=== PATIENT | female | born 1975 | race Two or more races ===

== ENCOUNTER → 2022-03-14 14:09 | Outpatient (BNVA) | payer OTHER, SELFPAY | PROVIDERS: PCP Internal Medicine; Visit Provider Nurse Practitioner Family | DX: Z51.81 Encounter for therapeutic drug level monitoring (principal); G43.109 Migraine with aura, not intractable, without status migrainosus; H54.62 Unqualified visual loss, left eye, normal vision right eye; Z79.899 Other long term (current) drug therapy | CPT/HCPCS: 99212 ==

== ENCOUNTER → 2022-03-23 11:11 | Outpatient (BNVA) | payer OTHER, SELFPAY | PROVIDERS: PCP Internal Medicine; Visit Provider Psychiatry & Neurology Neurology | DX: R51.9 Headache, unspecified (principal); R20.2 Paresthesia of skin ==

== ENCOUNTER → 2022-03-27 11:18 | Outpatient (BNVA) | payer OTHER, SELFPAY | PROVIDERS: PCP Internal Medicine; Visit Provider Nurse Practitioner Family | DX: H54.62 Unqualified visual loss, left eye, normal vision right eye (principal) | CPT/HCPCS: 99211 ==

== ENCOUNTER → 2022-03-29 14:32 | Outpatient (BNVA) | payer OTHER, SELFPAY | PROVIDERS: PCP Internal Medicine; Visit Provider Nurse Practitioner Family | DX: R51.9 Headache, unspecified (principal); R20.2 Paresthesia of skin ==

== ENCOUNTER 2022-03-30 09:06 | Day surgery (SDC) | payer OTHER, SELFPAY ==
--- NOTE | ~2022-03-30 | FL_ITS ---
EXAMINATION: XR LUMBAR PUNCTURE CLINICAL INFORMATION: Vision loss, left eye with normal vision. COMPARISON: None TECHNIQUE: Following explaining fluoroscopy-guided lumbar puncture procedure, benefits and risk, a written consent was obtained. Patient was placed prone on fluoroscopy table and low back area was cleaned and draped in usual sterile manner. 1% lidocaine was inserted at puncture site. A 22-gauge spinal needle was then advanced from the skin intrathecally at the L4-L5 disc level. After observing CSF return following removal of the stylet, patient was quickly placed in left lateral decubitus view and opening CSF pressure was obtained. CSF was then collected in 4 test tubes. Postprocedure, stylet was reintroduced and needle withdrawn. Complete hemostasis was achieved at puncture site. Sterile Band-Aid applied postprocedure. FINDINGS: Fluoroscopy-guided L4-L5 lumbar puncture performed without immediate complications. Opening CSF pressure measured 21 cm of water. Approximately 10.7 mL of clear CSF fluid was obtained in 4 test tubes. Initially there was a hemorrhagic fluid in one of the test tubes with the tube appearing pink-colored. FLUOROSCOPY TIME: 1.9 minutes. DOSE AREA PRODUCT: 18.885 uGy-m2 (microgray-meter squared) FL/FL guided lumbar puncture LP IMPRESSION: Successful fluoroscopy-guided lumbar puncture performed at the L4-L5 disc level.
[2022-03-30 09:24] VITALS: BMI 37.5
[2022-03-30 09:40] LABS: MANUAL DIFF FLAG NO
[2022-03-30 09:51] LABS: UPreg QC Valid YES; Urine Pregnancy NEGATIVE (NEGATIVE)
[2022-03-30 09:53] LABS: Basophils Percent Auto 0.5 % (0-2); Eosinophils Absolute Auto 0.1 X10*3/uL (0.0-0.4); Eosinophils Percent Auto 1.4 % (0-4); Hematocrit 37.4 % (37.0-47.0); Hemoglobin 11.9 g/dl (12.0-16.0); Imm Gran Abs Auto 0.06 X10*3/uL (0.00-0.03); Imm Gran Pct Auto 0.8 % (0.0-0.4); Lymphocytes Percent Auto 26.8 % (20-40); Mean Corpuscular HGB Conc 31.8 g/dl (31.0-35.0); Mean Corpuscular Hemoglobin 28.6 pg (27.0-33.0); Mean Corpuscular Volume 89.9 fL (80.0-98.0); Mean Platelet Volume 10.1 fL (9.4-12.3); Monocytes Absolute Auto 0.5 X10*3/uL (0.1-1.2); Monocytes Percent Auto 7.2 % (2-11); Neutrophils Absolute Auto 4.7 x10*3/uL (2.0-8.3); Neutrophils Percent Auto 63.3 % (45-73); Platelet Count 339 X10*3/uL (160-400); Red Blood Count 4.16 X10*6/uL (4.20-5.50); Red Cell Distribution Width 12.5 % (11.0-16.0); White Blood Count 7.4 X10*3/uL (4.8-10.8)
[2022-03-30 10:01] LABS: Prothrombin Time 11.9 SEC (9.9-13.0)
[2022-03-30 10:04] LABS: Partial Thromboplastin Time 31.7 SEC (24.1-38.0)
[2022-03-30 12:38] VITALS: BP 122/79; PULSE 76; RESP 16; TEMP 36.2; O2SAT 100
[2022-03-30 13:05] VITALS: BP 122/77; PULSE 75; RESP 16; O2SAT 100
[2022-03-30 13:35] VITALS: BP 112/82; PULSE 78; RESP 16; O2SAT 100
[2022-03-30 13:37] LABS: Glucose CSF 57 mg/dL; Total Protein CSF 69.9 mg/dL (15-45)
[2022-03-30 13:41] LABS: CSF Appearance Bloody; CSF Tube # 2
[2022-03-30 14:05] VITALS: BP 126/69; PULSE 75; RESP 16; O2SAT 100
[2022-03-30 14:08] LABS: Appearance CSF HAZY; CSF Monos 4 %; CSF Tube # 4; Color CSF COLORLESS; Lymphocytes CSF 72 %; Neutrophils CSF 24 %; Red Blood Cell CSF 202 MM*3; White Blood Cell CSF 6 MM*3
[2022-03-30 14:15] LABS: Appearance CSF HAZY; CSF Monos 4 %; CSF Tube # 1; Color CSF COLORLESS; Lymphocytes CSF 84 %; Neutrophils CSF 12 %; Red Blood Cell CSF 555 MM*3; White Blood Cell CSF 8 MM*3
[2022-03-30 15:00] VITALS: BP 109/67; PULSE 83; RESP 16; TEMP 36.2; O2SAT 100
[2022-04-07 01:02] LABS: Albumin 4.1 g/dL (3.5-5.2); Albumin, CSF 32.9 mg/dL (8.0-42.0); IgG 1210 mg/dL (600-1640); IgG, CSF 4.8 mg/dL (0.8-7.7)
== END 2022-03-30 15:06 | disposition home or self-care (01) ==
PROVIDERS: Nurse Practitioner Family; Radiology Diagnostic Radiology; PCP Internal Medicine; Visit Provider Radiology Diagnostic Radiology
PROC: 009U3ZZ Drainage of Spinal Canal, Percutaneous Approach (ICD-10-PCS; CPT 62270; principal; 2022-03-30 11:00)
DX: H54.62 Unqualified visual loss, left eye, normal vision right eye (principal); J32.3 Chronic sphenoidal sinusitis; G43.109 Migraine with aura, not intractable, without status migrainosus; F41.8 Other specified anxiety disorders; M54.2 Cervicalgia; R56.9 Unspecified convulsions; Z79.899 Other long term (current) drug therapy; Z88.0 Allergy status to penicillin
CPT/HCPCS: 36415; 62328; 81025; 82042; 82945; 84157; 85025; 85610; 85730; 87015; 87070; 87205; 89051

== ENCOUNTER 2022-04-16 13:16 | Outpatient (REF) | payer OTHER, SELFPAY | END 2022-04-16 13:17 | disposition home or self-care (01) | LOC: HO.MDS 13:16 | PROVIDERS: Visit Provider Nurse Practitioner Family | DX: G43.109 Migraine with aura, not intractable, without status migrainosus (principal); H54.62 Unqualified visual loss, left eye, normal vision right eye | CPT/HCPCS: 96365; J2930 ==

== ENCOUNTER 2022-04-17 13:19 | Outpatient (REF) | payer OTHER, SELFPAY | END 2022-04-17 13:20 | disposition home or self-care (01) | LOC: HO.MDS 13:19 | PROVIDERS: Visit Provider Nurse Practitioner Family | DX: M54.2 Cervicalgia (principal) | CPT/HCPCS: 96365; J2930 ==

== ENCOUNTER 2022-04-18 12:46 | Outpatient (REF) | payer OTHER, SELFPAY | END 2022-04-18 12:47 | disposition home or self-care (01) | LOC: HO.MDS 12:46 | PROVIDERS: Visit Provider Nurse Practitioner Family | DX: M54.2 Cervicalgia (principal) | CPT/HCPCS: 96365; J2930 ==

== ENCOUNTER 2022-04-19 12:42 | Outpatient (REF) | payer OTHER, SELFPAY | END 2022-04-19 12:43 | disposition home or self-care (01) | LOC: HO.MDS 12:42 | PROVIDERS: Visit Provider Nurse Practitioner Family | DX: M54.2 Cervicalgia (principal) | CPT/HCPCS: 96365; J2930 ==

== ENCOUNTER 2022-04-20 12:25 | Outpatient (REF) | payer OTHER, SELFPAY | END 2022-04-20 12:26 | disposition home or self-care (01) | LOC: HO.MDS 12:25 | PROVIDERS: Visit Provider Nurse Practitioner Family | DX: M54.2 Cervicalgia (principal) | CPT/HCPCS: 96365; J2930 ==

== ENCOUNTER → 2022-05-11 09:52 | Outpatient (BNVA) | payer OTHER, SELFPAY | PROVIDERS: PCP Internal Medicine; Visit Provider Nurse Practitioner Family | DX: G43.109 Migraine with aura, not intractable, without status migrainosus (principal); H54.62 Unqualified visual loss, left eye, normal vision right eye; J32.3 Chronic sphenoidal sinusitis; Z79.899 Other long term (current) drug therapy | CPT/HCPCS: 99212 ==

== ENCOUNTER 2022-05-23 12:48 | Outpatient (REF) | payer OTHER, SELFPAY ==
--- NOTE | ~2022-05-23 | MR_ITS ---
MRI ORBIT WITHOUT AND WITH CONTRAST CLINICAL INFORMATION: Left eye blurry vision. COMPARISON: None available. TECHNIQUE: MRI of the orbits was obtained using routine sequences without and with contrast. Intravenous contrast: Magnevist 10 mL. FINDINGS: The intraorbital soft tissues including the globes, extraocular muscles, lacrimal glands, and optic nerves are normal. Preserved fat within the orbital fissures and pterygopalatine fossa bilaterally. Bone marrow signal is homogenous and normal. No pathologic signal nor enhancement within the optic nerves. Pituitary gland is homogenous and unremarkable. Cavernous sinuses are symmetric and normal. There is moderate mucosal thickening within the right maxillary sinus and mild mucosal thickening within the left maxillary sinus. Mastoid air cells are clear. Rightward deviation of the nasal septum. No parenchymal signal abnormality. No pathologic enhancement intracranially. No acute infarcts. MR/MR orbits face neck wo/w con IMPRESSION: - Unremarkable MRI of the orbits. - There is moderate mucosal thickening within the right maxillary sinus and mild mucosal thickening within the left maxillary sinus.
== END 2022-05-23 12:49 | disposition home or self-care (01) ==
LOC: HO.MRI 12:48
PROVIDERS: Visit Provider Nurse Practitioner Family
DX: G43.109 Migraine with aura, not intractable, without status migrainosus (principal); H54.62 Unqualified visual loss, left eye, normal vision right eye
CPT/HCPCS: 70543; A9585

== ENCOUNTER → 2022-07-12 09:16 | Outpatient (BNVA) | payer OTHER, SELFPAY | PROVIDERS: PCP Internal Medicine; Visit Provider Nurse Practitioner Family | DX: G93.2 Benign intracranial hypertension (principal); J32.3 Chronic sphenoidal sinusitis; H54.62 Unqualified visual loss, left eye, normal vision right eye; G43.109 Migraine with aura, not intractable, without status migrainosus | CPT/HCPCS: 99212 ==

== ENCOUNTER → 2022-08-06 15:40 | Outpatient (BNVA) | payer OTHER, SELFPAY | PROVIDERS: PCP Internal Medicine; Visit Provider Nurse Practitioner Family | DX: G93.2 Benign intracranial hypertension (principal); J32.3 Chronic sphenoidal sinusitis; H54.62 Unqualified visual loss, left eye, normal vision right eye; G43.109 Migraine with aura, not intractable, without status migrainosus | CPT/HCPCS: 99212 ==

== ENCOUNTER → 2022-10-05 10:35 | Outpatient (BNVA) | payer OTHER, SELFPAY | PROVIDERS: PCP Internal Medicine; Visit Provider Nurse Practitioner Family | DX: G93.2 Benign intracranial hypertension (principal); H54.62 Unqualified visual loss, left eye, normal vision right eye; J32.3 Chronic sphenoidal sinusitis; G43.109 Migraine with aura, not intractable, without status migrainosus | CPT/HCPCS: 99212 ==

== ENCOUNTER → 2023-01-10 07:40 | Outpatient (BNVA) | payer OTHER, SELFPAY | PROVIDERS: PCP Internal Medicine; Visit Provider Nurse Practitioner Family | DX: G43.109 Migraine with aura, not intractable, without status migrainosus (principal); H54.62 Unqualified visual loss, left eye, normal vision right eye; G93.2 Benign intracranial hypertension; R55 Syncope and collapse | CPT/HCPCS: 99212 ==

== ENCOUNTER 2023-01-18 07:46 | Outpatient (REF) | payer OTHER, SELFPAY ==
--- NOTE | 2023-01-18 07:49 | EEG_ITS ---
This is a 16 channel EEG with an EKG lead. The patient is reported awake during the tracing. Background EEG rhythm is low amplitude fast with no obvious asymmetry or paroxysmal tendency. Photic stimulation does not produce any significant abnormality. Hyperventilation is not performed. Cardiac lead does not reveal any significant abnormality. No sharp wave spikes or paroxysmal tendency noted. IMPRESSION: Unremarkable EEG. MD CHRIS Millard/VADIM / [id number]
== END 2023-01-18 07:47 | disposition home or self-care (01) ==
LOC: HO.NEURO 07:46
PROVIDERS: Visit Provider Nurse Practitioner Family
DX: R55 Syncope and collapse (principal)
CPT/HCPCS: 95816

== ENCOUNTER → 2023-02-20 09:07 | Outpatient (BNVA) | payer OTHER, SELFPAY | PROVIDERS: PCP Internal Medicine; Visit Provider Psychiatry & Neurology Neurology | DX: G43.109 Migraine with aura, not intractable, without status migrainosus (principal); H54.62 Unqualified visual loss, left eye, normal vision right eye; G93.2 Benign intracranial hypertension; R55 Syncope and collapse; G47.9 Sleep disorder, unspecified | CPT/HCPCS: 99212 ==

== ENCOUNTER 2023-03-26 09:36 | Outpatient (REF) | payer OTHER, SELFPAY ==
--- NOTE | ~2023-03-26 | MR_ITS ---
EXAMINATION: MR BRAIN WITH AND WITHOUT CONTRAST CLINICAL INFORMATION: Left eye vision loss COMPARISON: MRI orbits 05/23/2022 TECHNIQUE: MRI of the brain was obtained using routine sequences before and following administration of intravenous contrast. A total of 10 mL of Gadavist was administered intravenously. FINDINGS: No acute infarct. The GRE sequence is without susceptibility artifact to suggest acute or chronic blood products. No extra-axial fluid collection. The ventricles and sulci are normal in size and configuration without significant volume loss or hydrocephalus. No abnormal intraparenchymal or leptomeningeal enhancement. No significant mass effect or herniation pattern. The intracranial dural venous sinus and arterial flow voids are preserved. Normal appearance of the midline structures. The orbits are grossly unremarkable. Worsening pansinonasal mucosal disease with increased moderate left greater than right sphenoid sinus mucosal disease and moderate right greater than left maxillary sinus mucosal disease with new air-fluid levels in the maxillary sinuses, subtotal opacification with air-fluid level in the right frontal sinus, and patchy opacification of the right ethmoid air cells, which can be correlated clinically for signs of superimposed acute sinusitis. Normal marrow signal. Multilevel prominent symmetric upper cervical chain lymph nodes, presumably reactive. MR/MR head/brain wo/w con IMPRESSION: 1. No acute intracranial abnormality. No abnormal intracranial enhancement. 2. Worsening pansinonasal mucosal disease as described above with new air-fluid levels in the right frontal and bilateral maxillary sinuses and partially opacified anterior right ethmoid air cells, which can be correlated clinically for superimposed acute sinusitis.
== END 2023-03-26 09:37 | disposition home or self-care (01) ==
LOC: HO.MRI 09:36
PROVIDERS: PCP Internal Medicine; Visit Provider Nurse Practitioner Family
DX: H54.62 Unqualified visual loss, left eye, normal vision right eye (principal); J32.3 Chronic sphenoidal sinusitis; G93.2 Benign intracranial hypertension
CPT/HCPCS: 70553; A9585

== ENCOUNTER → 2023-05-06 09:38 | Outpatient (BNVA) | payer OTHER, SELFPAY | PROVIDERS: PCP Internal Medicine; Visit Provider Psychiatry & Neurology Neurology | DX: G43.109 Migraine with aura, not intractable, without status migrainosus (principal); H54.62 Unqualified visual loss, left eye, normal vision right eye; G93.2 Benign intracranial hypertension; R55 Syncope and collapse; G47.9 Sleep disorder, unspecified | CPT/HCPCS: 99212 ==

== ENCOUNTER → 2023-05-09 10:43 | Outpatient (REF) | payer OTHER, SELFPAY | LOC: HO.SL 10:43 | PROVIDERS: Visit Provider Psychiatry & Neurology Neurology | DX: G47.9 Sleep disorder, unspecified (principal); R06.83 Snoring | CPT/HCPCS: 95806 ==

== ENCOUNTER 2023-06-03 08:37 | Day surgery (SDC) | payer OTHER, SELFPAY ==
[2023-06-03] VITALS (7 sets, daily range): BP systolic 109–123; BP diastolic 50–73; PULSE 58–83; RESP 17–18; TEMP 36.5–37.6; O2SAT 99–100; BMI 32.1
--- NOTE | ~2023-06-03 | FL_ITS ---
EXAMINATION: XR LUMBAR PUNCTURE CLINICAL INFORMATION: Benign intracranial hypertension. COMPARISON: None available. TECHNIQUE: Following explaining fluoroscopy-guided lumbar puncture procedure, benefits and risk, a written consent was obtained. Patient was placed prone on fluoroscopy table and low back area was cleaned and draped in usual sterile manner. 1% lidocaine was injected at puncture site. Under fluoroscopy guidance a 22-gauge spinal needle was advanced intrathecally with a left para midline approach at the L4-L5 disc level. After removing stylet and observing fluid return, patient was currently patient left lateral decubitus view and opening CSF pressure was obtained. Clear CSF fluid was then collected in 4 test tubes. Postprocedure stylet was and reinserted into the needle and entire needle was removed. Complete hemostasis achieved at puncture site. Sterile Band-Aid applied postprocedure. Patient tolerated procedure extremely well. FINDINGS: On a single image obtained of the lumbar spine visualized vertebral heights, alignment and disc heights are normal. No visible acute fracture or dislocation seen. The SI joints are symmetrical and normal. No lytic or sclerotic process seen. Opening CSF pressure measures 11 cm/water. Approximately 11 mL of clear CSF fluid was collected in 4 test tubes and sent to lab for further evaluation. FLUOROSCOPY TIME: 0.9 minutes DOSE AREA PRODUCT: 15.443 uGy-m2 (microgray-meter squared) FL/FL guided lumbar puncture LP IMPRESSION: Successful fluoroscopy-guided lumbar puncture performed without immediate complications.
[2023-06-03 12:56] LABS: CSF Appearance Clear, Colorless; CSF Tube # 1
[2023-06-03 13:31] LABS: Glucose CSF 53 mg/dL; Total Protein CSF 80.3 mg/dL (15-45)
== END 2023-06-03 15:11 | disposition home or self-care (01) ==
PROVIDERS: Nurse Practitioner Family; Psychiatry & Neurology Neurology; PCP Internal Medicine; Visit Provider Radiology Diagnostic Radiology
PROC: 009U3ZZ Drainage of Spinal Canal, Percutaneous Approach (ICD-10-PCS; CPT 62270; principal; 2023-06-03 11:00)
DX: G93.2 Benign intracranial hypertension (principal); J32.3 Chronic sphenoidal sinusitis; M50.90 Cervical disc disorder, unspecified, unspecified cervical region; H54.62 Unqualified visual loss, left eye, normal vision right eye; G43.109 Migraine with aura, not intractable, without status migrainosus; R56.9 Unspecified convulsions; R55 Syncope and collapse; F41.8 Other specified anxiety disorders; Z79.82 Long term (current) use of aspirin; Z79.51 Long term (current) use of inhaled steroids; Z79.899 Other long term (current) drug therapy; Z88.0 Allergy status to penicillin
CPT/HCPCS: 36415; 62328; 80051; 80053; 81025; 82945; 84157; 84520; 85025; 85610; 85730; 87015; 87070; 87205; 89051

== ENCOUNTER → 2023-06-03 10:44 | Outpatient (BNV) | payer OTHER, SELFPAY | PROVIDERS: PCP Internal Medicine; Visit Provider Radiology Diagnostic Radiology | DX: G93.2 Benign intracranial hypertension (principal) | CPT/HCPCS: 62328 ==

== ENCOUNTER → 2023-06-28 19:30 | Outpatient (REF) | payer OTHER, SELFPAY | LOC: HO.SL 19:30 | PROVIDERS: PCP Internal Medicine; Visit Provider Nurse Practitioner Family | DX: G47.9 Sleep disorder, unspecified (principal); E66.9 Obesity, unspecified; G43.109 Migraine with aura, not intractable, without status migrainosus | CPT/HCPCS: 95810 ==

== ENCOUNTER → 2023-06-29 05:44 | Outpatient (BNV) | payer OTHER, SELFPAY | PROVIDERS: PCP Internal Medicine; Visit Provider Psychiatry & Neurology Neurology | DX: R06.83 Snoring (principal) | CPT/HCPCS: 95810 ==

== ENCOUNTER 2023-08-07 08:56 | Outpatient (AMB) | payer OTHER, SELFPAY ==
--- NOTE | 2023-08-07 09:09 | A.OFFVIS_ITS ---
Intake Vital Signs 08/07/23 09:23 Height 5 ft 7 in Weight 201 lb 4 oz BMI 31.5 BP 110/76 Blood Pressure Location Rt brachial Position Sitting Pulse 74 Pulse Source Pulse Oximeter Pulse Oximetry (%) 98 Oxygen Delivery Method Room Air Intake Visit Reasons: follow up Intake Note: Patient presents for follow up. patient states I'm just getting a lot of headaches for about a month now. Allergies pineapple Allergy (Intermediate, Verified 08/07/23 09:23) Swelling Penicillins Allergy (Mild, Verified 08/07/23 09:23) Swelling Medication List - Last Reconciled 08/07/23 by Edna Sharp, ZABRINA acetaminophen 500 mg PO PRN acetazolamide 500 mg (2 x 250 mg) PO TID 30 days aspirin tabs PO azelastine intranasal gpgshbdsjl-omnhasxvlsvxw-hakm 50-325-40 mg 2 tabs PO Q4-6H PRN 7 days cetirizine 10 mg PO DAILY diphenhydramine HCl (Benadryl) 25 - 50 mg (1 - 2 x 25 mg) PO Q8H PRN 5 days fluticasone propionate 110 mcg/actuation (Flovent HFA) grams inhalation fremanezumab-vfrm (Ajovy) 675 mg (4.5 mL) subcut [id number] 90 days ondansetron 4 mg PO PRN pantoprazole tabs PO prazosin 2 mg PO BEDTIME sertraline 50 mg PO PRN sumatriptan succinate 1/2-1 tab po at onset of migraine, may repeat in 2 hours, max of 2 tabs per day or 4 tabs per week 2 doses topiramate 100 mg (2 x 50 mg) PO BID 30 days HPI HPI Comments History of Present Illness Details 47-yr-old female presents for f/u visit. Pt denies any significant interval medical changes. Pt reports she saw ENT- but not sure exactly what came of it, she is supposed to do allergy testing in Sep. She does feel that she always struggles w/ allergy symptoms. The left sided headache has been worse in the last month, but even more so in the last 2 days. The headache is pounding pressure a/w photophobia, phonophobia, nausea, sometimes left supraorbital and maxillary tingling (can occur other times as well, even with light mechanical stimuli). The headaches are worse in the morning, and around 5-6pm, as well as when she is more active. She ran out of Acetazolamide about 2 days ago. She is compliant w/ Ajovy and Topiramate. She stopped Amitriptyline and did not notice any difference. Vision is the same. Lp- showed OP 11 cmH2O (note- was performed in prone position). She has [facility] consult scheduled in Aug. MR/MR head/brain wo/w con IMPRESSION: 1. No acute intracranial abnormality. N o abnormal intracranial enhancement. 2. Worsening pansinonasal mucosal disea se as described above with new air-fluid levels in the right frontal and bilateral maxillary sinuses and partially opacified anterior right ethmoid air cells, which can be correlated clinically for superimposed acute sinusitis. 06/03/12, LP CSF tube 4 CSF volume 2.0 CSF appearance clear CSF color colorless CSF WBC 2 CSF RBC 8 CSF leukocytes 100 CSF glucose 53 CSF total protein 80.3 H Gram stain and Culture- negative, no growth. 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 Review of Systems Const All systems reviewed & are unremarkable except as noted in HPI and below Physical Exam Vital Signs: Last Vital Signs Pulse 74 08/07/23 09:23 BP 110/76 08/07/23 09:23 Pulse Ox 98 08/07/23 09:23 Oxygen Delivery Method Room Air 08/07/23 09:23 BMI result Body Mass Index 31.5 Const General: cooperative and no acute distress Orientation/consciousness: patient oriented x3 HEENT Head: Yes normocephalic Resp Effort & Inspection: normal respiratory effort and able to speak in complete sentences Neuro Other: Left medial nasal vision blurriness w/ intact red color perception Left supraorbital and maxillary tenderness to palpation EOM intact w/o discomfort General: patient oriented x3, gait normal and CN's II-XI intact bilaterally Cognition (Neuro): normal cognition Motor exam (neuro): 5/5 motor strength present throughout Pupils: Normal pupillary reactivity/response: bilateral Psych Appearance: grossly normal Mental Status: mental status grossly normal Speech and movement: Normal speech and movement present Affect: normal affect Attitude: cooperative Thought process: Normal thought process present Thought content: Normal thought content present Insight: Good insight present (Psych) Judgement: Good judgement present (Psych) Assessment & Plan Assessment & Plan (1) Migraine with aura: Code(s): G43.109 - Migraine with aura, not intractable, without status migrainosus (2) Sleep disorder: Comment: snoring, gasping, fragmented sleep, excessive daytime tiredness, significant weight gain. h/o REM sleep behaviors. HST (2017)- nocturnal hypoxemia. Code(s): G47.9 - Sleep disorder, unspecified (3) IIH (idiopathic intracranial hypertension): Code(s): G93.2 - Benign intracranial hypertension (4) Vision loss of left eye: Code(s): H54.62 - Unqualified visual loss, left eye, normal vision right eye Plan For left eye visual loss and IIH: Reviewed LP- OP 11- pt was in prone position. CSF- studies, NL, w/ exception of still elevated CSF protein 80.3H. Resume acetazolamide 500mg tid. [facility] consult as scheduled. F/U w/ ENT as scheduled For migraine- Trial cyproheptadine 4 mg qhs- may help allergy s/s and headaches- will need to hold this prior to allergy testing. Continue Ajovy 225mg sc q month. Continue Topiramate 100mg bid. Sumatriptan- take at 1st sign of migraine. Previous tx: Amitriptyline 50mg- no benefit. Medications: New cyproheptadine 4 mg PO BEDTIME 30 days 30 tabs 3RF Refilled acetazolamide 500 mg (2 x 250 mg) PO TID 30 days 180 tabs 3RF G93.2 - Benign intracranial hypertension sumatriptan succinate 1/2-1 tab po at onset of migraine, may repeat in 2 hours, max of 2 tabs per day or 4 tabs per week 12 tabs 6RF migraine headache Coding Level of Care Code Est Pt Level 4 (36752) Diagnoses Migraine with aura G43.109 Sleep disorder G47.9 IIH (idiopathic intracranial hypertension) G93.2 Vision loss of left eye H54.62
[2023-08-07 09:23] VITALS: BP 110/76; PULSE 74; O2SAT 98; BMI 31.5
== END 2023-08-07 10:34 | disposition home or self-care (01) ==
PROVIDERS: PCP Internal Medicine; Visit Provider Nurse Practitioner Family
DX: G43.109 Migraine with aura, not intractable, without status migrainosus (principal); G47.9 Sleep disorder, unspecified; G93.2 Benign intracranial hypertension; H54.62 Unqualified visual loss, left eye, normal vision right eye
CPT/HCPCS: 99214

== ENCOUNTER → 2023-08-07 08:56 | Outpatient (BNVA) | payer OTHER, SELFPAY | PROVIDERS: PCP Internal Medicine; Visit Provider Nurse Practitioner Family | DX: G43.109 Migraine with aura, not intractable, without status migrainosus (principal); G93.2 Benign intracranial hypertension; H54.62 Unqualified visual loss, left eye, normal vision right eye; G47.9 Sleep disorder, unspecified | CPT/HCPCS: 99212 ==

== ENCOUNTER 2023-10-09 15:24 | Outpatient (AMB) | payer OTHER, SELFPAY ==
--- NOTE | 2023-10-09 15:30 | MHC.OFFVIS ---
Intake Vital Signs 10/09/23 15:32 Height 5 ft 7 in Weight 201 lb BMI 31.5 BP 138/92 H Blood Pressure Location Rt brachial Position Sitting Respiration 16 Pulse 76 Pulse Source Pulse Oximeter Pulse Oximetry (%) 97 Oxygen Delivery Method Room Air Intake Visit Reasons: 3m follow-eye problems - Confirmed Intake Note: Pt presents to the office for 3 month follow up for eye problems. She reports her symptoms are unchanged since her last visit. Curing Oven Attendant Required: No Allergies pineapple Allergy (Intermediate, Verified 10/09/23 15:31) Swelling Penicillins Allergy (Mild, Verified 10/09/23 15:31) Swelling Medication List - Last Reconciled 10/09/23 by Angelia Lawler MD acetaminophen 500 mg PO PRN acetazolamide 500 mg (2 x 250 mg) PO TID 30 days aspirin tabs PO azelastine intranasal gaiiovywdr-dxtymkkmbhlaf-bvjq 50-325-40 mg 2 tabs PO Q4-6H PRN 7 days cetirizine 10 mg PO DAILY cyproheptadine 4 mg PO BEDTIME 30 days diphenhydramine HCl (Benadryl) 25 - 50 mg (1 - 2 x 25 mg) PO Q8H PRN 5 days fluticasone propionate 110 mcg/actuation (Flovent HFA) grams inhalation fremanezumab-vfrm (Ajovy) 675 mg (4.5 mL) subcut [id number] 90 days ondansetron 4 mg PO PRN pantoprazole tabs PO prazosin 2 mg PO BEDTIME sertraline 50 mg PO PRN sumatriptan succinate 1/2-1 tab po at onset of migraine, may repeat in 2 hours, max of 2 tabs per day or 4 tabs per week 2 doses topiramate 100 mg (2 x 50 mg) PO DAILY 30 days HPI HPI Comments History of Present Illness Details 47-yr-old female presents for f/u visit. 2 weeks ago she started with allergies and developed sinus infection and has headaches everyday. Her PCP suggested OCT meds and has follow up tomorrow for possible starting antibiotics. Prior to this she was having 2-3 headaches a week she is on diamox 500mg bid cyproheptadine 4 mg qhs- Ajovy 225mg sc q month. Topiramate 100mg qam Sumatriptan- take at 1st sign of migraine. Previous tx: Amitriptyline 50mg- no benefit. Her MRI brain was reviewed again and shows increase in sinus disease. No episodes of passing out Her vision is stable, however she continues to have left medial nasal vision blurriness. Pt states this can fluctuate from blurriness, like is it today, to loss of vision She takes fioricet 1-2 tabs a month Tylenol 1-2 a month Sumatriptan-12 tabs a month PFSH Medical History Sinusitis Anxiety and depression Seizure Cervicalgia Surgical History History of toe surgery History of surgery on wrist Family History Mother Heart disease HTN (hypertension) Father HTN (hypertension) Heart disease Diabetes Social History Household Members: Spouse and Children Alcohol intake: current Alcohol intake frequency: does not drink Patient Tobacco Use Status: Never used Tobacco Current occupational status: employed 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 Physical Exam Vital Signs: Last Vital Signs Pulse 76 10/09/23 15:32 Resp 16 10/09/23 15:32 BP 138/92 H 10/09/23 15:32 Pulse Ox 97 10/09/23 15:32 Oxygen Delivery Method Room Air 10/09/23 15:32 BMI result Body Mass Index 31.5 Const General: cooperative and no acute distress Orientation/consciousness: patient oriented x3 HEENT Head: Yes normocephalic Resp Effort & Inspection: normal respiratory effort and able to speak in complete sentences Neuro Other: Left medial nasal vision blurriness w/ intact red color perception Left supraorbital and maxillary tenderness to palpation EOM intact w/o discomfort General: patient oriented x3, gait normal and CN's II-XI intact bilaterally Cognition (Neuro): normal cognition Motor exam (neuro): 5/5 motor strength present throughout Pupils: Normal pupillary reactivity/response: bilateral Psych Appearance: grossly normal Mental Status: mental status grossly normal Speech and movement: Normal speech and movement present Affect: normal affect Attitude: cooperative Thought process: Normal thought process present Thought content: Normal thought content present Insight: Good insight present (Psych) Judgement: Good judgement present (Psych) Assessment & Plan Assessment & Plan (1) Migraine with aura: Code(s): G43.109 - Migraine with aura, not intractable, without status migrainosus (2) Sleep disorder: Comment: snoring, gasping, fragmented sleep, excessive daytime tiredness, significant weight gain. h/o REM sleep behaviors. HST (2017)- nocturnal hypoxemia. Code(s): G47.9 - Sleep disorder, unspecified (3) IIH (idiopathic intracranial hypertension): Code(s): G93.2 - Benign intracranial hypertension (4) Vision loss of left eye: Code(s): H54.62 - Unqualified visual loss, left eye, normal vision right eye Plan Reviewed LP- OP 11- pt was in prone position. CSF- studies, NL, w/ exception of still elevated CSF protein 80.3H acetazolamide 500mg tid. For migraine- continue cyproheptadine 4 mg qhs- may help allergy s/s and headaches- will need to hold this prior to allergy testing. Continue Ajovy 225mg sc q month. Continue Topiramate 100mg qhs. Sumatriptan- take at 1st sign of migraine. Previous tx: Amitriptyline 50mg- no benefit. Medications: Changed From topiramate 100 mg (2 x 50 mg) PO BID 120 tabs 6RF 30 days To topiramate 100 mg (2 x 50 mg) PO DAILY 60 tabs 6RF 30 days Coding Level of Care Code Est Pt Level 4 (46936) Diagnoses Migraine with aura G43.109 Sleep disorder G47.9 IIH (idiopathic intracranial hypertension) G93.2 Vision loss of left eye H54.62
[2023-10-09 15:32] VITALS: BP 138/92; PULSE 76; RESP 16; O2SAT 97; BMI 31.5
== END 2023-10-09 16:00 | disposition home or self-care (01) ==
PROVIDERS: PCP Internal Medicine; Visit Provider Psychiatry & Neurology Neurology
DX: G43.109 Migraine with aura, not intractable, without status migrainosus (principal); G47.9 Sleep disorder, unspecified; G93.2 Benign intracranial hypertension; H54.62 Unqualified visual loss, left eye, normal vision right eye
CPT/HCPCS: 99214

== ENCOUNTER → 2023-10-09 15:24 | Outpatient (BNVA) | payer OTHER, SELFPAY | PROVIDERS: PCP Internal Medicine; Visit Provider Psychiatry & Neurology Neurology | DX: H54.62 Unqualified visual loss, left eye, normal vision right eye (principal); G43.109 Migraine with aura, not intractable, without status migrainosus; G93.2 Benign intracranial hypertension; G47.9 Sleep disorder, unspecified | CPT/HCPCS: 99212 ==

== ENCOUNTER 2023-11-20 08:46 | Outpatient (AMB) | payer OTHER, SELFPAY ==
[2023-11-20 08:58] VITALS: BP 128/80; PULSE 64; O2SAT 100; BMI 31.2
--- NOTE | 2023-11-20 08:58 | A.OFFVIS_ITS ---
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 Accompanied by: Self / Same As Patient Allergies pineapple Allergy (Intermediate, Verified 11/20/23 09:01) Swelling Penicillins Allergy (Mild, Verified 11/20/23 09:01) Swelling Medication List - Last Reconciled 11/20/23 by ZABRINA Dowd acetaminophen 500 mg PO PRN acetazolamide 500 mg (2 x 250 mg) PO TID 30 days aspirin tabs PO azelastine intranasal cjcdxgxlsq-jijtpqzkopiml-thtd 50-325-40 mg 2 tabs PO Q4-6H PRN 7 days cetirizine 10 mg PO DAILY cyproheptadine 4 mg PO BEDTIME 30 days diphenhydramine HCl (Benadryl) 25 - 50 mg (1 - 2 x 25 mg) PO Q8H PRN 5 days fluticasone propionate 110 mcg/actuation (Flovent HFA) grams inhalation fremanezumab-vfrm (Ajovy) 675 mg (4.5 mL) subcut Q3CMGJEQ 90 days ondansetron 4 mg PO PRN pantoprazole tabs PO prazosin 2 mg PO BEDTIME sertraline 50 mg PO PRN sumatriptan succinate 1/2-1 tab po at onset of migraine, may repeat in 2 hours, max of 2 tabs per day or 4 tabs per week 2 doses topiramate 100 mg (2 x 50 mg) PO DAILY 30 days HPI HPI Comments History of Present Illness Details 48-yr-old female presents for f/u visit. Pt denies any significant interval medical changes. Pt had allergy testing through [facility] appt next month to review results. Left medial vision loss- stable. This is worse when she has a cold or sinus s/s. She is having 3 migraine days per week- starts in the occipital region. Some days she can wake up with a headache- sometimes this headache is worse and less responsive to her Fioricet. She may hold taking Sumatriptan until after she sees effect from Fioricet- as the Sumatriptan can cause GI upset. She is complant w/ the cyproheptadine, ajovy, topiramate, acetazolamide. She has noted some increased lower neck tightness. Denies shooting pain, UE weakness. Has been trying to do stretches. Plans to try a new pillow. 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 Negative spurling. Left medial vision blurry. Red color perception intact. General: patient oriented x3 and gait normal Cognition (Neuro): normal cognition Motor exam (neuro): 5/5 motor strength present throughout Deep tendon reflexes (DTR's): Right triceps reflex intensity grade: 2+, Left triceps reflex intensity grade: 2+, Rt Biceps (C5, C6): 2+, Left biceps reflex intensity grade: 2+, Right brachioradialis reflex intensity grade: 2+, Left brachioradialis reflex intensity grade: 2+, Right patellar reflex intensity grade: 1+ and Left patellar reflex intensity grade: 1+ Psych Appearance: grossly normal Mental Status: mental status grossly normal Speech and movement: Normal speech and movement present Affect: normal affect Attitude: cooperative Thought process: Normal thought process present Thought content: Normal thought content present Insight: Good insight present (Psych) Judgement: Good judgement present (Psych) Assessment & Plan Assessment & Plan (1) Worsening headaches: Code(s): R51.9 - Headache, unspecified (2) IIH (idiopathic intracranial hypertension): Code(s): G93.2 - Benign intracranial hypertension (3) Migraine with aura: Code(s): G43.109 - Migraine with aura, not intractable, without status migrainosus (4) Vision loss of left eye: Code(s): H54.62 - Unqualified visual loss, left eye, normal vision right eye (5) Elevated CSF protein: Code(s): R83.8 - Other abnormal findings in cerebrospinal fluid (6) Cervicalgia: Code(s): M54.2 - Cervicalgia Plan For left eye visual loss, IIH, hx spenoid sinusitis: Pt advised to undergo f/u brain mri w/wo to assess status of intracranial sinus disease as pt is having increased headaches. Pt advised to undergo c-spine mri w/wo to assess for demyelinating lesions, signs of NMO/MS in setting of hx of vision loss, left vision color desatyration, neck pain, and elevated CSF protein levels. Continue acetazolamide 500mg tid. Check labs- CBC, CMP, AQP4 AB [facility] consult as scheduled. F/U w/ ENT as scheduled ? For migraine- Continue cyproheptadine 4 mg qhs- may help allergy s/s and headaches. Continue Ajovy 225mg sc q month. Continue Topiramate 100mg bid. Hold Sumatriptan- causes nausea. Try Rizatriptan 10mg prn- take at 1st sign of migraine. May use Fioricet prn sparungly. Previous tx: Amitriptyline 50mg- no benefit. Future considerations- gepant- would need to hold fioricet. For neck pain- Try cyclobenzaprine 5-10mg qhs prn. f/u in 3 months or sooner prn Orders: Orders MR head/brain wo/w con Today G93.2 - Benign intracranial hypertension, H54.62 - Unqualified visual loss, left eye, normal vision right eye, J32.3 - Chronic sphenoidal sinusitis, R51.9 - Headache, unspecified Other Ref Test - Misc Today H54.62 - Unqualified visual loss, left eye, normal vision right eye, R51.9 - Headache, unspecified Complete Blood Count Auto Diff Today G93.2 - Benign intracranial hypertension, R51.9 - Headache, unspecified Comprehensive Met. Panel Today G93.2 - Benign intracranial hypertension, R51.9 - Headache, unspecified MR cervical spine wo/w con Today H54.62 - Unqualified visual loss, left eye, normal vision right eye, M54.2 - Cervicalgia, R83.8 - Other abnormal findings in cerebrospinal fluid Medications: New rizatriptan max 2 tabs per day or 4 tabs per week 5 - 10 mg (0.5 - 1 x 10 mg) PO Q2H 21 days PRN 12 tabs 3RF migraine headache cyclobenzaprine 5 - 10 mg (1 - 2 x 5 mg) PO BEDTIME 30 days PRN 60 tabs 1RF muscle spasm Coding Level of Care Code Est Pt Level 4 (10425) Diagnoses Worsening headaches R51.9 IIH (idiopathic intracranial hypertension) G93.2 Migraine with aura G43.109 Vision loss of left eye H54.62 Elevated CSF protein R83.8 Cervicalgia M54.2
== END 2023-11-20 09:59 | disposition home or self-care (01) ==
PROVIDERS: PCP Internal Medicine; Visit Provider Nurse Practitioner Family
DX: R51.9 Headache, unspecified (principal); G93.2 Benign intracranial hypertension; G43.109 Migraine with aura, not intractable, without status migrainosus; H54.62 Unqualified visual loss, left eye, normal vision right eye; R83.8 Other abnormal findings in cerebrospinal fluid; M54.2 Cervicalgia
CPT/HCPCS: 99214

== ENCOUNTER → 2023-11-20 08:46 | Outpatient (BNVA) | payer OTHER, SELFPAY | PROVIDERS: PCP Internal Medicine; Visit Provider Nurse Practitioner Family | DX: G93.2 Benign intracranial hypertension (principal); R51.9 Headache, unspecified; G43.109 Migraine with aura, not intractable, without status migrainosus; H54.62 Unqualified visual loss, left eye, normal vision right eye; M54.2 Cervicalgia; R83.8 Other abnormal findings in cerebrospinal fluid | CPT/HCPCS: 99212 ==

== ENCOUNTER 2024-01-15 10:20 | Outpatient (REF) | payer OTHER, SELFPAY ==
--- NOTE | ~2024-01-15 | MR_ITS ---
EXAMINATION: MR CERVICAL SPINE WITH AND WITHOUT CONTRAST CLINICAL INFORMATION: Visual loss, left eye, normal vision in the right. COMPARISON: None available. TECHNIQUE: Multiplanar, multisequence MRI of the cervical spine was obtained before and after the intravenous administration of 9 mL Gadavist. FINDINGS: Motion artifact is present. Mild retrolisthesis at C4-C5. No abnormal bone marrow signal. The vertebral body heights are preserved. Multilevel disc desiccation without significant disc height loss. The spinal cord is normal in caliber. No abnormal cord signal or enhancement. C2-C3: No significant spinal canal or neural foraminal narrowing. C3-C4: No significant spinal canal or neural foraminal narrowing. C4-C5: Tiny disc-osteophyte complex. No significant spinal canal or neural foraminal narrowing. C5-C6: Tiny disc-osteophyte complex. No significant spinal canal or neural foraminal narrowing. C6-C7: Disc-osteophyte complex. No significant spinal canal or neural foraminal narrowing. C7-T1: Disc-osteophyte complex. No significant spinal canal or neural foraminal narrowing. There paravertebral soft tissues are unremarkable. The visualized lung apices are clear. MR/MR cervical spine wo/w con IMPRESSION: Within the limitations of this study, -Minimal multilevel degenerative changes through the cervical spine without significant spinal canal or neural foraminal narrowing. No abnormal cord signal.
--- NOTE | ~2024-01-15 | MR_ITS ---
EXAMINATION: MR BRAIN WITHOUT AND WITH CONTRAST CLINICAL INFORMATION: Headache COMPARISON: MRI brain on 03/26/2023 TECHNIQUE: Multiplanar, multisequence MRI of the brain was obtained before and after the intravenous administration of 9 mL Gadavist. FINDINGS: No abnormal intraparenchymal enhancement. No acute intracranial hemorrhage or infarct. Few scattered periventricular and deep white matter T2/FLAIR hyperintensities, nonspecific. No midline shift or hydrocephalus. No acute extra-axial fluid collections. The osseous structures are unremarkable. The pituitary gland, pineal gland and remaining midline structures are unremarkable. No orbital pathology. Improved pansinus disease with new level in the left maxillary sinus. The mastoid air cells are clear. MR/MR head/brain wo/w con IMPRESSION: -No acute intracranial abnormalities. -Few nonspecific periventricular and deep white matter T2/FLAIR hyperintensities. -Improved pansinus disease with new fluid level in the left maxillary sinus, which can be seen in the setting of acute sinusitis.
[2024-01-15] MEDS: gadobutroL 10 ML VIAL IVPUSH (11:56)
== END 2024-01-15 10:21 | disposition home or self-care (01) ==
LOC: HO.MRI 10:20
PROVIDERS: Visit Provider Nurse Practitioner Family
DX: H54.62 Unqualified visual loss, left eye, normal vision right eye (principal); R83.8 Other abnormal findings in cerebrospinal fluid; M54.2 Cervicalgia; R51.9 Headache, unspecified; G93.2 Benign intracranial hypertension; J32.3 Chronic sphenoidal sinusitis
CPT/HCPCS: 70553; 72156; A9585

== ENCOUNTER 2024-01-30 09:45 | Outpatient (AMB) | payer OTHER, SELFPAY ==
--- NOTE | 2024-01-30 09:51 | MHC.OFFVIS ---
Intake Vital Signs 01/30/24 09:52 Height 5 ft 7 in Weight 197 lb 8 oz BMI 30.9 BP 126/84 Blood Pressure Location Rt brachial Position Sitting Respiration 17 Pulse 67 Pulse Source Pulse Oximeter Pulse Oximetry (%) 96 Oxygen Delivery Method Room Air Intake Visit Reasons: 3 mo f/u - eye problems-CONF Intake Note: Pt presents for a 3 month follow up for cervicalgia. 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 Pt denies any significant interval medical changes. Pt had allergy testing through [facility]- recommended some medications but did not start yet Left medial vision loss- stable. This is worse when she has a cold or sinus s/s. She is having 3 migraine days per week- starts in the occipital region. Some days she can wake up with a headache- sometimes this headache is worse and less responsive to her Fioricet. She may hold taking Sumatriptan until after she sees effect from Fioricet- as the Sumatriptan can cause GI upset. She is compliant w/ the cyproheptadine, ajovy, topiramate, acetazolamide. 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 Tenderness in left levator splenius semispinalis with restricted range of motion Left medial vision blurry. Red color perception intact. General: patient oriented x3 and gait normal Cognition (Neuro): normal cognition Motor exam (neuro): 5/5 motor strength present throughout Deep tendon reflexes (DTR's): Right triceps reflex intensity grade: 2+, Left triceps reflex intensity grade: 2+, Rt Biceps (C5, C6): 2+, Left biceps reflex intensity grade: 2+, Right brachioradialis reflex intensity grade: 2+, Left brachioradialis reflex intensity grade: 2+, Right patellar reflex intensity grade: 1+ and Left patellar reflex intensity grade: 1+ Psych Appearance: grossly normal Mental Status: mental status grossly normal Speech and movement: Normal speech and movement present Affect: normal affect Attitude: cooperative Thought process: Normal thought process present Thought content: Normal thought content present Insight: Good insight present (Psych) Judgement: Good judgement present (Psych) Assessment & Plan Assessment & Plan (1) IIH (idiopathic intracranial hypertension): Code(s): G93.2 - Benign intracranial hypertension (2) Migraine with aura: Code(s): G43.109 - Migraine with aura, not intractable, without status migrainosus (3) Vision loss of left eye: Code(s): H54.62 - Unqualified visual loss, left eye, normal vision right eye (4) Elevated CSF protein: Code(s): R83.8 - Other abnormal findings in cerebrospinal fluid (5) Cervical dystonia: Code(s): G24.3 - Spasmodic torticollis Plan For left eye visual loss, IIH, hx spenoid sinusitis:F/u ophthalmology Continue acetazolamide 500mg tid. labs- CBC, CMP, AQP4 AB- normal MRI c spin e- mild deg changes normal spinal cord [facility] is scheduled for next month F/U w/ ENT as scheduled ? For migraine- Continue cyproheptadine 4 mg qhs- may help allergy s/s and headaches. Continue Ajovy 225mg sc q month. Continue Topiramate 100mg bid. Hold Sumatriptan- causes nausea. Try Rizatriptan 10mg prn- take at 1st sign of migraine. May use Fioricet prn sparungly. Previous tx: Amitriptyline 50mg- no benefit. Future considerations- gepant- would need to hold fioricet. For neck pain- Try cyclobenzaprine 5-10mg qhs prn. Will trial botox for cervical dystonia Coding Level of Care Code Est Pt Level 5 (87773) Diagnoses IIH (idiopathic intracranial hypertension) G93.2 Migraine with aura G43.109 Vision loss of left eye H54.62 Elevated CSF protein R83.8 Cervical dystonia G24.3
[2024-01-30 09:52] VITALS: BP 126/84; PULSE 67; RESP 17; O2SAT 96; BMI 30.9
== END 2024-01-30 10:36 | disposition home or self-care (01) ==
LOC: HO.HSMS 09:45
PROVIDERS: Visit Provider Psychiatry & Neurology Neurology
DX: G93.2 Benign intracranial hypertension (principal); G43.109 Migraine with aura, not intractable, without status migrainosus; H54.62 Unqualified visual loss, left eye, normal vision right eye; R83.8 Other abnormal findings in cerebrospinal fluid; G24.3 Spasmodic torticollis
CPT/HCPCS: 99214

== ENCOUNTER → 2024-01-30 09:45 | Outpatient (BNVA) | payer OTHER, SELFPAY | PROVIDERS: Visit Provider Psychiatry & Neurology Neurology | DX: G93.2 Benign intracranial hypertension (principal) | CPT/HCPCS: 99212 ==

== ENCOUNTER 2024-02-18 07:39 | Outpatient (AMB) | payer OTHER, SELFPAY ==
--- NOTE | 2024-02-18 07:41 | MHC.OFFVIS ---
Intake Vital Signs 02/18/24 07:43 Height 5 ft 7 in Weight 197 lb BMI 30.9 BP 122/84 Blood Pressure Location Rt brachial Position Sitting Respiration 16 Pulse 78 Pulse Source Pulse Oximeter Pulse Oximetry (%) 97 Oxygen Delivery Method Room Air Intake Visit Reasons: Botox appt-LVM Intake Note: Pt presents for Botox injections. 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 48y/o female comes for treatment of migraines with botox. ??? Most frequent reported adverse reactions following injection of botox for chronic migraine include neck pain (9%), headache(5%), eyelid ptosis(4%), migraine(4%), muscular weakness(4%), musculuskeletal stiffness(4%), bronchitis(3%), injection site pain (3%), musculoskeletal pain(3%), myalgia(3%), facial paresis(2%), HTN(2%) and muscle spasms(2%) were discussed in detail. ??? Botulinum toxin typeA 200units Lot no [id number] expiration April 2026 was diluted with 4 cc of normal saline . ??? Muscles injected- ??? Frontalis 4 sites ??? Procerus 1 site ??? Cutter Machine- 2 sites ??? Temporalis- 8 sites ??? Occipitalis- 6 sites ??? Cervical paraspinals- 4 sites ??? Trapezius- 6 sites- 10 units each ??? 5 units each in 31 site ??? Total use- 185units ??? Discarded-15units [facility] Medical History (Updated 02/18/24 @ 08:11 by Angelia Lawler MD) Chronic migraine without aura Cervical dystonia Sinusitis Anxiety and depression Seizure Cervicalgia Surgical History History of toe surgery History of surgery on wrist Family History Mother Heart disease HTN (hypertension) Father HTN (hypertension) Heart disease Diabetes Social History Household Members: Spouse and Children Alcohol intake: current Alcohol intake frequency: does not drink Patient Tobacco Use Status: Never used Tobacco Current occupational status: employed 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 Tenderness in left levator splenius semispinalis with restricted range of motion Left medial vision blurry. Red color perception intact. General: patient oriented x3 and gait normal Cognition (Neuro): normal cognition Motor exam (neuro): 5/5 motor strength present throughout Office Procedures Botulinum toxin Injection 77766 - Migraine Procedure code (CPT) selection complete Office Meds onabotulinumtoxinA 200 unit solution for injection Performing Provider: Angelia Lawler MD Performing Location: [facility] [place] [facility] Administered by: Angelia Lawler MD on 02/18/24 08:28 Dose Route Admin Location Dispensed Lot Number Expiration Date [facility] Electric Mule Operator 185 unit subcut 200 units [id number] 04/25/26 8851-2154-51 [employer] Comments: see HPI Assessment & Plan Assessment & Plan (1) Chronic migraine without aura: Code(s): G43.709 - Chronic migraine without aura, not intractable, without status migrainosus (2) Cervical dystonia: Code(s): G24.3 - Spasmodic torticollis Plan Patient tolerated the procedure well she will call with any side effects Orders: Orders AMB Botulinum toxin Injection Today G43.709 - Chronic migraine without aura, not intractable, without status migrainosus Coding Level of Care Code Est Pt Level 1 (12053) Diagnoses Chronic migraine without aura G43.709 Cervical dystonia G24.3 CPT Codes Botox Injection - Botox 3: 71203 - Migraine ([id number])
[2024-02-18 07:43] VITALS: BP 122/84; PULSE 78; RESP 16; O2SAT 97; BMI 30.9
== END 2024-02-18 08:12 | disposition home or self-care (01) ==
PROVIDERS: Visit Provider Psychiatry & Neurology Neurology
DX: G43.709 Chronic migraine without aura, not intractable, without status migrainosus (principal)
CPT/HCPCS: 64615

== ENCOUNTER → 2024-02-18 07:39 | Outpatient (BNVA) | payer OTHER, SELFPAY | PROVIDERS: Visit Provider Psychiatry & Neurology Neurology | DX: G43.709 Chronic migraine without aura, not intractable, without status migrainosus (principal); G24.3 Spasmodic torticollis | CPT/HCPCS: 64615; 99211; J0585 ==

== ENCOUNTER 2024-02-21 10:53 | Outpatient (AMB) | payer OTHER, SELFPAY ==
--- NOTE | 2024-02-21 11:06 | MHC.OFFVIS ---
Intake Intake Visit Reasons: 3 mo f/u - Eye Problem-LVM Intake Note: Patient presents for 3 month follow up. no issues or concerns today Allergies pineapple Allergy (Intermediate, Verified 02/21/24 11:08) Swelling Penicillins Allergy (Mild, Verified 02/21/24 11:08) Swelling Medication List - Last Reconciled 02/21/24 by Edna Sharp, ZABRINA acetaminophen 500 mg PO PRN acetazolamide 500 mg (2 x 250 mg) PO TID 30 days aspirin tabs PO azelastine intranasal idfuzvufxs-nadpqkgtpcezq-igby 50-325-40 mg 2 tabs PO Q4-6H PRN 7 days cetirizine 10 mg PO DAILY cyclobenzaprine 5 - 10 mg (1 - 2 x 5 mg) PO BEDTIME PRN 30 days cyproheptadine 4 mg PO BEDTIME 30 days diphenhydramine HCl (Benadryl) 25 - 50 mg (1 - 2 x 25 mg) PO Q8H PRN 5 days enoxaparin 90 mg subcut Q12H fluticasone propionate 110 mcg/actuation (Flovent HFA) grams inhalation fremanezumab-vfrm (Ajovy) 675 mg (4.5 mL) subcut [id number] 90 days ondansetron 4 mg PO PRN pantoprazole tabs PO prazosin 2 mg PO BEDTIME rizatriptan 5 - 10 mg (0.5 - 1 x 10 mg) PO Q2H PRN 21 days sertraline 50 mg PO PRN sumatriptan succinate 1/2-1 tab po at onset of migraine, may repeat in 2 hours, max of 2 tabs per day or 4 tabs per week 2 doses topiramate 100 mg (2 x 50 mg) PO DAILY 30 days HPI HPI Comments History of Present Illness Details 48-yr-old female presents for f/u visit. Pt denies any significant interval medical changes. She continues to have bouts of increased sinus s/s a/w blurry vision and left medial maxillary pain. Cyproheptadine and prn Benadryl helps with this. She feels this is different than her migraine. She did not tolerate Azelastine- caused nasal dryness and bleeding. F/u brain MRI showed possible new maxillary sinusitis- we sent report to ENT. Patient states they are holding treatment until they can determine exactly what antibiotic she has previously taken. Pt is scheduled to have: ENT f/u next month. [facility] in March. Her migraine attacks and neck tightness are better since she has started Botox inj tx. She is still taking Ajovy inj every month. Topiramate 50mg 2 tabs bid Acetazolamide 500mg tid. Using Rizatriptan and Cyclobenzaprine as needed. Baseline headache characteristics: pounding pressure a/w photophobia, phonophobia, nausea, sometimes left supraorbital and maxillary tingling (can occur other times as well, even with light mechanical stimuli). 01/15/24, MR/MR head/brain wo/w con IMPRESSION: -No acute intracranial abnormalities. -Few nonspecific periventricular and deep white matter T2/FLAIR hyperintensities. -Improved pansinus disease with new fluid level in the left maxillary sinus, which can be seen in the setting of acute sinusitis. 01/20/24, MR/MR cervical spine wo/w con IMPRESSION: Within the limitations of this study, -Minimal multilevel degenerative changes through the cervical spine without significant spin PFSH Medical History (Updated 02/18/24 @ 08:11 by Angelia Lawler MD) Chronic migraine without aura Cervical dystonia Sinusitis Anxiety and depression Seizure Cervicalgia Surgical History History of toe surgery History of surgery on wrist Family History Mother Heart disease HTN (hypertension) Father HTN (hypertension) Heart disease Diabetes Social History Household Members: Spouse and Children Alcohol intake: current Alcohol intake frequency: does not drink Patient Tobacco Use Status: Never used Tobacco Current occupational status: employed 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 Physical Exam Const General: cooperative and no acute distress Orientation/consciousness: patient oriented x3 Resp Effort & Inspection: normal respiratory effort and able to speak in complete sentences Neuro Other: Left medial visual deficit Bilateral color perception intact General: patient oriented x3 Cognition (Neuro): normal cognition Psych Appearance: grossly normal Mental Status: mental status grossly normal Speech and movement: Normal speech and movement present Affect: normal affect Attitude: cooperative Assessment & Plan Assessment & Plan (1) Chronic migraine without aura: Code(s): G43.709 - Chronic migraine without aura, not intractable, without status migrainosus (2) IIH (idiopathic intracranial hypertension): Code(s): G93.2 - Benign intracranial hypertension (3) Vision loss of left eye: Code(s): H54.62 - Unqualified visual loss, left eye, normal vision right eye Plan For left eye visual loss, IIH, hx spenoid sinusitis: Reviewed f/u brain mri w/wo- Few nonspecific periventricular and deep white matter T2/FLAIR hyperintensities. Improved pansinus disease with new fluid level in the left maxillary sinus. Pt advised to undergo c-spine mri- Minimal multilevel degenerative changes through the cervical spine without significant spinal canal or neural foraminal narrowing. No abnormal cord signal. Continue acetazolamide 500mg tid. Reviewed AQP4 AB- normal [facility] consult as scheduled. F/U w/ ENT as scheduled ? For migraine- Continue cyproheptadine 4 mg qhs- may help allergy s/s and headaches. Continue Ajovy 225mg sc q month. Continue Topiramate 100mg bid. Continue Rizatriptan 10mg prn- take at 1st sign of migraine. May use Benadryl for rescue. May use Fioricet prn sparingly. Previous tx: Amitriptyline 50mg- no benefit. Previous acute treatment: Sumatriptan- causes nausea. Future considerations- gepant- would need to hold fioricet. For neck pain- Continue cyclobenzaprine 5-10mg qhs prn. f/u in 3 months or sooner prn Medications: Changed From topiramate 100 mg (2 x 50 mg) PO DAILY 30 days 60 tabs 6RF To topiramate 100 mg (2 x 50 mg) PO BID 120 tabs 6RF 30 days From diphenhydramine HCl 25 - 50 mg (1 - 2 x 25 mg) PO Q8H 5 days PRN 30 caps 0RF allergic reaction To diphenhydramine HCl (Benadryl) 25 - 50 mg (1 - 2 x 25 mg) PO Q8H PRN 30 caps 3RF allergic reaction 30 days Refilled cyclobenzaprine 5 - 10 mg (1 - 2 x 5 mg) PO BEDTIME PRN 60 tabs 3RF muscle spasm 30 days cyproheptadine 4 mg PO BEDTIME 30 tabs 6RF 30 days rizatriptan max 2 tabs per day or 4 tabs per week 5 - 10 mg (0.5 - 1 x 10 mg) PO Q2H PRN 12 tabs 6RF migraine headache 21 days Discontinued sumatriptan succinate Discontinued Reason: Doctor's Order 1/2-1 tab po at onset of migraine, may repeat in 2 hours, max of 2 tabs per day or 4 tabs per week 12 tabs 6RF migraine headache Coding Level of Care Code Est Pt Level 4 (45154) Diagnoses Chronic migraine without aura G43.709 IIH (idiopathic intracranial hypertension) G93.2 Vision loss of left eye H54.62
== END 2024-02-21 12:00 | disposition home or self-care (01) ==
PROVIDERS: PCP Internal Medicine; Visit Provider Nurse Practitioner Family
DX: G43.709 Chronic migraine without aura, not intractable, without status migrainosus (principal); G93.2 Benign intracranial hypertension; H54.62 Unqualified visual loss, left eye, normal vision right eye
CPT/HCPCS: 99214

== ENCOUNTER → 2024-02-21 10:53 | Outpatient (BNVA) | payer OTHER, SELFPAY | PROVIDERS: PCP Internal Medicine; Visit Provider Nurse Practitioner Family | DX: G43.709 Chronic migraine without aura, not intractable, without status migrainosus (principal); G93.2 Benign intracranial hypertension; H54.62 Unqualified visual loss, left eye, normal vision right eye; R68.84 Jaw pain | CPT/HCPCS: 99212 ==

== ENCOUNTER 2024-02-25 09:55 | Outpatient (REF) | payer OTHER, SELFPAY ==
[2024-02-25 16:01] LABS: MANUAL DIFF FLAG NO
[2024-02-25 16:18] LABS: Basophils Percent Auto 0.7 % (0-2); Eosinophils Percent Auto 0.9 % (0-4); Hematocrit 38.4 % (37.0-47.0); Hemoglobin 12.4 g/dl (12.0-16.0); Imm Gran Abs Auto 0.02 X10*3/uL (0.00-0.03); Imm Gran Pct Auto 0.4 % (0.0-0.4); Lymphocytes Percent Auto 42.7 % (20-40); Mean Corpuscular HGB Conc 32.3 g/dl (31.0-35.0); Mean Corpuscular Hemoglobin 30.5 pg (27.0-33.0); Mean Corpuscular Volume 94.3 fL (80.0-98.0); Mean Platelet Volume 11.4 fL (9.4-12.3); Monocytes Absolute Auto 0.3 X10*3/uL (0.1-1.2); Monocytes Percent Auto 6.3 % (2-11); Neutrophils Absolute Auto 2.2 x10*3/uL (2.0-8.3); Platelet Count 245 X10*3/uL (160-400); Red Blood Count 4.07 X10*6/uL (4.20-5.50); Red Cell Distribution Width 12.3 % (11.0-16.0); White Blood Count 4.6 X10*3/uL (4.8-10.8)
[2024-02-25 16:20] LABS: Alanine Aminotransferase 29 U/L (0-31); Albumin Level 4.1 g/dL (3.5-5.0); Alkaline Phosphatase 44 U/L (39-117); Anion Gap 8 (12-20); Aspartate Amino Transferase 15 U/L (5-31); Bilirubin Total 0.2 mg/dL (0.0-1.0); Blood Urea Nitrogen 12 mg/dL (9-16); Calcium 9.3 mg/dL (8.4-10.2); Carbon Dioxide 22 mmol/L (22-29); Chloride 115 mmol/L (96-108); Estimated Glomerular Filt Rate > 60; Glucose Random 90 mg/dL (60-115); Potassium 4.4 mmol/L (3.3-5.1); Sodium 141 mmol/L (135-145)
== END 2024-02-25 09:56 | disposition home or self-care (01) ==
LOC: HO.HKASLDS 09:55
PROVIDERS: Visit Provider Nurse Practitioner Family
DX: G43.109 Migraine with aura, not intractable, without status migrainosus (principal); G93.2 Benign intracranial hypertension; H54.62 Unqualified visual loss, left eye, normal vision right eye
CPT/HCPCS: 80053; 85025; 86052

== ENCOUNTER 2024-04-23 13:28 | Outpatient (AMB) | payer OTHER, SELFPAY ==
--- NOTE | 2024-04-23 13:35 | A.OFFVIS_ITS ---
Vital Signs 04/23/24 13:36 Height 5 ft 7 in Weight 197 lb BMI 30.9 BP 112/70 Blood Pressure Location Rt brachial Position Sitting Respiration 17 Pulse 68 Pulse Source Pulse Oximeter Pulse Oximetry (%) 96 Oxygen Delivery Method Room Air Intake Visit Reasons: 2 Month F/U - Confirmed Intake Note: Pt presents for 2 month follow up for cervical dystonia. [employer] Required: No Allergies pineapple Allergy (Intermediate, Verified 04/23/24 13:35) Swelling Penicillins Allergy (Mild, Verified 04/23/24 13:35) Swelling HPI Comments Details: 48-yr-old female presents for f/u visit. Pt denies any significant interval medical changes. She continues to have bouts of increased sinus s/s a/w blurry vision and left medial maxillary pain. Cyproheptadine and prn Benadryl helps with this. She feels this is different than her migraine. She did not tolerate Azelastine- caused nasal dryness and bleeding. F/u brain MRI showed possible new maxillary sinusitis- we sent report to ENT. Patient states they are holding treatment until they can determine exactly what antibiotic she has previously taken. Patient was seen at [facility]- ENT f/u next month. [facility] - Her migraine attacks and neck tightness are better since she has started Botox inj tx. She is still taking Ajovy inj every month. Topiramate 50mg 2 tabs bid Acetazolamide 500mg tid. Using Rizatriptan and Cyclobenzaprine as needed. Baseline headache characteristics: pounding pressure a/w photophobia, phonophobia, nausea, sometimes left supraorbital and maxillary tingling (can occur other times as well, even with light mechanical stimuli). 01/15/24, MR/MR head/brain wo/w con IMPRESSION: -No acute intracranial abnormalities. -Few nonspecific periventricular and deep white matter T2/FLAIR hyperintensities. -Improved pansinus disease with new fluid level in the left maxillary sinus, which can be seen in the setting of acute sinusitis. 01/20/24, MR/MR cervical spine wo/w con IMPRESSION: Within the limitations of this study, -Minimal multilevel degenerative changes through the cervical spine without significant spin PFSH Medical History (Updated 02/18/24 @ 08:11 by Angelia Lawler MD) Chronic migraine without aura Cervical dystonia Sinusitis Anxiety and depression Seizure Cervicalgia Surgical History History of toe surgery History of surgery on wrist Family History Mother Heart disease HTN (hypertension) Father HTN (hypertension) Heart disease Diabetes Social History Household Members: Spouse and Children Alcohol intake: current Alcohol intake frequency: does not drink Patient Tobacco Use Status: Never used Tobacco Current occupational status: employed 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
[2024-04-23 13:36] VITALS: BP 112/70; PULSE 68; RESP 17; O2SAT 96; BMI 30.9
--- NOTE | 2024-04-23 16:55 | MHC.OFFVIS ---
Vital Signs 04/23/24 13:36 04/23/24 17:05 Height 5 ft 7 in Weight 197 lb BMI 30.9 30.9 BP 112/70 Blood Pressure Location Rt brachial Position Sitting Respiration 17 Pulse 68 Pulse Source Pulse Oximeter Pulse Oximetry (%) 96 Oxygen Delivery Method Room Air Intake Visit Reasons: 2 Month F/U - Confirmed Allergies pineapple Allergy (Intermediate, Verified 04/23/24 13:35) Swelling Penicillins Allergy (Mild, Verified 04/23/24 13:35) Swelling Medication List - Last Reconciled 04/23/24 by ZABRINA Dowd acetaminophen 500 mg PO PRN acetazolamide 500 mg (2 x 250 mg) PO TID 30 days aspirin tabs PO azelastine intranasal lvhczpifeq-nlugpqcnrqhto-fzga 50-325-40 mg 2 tabs PO Q4-6H PRN 7 days cetirizine 10 mg PO DAILY cyclobenzaprine 5 - 10 mg (1 - 2 x 5 mg) PO BEDTIME PRN 30 days cyproheptadine 4 mg PO BEDTIME 30 days diphenhydramine HCl (Benadryl) 25 - 50 mg (1 - 2 x 25 mg) PO Q8H PRN 30 days enoxaparin 90 mg subcut Q12H fluticasone propionate 110 mcg/actuation (Flovent HFA) grams inhalation fremanezumab-vfrm (Ajovy) 675 mg (4.5 mL) subcut [id number] 90 days ondansetron 4 mg PO PRN pantoprazole tabs PO prazosin 2 mg PO BEDTIME rizatriptan 5 - 10 mg (0.5 - 1 x 10 mg) PO Q2H PRN 21 days sertraline 50 mg PO PRN topiramate 100 mg (2 x 50 mg) PO BID 30 days HPI Comments Details: 48-yr-old female presents for f/u visit. Pt saw a furniture cleaner at [facility], Dr Regan Forbes. Per pt, they suggested she may have had a left retro-orbital stroke which may have caused the left inferior and supranasal vision loss. She has been referred to Dr Cory Ordonez, neuro-ophthamologist at [facility]- 09/28/24. She was also advised to try another type of glasses Pt reports she had a [facility] eval last week, for new onset LLE swelling/pain. Pt reports, work-up revealed a new LLE DVT. Was advised to f/u with her director of marketing [employer]. Pt reports in the ;ast week, she has been having episodes of left-sided facial numbness a/w worsening left medial vision blurriness and headache in the? left temporal and occipital region, which comes on for 30 minutes and then goes away. No facial weakness.? She has been compliant w/ her Eliquis.? 04/16/24 IMPRESSION:? 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 No evidence of new or worsening DVT. 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 Bilateral eye- red color perception intact. Bilateral facial sensation intact.- pt states not currently having left facial numbness episode. General: patient oriented x3 Cranial nerves: Yes Facial sensation intact/muscles of mastication intact, Yes Bilaterally intact EOM present, Yes Nystagmus not present, Yes Normal facial strength present, Yes Midline tongue present, Yes Normal gag reflex present, Yes Symmetric palate elevation present, Yes Ability to bilaterally rotate head present and Yes Ability to bilaterally elevate shoulders present Cognition (Neuro): normal cognition Deep tendon reflexes (DTR's): Right triceps reflex intensity grade: 2+, Left triceps reflex intensity grade: 2+, Rt Biceps (C5, C6): 2+, Left biceps reflex intensity grade: 2+, Right brachioradialis reflex intensity grade: 2+, Left brachioradialis reflex intensity grade: 2+, Right patellar reflex intensity grade: 1+ and Left patellar reflex intensity grade: 1+ Psych Appearance: grossly normal Mental Status: mental status grossly normal Speech and movement: Normal speech and movement present Affect: normal affect Attitude: cooperative Quality Reporting (2019) Adult ([facility] ) Body Mass Index: 30.9 Assessment & Plan Assessment & Plan (1) Left facial numbness: Code(s): R20.0 - Anesthesia of skin Category: Medical (2) Left-sided headache: Code(s): R51.9 - Headache, unspecified Category: Medical (3) Vision loss of left eye: Code(s): H54.62 - Unqualified visual loss, left eye, normal vision right eye Category: Medical (4) IIH (idiopathic intracranial hypertension): Code(s): G93.2 - Benign intracranial hypertension Category: Medical (5) Chronic migraine without aura: Code(s): G43.709 - Chronic migraine without aura, not intractable, without status migrainosus Category: Medical Plan As pt is having new episodes of left facial numbness, worsening blurry vision, and headache in setting of h/o unprovoked DVT and PE and Eliquis use, and h/o left sphenoid inflammation, IIH, which started 1 week ago, pt is advised to undergo: Labs Head CT and Head/neck CTA Brain MRI w/wo Will request recent [facility] notes. f/u upon review of above. Orders: Orders MR head/brain wo/w con Today G43.709 - Chronic migraine without aura, not intractable, without status migrainosus, G93.2 - Benign intracranial hypertension, H54.62 - Unqualified visual loss, left eye, normal vision right eye, R20.0 - Anesthesia of skin, R51.9 - Headache, unspecified CT angio head neck stroke Today G43.709 - Chronic migraine without aura, not intractable, without status migrainosus, G93.2 - Benign intracranial hypertension, H54.62 - Unqualified visual loss, left eye, normal vision right eye, R20.0 - Anesthesia of skin, R51.9 - Headache, unspecified CT head for stroke Today G43.709 - Chronic migraine without aura, not intractable, without status migrainosus, G93.2 - Benign intracranial hypertension, H54.62 - Unqualified visual loss, left eye, normal vision right eye, R20.0 - Anesthesia of skin, R51.9 - Headache, unspecified Coding Level of Care Code Est Pt Level 4 (49585) Diagnoses Left facial numbness R20.0 Left-sided headache R51.9 Vision loss of left eye H54.62 IIH (idiopathic intracranial hypertension) G93.2 Chronic migraine without aura G43.709
[2024-04-23 17:05] VITALS: BMI 30.9
== END 2024-04-23 14:47 | disposition home or self-care (01) ==
PROVIDERS: Visit Provider Nurse Practitioner Family
DX: R20.0 Anesthesia of skin (principal); R51.9 Headache, unspecified; H54.62 Unqualified visual loss, left eye, normal vision right eye; G93.2 Benign intracranial hypertension; G43.709 Chronic migraine without aura, not intractable, without status migrainosus
CPT/HCPCS: 99214

== ENCOUNTER → 2024-04-23 13:28 | Outpatient (BNVA) | payer OTHER, SELFPAY | PROVIDERS: Visit Provider Psychiatry & Neurology Neurology | DX: R51.9 Headache, unspecified (principal); H54.62 Unqualified visual loss, left eye, normal vision right eye; G93.2 Benign intracranial hypertension; G43.709 Chronic migraine without aura, not intractable, without status migrainosus; R20.0 Anesthesia of skin | CPT/HCPCS: 99212 ==

== ENCOUNTER 2024-04-23 14:47 | Outpatient (REF) | payer OTHER, SELFPAY ==
[2024-04-23 17:23] LABS: MANUAL DIFF FLAG NO
[2024-04-23 17:33] LABS: Basophils Absolute Auto 0.1 X10*3/uL (0.0-0.2); Basophils Percent Auto 0.9 % (0-2); Eosinophils Absolute Auto 0.1 X10*3/uL (0.0-0.4); Eosinophils Percent Auto 1.1 % (0-4); Hematocrit 39.2 % (37.0-47.0); Imm Gran Abs Auto 0.02 X10*3/uL (0.00-0.03); Imm Gran Pct Auto 0.4 % (0.0-0.4); Lymphocytes Absolute Auto 2.5 X10*3/uL (1.2-4.9); Lymphocytes Percent Auto 43.8 % (20-40); Mean Corpuscular HGB Conc 33.2 g/dl (31.0-35.0); Mean Corpuscular Hemoglobin 30.5 pg (27.0-33.0); Mean Platelet Volume 10.9 fL (9.4-12.3); Monocytes Absolute Auto 0.4 X10*3/uL (0.1-1.2); Monocytes Percent Auto 6.9 % (2-11); Neutrophils Absolute Auto 2.7 x10*3/uL (2.0-8.3); Neutrophils Percent Auto 46.9 % (45-73); Platelet Count 254 X10*3/uL (160-400); Red Blood Count 4.26 X10*6/uL (4.20-5.50); Red Cell Distribution Width 12.6 % (11.0-16.0); White Blood Count 5.7 X10*3/uL (4.8-10.8)
[2024-04-23 17:54] LABS: Alanine Aminotransferase 14 U/L (0-31); Albumin Level 4.3 g/dL (3.5-5.0); Alkaline Phosphatase 72 U/L (39-117); Anion Gap 14 (12-20); Aspartate Amino Transferase 14 U/L (5-31); Bilirubin Total 0.2 mg/dL (0.0-1.0); Blood Urea Nitrogen 16 mg/dL (9-16); Calcium 9.1 mg/dL (8.4-10.2); Carbon Dioxide 19 mmol/L (22-29); Chloride 111 mmol/L (96-108); Estimated Glomerular Filt Rate > 60; Glucose Random 85 mg/dL (60-115); Sodium 140 mmol/L (135-145); Total Protein 7.2 g/dL (6.5-8.0)
[2024-04-23 18:03] LABS: Rheumatoid Factor < 13.0 IU/mL (<15.0)
[2024-04-23 18:43] LABS: Erythrocyte Sedimentation Rate 7 MM/HR (0-20)
[2024-04-27 10:38] LABS: CRP High Sensitivity <0.2 mg/L
[2024-04-27 14:53] LABS: Anti Nuclear Antibody Screen NEGATIVE (NEGATIVE)
== END 2024-04-23 14:48 | disposition home or self-care (01) ==
LOC: HO.HKASLDS 14:47
PROVIDERS: Visit Provider Nurse Practitioner Family
DX: R51.9 Headache, unspecified (principal); G93.2 Benign intracranial hypertension; R20.0 Anesthesia of skin; H54.62 Unqualified visual loss, left eye, normal vision right eye
CPT/HCPCS: 36415; 80053; 85025; 85652; 86038; 86141; 86431

== ENCOUNTER 2024-06-01 08:42 | Outpatient (AMB) | payer OTHER, SELFPAY ==
--- NOTE | 2024-06-01 08:47 | MHC.OFFVIS ---
Vital Signs 06/01/24 08:57 Height 5 ft 7 in Weight 195 lb BMI 30.5 BP 108/76 Blood Pressure Location Rt brachial Position Sitting Pulse 69 Pulse Source Pulse Oximeter Pulse Oximetry (%) 98 Oxygen Delivery Method Room Air Intake Visit Reasons: Botox-CONF Intake Note: Pt presents to the office for Botox injections. [employer] Required: No Allergies pineapple Allergy (Intermediate, Verified 06/01/24 08:47) Swelling Penicillins Allergy (Mild, Verified 06/01/24 08:47) Swelling Medication List - Last Reconciled 06/01/24 by Angelia Lawler MD acetaminophen 500 mg PO PRN acetazolamide 500 mg (2 x 250 mg) PO TID 30 days aspirin tabs PO azelastine intranasal mbhgfxbixs-hbbylihthjbtg-ehrs 50-325-40 mg 2 tabs PO Q4-6H PRN 7 days cetirizine 10 mg PO DAILY cyclobenzaprine 5 - 10 mg (1 - 2 x 5 mg) PO BEDTIME PRN 30 days cyproheptadine 4 mg PO BEDTIME 30 days diphenhydramine HCl (Benadryl) 25 - 50 mg (1 - 2 x 25 mg) PO Q8H PRN 30 days enoxaparin 90 mg subcut Q12H fluticasone propionate 110 mcg/actuation (Flovent HFA) grams inhalation fremanezumab-vfrm (Ajovy) 675 mg (4.5 mL) subcut [id number] 90 days ondansetron 4 mg PO PRN pantoprazole tabs PO prazosin 2 mg PO BEDTIME rizatriptan 5 - 10 mg (0.5 - 1 x 10 mg) PO Q2H PRN 21 days sertraline 50 mg PO PRN topiramate 100 mg (2 x 50 mg) PO BID 30 days HPI Comments Details: ? 48y/o female comes for treatment of migraines with botox. ??? Most frequent reported adverse reactions following injection of botox for chronic migraine include neck pain (9%), headache(5%), eyelid ptosis(4%), migraine(4%), muscular weakness(4%), musculuskeletal stiffness(4%), bronchitis(3%), injection site pain (3%), musculoskeletal pain(3%), myalgia(3%), facial paresis(2%), HTN(2%) and muscle spasms(2%) were discussed in detail. ??? Botulinum toxin typeA 200units Lot no [id number] expiration Sep 2026 was diluted with 4 cc of normal saline . ??? Muscles injected- ??? Frontalis 4 sites ??? Procerus 1 site ??? Auto Body Straightener- 2 sites ??? Temporalis- 8 sites ??? Occipitalis- 6 sites ??? Cervical paraspinals- 4 sites ??? Trapezius- 6 sites- 10 units each ??? 5 units each in 31 site ??? Total use- 185units ??? Discarded-15units [facility] Medical History (Updated 06/01/24 @ 10:11 by Angelia Lawler MD) Chronic migraine without aura, intractable, without status migrainosus Facial numbness Chronic migraine without aura Cervical dystonia Sinusitis Anxiety and depression Seizure Cervicalgia Surgical History History of toe surgery History of surgery on wrist Family History Mother Heart disease HTN (hypertension) Father HTN (hypertension) Heart disease Diabetes Social History Household Members: Spouse and Children Alcohol intake: current Alcohol intake frequency: does not drink Patient Tobacco Use Status: Never used Tobacco Current occupational status: employed 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 Tenderness in left levator splenius semispinalis with restricted range of motion Left medial vision blurry. Red color perception intact. General: patient oriented x3 and gait normal Cognition (Neuro): normal cognition Motor exam (neuro): 5/5 motor strength present throughout Office Procedures Botulinum toxin Injection 48699 - Migraine Procedure code (CPT) selection complete Office Meds onabotulinumtoxinA 200 unit solution for injection Performing Provider: Angelia Lawler MD Performing Location: [facility] Administered by: Angelia Lawler MD on 06/01/24 10:21 Dose Route Admin Location Dispensed Lot Number Expiration Date [facility] Trial Consultant 185 unit subcut 200 units [id number] 09/25/26 5222-2616-82 [employer]ER[employer]OTOX Comments: see hpi Assessment & Plan Assessment & Plan (1) Chronic migraine without aura, intractable, without status migrainosus: Code(s): G43.719 - Chronic migraine without aura, intractable, without status migrainosus Category: Medical (2) Cervical dystonia: Code(s): G24.3 - Spasmodic torticollis Category: Medical Plan Patient tolerated the procedure well she will call with any side effects Orders: Orders AMB Botulinum toxin Injection Today G43.719 - Chronic migraine without aura, intractable, without status migrainosus Medications: New onabotulinumtoxinA 200 units subcut ONCE 1 ea 0RF migraine G43.719 - Chronic migraine without aura, intractable, without status migrainosus Coding Level of Care Code Est Pt Level 1 (29684) Diagnoses Chronic migraine without aura, intractable, without status migrainosus G43.719 Cervical dystonia G24.3 CPT Codes Botox Injection - Botox 3: 69128 - Migraine ([id number])
[2024-06-01 08:57] VITALS: BP 108/76; PULSE 69; O2SAT 98; BMI 30.5
== END 2024-06-01 09:12 | disposition home or self-care (01) ==
PROVIDERS: Visit Provider Psychiatry & Neurology Neurology
DX: G43.E19 Chronic migraine with aura, intractable, without status migrainosus (principal)
CPT/HCPCS: 64615

== ENCOUNTER → 2024-06-01 08:42 | Outpatient (BNVA) | payer OTHER, SELFPAY | PROVIDERS: Visit Provider Psychiatry & Neurology Neurology | DX: G43.719 Chronic migraine without aura, intractable, without status migrainosus (principal); G24.3 Spasmodic torticollis | CPT/HCPCS: 64615; 99211; J0585 ==

== ENCOUNTER 2024-06-05 08:34 | Outpatient (REF) | payer OTHER, SELFPAY ==
--- NOTE | ~2024-06-05 | MR_ITS ---
EXAMINATION: MR BRAIN WITHOUT AND WITH CONTRAST CLINICAL INFORMATION: Headache. COMPARISON: MRI scan of the brain 12/26/2023. TECHNIQUE: Multiplanar, multisequence MRI of the brain was obtained before and after the intravenous administration of 9 mL Gadavist. FINDINGS: No diffusion abnormalities are identified to suggest an acute or subacute infarct. No mass effect or midline shift is seen. The ventricles and sulci are normal in size. Brain parenchymal signal is unremarkable. No extra-axial fluid collections are seen. The brainstem appears normal. On postcontrast imaging, there is no abnormal parenchymal or leptomeningeal enhancement. No pathologic magnetic susceptibility artifact is identified on the gradient refocused acquisition. The cerebellar tonsils have normal contour and position, and the craniocervical junction appears normal. Marrow signal and midline structures are normal; there is hyperostosis frontalis interna. The major intracranial flow-voids at the level of the [place] are preserved. The dural venous sinus flow-voids are maintained. The mastoid air cells are well-aerated. There has been interval development of mucoperiosteal thickening in the right maxillary sinus, and the changes in the left axillary sinus have resolved. There is mild opacification of the ethmoid sinuses. MR/MR head/brain wo/w con IMPRESSION: 1. There are no acute bleeds or infarcts. There are no masses or areas of abnormal enhancement. Brain parenchymal signal is unremarkable. 2. There has been interval development of mucoperiosteal thickening in the right maxillary sinus, and the changes in the left maxillary sinus have resolved.
[2024-06-05] MEDS: gadobutroL 10 ML VIAL IVPUSH (09:37)
== END 2024-06-05 08:35 | disposition home or self-care (01) ==
LOC: HO.MRI 08:34
PROVIDERS: PCP Internal Medicine; Visit Provider Nurse Practitioner Family
DX: R20.0 Anesthesia of skin (principal); G43.709 Chronic migraine without aura, not intractable, without status migrainosus; H54.62 Unqualified visual loss, left eye, normal vision right eye; G93.2 Benign intracranial hypertension
CPT/HCPCS: 70553; A9585

== ENCOUNTER 2024-07-01 07:48 | Outpatient (REF) | payer OTHER, SELFPAY ==
--- NOTE | ~2024-07-01 | CT_ITS ---
EXAMINATION: CT ANGIOGRAM HEAD CT ANGIOGRAM NECK CLINICAL INFORMATION: R51.9 - Headache, unspecified COMPARISON: MRI of the brain with and without contrast 06/05/2024 TECHNIQUE: Initial noncontrast septic technician imaging of the head and neck was performed. Noncontrast head CT was also performed. Test bolus sequences followed by intravenous administration 70 mL of Omnipaque 350. Helical imaging was performed in the axial plane from the aortic arch to the skull vertex. Delayed postcontrast imaging of the head was also performed. The data was processed at the electroencephalographic technologist workstation for generation of MIP sequences. Angled MIPs and volume rendered reformatted images were also generated at an offline 3D workstation. Stenoses are assessed in accordance with NASCET criteria unless otherwise indicated. DLP: 1971 mGy-cm This CT examination was performed using dose optimization techniques as appropriate, variously including the following: *Automated exposure control. *Adjustment of mA and/or kV according to patient size (this includes techniques or standardized protocols for targeted exams where dose is matched to indication/reason for exam; i.e. extremities or head). *Use of iterative reconstruction technique. FINDINGS: CT Head: There is no evidence of acute intracranial hemorrhage or edematous territorial infarction. There is no abnormal attenuation within the brain parenchyma. Perez-white matter differentiation is preserved. The ventricles are normal in size and configuration. No evidence for obstructive hydrocephalus. No abnormal mass effect or midline shift. No extra-axial fluid collections. No pathologic intra-axial enhancement or regional oligemia. No acute soft tissue or osseous abnormalities. The mastoid air cells and paranasal sinuses are clear. CT Neck: The thyroid gland and remaining cervical soft tissues are within normal limits. No significant abnormality of the cervical spine. CT Upper Chest: The visualized lung apices and upper mediastinum are within normal limits. Neck CTA: Aortic Arch: Normal contour and caliber. Three-vessel branching pattern with common origin of the left and right common carotid arteries, and last branch representing an aberrant right subclavian artery that courses behind the esophagus. Great Vessel Origins: No significant stenosis of the branch origins. Right Common Carotid Artery: No focal stenosis or occlusion. Cervical Right Internal Carotid Artery: Normal opacification without focal stenosis or occlusion. Left Common Carotid Artery: No focal stenosis or occlusion. Cervical Left Internal Carotid Artery: Normal opacification without focal stenosis or occlusion. Cervical Right Vertebral Artery: No focal stenosis or occlusion. Cervical Left Vertebral Artery: No focal stenosis or occlusion. Brain CTA: Intracranial Internal Carotid Arteries: No focal stenosis or occlusion. Right Anterior Cerebral Artery: Normal A1 segment. Normal opacification of the distal ZEYNEP segments. Left Anterior Cerebral Artery: Normal A1 segment. Normal opacification of the distal ZEYNEP segments. Anterior Communicating Artery: Normal. Right Middle Cerebral Artery: Normal M1 segment of the MCA without focal stenosis or occlusion. Normal arborization of the distal segments. Left Middle Cerebral Artery: Normal M1 segment of the MCA without focal stenosis or occlusion. Normal arborization of the distal segments. Right Vertebral Artery: Normal V4 segment. Left Vertebral Artery: Normal V4 segment. Basilar Artery: Normal without focal stenosis or occlusion. Normal appearance of the proximal superior cerebellar arteries. Right Posterior Cerebral Artery: Normal P1 segment. Normal opacification of the distal CODER OPERATOR segments. Left Posterior Cerebral Artery: Normal P1 segment. Normal opacification of the distal CODER OPERATOR segments. Normal opacification of the superior sagittal, straight, transverse, and sigmoid sinuses. CT/CT angio head neck IMPRESSION: 1. No acute intracranial abnormality including hemorrhage, mass effect, hydrocephalus, or acute territorial edematous infarction. 2. No arterial high grade stenosis or large vessel occlusion in the head or neck. No intracranial aneurysm is identified. 3. Incidentally noted aberrant course of the right subclavian artery. Electronically signed by: Jose Frey MD 07/26/2024 11:31 AM EDT
[2024-07-01] MEDS: iohexoL 350 MG/ML 100 ML INFUS..BTL 70 ML IV (09:15)
== END 2024-07-01 07:49 | disposition home or self-care (01) ==
LOC: HO.CT 07:48
PROVIDERS: Visit Provider Nurse Practitioner Family
DX: R51.9 Headache, unspecified (principal); R20.2 Paresthesia of skin
CPT/HCPCS: 70496; 70498; Q9967

== ENCOUNTER 2024-09-16 08:04 | Outpatient (AMB) | payer OTHER, SELFPAY ==
--- NOTE | 2024-09-16 08:28 | A.OFFVIS_ITS ---
Vital Signs 09/16/24 08:31 Height 5 ft 7 in Weight 205 lb BMI 32.1 BP 104/70 Blood Pressure Location Rt brachial Position Sitting Pulse 107 H Pulse Source Pulse Oximeter Pulse Oximetry (%) 97 Oxygen Delivery Method Room Air Intake Visit Reasons: BOTOX Intake Note: Patient presents in office for botox injections. Machine Designer Required: No Accompanied by: Self / Same As Patient Allergies pineapple Allergy (Intermediate, Verified 09/16/24 08:33) Swelling Penicillins Allergy (Mild, Verified 09/16/24 08:33) Swelling Medication List - Last Reconciled 09/16/24 by Angelia Lawler MD acetaminophen 500 mg PO PRN acetazolamide 500 mg (2 x 250 mg) PO TID 30 days azelastine intranasal lsjpwhiulm-uruxcmmvkrppq-puln 50-325-40 mg 2 tabs PO Q4-6H PRN 7 days cetirizine 10 mg PO DAILY cyclobenzaprine 5 - 10 mg (1 - 2 x 5 mg) PO BEDTIME PRN 30 days cyproheptadine 4 mg PO BEDTIME 30 days diphenhydramine HCl (Benadryl) 25 - 50 mg (1 - 2 x 25 mg) PO Q8H PRN 30 days fluticasone propionate 110 mcg/actuation (Flovent HFA) grams inhalation fremanezumab-vfrm (Ajovy) 675 mg (4.5 mL) subcut [id number] 90 days ondansetron 4 mg PO PRN pantoprazole tabs PO prazosin 2 mg PO BEDTIME rizatriptan 5 - 10 mg (0.5 - 1 x 10 mg) PO Q2H PRN 21 days sertraline 50 mg PO PRN topiramate 100 mg (2 x 50 mg) PO BID 30 days HPI Comments Details: ? 48y/o female comes for treatment of migraines with botox. ??? Most frequent reported adverse reactions following injection of botox for chronic migraine include neck pain (9%), headache(5%), eyelid ptosis(4%), migraine(4%), muscular weakness(4%), musculuskeletal stiffness(4%), bronchitis(3%), injection site pain (3%), musculoskeletal pain(3%), myalgia(3%), facial paresis(2%), HTN(2%) and muscle spasms(2%) were discussed in detail. ??? Botulinum toxin typeA 200units Lot no [id number] expiration Dec 2026 was diluted with 4 cc of normal saline . ??? Muscles injected- ??? Frontalis 4 sites ??? Procerus 1 site ??? Hardwood Flooring Specialist- 2 sites ??? Temporalis- 8 sites ??? Occipitalis- 6 sites ??? Cervical paraspinals- 4 sites ??? Trapezius- 6 sites- 10 units each ??? 5 units each in 31 site ??? Total use- 185units ??? Discarded-15units [facility] Medical History Chronic migraine without aura, intractable, without status migrainosus Facial numbness Chronic migraine without aura Cervical dystonia Sinusitis Anxiety and depression Seizure Cervicalgia Surgical History History of toe surgery History of surgery on wrist Family History Mother Heart disease HTN (hypertension) Father HTN (hypertension) Heart disease Diabetes Social History Household Members: Spouse and Children Alcohol intake: current Alcohol intake frequency: does not drink Patient Tobacco Use Status: Never used Tobacco Current occupational status: employed 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 Tenderness in left levator splenius semispinalis with restricted range of motion Left medial vision blurry. Red color perception intact. General: patient oriented x3 and gait normal Cognition (Neuro): normal cognition Motor exam (neuro): 5/5 motor strength present throughout Office Procedures Botulinum toxin Injection 02434 - Migraine Procedure code (CPT) selection complete Office Meds onabotulinumtoxinA 200 unit solution for injection Performing Provider: Angelia Lawler MD Performing Location: [facility] Administered by: Angelia Lawler MD on 09/16/24 10:02 Dose Route Admin Location Dispensed Lot Number Expiration Date [facility] Sustainable Communities Designer 185 unit subcut 200 units [id number] 12/26/26 9970-7094-52 ALLERGAN/BOTOX Comments: see HPI Assessment & Plan Assessment & Plan (1) Chronic migraine without aura, intractable, without status migrainosus: Code(s): G43.719 - Chronic migraine without aura, intractable, without status migrainosus Category: Medical (2) Cervical dystonia: Code(s): G24.3 - Spasmodic torticollis Category: Medical Plan Patient tolerated the procedure well she will call with any side effects Orders: Orders 2 AMB Botulinum toxin Injection Today G43.719 - Chronic migraine without aura, intractable, without status migrainosus Medications: New onabotulinumtoxinA 200 units subcut ONCE 1 ea 0RF migraine headache G43.719 - Chronic migraine without aura, intractable, without status migrainosus Coding Level of Care Code Est Pt Level 1 (27782) Diagnoses Chronic migraine without aura, intractable, without status migrainosus G43.719 Cervical dystonia G24.3 CPT Codes Botox Injection - Botox 3: 49613 - Migraine ([id number])
[2024-09-16 08:31] VITALS: BP 104/70; PULSE 107; O2SAT 97; BMI 32.1
== END 2024-09-16 08:52 | disposition home or self-care (01) ==
PROVIDERS: Visit Provider Psychiatry & Neurology Neurology
DX: G43.719 Chronic migraine without aura, intractable, without status migrainosus (principal)
CPT/HCPCS: 64615

== ENCOUNTER → 2024-09-16 08:04 | Outpatient (BNVA) | payer OTHER, SELFPAY | PROVIDERS: Visit Provider Psychiatry & Neurology Neurology | DX: G43.719 Chronic migraine without aura, intractable, without status migrainosus (principal); G24.3 Spasmodic torticollis | CPT/HCPCS: 64615; 99211; J0585 ==

== ENCOUNTER 2024-10-21 13:10 | Outpatient (AMB) | payer OTHER, SELFPAY ==
--- NOTE | 2024-10-21 13:33 | MHC.OFFVIS ---
Vital Signs 10/21/24 13:46 Height 5 ft 7 in Weight 212 lb BMI 33.2 BP 110/80 Blood Pressure Location Rt brachial Position Sitting Pulse 88 Pulse Source Pulse Oximeter Pulse Oximetry (%) 99 Oxygen Delivery Method Room Air Intake Visit Reasons: Follow up Intake Note: Patient presents for a 6 mo fu for cervical dystonia. Insurance Executive Required: No Accompanied by: Self / Same As Patient Allergies pineapple Allergy (Intermediate, Verified 10/21/24 13:46) Swelling Penicillins Allergy (Mild, Verified 10/21/24 13:46) Swelling Medication List - Last Reconciled 10/25/24 by ZABRINA Dowd acetaminophen 500 mg PO PRN acetazolamide 500 mg (2 x 250 mg) PO TID 30 days azelastine intranasal idldauflrh-vcmzgzitvdtrn-ozmg 50-325-40 mg 2 tabs PO Q4-6H PRN 7 days cetirizine 10 mg PO DAILY cyclobenzaprine 5 - 10 mg (1 - 2 x 5 mg) PO BEDTIME PRN 30 days diphenhydramine HCl (Benadryl) 25 - 50 mg (1 - 2 x 25 mg) PO Q8H PRN 30 days fluticasone propionate 110 mcg/actuation (Flovent HFA) grams inhalation fremanezumab-vfrm (Ajovy) 675 mg (4.5 mL) subcut [id number] 90 days ondansetron 4 mg PO PRN pantoprazole tabs PO prazosin 2 mg PO BEDTIME rizatriptan 5 - 10 mg (0.5 - 1 x 10 mg) PO Q2H PRN 21 days sertraline 50 mg PO PRN topiramate 100 mg (2 x 50 mg) PO BID 30 days ubrogepant (Ubrelvy) 50 - 100 mg (0.5 - 1 x 100 mg) PO ONCE PRN 30 days HPI Comments Details: 48-yr-old female presents for f/u visit of migraine and left eye visual change. 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 She had had initial consult w/ Dr Cory Ordonez, neuro-ophthamologist at [facility]. Pt reports she has had additional eye exama, lab work-up, and just had a f/u brain/eye/neck MRI on 10/17- results still pending. She is using the blue-light filtering glasses. She also had a 06/17 she underwent left common iliac vein stent and angioplasty. for tx of LLE DVT w/PE. Continues on Eliquis. She wonders if Botox can contribute to weight gain. She is unsure if she is still taking her cyproheptadine. Pt reports she has had 1 week of more severe migraine focused in the left eye region. Denies vision changes, sinus congestion/pressure, tinnitus. She tried her Rizatriptan, which helps sometimes, but the headache just comes back. [facility] Medical History (Updated 10/25/24 @ 19:33 by ZABRINA Dowd) Chronic migraine without aura, intractable, without status migrainosus Facial numbness Chronic migraine without aura Cervical dystonia Sinusitis Anxiety and depression Seizure Cervicalgia Surgical History History of toe surgery History of surgery on wrist Family History Mother Heart disease HTN (hypertension) Father HTN (hypertension) Heart disease Diabetes Social History Household Members: Spouse and Children Alcohol intake: current Alcohol intake frequency: does not drink Patient Tobacco Use Status: Never used Tobacco Current occupational status: employed 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 Bilateral eye- red color perception intact. General: patient oriented x3 Cranial nerves: Yes Facial sensation intact/muscles of mastication intact, Yes Bilaterally intact EOM present, Yes Nystagmus not present, Yes Normal facial strength present, Yes Midline tongue present, Yes Normal gag reflex present, Yes Symmetric palate elevation present, Yes Ability to bilaterally rotate head present and Yes Ability to bilaterally elevate shoulders present Cognition (Neuro): normal cognition Deep tendon reflexes (DTR's): Right triceps reflex intensity grade: 2+, Left triceps reflex intensity grade: 2+, Rt Biceps (C5, C6): 2+, Left biceps reflex intensity grade: 2+, Right brachioradialis reflex intensity grade: 2+, Left brachioradialis reflex intensity grade: 2+, Right patellar reflex intensity grade: 1+ and Left patellar reflex intensity grade: 1+ Psych Appearance: grossly normal Mental Status: mental status grossly normal Speech and movement: Normal speech and movement present Affect: normal affect Attitude: cooperative Assessment & Plan Assessment & Plan (1) Chronic migraine without aura, intractable, without status migrainosus: Code(s): G43.719 - Chronic migraine without aura, intractable, without status migrainosus Category: Medical (2) IIH (idiopathic intracranial hypertension): Code(s): G93.2 - Benign intracranial hypertension Category: Medical (3) Vision loss of left eye: Code(s): H54.62 - Unqualified visual loss, left eye, normal vision right eye Category: Medical Plan For left medial vision deficit and h/o IIH: Follow-up with Neuro-Ophthalmology at [facility]. Continue Acetazolamide 500 mg t.i.d. CBC and CMP, 03/2024, overall WNL. Recheck CBC and CMP. For chronic migraine prevention: Hold cyproheptadine 4 mg qhs- may be contributing to weight gain. Continue Ajovy 225mg sc q month. Continue Topiramate 100mg bid. Continue Botox 155 units IM Q 12 weeks For acute migraine treatment: Continue Rizatriptan 10mg prn mild to moderate migraine. As rizatriptan is not always fully effective her more severe migraine, Trial Ubrogepant (Ubrelvy) 100mg tab, 1/2 - 1 tab (50-100mg) at onset of headache, may repeat in 2 hours. Max of 2 tabs (200mg) per 24 hours. May adjunct with OTC Tylenol 650mg q 4 hours, Ibuprofen 600mg q 6 hours, or Naproxen 440mg q 12 hrs prn. Do not take w/ Butalbital (Fioricet or Fiorinal). Potential adverse effects, include but are not limited to fatigue, nausea, dry mouth, constipation. We will also provide the patient a sample of Zavprat 10mg nasal spray. 110 mg nasal spray daily p.r.n.- do not take with Ubrelvy. Staff Llanos directions May use Benadryl for rescue. Discontinue Fioricet- lost efficacy. Previous tx: Amitriptyline 50mg- no benefit. Previous acute treatment: Sumatriptan- causes nausea. Rizatriptan not fully effective for more severe migraine. Follow-up in 1-2 months or sooner as needed Samples Given: Ubrelvy 100mg tab- 1 tab/box: Given 4 boxes (4 tabs) Instructions: Trial Ubrogepant (Ubrelvy) 100mg tab, 1/2 - 1 tab (50-100mg) at onset of headache, may repeat in 2 hours. Max of 2 tabs (200mg) per 24 hours. May adjunct with OTC Tylenol 650mg q 4 hours, Ibuprofen 600mg q 6 hours, or Naproxen 440mg q 12 hrs prn. Do not take w/ Butalbital (Fioricet or Fiorinal). Potential adverse effects, include but are not limited to fatigue, nausea, dry mouth, constipation Lot # [id number] Exp 10/2025 Zavpret 10mg nasal spray per 1 box Given 2 boxes (2 sprays) Instructions: Inhale 1 10 mg nasal spray at onset of migraine, max 1 spray per day. Lot # [id number] Exp 12/2024 Orders: Orders Complete Blood Count Auto Diff Today G43.109 - Migraine with aura, not intractable, without status migrainosus, G93.2 - Benign intracranial hypertension Comprehensive Met. Panel Today G43.109 - Migraine with aura, not intractable, without status migrainosus, G93.2 - Benign intracranial hypertension Medications: New ubrogepant (Ubrelvy) take at onset of migraine, may repeat in 2hrs (may take w/ Tylenol 50 - 100 mg (0.5 - 1 x 100 mg) PO ONCE 30 days PRN 16 tabs 3RF migraine headache Refilled acetazolamide 500 mg (2 x 250 mg) PO TID 30 days 180 tabs 3RF G93.2 - Benign intracranial hypertension rizatriptan max 2 tabs per day or 4 tabs per week 5 - 10 mg (0.5 - 1 x 10 mg) PO Q2H 21 days PRN 12 tabs 6RF migraine headache Discontinued yqotfcwlsu-dknloosmntpjs-bmdf 50-325-40 mg do not exceed 6 tabs per 24 hrs Discontinued Reason: Doctor's Order 2 tabs PO Q4-6H 7 days PRN 24 tabs 0RF pain cyproheptadine Discontinued Reason: Doctor's Order 4 mg PO BEDTIME 30 days 30 tabs 6RF Coding Level of Care Code Est Pt Level 4 (03956) Complex EM visit Add On G2211 Diagnoses Chronic migraine without aura, intractable, without status migrainosus G43.719 IIH (idiopathic intracranial hypertension) G93.2 Vision loss of left eye H54.62
[2024-10-21 13:46] VITALS: BP 110/80; PULSE 88; O2SAT 99; BMI 33.2
== END 2024-10-21 14:24 | disposition home or self-care (01) ==
PROVIDERS: Visit Provider Nurse Practitioner Family
DX: G43.719 Chronic migraine without aura, intractable, without status migrainosus (principal); G93.2 Benign intracranial hypertension; H54.62 Unqualified visual loss, left eye, normal vision right eye
CPT/HCPCS: 99214; G2211

== ENCOUNTER → 2024-10-21 13:10 | Outpatient (BNVA) | payer OTHER, SELFPAY | PROVIDERS: Visit Provider Nurse Practitioner Family | DX: G43.719 Chronic migraine without aura, intractable, without status migrainosus (principal); G93.2 Benign intracranial hypertension; H54.62 Unqualified visual loss, left eye, normal vision right eye | CPT/HCPCS: 99212 ==

== ENCOUNTER 2024-12-17 09:50 | Outpatient (AMB) | payer OTHER, SELFPAY ==
--- NOTE | 2024-12-17 10:02 | MHC.OFFVIS ---
Vital Signs 12/17/24 10:03 Height 5 ft 7 in Weight 212 lb BMI 33.2 Intake Visit Reasons: Botox Intake Note: patient presents for botox Allergies pineapple Allergy (Intermediate, Verified 10/21/24 13:46) Swelling Penicillins Allergy (Mild, Verified 10/21/24 13:46) Swelling Medication List - Last Reconciled 12/17/24 by Angelia Lawler MD acetaminophen 500 mg PO PRN acetazolamide 500 mg (2 x 250 mg) PO TID 30 days azelastine intranasal cetirizine 10 mg PO DAILY cyclobenzaprine 5 - 10 mg (1 - 2 x 5 mg) PO BEDTIME PRN 30 days diphenhydramine HCl (Benadryl) 25 - 50 mg (1 - 2 x 25 mg) PO Q8H PRN 30 days fluticasone propionate 110 mcg/actuation (Flovent HFA) grams inhalation fremanezumab-vfrm (Ajovy) 675 mg (4.5 mL) subcut [id number] 90 days ondansetron 4 mg PO PRN pantoprazole tabs PO prazosin 2 mg PO BEDTIME rizatriptan 5 - 10 mg (0.5 - 1 x 10 mg) PO Q2H PRN 21 days sertraline 50 mg PO PRN topiramate 100 mg (2 x 50 mg) PO BID 30 days ubrogepant (Ubrelvy) 50 - 100 mg (0.5 - 1 x 100 mg) PO ONCE PRN 30 days HPI Comments Details: ? 49y/o female comes for treatment of migraines with botox. ??? Most frequent reported adverse reactions following injection of botox for chronic migraine include neck pain (9%), headache(5%), eyelid ptosis(4%), migraine(4%), muscular weakness(4%), musculuskeletal stiffness(4%), bronchitis(3%), injection site pain (3%), musculoskeletal pain(3%), myalgia(3%), facial paresis(2%), HTN(2%) and muscle spasms(2%) were discussed in detail. ??? Botulinum toxin typeA 200units Lot no [id number] expiration January 2027 was diluted with 4 cc of normal saline . ??? Muscles injected- ??? Frontalis 4 sites ??? Procerus 1 site ??? Shearing Shed Hand- 2 sites ??? Temporalis- 8 sites ??? Occipitalis- 6 sites ??? Cervical paraspinals- 4 sites ??? Trapezius- 6 sites- 10 units each ??? 5 units each in 31 site ??? Total use- 185units ??? Discarded-15units [facility] Medical History Chronic migraine without aura, intractable, without status migrainosus Facial numbness Chronic migraine without aura Cervical dystonia Sinusitis Anxiety and depression Seizure Cervicalgia Surgical History History of toe surgery History of surgery on wrist Family History Mother Heart disease HTN (hypertension) Father HTN (hypertension) Heart disease Diabetes Social History Household Members: Spouse and Children Alcohol intake: current Alcohol intake frequency: does not drink Patient Tobacco Use Status: Never used Tobacco Current occupational status: employed 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 Physical Exam Vital Signs: BMI result Body Mass Index 33.2 Const General: cooperative and no acute distress Orientation/consciousness: patient oriented x3 HEENT Head: Yes normocephalic Resp Effort & Inspection: normal respiratory effort and able to speak in complete sentences Neuro General: patient oriented x3 and gait normal Cognition (Neuro): normal cognition Motor exam (neuro): 5/5 motor strength present throughout Office Procedures Botulinum toxin Injection 82581 - Migraine Procedure code (CPT) selection complete Office Meds onabotulinumtoxinA 200 unit solution for injection Performing Provider: Angelia Lawler MD Performing Location: [facility] Administered by: Angelia Lawler MD on 12/17/24 11:08 Dose Route Admin Location Dispensed Lot Number Expiration Date [facility] Image Assembler 185 unit IM 200 units [id number] 01/23/27 4501-4532-22 ALLERGAN/BOTOX Comments: see HPI Assessment & Plan Assessment & Plan (1) Chronic migraine without aura, intractable, without status migrainosus: Code(s): G43.719 - Chronic migraine without aura, intractable, without status migrainosus Category: Medical (2) Cervical dystonia: Code(s): G24.3 - Spasmodic torticollis Category: Medical Plan Patient tolerated the procedure well she will call with any side effects Orders: Orders AMB Botulinum toxin Injection Today G43.719 - Chronic migraine without aura, intractable, without status migrainosus Medications: New onabotulinumtoxinA 200 units IM ONCE 1 ea 0RF migraine G43.719 - Chronic migraine without aura, intractable, without status migrainosus Coding Level of Care Code Est Pt Level 1 (53195) Diagnoses Chronic migraine without aura, intractable, without status migrainosus G43.719 Cervical dystonia G24.3 CPT Codes Botox Injection - Botox 3: 64088 - Migraine ([id number])
[2024-12-17 10:03] VITALS: BMI 33.2
--- OUTSIDE RECORDS SUMMARY | 2024-12-17 11:18 | XMS_ITS | Continuity of Care Document ---
Author Organization [facility] Address [address] [place] [id number] Care Team Providers Care Social Work Therapist Name Role Phone Gail Carbajal MD Primary Care Physician Encounter [facility] Date(s): 11/16/24 - 12/16/24 [facility] [address] [place] [id number] Attending Physician: Kylah Patel Admitting Physician: Kylah Patel Referring Physician: Kylah Patel Encounter Type: Triage Allergies, Adverse Reactions, Alerts Substance Criticality Severity Reaction Reaction Severity Status doxycycline nausea/vomiting Ac tive penicillin High criticality Severe Anaphylacti c reaction Edema Active Pineapple rash Active Immunizations Given and Recorded Vaccine Date Status Refusal Reason influenza virus vaccine, inactivated 10/02/22 Give n influenza virus vaccine, inactivated 09/07/21 Jin rded influenza virus vaccine, inactivated 07/29/20 Jin rded influenza virus vaccine, inactivated 08/14/18 Jin rded influenza virus vaccine, inactivated 08/21/16 Jin rded SARS-CoV-2 (COVID-19) mRNA-1273 vaccine 05/12/21 R ecorded SARS-CoV-2 (COVID-19) mRNA-1273 vaccine 04/14/21 R ecorded tetanus/diphtheria/pertussis, acel(Tdap) 8/24/16 Recorded Medications acetaminophen 325 mg oral tablet 975 mg, By Mouth, Once, PRN, Refills 0, Maintenance, Pain , Mild, 06/17/24 11:39:00 AM EDT, Partial fill upon patient request if the prescription is for a schedule II opioid drug. Start Date: 06/17/24 Status: Ordered Repeat number: 1 apixaban Starter Pack 5 mg oral tablet 1 tablet = 5 mg, By Mouth, 2 times a day, # 60 tablet, 3 Refills, Maintenance, 03/06/24 2:28:00 PM EDT, [facility]/pharmacy #[id number], Partial fill upon patient request if the prescription is for a schedule II opioid drug., 160, cm, 02/26/24 8:50:00 EDT, Height, 89.2, kg, 02/26/24 8:50:00 EDT, Dry Weight Start Date: 03/06/24 Status: Ordered Quantity: 60.0 Unit: tablet Repeat number: 4 cyclobenzaprine 10 mg oral tablet 10 mg, By Mouth, 3 times a day, PRN, cramping pain, Refills 0, Maintenance, Pain , Severe, 06/17/24 11:39:00 AM EDT, Partial fill upon patient request if the prescription is for a schedule II opioid drug. Start Date: 06/17/24 Status: Ordered Repeat number: 1 Daily Multi oral tablet 1 tablet, By Mouth, Daily, # 30 tablet, 0 Refills, Maintenance, 08/28/16 9:01:33 PM EDT Start Date: 08/28/16 Status: Ordered Quantity: 30.0 Unit: tablet Repeat number: 1 Depo-Provera 0 Refills, Maintenance, 01/07/23 12:28:00 PM EST, Partial fill upon patient request if the prescription is for a schedule II opioid drug. Start Date: 01/07/23 Status: Ordered Repeat number: 1 Eliquis 5 mg oral tablet 1 tablet = 5 mg, By Mouth, 2 times a day, # 60 tablet, 3 Refills, Maintenance, 11/13/24 10:19:00 AMEST, [facility]/pharmacy #[id number], 162.5, cm, 09/22/24 14:27:00 EDT, Height, 86.3, kg, 06/20/24 15:45:00 EDT,Dry Weight Start Date: 11/13/24 Status: Ordered Quantity: 60.0 Unit: tablet Repeat number: 4 lidocaine 5% topical film 1 patch, Topically, Daily, remove patches after 12 hours, # 30 patch, 0 Refills, Acute 03/08/25 1:49:00 PM EDT, 03/08/24 1:49:00 PM EDT, Film, [facility]/pharmacy #[id number], Partial fill upon patient request if the prescription is for a schedule II opioid drug., 1 patch Topically Daily,Instr:remove patches after 12 hours, 160, cm, 03/08/24 12:38:00 EDT, Height, 89, kg, 03/08/24 12:38:00 EDT, Dry Weight Start Date: 03/08/24 Stop Date: 03/08/25 Status: Ordered Quantity: 30.0 Unit: patch Repeat number: 1 ProAir HFA 90 mcg/inh inhalation aerosol with adapter 2, puffs, Inhalation, Every 4 hours, PRN, # 8.5 Gm, Refills 0, Maintenance, 01/15/19 3:17:31 PM EST,Aerosol Start Date: 01/15/19 Status: Ordered Quantity: 8.5 Unit: g Repeat number: 1 rizatriptan 10 mg oral tablet 1 tablet = 10 mg, By Mouth, Once, PRN for migraine headache, # 9 tablet, 0 Refills, Maintenance, 01/24/24 3:43:00 PM EST, Tablet, Partial fill upon patient request if the prescription is for a scheduleII opioid drug. Start Date: 01/24/24 Status: Ordered Quantity: 9.0 Unit: tablet Repeat number: 1 topiramate 50 mg oral tablet 2 tablet = 100 mg, By Mouth, 2 times a day, # 180 tablet, 0 Refills, Maintenance, 01/24/24 3:43:00 PMEST, Tablet, Partial fill upon patient request if the prescription is for a schedule II opioid drug. Start Date: 01/24/24 Status: Ordered Quantity: 180.0 Unit: tablet Repeat number: 1 Wegovy (0.25 mg dose) = 0.25 mg, Subcutaneous Infusion, 0 Refills, Maintenance, 12/04/24 8:59:00 AM EST, Partial fill uponpatient request if the prescription is for a schedule II opioid drug. Start Date: 12/04/24 Status: Ordered Repeat number: 1 Problem List Condition Confirmation Course Effective Dates Status Health Status Informant Bilateral trochanteric bursitis Confirmed 03/06/18 Active Atypical squamous cell of undetermined significance of cervix Confirmed Active Chronic kidney disease stage 3 Confirmed 08/01/21 Active Chronic rhinitis 1 Confirmed 12/11/23 Active Chronic sphenoidal sinusitis 2 Confirmed 07/20/22 Active Constipation Confirmed 09/23/24 Active Gastroesophageal reflux disease Confirmed 09/23/24 Active History of bariatric surgery Confirmed Active Hypercoagulability state Confirmed 02/12/24 Active Insomnia Confirmed 09/09/20 Active Migraine Confirmed 09/02/13 Active Mild intermittent asthma Confirmed 01/24/21 Active Mixed anxiety and depressive disorder Confirmed 07/30/13 Active Obese class II Confirmed Active Osteoarthrosis of the carpometacarpal joint of the thumb Confirmed 09/30/23 Active Osteopenia Confirmed 07/30/13 Active Perennial allergic rhinitis Confirmed 01/24/21 Active Pernicious anemia Confirmed 01/06/18 Active Seizure disorder Confirmed 07/30/13 Active Tenosynovitis of left radial styloid Confirmed 05/16/20 Active Trigger thumb of left hand Confirmed 10/23/22 Active Trigger thumb of right hand Confirmed 05/16/20 Active 1Outside Source Comment: Rhinitis (chronic) NOS; Note: Date Diagnosed: 12/11/2023 1:57 PM (J31.0) 2Outside Source Comment: Chronic sphenoidal sinusitis; Note: Date Diagnosed: 07/20/2022 2:52 PM (J32.3) Social History Social History Type Response Smoking Status Never smoker entered on: 09/02/17 Sex Female Sex Representation Female (finding) Patient Care team information Care Team Personnel Name: Dayana Muller RN Position: [facility] RN Member Role: Primary Care Nurse Name: Manny Kay RN Position: S RN Member Role: Primary Care Nurse Name: Ama Amaya RN Position: S RN Member Role: Primary Care Nurse Name: Brenda Parry RN Position: S RN Member Role: Primary Care Nurse Name: Demetrio Cole RN Position: S RN Member Role: Primary Care Nurse Name: Gail Carbajal MD Position: Reference Physician Member Role: PCP Address: [address] [place] [id number] Telecom: Name: Cyndi Bautista RN Position: S RN Member Role: Primary Care Nurse Name: Solitario Crespo RN Position: S RN Member Role: Primary Care Nurse Care Team Related Persons Name: ALFREDITO STRONG Name: FRAN FALLON Insurance Providers Guarantor name: LORNA DIPTI Health Plan Information #: 1 Payer: [employer] Member Number: NA Policy Number: NA Group Number: NA
--- OUTSIDE RECORDS SUMMARY | 2024-12-17 11:18 | XMS_ITS | Data Portability ---
Author Organization [place] - [facility], Allergy Address [address] [address] Assessment Encounter Date Assessment Date Assessment LastModified by Organization Details LastModified Time 06/10/2024 06/10/2024 As patient does not know what products have been trialled in the past and there is no indication on her medication list for our facility or from her pharmacy, today we decided to start from scratch. Patient to follow up with lack of improvement. [email or web address] Not available 06/10/2024 10:33:22 Plan of Treatment Reminders Order Date Submit Date Provider Last Modified By Organization Details Last Modified Time Details Appointments None recorded. Lab None recorded. Referral None recorded. Procedures None recorded. Surgeries None recorded. Imaging None recorded. Medication Orders loratadine 10 mg tablet 2023 024 [facility]/Pharmacy #[id number], [address] [place], [address], 4 10:35:19 azelastine 205.5 mcg (0.15 %) nasal spray 2023 024 [email or web address] [facility]/Pharmacy #[id number], [address] [place], [address], 4 08:39:51 olopatadine 0.1 % eye drops 2023 024 [facility]/Pharmacy #[id number], [address] [place], [address], 10:35:20 Patient TargetsNo targets recorded. Patient InstructionsNo instructions recorded. Reason for Referral None Reported. Results Created Date Observation Date Name Description Value Unit Range Abnormal Flag Note LastModifiedBy Organization Detail LastModifiedTime 07/15/20 24 01/15/2024 imagi ng/di agnos tic resul t No observ ation record ed. [email or web address] Not Available 05:38:41 07/15/20 24 01/15/2024 imagi ng/di agnos tic resul t No observ ation record ed. [email or web address] Not Available 05:38:49 07/15/20 24 03/26/2023 imagi ng/di agnos tic resul t No observ ation record ed. [email or web address] Not Available 05:38:56 07/15/2003/27/2022 imagi ng/di agnos tic resul t No observ ation record ed. [email or web address] Not Available 05:39:01 07/15/20 24 07/23/2022 imagi ng/di agnos tic resul t No observ ation record ed. [email or web address] Not Available 05:39:41 Result Notes None recorded. Problems Name Problem SNOMED Code Status Onset Date Resolution Date Notes Provider Name and Address Organization Details Recorded Time Chronic sphenoid al sinusiti s 52121883 Completed 202106/26/2024 Chronic sphenoid al sinusiti s; Note: Date Diagnose d: 2 2:52 PM (J32.3) Not Available [facility] 4 02:12:45 Migraine 04848908 Active 2021 Other migraine , not intracta ble, without status migraino tasia; Note: Date Diagnose d: 2 2:51 PM (G43.809 ) Not Available [facility] 4 02:12:58 Chronic rhinitis 24937822 Active 2023 Rhinitis (chronic ) NOS; Note: Date Diagnose d: 4 1:57 PM (J31.0) Not Available [facility] 4 02:14:55 Allergic rhinitis 79922032 Active 08/15/ 2023 Allergic rhinitis , unspecif ied; Note: Date Diagnose d: 3 11:13 AM (J30.9) Not Available [facility] 4 02:14:07 Hayes walker allergic rhinitis 294005755 Active 2023 ANDREI MOSCOSO PA-C [address] [place] [address], [facility] [place], [address] , [facility] - [facility] 4 10:33:25 Problem Notes None recorded. Procedures Surgical History None recorded. Imaging Results Imaging Date Name Status LastModified by Organiz ation Details LastModified Time 01/15/2024 imaging/diag nostic result completed Information not available 07/15/2024 05:38:41 01/15/2024 imaging/diag nostic result completed Information not available 07/15/2024 05:38:49 03/26/2023 imaging/diag nostic result completed Information not available 07/15/2024 05:38:56 03/27/2022 imaging/diag nostic result completed Information not available 07/15/2024 05:39:01 07/23/2022 imaging/diag nostic result completed Information not available 07/15/2024 05:39:41 Procedure Notes None recorded. Medical Equipment None Reported. Allergies Allergen ID Allergen Name Allergen Category Reaction Reaction Severity Criticality Documentation Date Start Date Code Code System Note Provider Name and Address Organization Details Recorded Time 780359 doxycycli ne Not available Not available Not available Not available 06/10/2024 3640 RxNorm Gretchen ogden [place] - [facility] 4 10:01:03 91342 Product containin g penicilli n and antibioti c (product) medicatio n other Not available Not available 04/07/2024 34971 05 SNOMED React ion: Unkno wn; Not Available [facility] 4 00:48:32 Medications Name Sig Start Date Stop Date Status Note LastModified by Organization Details LastModified Time neomycin- polymyxin -hydrocor t 3.5 mg/mL-10, 000 unit/mL-1 % ear solution 07/09 completed Medicati on ID: [id number] B rand Name: neomycin -polymyx in-HC Se nd Method: E-Prescr ibed Sub s Allowed: subs OK Speci al Instruct ion: PLACE 3 DROPS IN EAR(S) 4 TIMES DAILY FOR 10 DAYS. Me dication GenericN gabriela: neomycin -polymyx in-HC Not Available Not Available Not Available azelastin e 0.05 % eye drops 07/12 completed Medicati on ID: [id number] B rand Name: azelasti ne Send Method: E-Prescr ibed Sub s Allowed: subs OK Speci al Instruct ion: PLACE 1 DROP INTO BOTH EYES 2 TIMES DAILY NEEDED (ITCH OR TEAR). Emerita robb Deborah Name: azelasti ne Not Available Not Available Not Available trazodone 50 mg tablet TAKE ONE- TWO OR THREE (1-2-3) TABLETS BY MOUTH AT BEDTIME, NEEDED active Not Available Not Available No t Available ibuprofen 800 mg tablet 07/09 completed Medicati on ID: [id number] B rand Name: ibuprofe n Send Method: E-Prescr ibed Sub s Allowed: subs OK Speci al Instruct ion: TAKE 1 TABLET BY MOUTH 2 TIMES A DAY AFTER MEALS FOR INFLAMMA TION Med icationG enericNa me: ibuprofe n Not Available Not Available Not Available sumatript an 100 mg tablet PLEASE SEE ATTACHED FOR DETAILED DIRECTIO NS active Not Available Not Available No t Available prazosin 1 mg capsule TAKE 1 CAPSULE BY MOUTH AT BEDTIME (TOTAL DAILY DOSE IS 3MG AT BEDTIME) active Not Available Not Available No t Available meloxicam 15 mg tablet TAKE 1 TABLET BY MOUTH EVERY DAY active Not Available Not Available No t Available rizatript an 10 mg tablet PLEASE SEE ATTACHED FOR DETAILED DIRECTIO NS active Not Available Not Available No t Available sertralin e 100 mg tablet TAKE 1 TABLET BY MOUTH EVERY DAY active Not Available Not Available No t Available acetazola mide 250 mg tablet TAKE 2 TABLETS ORALLY 3 TIMES A DAY FOR 30 DAYS active Not Available Not Available No t Available levofloxa shy 250 mg tablet 07/09 completed Medicati on ID: [id number] B rand Name: levoflox acin Sen d Method: E-Prescr ibed Sub s Allowed: subs OK Speci al Instruct ion: TAKE 1 TABLET BY MOUTH EVERY DAY FOR 5 DAYS Med icationG enericNa me: levoflox acin Not Available Not Available Not Available acetamino phen 500 mg tablet 07/12 completed Medicati on ID: [id number] B rand Name: acetamin ophen Se nd Method: E-Prescr ibed Sub s Allowed: subs OK Speci al Instruct ion: TAKE 1 TABLET BY MOUTH EVERY 6 HOURS NEEDED FOR PAIN FOR UP TO 10 DAYS. Me dication GenericN gabriela: acetamin ophen Not Available Not Available Not Available butalbita l-acetami nophen-ca ffeine 50 mg-325 mg-40 mg tablet 07/09 completed Medicati on ID: [id number] B rand Name: butalbit al-aceta minophen -caff Se nd Method: E-Prescr ibed Sub s Allowed: subs OK Speci al Instruct ion: TAKE 2 TABLETS EVERY 4 TO 6 HOURS FOR 7 DAYS NEEDED FOR PAIN DO NOT EXCEED 6 TABS PER 24 HRS Medi cationGe nericNam e: butalbit al-aceta minophen -caff Not Available Not Available Not Available cyprohept adine 4 mg tablet TAKE 1 TABLET BY MOUTH EVERY DAY AT BEDTIME active Not Available Not Available No t Available propranol ol 10 mg tablet 07/09 completed Medicati on ID: [id number] B rand Name: proprano lol Send Method: E-Prescr ibed Sub s Allowed: subs OK Speci al Instruct ion: TAKE 1 TABLET BY MOUTH TWICE A DAY Medi cationGe nericNam e: proprano lol Not Available Not Available Not Available amitripty line 25 mg tablet 07/12 completed Medicati on ID: [id number] B rand Name: amitript yline Se nd Method: E-Prescr ibed Sub s Allowed: subs OK Speci al Instruct ion: TAKE 1 TABLET BY MOUTH EVERYDAY AT BEDTIME Medicati onGeneri cName: amitript yline Not Available Not Available Not Available triamcino lone acetonide 0.025 % topical cream APPLY EXTERNAL LY TO THE AFFECTED AREA TWICE DAILY active Not Available Not Available No t Available benzonata te 100 mg capsule 07/09 completed Medicati on ID: [id number] B rand Name: benzonat ate Send Method: E-Prescr ibed Sub s Allowed: subs OK Speci al Instruct ion: TAKE 1 CAPSULE BY MOUTH 3 TIMES DAILY NEEDED FOR COUGH FOR UP TO 7 DAYS. Me dication GenericN gabriela: benzonat ate Not Available Not Available Not Available olopatadi ne 0.1 % eye drops Instill 1 drop twice a day by ophthalm ic route for 30 days. 2023 active Not Available Not Available Not Avai lable triamcino lone acetonide 55 mcg nasal spray aerosol 07/09 completed Medicati on ID: [id number] B rand Name: triamcin olone acetonid e Send Method: E-Prescr ibed Sub s Allowed: subs OK Speci al Instruct ion: INSTILL 2 SPRAYS BY NASAL ROUTE EVERY DAY Medi cationGe nericNam e: triamcin olone acetonid e Not Available Not Available Not Available lidocaine 5 % topical patch APPLY 1 PATCH TOPICALL Y DAILY,IN STR:LEN VE PATCHES AFTER 12 HOURS active Not Available Not Available No t Available gabapenti n 300 mg capsule active Medicati on ID: [id number] B rand Name: gabapent in Send Method: E-Prescr ibed Sub s Allowed: subs OK Medic ationGen ericName : gabapent in Not Available Not Available Not Available sertralin e 25 mg tablet TAKE 1 TABLET BY MOUTH EVERY DAY IN ADDITION TO 100MG FOR TOTAL 125MG 06/10 completed Not Available Not Available Not Available omeprazol e 20 mg capsule,d elayed release active Medicati on ID: [id number] B rand Name: omeprazo le Send Method: E-Prescr ibed Sub s Allowed: subs OK Speci al Instruct ion: TAKE 1 CAPSULE BY MOUTH EVERY DAY FOR 14 DAYS Med icationG enericNa me: omeprazo le Not Available Not Available Not Available Banophen 25 mg capsule TAKE 1 TO 2 CAPSULES (25 - 50 MG) ORALLY EVERY 8 HOURS NEEDED FOR ALLERGIC REACTION FOR 30 DAYS active Not Available Not Available No t Available codeine 10 mg-guaife nesin 100 mg/5 mL oral liquid 07/09 completed Medicati on ID: [id number] B rand Name: codeine- guaifene sin Send Method: E-Prescr ibed Sub s Allowed: subs OK Speci al Instruct ion: TAKE 5 ML BY MOUTH 4 TIMES DAILY NEEDED FOR COUGH (COUGH). NOT COVERED Medicati onGeneri cName: codeine- guaifene sin Not Available Not Available Not Available zolpidem 5 mg tablet 07/09 completed Medicati on ID: [id number] B rand Name: zolpidem Send Method: E-Prescr ibed Sub s Allowed: subs OK Speci al Instruct ion: TAKE 1 TABLET BY MOUTH EVERY 48 HOURS NEEDED FOR INSOMNIA . Medica tionGene ricName: zolpidem Not Available Not Available Not Available gabapenti n 100 mg capsule TAKE 1 CAPSULE BY MOUTH TWICE A DAY FOR 30 DAYS 06/10 completed Not Available Not Available Not Available epinephri ne 0.3 mg/0.3 mL injection , auto-inje ctor INJECT 1 DEVICE DIRECTED NEEDED FOR ANPHYLAX IS. USE DIRECTED active Not Available Not Available No t Available ibuprofen 600 mg tablet 07/09 completed Medicati on ID: [id number] B rand Name: ibuprofe n Send Method: E-Prescr ibed Sub s Allowed: subs OK Speci al Instruct ion: TAKE 1 TAB BY MOUTH EVERY 6 HOURS NEEDED FOR PAIN Med icationG enericNa me: ibuprofe n Not Available Not Available Not Available sertralin e 50 mg tablet 06/10 completed Medicati on ID: [id number] B rand Name: sertrali ne Send Method: E-Prescr ibed Sub s Allowed: subs OK Speci al Instruct ion: TAKE 1 TABLET BY MOUTH EVERY DAY Medi cationGe nericNam e: sertrali ne Medic ation ID: [id number] B rand Name: sertrali ne Send Method: E-Prescr ibed Sub s Allowed: subs OK Speci al Instruct ion: TAKE 1 TABLET BY MOUTH EVERY DAY Medi cationGe nericNam e: sertrali ne Not Available Not Available Not Available loratadin e 10 mg tablet TAKE 1 TABLET BY MOUTH EVERY DAY IN THE MORNING FOR 30 DAYS active Not Available Not Available No t Available prazosin 2 mg capsule TAKE FOUR (4) CAPSULES BY MOUTH AT BEDTIME active Not Available Not Available No t Available Ventolin HFA 90 mcg/actua tion aerosol inhaler INHALE 2 PUFFS INTO THE LUNGS EVERY 4 HOURS NEEDED FOR COUGH, WHEEZING OR SHORTNES S OF BREATH. active Not Available Not Available No t Available enoxapari n 100 mg/mL subcutane ous syringe INJECT 90MG EVERY 12 HOURS X30 DAYS. EXPELL 0.1ML FROM SYRINGE BEFORE USE active Not Available Not Available No t Available cyclobenz aprine 5 mg tablet TAKE 1 TO 2 TABLETS ORALLY BEDTIME NEEDED FOR MUSCLE SPASM FOR 30 DAYS active Not Available Not Available No t Available topiramat e 50 mg tablet 100 MG (2 X 50 MG) ORALLY 2 TIMES A DAY FOR 30 DAYS active Not Available Not Available No t Available Flovent HFA 110 mcg/actua tion aerosol inhaler active Medicati on ID: [id number] B rand Name: Flovent HFA Send Method: E-Prescr ibed Sub s Allowed: subs OK Speci al Instruct ion: INHALE 1 PUFF BY MOUTH TWICE A DAY Medi cationGe nericNam e: Flovent HFA Not Available Not Available Not Available levocetir izine 5 mg tablet 07/09 completed Medicati on ID: [id number] B rand Name: levoceti rizine S end Method: E-Prescr ibed Sub s Allowed: subs OK Speci al Instruct ion: TAKE 1 TABLET BY MOUTH EVERY EVENING FOR 360 DAYS. Me dication GenericN gabriela: levoceti rizine Not Available Not Available Not Available oxycodone 10 mg tablet 07/09 completed Medicati on ID: [id number] B rand Name: oxycodon e Send Method: E-Prescr ibed Sub s Allowed: subs OK Speci al Instruct ion: TAKE 1 TABLET BY MOUTH EVERY 6 HOURS NEEDED FOR PAIN Med icationG enericNa me: oxycodon e Not Available Not Available Not Available GaviLyte- G 236 gram-22.7 4 gram-6.74 gram-5.86 gram oral solution PLEASE SEE ATTACHED FOR DETAILED DIRECTIO NS 06/10 completed Not Available Not Available Not Available azelastin e 205.5 mcg (0.15 %) nasal spray SPRAY 2 SPRAYS BY INTRANAS AL ROUTE TWICE A DAY FOR 30 DAYS 2023 active Not Available Not Available Not Avai lable Eliquis 5 mg tablet TAKE 1 TABLET BY MOUTH TWICE A DAY active Not Available Not Available No t Available Ajovy 225 mg/1.5 mL subcutane ous auto-inje ctor active Not Available Not Available Not Available Vitals Date Recorded Body height Body mass index (BMI) Body weight Provider Name and Address Organization Details Last Updated DateTime 06/10/2024 162.56 cm 33.3 kg/m2 13336.92 g Gretchen Pickard [place] - [facility] 06/10/2024 10:00:55 Social History None recorded. Functional Status None recorded. Mental Status None recorded. Family History Nothing Reported. Medical History No medical history recorded. Gynecological HistoryNo gynecological history recorded. Obstetrics History GPAL:G 0 P 0 0 0 0 Past Encounters Encounter ID Performer Location Encounter Start Date Encounter Closed Date Diagnosis/Indication Diagnosis SNOMED-CT Code Diagnosis ICD10 Code Diagnosis Note [id number] KARINA SHAW MD [facility] [address] [address] 06/10/2024 09:54:34 06/10/2024 10:16:50 Perennial allergic rhinitis 200653811 J30.89 Health Concerns Section Related Observation LastModified by Organization Detai ls LastModified Time None Recorded Concern Status LastModified by Organization Details LastModified Time None Recorded Advance Directives Directive None Recorded Payers Encounter Date Sequence Insurance Name Policy Number Policy Diehl Covered Member ID Diehl Member ID Guarantor Name 06/10/2024 1 [facility] (MEDICAID REPLACEMENT - HMO) Clau Katz [id number] Clau Katz Notes Date Note Type Note Provider Name and Address Organization Details Recorded Time 06/10/2024 text/html 48 year old kvng dacosta presents for re-evaluation of chronic rhinitis, reporting moderate to severe symptoms of rhinorrhea, sneezing, and ocular itching that do not wax and wane with seasons or environment. Skin prick allergy testing previously demonstrated iygf-bn-mqgseitt allergies to dogs, pita trees, and one type of mold. She does not know what medications she has taken in the past. KARINA JUAREZ MD [address] [place] [address], [place], [address], [place] - [facility] 06/10/2024 12:40:43 OBGyn Episode No OBEpisode recorded.
--- OUTSIDE RECORDS SUMMARY | 2024-12-17 11:18 | XMS_ITS | Continuity of Care Document ---
Author Organization [facility] Address [address] [place] [id number]- Care Team Providers Care Legal Administrative Secretary Name Role Phone Solomon BOOTH, Gail Primary Care Physician [place] [facility] 11/16/24 - 12/16/24 [facility] Care [address] [place] [address] Attending Physician: Kylah Patel Admitting Physician: Kylah Patel Referring Physician: Admtr ArAravind Encounter Type: Triage Allergies, Adverse Reactions, Alerts [...] mRNA-1273 vaccine 04/14/21 R ecorded tetanus/diphtheria/pertussis, acel(Tdap) 07/18/16 Recorded Medications acetaminophen 325 mg oral tablet [...] 3 Refills, Maintenance, 03/06/24 2:28:00 PM EDT, [facility]/pharmacy #[id number], Partial fill upon patient request if [...] tablet, 3 Refills, Maintenance, 11/13/24 10:19:00 AMEST, [facility]/pharmacy #[id number], 162.5, cm, 09/22/24 14:27:00 EDT, Height, 86.3, kg, 06/20/24 15:45:00 EDT,Dry Weight Start Date: 11/13/24 Status: Ordered Quantity: 60.0 Unit: tablet Repeat number: 4 lidocaine 5% topical film 1 patch, Topically, Daily, remove patches after 12 hours, # 30 patch, 0 Refills, Acute 03/08/25 1:49:00 PM EDT, 03/08/24 1:49:00 PM EDT, Film, [facility]/pharmacy #[id number], Partial fill upon patient request if [...] Team Personnel Name: Dayana Muller RN Position: [facility] RN Member Role: Primary Care Nurse [...] Position: Reference Physician Member Role: PCP Address: [address] [place] [address] [place] [address]- Telecom: Name: Cyndi Bautista RN Position: S RN Member Role: Primary Care Nurse Name: Solitario Crespo RN Position: S RN Member Role: Primary Care Nurse Care Team Related Persons Name: ALFREDITO STRONG Name: FRAN FALLON Insurance Providers Guarantor name: LORNA TOUREDIPTI Health Plan Information #: 1 Payer: [employer] Member Number: NA Policy Number: NA Group Number: NA
--- OUTSIDE RECORDS SUMMARY | 2024-12-17 11:18 | XMS_ITS | Data Portability ---
Author Organization [facility], [facility] Address [address] [place] [address] Care Team Providers Care Laminator Name Role Phone ZULEIMA MARX Primary Care Provider [phone] Assessment Encounter Date Assessment Date Assessment LastModified by Organization Details LastModified Time 10/01/2024 10/01/2024 I am seeing the patient today under the supervision of malena who was available but who did not see the patient. HPI: Patient presents today complaining of R hand numbness and tingling. Has been going on for months failed cortisone occupational therapy. Difficulty holding things for a long periods of time and talking on the phone. The numbness and tingling wakes the patient up at night. Has numbness into the thumb index and middle finger and occasional pain. Past family, medical, social history and review of systems has been reviewed, updated and is located in the patient? s chart. 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 Does have positive nerve compression signs with the median nerve. R wrist 3 views ordered taken and interpreted by myself show No fractures, no deformities, no DJD noted on todays exam Impression:R Carpal tunnel Plan: EMG right upper extremity carpal tunnel surgical planning with the conservative managements will follow-up [facility] speech recognition baby counselor software was used to create portions of this document. An attempt at proofreading has been made to minimize errors. Please call for corrections. [email or web address] Not available 10/01/2024 09:37:52 11/26/2024 11/26/2024 Nature of diagnosis discussed with patient today. At this time recommend an MRI to further evaluate the integrity of the meniscus both laterally and possible medial on that right knee as she has already failed greater than 6 weeks of conservative management to include formal physical therapy and oral anti-inflammatorie s. Briefly discussed role of cortisone injection but will obtain imaging prior to discussion of such. All questions were asked and answered follow-up in 2 to 3 weeks for MRI review, sooner if symptoms dictate. [email or web address] Not available 11/26/2024 11:03:39 Plan of Treatment Reminders Order Date Submit Date Provider Last Modified By Organization Details Last Modified Time Details Appointments RECHECK 2024 03:15P M Solitario Steele PA-C Not available Not available Not available POST OP 15 2024 10:00A M Riya Lopez PA-C Not available Not available Not available RECHECK 15 2024 10:45A M Casi Martin MD Not available Not available Not available Lab None recorded . Referral None recorded . Procedures nerve conducti on study/EM G, upper extremit y (PROC) - EMG RUE RIGHT WRIST EVAL FOR CARPAL TUNNEL SYNDROME 2023 024 rehan [facility], [address] [place] [address], [address], 10/01/2024 13:19:02 Surgeries orthopae dic surgery (SURG) 2023 025 [email or web address] [facility], [address], [place], [address], 11/03/2024 09:50:47 Imaging XR, wrist, 3 or more view - rm 314 3v right wrist 2023 024 rehan [facility], [address], [facility] [address], [place], [address], 10/01/2024 13:19:02 XR, foot, 3 or more view - room 103 new 3v foot 2v ankle wb 2023 024 [email or web address] [facility], [address], [address], [place], [address], 10/05/2024 12:10:56 XR, ankle, 2 view - room 103 new 3v foot 2v ankle wb 2023 024 [facility], [address], [address], [place], [address], 10/05/2024 12:10:56 MRI, knee, w/o contrast - right knee MRI ?medial and lateral meniscus tears. 2024 025 [facility] ([facility]), [address], [place], [address], 12/02/2024 14:12:59 XR, knee, 4 or more view - R knee 4v 2024 025 [email or web address] 1 [facility], [address], [address], [place], [address], 11/26/2024 11:50:33 Medication Orders None recorded . Patient TargetsNo targets recorded. Patient InstructionsNo instructions recorded. Reason for Referral None Reported. Results Created Date Observation Date Name Description Value Unit Range Abnormal Flag Note LastModifiedBy Organization Detail LastModifiedTime 10/01/20 24 10/01/2024 XR, wrist , 3 or more view [email or web address] ?Encry pted=s hAaTro YD8dLq bEUv6g %2BXZw aYqtaq 0bqfl% 2Fg9IQ a4ajBk vP9nXo QUaueC m3YtLR FvZlgJ JJ8mAn HZtai3 7a0076 AC0Kqa HuNVaS kKiQtr MwF INTERFACE [facility] [address], [place], [address], 10/01/2024 09:27:01 10/01/20 24 10/01/2024 XR, wrist , 3 or more view [email or web address] ?Encry pted=s hAaTro YD8dLq bEUv6g %2BXZw aYqtaq 0bqfl% 2Fg9IQ a4ajBk vP9nXo QUaueC m3YtLR FvZlgJ JJ8mAn HZtai3 5e4617 AC0Kqa HuNVaS kKiQtr MwF INTERFACE [facility] [address], [place], [address], 10/01/2024 09:27:03 10/02/20 24 10/02/2024 XR, foot, 3 or more view [email or web address] ?Encry pted=s hAaTro YD8dLq bEUv6g %2BXZw aYqtaq 0bqfl% 2Fg9IQ a4ajBk vP9nXo QUaueC m3YtLR Zl JJ8mAn HZtai3 2j5881 AC0Kqa HqAUaC nKiQtr MwF INTERFACE [facility] [address], [place], [address], 10/02/2024 10:10:20 10/02/20 24 10/02/2024 XR, foot, 3 or more view [email or web address]:/ [email or web address] ?Encry pted=s hAaTro YD8dLq bEUv6g %2BXZw aYqtaq 0bqfl% 2Fg9IQ a4ajBk vP9nXo QUaueC m3YtLR FvZlgJ JJ8mAn HZtai3 3t0913 AC0Kqa HqAUaC nKiQtr MwF INTERFACE [facility] [address] [facility] [address], [place], [address], 10/02/2024 10:10:22 10/02/20 24 10/02/2024 XR, ankle , 2 view [email or web address] ?Encry pted=s hAaTro YD8dLq bEUv6g %2BXZw aYqtaq 0bqfl% 2Fg9IQ a4ajBk vP9nXo QUaueC m3YtLR FvZlgJ JJ8mAn HZtai3 6h4451 AC0Kqa HqAUaC kKiQtr MwF INTERFACE [facility] [address] [facility] [address], [place], [address], 10/02/2024 10:11:34 10/02/20 24 10/02/2024 XR, ankle , 2 view [email or web address] ?Encry pted=s hAaTro YD8dLq bEUv6g %2BXZw aYqtaq 0bqfl% 2Fg9IQ a4ajBk vP9nXo QUaueC m3YtLR FvZlgJ JJ8mAn HZtai3 2q5404 AC0Kqa HqAUaC kKiQtr MwF INTERFACE [facility] [address] [address], [place], [address], 10/02/2024 10:11:36 12/02/19 25 12/02/2024 MRI, knee, w/o contr ast [facility] Access ion Number : [id number] [address] t Name: Clau Katz Record Number : [id number] Date of : 1974 Date of Exam: 2024 Referr ing Physic jean-pierre: [facility] [address] [place] [address] , [address] [place] [address] Exam: MR Knee (C-) CPT 78104 - Right Room Descri ption: [facility] Pion 3T MR Knee (C-) CPT 55178 CLINIC AL INDICA TION: Reason For Exam: S83.24 1A - Other tear of medial menisc us, curren t injury , right knee, initia l encoun ter, , right knee MRI ?media l and latera l menisc us tears. , Rule Out: LMT and MMT Reason For Exam: S83.24 1A - Other tear of medial menisc us, curren t injury , right knee, initia l encoun ter, , right knee MRI ?media l and latera l menisc us tears. , Rule Out: LMT and MMT Depart ment Protoc ol TECHNI QUE: MRI of the right knee was perfor med withou t intrav enous contra st. COMPAR TARIQ: None FINDIN GS: Exam sensit ivity is reduce d second huseyin to motion artifa ct Joint effusi on: No joint effusi on is presen t. Hoffa' s fat pad is unrema rkable . 0.9 x 0.6 cm friction saw operator ior medial gangli on cyst extend ing friction saw operator ior to the distal PCL footpr int. Menisc i: Medial menisc us: intact Latera l menisc us: intact Tendon s and ligame nts: ACL and PCL are intact . MCL, LCL comple x and poplit eus insert ion are intact . Extens or mechan ism is intact . Bone and articu lar cartil age: The articu lar cartil age is normal in thickn ess. No focal defect s are seen. Alignm ent is within normal limits . No eviden ce of fractu re, bone marrow contus ion or focal bone marrow signal abnorm ality. IMPRES CINTHIA: No eviden ce of menisc al tear or ligame ntous injury Small friction saw operator ior medial gangli on cyst Electr onical ly Signed By: David Roe rd, MD [email or web address] [facility] ([facility]) [address], [place], [address], 12/03/2024 09:00:51 Result Notes None recorded. 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 Procedures Surgical History Date Name Laterality Status Provider Name and Address Organization Details Recorded Time Bariatric Surgery completed Kati Spears [place] - [facility] 11/26/2024 09:45:03 Other completed Kati Spears [place] - [facility] 11/26/2024 09:45:03 Imaging Results Imaging Date Name Status LastModified by Organiz ation Details LastModified Time 10/01/2024 XR, wrist, 3 or more view completed INTERFACE [facility] [address], [place], [address], 10/01/2024 09:27:01 10/01/2024 XR, wrist, 3 or more view completed INTERFACE [facility] [address], [place], [address], 10/01/2024 09:27:03 10/02/2024 XR, foot, 3 or more view completed INTERFACE [facility] [address], [place], [address], 10/02/2024 10:10:20 10/02/2024 XR, foot, 3 or more view completed INTERFACE [facility] [address], [place], [address], 10/02/2024 10:10:22 10/02/2024 XR, ankle, 2 view completed INTERFACE [facility] [address], [place], [address], 10/02/2024 10:11:34 10/02/2024 XR, ankle, 2 view completed INTER[facility] [address], [place], [address], 10/02/2024 10:11:36 12/02/2024 MRI, knee, w/o contrast completed [email or web address] [facility] ([facility]) [address], [place], [address], 12/03/2024 09:00:51 Procedure Notes None recorded. Medical Equipment None Reported. Allergies Allergen ID Allergen Name Allergen Category Reaction Reaction Severity Criticality Documentation Date Start Date Code Code System Note Provider Name and Address Organization Details Recorded Time 40276 Product containin g penicilli n and antibioti c (product) medicatio n Not available Not available Not available 01/27/20242010 23742 05 SNOMED Aller gyRea ction : 'Skin React ion'; Not Available [facility] 10:54:23 90911 pineapple extract food Not available Not available Not available 01/27/20242017 29128 74 RxNorm Not Available [facility] 10:54:23 Medications Name Sig Start Date Stop Date Status Note LastModified by Organization Details LastModified Time trazodone 50 mg tablet TAKE ONE- TWO OR THREE (1-2-3) TABLETS BY MOUTH AT BEDTIME, NEEDED 10/01 completed Not Available Not Available Not Available Maxalt-DIE GRINDER 10 mg disintegrat ing tablet Take by oral route. active Not Available Not Available No t Available azithromyci n 250 mg tablet TAKE 2 TABLETS BY MOUTH TODAY, THEN TAKE 1 TABLET DAILY FOR 4 DAYS DIRECTED 10/01 completed Not Available Not Available Not Available sumatriptan 100 mg tablet PLEASE SEE ATTACHED FOR DETAILED DIRECTION S 10/01 completed Not Available Not Available Not Available ondansetron HCl 4 mg tablet TAKE 1 TABLET EVERY 6-8 HOURS BY ORAL ROUTE NEEDED, FOR NAUSEA/VO MITING. active Not Available Not Available No t Available rizatriptan 10 mg tablet 1 tablet every day by oral route. active Not Available Not Available No t Available sertraline 100 mg tablet TAKE 1 TABLET BY MOUTH DAILY WITH 25 MG FOR TOTAL DAILY DOSE OF 125 MG DAILY. active Not Available Not Available No t Available acetazolami de 250 mg tablet TAKE 2 TABLETS BY MOUTH 3 TIMES A DAY active Not Available Not Available No t Available ciprofloxac in 250 mg tablet TAKE 1 TABLET BY MOUTH TWICE A DAY FOR 3 DAYS 10/01 completed Not Available Not Available Not Available acetaminoph en 500 mg tablet TAKE 2 TABLETS EVERY 8 HOURS BY ORAL ROUTE FOR 15 DAYS. active Not Available Not Available No t Available cyproheptad ine 4 mg tablet TAKE 1 TABLET BY MOUTH EVERY DAY AT BEDTIME active Not Available Not Available No t Available ofloxacin 0.3 % ear drops ADMINISTE R 4 DROPS INTO EACH EAR 2 TIMES A DAY FOR 7 DAYS. active Not Available Not Available No t Available triamcinolo ne acetonide 0.025 % topical cream APPLY EXTERNALL Y TO THE AFFECTED AREA TWICE DAILY 10/01 completed Not Available Not Available Not Available pseudoephed rine-guaife nesin ER 80-700 mg tablet,exte nded release 1-2 TABS EVERY 4-6 HOURS NEEDED FOR PAIN. THIS PRESCRIPT ION MUST LAST 7 DAYS 10/01 completed Statu s: 'Curr ent'; Not Available Not Available Not Available lidocaine 5 % topical patch APPLY 1 PATCH TOPICALLY DAILY,INS TR:REMOVE PATCHES AFTER 12 HOURS 10/01 completed Not Available Not Available Not Available sertraline 25 mg tablet TAKE ONE (1) TABLET BY MOUTH DAILY IN ADDITION TO 100 MG TOTAL DAILY DOSE 125 MG DAILY. 10/01 completed Not Available Not Available Not Available omeprazole 20 mg capsule,del ayed release TAKE 1 CAPSULE BY MOUTH DAILY. 30 MINUTES PRIOR TO MEAL 10/01 completed Not Available Not Available Not Available Banophen 25 mg capsule TAKE 1 TO 2 CAPSULES (25 - 50 MG) ORALLY EVERY 8 HOURS NEEDED FOR ALLERGIC REACTION FOR 30 DAYS 10/01 completed Not Available Not Available Not Available epinephrine 0.3 mg/0.3 mL injection, auto-inject or INJECT 1 DEVICE DIRECTED NEEDED FOR ANPHYLAXI S. USE DIRECTED 10/01 completed Not Available Not Available Not Available fluticasone propionate 50 mcg/actuati on nasal spray,suspe nsion SPRAY 2 SPRAYS BY NASAL ROUTE DAILY 10/01 completed Not Available Not Available Not Available sertraline 50 mg tablet TAKE 1 TABLET BY MOUTH DAILY TOGETHER WITH 100 MG TOTAL DAILY DOSE OF 150 MG 10/01 completed Not Available Not Available Not Available loratadine 10 mg tablet 10 mg every day by oral route. active Not Available Not Available No t Available prazosin 2 mg capsule TAKE FOUR (4) CAPSULES BY MOUTH AT BEDTIME 10/01 completed Not Available Not Available Not Available Ventolin HFA 90 mcg/actuati on aerosol inhaler INHALE 2 PUFFS INTO THE LUNGS EVERY 4 HOURS NEEDED FOR COUGH, WHEEZING OR SHORTNESS OF BREATH. 10/01 completed Not Available Not Available Not Available oxycodone 5 mg tablet TAKE 1 TABLET BY MOUTH EVERY 4 TO 6 HOURS NEEDED active Not Available Not Available No t Available enoxaparin 100 mg/mL subcutaneou s syringe INJECT 90MG EVERY 12 HOURS X30 DAYS. EXPELL 0.1ML FROM SYRINGE BEFORE USE 10/01 completed Not Available Not Available Not Available cyclobenzap rine 5 mg tablet TAKE 1 TO 2 TABLETS ORALLY BEDTIME NEEDED FOR MUSCLE SPASM FOR 30 DAYS 10/01 completed Not Available Not Available Not Available topiramate 50 mg tablet 50 mg twice a day by oral route. active Not Available Not Available No t Available Flovent HFA 110 mcg/actuati on aerosol inhaler INHALE 1 PUFF BY MOUTH TWICE A DAY 10/01 completed Not Available Not Available Not Available diclofenac 1 % topical gel APPLY TO AFFECTED AREA TWICE A DAY TOPICALLY active Not Available Not Available No t Available oxycodone HCl-oxycodo ne-ASA as directed 1-2 Tabs po Q 4-6 hrs prn pain. DO NOT DRIVE WHILE TAKING THIS MEDICATIO N 10/01 completed Statu s: 'Curr ent'; Not Available Not Available Not Available GaviLyte-G 236 gram-22.74 gram-6.74 gram-5.86 gram oral solution PLEASE SEE ATTACHED FOR DETAILED DIRECTION S 10/01 completed Not Available Not Available Not Available Eliquis 5 mg tablet TAKE 1 TABLET BY MOUTH TWICE A DAY active Not Available Not Available No t Available Eliquis 2.5 mg tablet Take 1 tablet twice a day by oral route for 30 days. 12/08 completed Not Available Not Available Not Available Ubrelvy 100 mg tablet active Not Available Not Available No t Available Ajovy 225 mg/1.5 mL subcutaneou s auto-inject or 225 mg every month by sub-q route. active Not Available Not Available No t Available Vitals Date Recorded Body height Body mass index (BMI) Body weight Provider Name and Address Organization Details Last Updated DateTime 10/01/2024 162.56 cm 34.3 kg/m2 27466.47 g Lonny Gooden [facility] 10/01/2024 09:20:29 Date Recorded Body height Body mass index (BMI) Body weight Provider Name and Address Organization Details Last Updated DateTime 10/02/2024 162.56 cm 34.3 kg/m2 50361.47 g Noris rodrigues [facility] 10/02/2024 09:44:28 Date Recorded Body height Body mass index (BMI) Body weight Provider Name and Address Organization Details Last Updated DateTime 11/26/2024 162.56 cm 34.3 kg/m2 42713.47 g Kati Spears [facility] 11/26/2024 09:45:12 Date Recorded Body height Body mass index (BMI) Body weight Provider Name and Address Organization Details Last Updated DateTime 11/30/2024 162.56 cm 35 kg/m2 70920.84 g rashida zayas [facility] 11/30/2024 08:33:21 Social History Question Answer Notes LastModified by Organizat ion Details LastModified Time Tobacco Smoking Status Never Smoker Kati Spears [facility] 11/26/2024 09:45:03 How Many Times Per Week Do You Consume Alcohol? Less Than 1 Time Per Week [email or web address] Information not available 11/26/2024 Do You Or Have You Ever Used E-cigarettes Or Vape? Never Used Electronic Cigarettes [email or web address] Information not available 11/26/2024 What Is Your Relationship Status? Single [email or web address] Information not available 11/26/2024 Do You Use Any Illicit Or Recreational Drugs? No Information not available 11/26/2024 How Many Years Have You Smoked Tobacco? 0 [email or web address] Information not available 11/26/2024 Do You Or Have You Ever Used Any Other Forms Of Tobacco Or Nicotine? No [email or web address] Information not available 11/26/2024 Sex: Unknown Functional Status None recorded. Mental Status None recorded. Family History Nothing Reported. Medical History Condition Response Anxiety/Depression Y Pulmonary Embolism Y Seizures/Epilepsy Y Asthma Y Blood Clot Y Gynecological HistoryNo gynecological history recorded. Obstetrics History GPAL:G 0 P 0 0 0 0 Past Encounters Encounter ID Performer Location Encounter Start Date Encounter Closed Date Diagnosis/Indication Diagnosis SNOMED-CT Code Diagnosis ICD10 Code Diagnosis Note [id number] Casi Martin MD [facility] [address] [place] [address] 10/02/2024 09:38:27 11/01/2024 16:46:00 Pain in right foot 1183009690 71484 M79.671 Metatarsal varghese of right foot 9683421360 15489 M77.41 [id number] Grabiel Suarez PA-C [facility] [address] [place] [address] 10/01/2024 09:07:32 10/29/2024 11:33:25 Pain of right wrist 1073374368 50558 M25.531 Carpal hamida fabiola syndrome of right wrist 5230797596 32536 G56.01 [id number] Solitario Steele PA-C [facility] [address] [place] [address] 11/26/2024 09:12:59 12/15/2024 13:44:26 Tear of medial meniscus of knee 121690398 S83.241A [id number] MD [facility] [address] [place] [address] 11/30/2024 08:00:50 12/15/2024 11:11:45 Pain in right foot 5862263389 92158 M79.671 Metatarsal varghese of right foot 3004604746 78512 M77.41 [id number] ALISON SINCLAIR [facility] [address] [place] [address] 12/16/2024 09:47:01 12/16/2024 10:12:28 Surgical follow-up [id number] Z09 Health Concerns Section Related Observation LastModified by Organization Detai ls LastModified Time None Recorded Concern Status LastModified by Organization Details LastModified Time None Recorded Advance Directives Directive None Recorded Payers Encounter Date Sequence Insurance Name Policy Number Policy Diehl Covered Member ID Diehl Member ID Guarantor Name 10/01/2024 1 [facility] [employer]AN (MEDICAID HMO) WILLIAN Katz [id number] Clau Katz 10/02/2024 1 [facility] (MEDICAID HMO) WILLIAN Katz [id number] Clau Katz 11/26/2024 1 [facility] (MEDICAID HMO) WILLIAN Katz [id number] Clau Katz 11/30/2024 1 [facility] (MEDICAID HMO) WILLIAN Katz [id number] Clau Katz Notes Date Note Type Note Provider Name and Address Organization Details Recorded Time 10/02/2024 text/html CHIEF COMPLAINT: Right foot pain Previous procedures: Status post removal hardware right 1st metatarsal, revision 4th toe PIP fusion for PIP malunion; date of surgery 01/07/23 HISTORY OF PRESENT ILLNESS: Clau presents today for evaluation of her ongoing right foot pain. We last evaluated her in the office just over 1 year ago. At that point in time she reported that the surgery to remove her hardware and correct her fourth toe position were effective in alleviating those pains, however she had a persistent and recalcitrant pain in the plantar aspect of the fourth metatarsal head. We recall she is also status post hallux valgus correction, second and third metatarsal osteotomies, and bunionette correction by Dr. Nunez. Her exam at that visit was notable for palpable plantar prominence of the fourth metatarsal head. We prescribed custom orthotics with metatarsal bar Patient presents today reporting persistent pain in the right foot. She localizes her pain plantarly, in the region of the fourth metatarsal head. She does not believe the orthotics are effective for pain relief. Past family, medical, social history and review of systems has been reviewed, updated and is located in the patient's chart. PHYSICAL EXAM:Patient in no acute distress, alert and oriented. Mood and affect appropriateFocused examination right lower extremity there is no swellingSurgical incisions are fully healedOverall 4th toe correction is well maintained. No tenderness to palpation overlying the PIP fusion siteTenderness palpation plantarly overlying the 4th metatarsal head. The 4th metatarsal is palpably lower than the second, third, fifth metatarsalsNo coronal plane or sagittal plane deformity at the fourth MTP jointShe is grossly neurovascularly intact with motor and sensation intact in all distributionsToes are warm and well perfused with palpable DP and PT pulses X-rays ordered, obtained and reviewed at [facility]: AP, lateral, oblique weightbearing imaging of the right foot and ankle was obtained today in office. AP and oblique weightbearing imaging of the right ankle demonstrates no evidence of acute fracture or degenerative change. Tibiotalar mortise is symmetric with no talar tilt or shift. Weightbearing imaging of the right foot demonstrates evidence of prior hallux valgus correction. There is evidence of prior second and third metatarsal osteotomies as well as substantial shortening of the fifth metatarsal, status post bunionette correction. Lateral x-ray demonstrates elevation of the second and third metatarsals with what appears to be relative plantar prominence of the fourth metatarsal head. Alignment of the forefoot, midfoot, hindfoot structures is otherwise within normal physiologic parameters IMPRESSION:- status post removal of hardware right 1st metatarsal, revision 4th toe PIP fusion for PIP malunion; date of surgery 01/07/23- right fourth metatarsalgia PLAN:-Overall the patient continues to suffer from fairly significant metatarsalgia involving the fourth metatarsal head. Clinically the fourth metatarsal head is extremely plantar relative to the second and third metatarsal heads. I believe this is likely a result of the patient's previous forefoot osteotomies. At this point in time her pain has been refractory to conservative measures and it is reasonable to consider surgery ? We discussed that operative intervention would involve a fourth metatarsal modified Bandar osteotomy. Reviewed try to elevate the fourth metatarsal head so that does not quite so prominent on the plantar aspect of the foot. She understands that there is a risk of nonunion as well as the risk of incomplete pain relief and risk of fourth MTP stiffness ? Patient indicated she would like to proceed with surgery ? Risks and benefits of operative intervention were discussed at length along with the recovery protocol and expected outcomes. Patient indicated she understood the risks and wished to proceed Casi Martin MD [address] [place] [address] [address], [place], [address], [facility] 10/02/2024 12:39:24 11/26/2024 text/html I am seeing the patient today under the supervision of {{Dr. Georgette Quintero* Dr. Lolis Willingham Dr. Silver}} who was available but who did not see the patient. Patient comes in for evaluation of right knee pain. States pain has been going on for about a year. Does not recall any injury to account for this. Pain is on the anterior aspect of the knee but will radiate down the medial lateral. Has catching locking with knee flexion activities. Feels popping cracking. Difficulty with kneeling squatting going up and down stairs. Patient reports that she has done a prescription of diclofenac as prescribed by her primary care as well as doing a course of physical therapy which significantly worse. Overall not happy with pain level function despite conservative management no previous injury or surgery to that knee. Solitario Steele PA-C [address] [place] [address] [address], [place], [address], [facility] 11/26/2024 11:03:56 11/30/2024 text/html CHIEF COMPLAINT: Follow up right foot pain Previous procedures: Status post removal hardware right 1st metatarsal, revision 4th toe PIP fusion for PIP malunion; date of surgery 01/07/23 HISTORY OF PRESENT ILLNESS: Patient presents today for follow up evaluation and preoperative planning. In brief she is a 49-year-old female who is status post right revision fourth hammertoe correction, hallux valgus correction and second, third, fifth metatarsal osteotomies. She has developed symptomatic fourth metatarsalgia as a result of the change in her weightbearing cascade of the lesser metatarsal heads. Specifically both the second and third metatarsal heads are elevated which has led to a plantar prominent fourth metatarsal head. We have at this point in time trialed and failed multiple conservative measures for management of her pain including custom orthotics and metatarsal pads. She continues to have significant pain that limits her day-to-day activity. Patient continues to to localize her pain to the fourth metatarsal head. We are now planning to move forward with surgery in the form of a fourth metatarsal distal osteotomy. Past family, medical, social history and review of systems has been reviewed, updated and is located in the patient's chart. PHYSICAL EXAM:Patient in no acute distress, alert and oriented. Mood and affect appropriateFocused examination right lower extremity there is no swellingSurgical incisions are fully healedOverall 4th toe correction is well maintained. No tenderness to palpation overlying the PIP fusion siteTenderness palpation plantarly overlying the 4th metatarsal head. The 4th metatarsal is palpably lower than the second, third, fifth metatarsalsNo coronal plane or sagittal plane deformity at the fourth MTP jointShe is grossly neurovascularly intact with motor and sensation intact in all distributionsToes are warm and well perfused with palpable DP and PT pulses X-rays (previous imaging) S: AP, lateral, oblique weightbearing imaging of the right foot and ankle was obtained today in office. AP and oblique weightbearing imaging of the right ankle demonstrates no evidence of acute fracture or degenerative change. Tibiotalar mortise is symmetric with no talar tilt or shift. Weightbearing imaging of the right foot demonstrates evidence of prior hallux valgus correction. There is evidence of prior second and third metatarsal osteotomies as well as substantial shortening of the fifth metatarsal, status post bunionette correction. Lateral x-ray demonstrates elevation of the second and third metatarsals with what appears to be relative plantar prominence of the fourth metatarsal head. Alignment of the forefoot, midfoot, hindfoot structures is otherwise within normal physiologic parameters IMPRESSION:- status post removal of hardware right 1st metatarsal, revision 4th toe PIP fusion for PIP malunion; date of surgery 01/07/23- right fourth metatarsalgia PLAN:-I again reviewed the above diagnosis as well as physical examination and imaging findings with the patient in clinic today. Treatment options were again discussed at length. At this point in time the patient has trialed and failed most conservative measures for management of her pain including shoe modifications, metatarsal pads, and custom orthotics. She continues to have significant pain that is limiting her ability to be active. It is reasonable to move forward with surgery.? We again reviewed that operative intervention well involve a fourth metatarsal modified Bandar osteotomy. We reviewed that we will try to elevate the fourth metatarsal head so that it is not quite so prominent on the plantar aspect of the foot. She understands that there is a risk of nonunion as well as the risk of incomplete pain relief and risk of fourth MTP stiffness? Risks and benefits of operative intervention were discussed at length along with the recovery protocol and expected outcomes. Patient indicated she understood the risks and wished to proceed ? Of note she does have an elevated DVT risk postoperatively as she has a history of a recent left lower extremity DVT. We will place her on a prophylactic dose of Eliquis postoperatively Casi Martin MD [address] [facility] [address], [place], [address], [facility] 12/01/2024 10:23:10 OBGyn Episode No OBEpisode recorded.
--- OUTSIDE RECORDS SUMMARY | 2024-12-17 11:18 | XMS_ITS | Continuity of Care Document ---
Author Organization [facility] Address [address] [place] [id number]- Care Team Providers Care Jump Roll Operator Name Role Phone Gail Carbajal MD Primary Care Physician [place] [facility] [place] 11/13/24 - 12/13/24 [facility] [address] [place] [id number] Encounter Type: Triage Allergies, Adverse Reactions, Alerts [...] 3 Refills, Maintenance, 03/06/24 2:28:00 PM EDT, [facility]/pharmacy #[id number], Partial fill upon patient request [...] tablet, 3 Refills, Maintenance, 11/13/24 10:19:00 AMEST, [id number], 162.5, cm, 09/22/24 14:27:00 EDT, Height, 86.3, kg, 06/20/24 15:45:00 EDT,Dry Weight Start Date: 11/13/24 Status: Ordered Quantity: 60.0 Unit: tablet Repeat number: 4 lidocaine 5% topical film 1 patch, Topically, Daily, remove patches after 12 hours, # 30 patch, 0 Refills, Acute 03/08/25 1:49:00 PM EDT, 03/08/24 1:49:00 PM EDT, Film, [id number], Partial fill upon patient request if [...] Health Status Informant Bilateral trochanteric bursitis Confirmed 4/12/18 Active Atypical squamous cell of undetermined significance [...] Team Personnel Name: Dayana Muller RN Position: S RN Member Role: Primary [...] Position: Reference Physician Member Role: PCP Address: [address] [place] [id number] Telecom: Name: Cyndi Bautista RN Position: S RN Member Role: Primary Care Nurse Name: Solitario Crespo RN Position: [facility] RN Member Role: Primary Care Nurse Care Team Related Persons Name: ALFREDITO STRONG Name: FRAN FALLON Insurance Providers Guarantor name: LORNA CHILDS Health Plan Information #: 1 Payer: [employer] Member Number: NA Policy Number: NA Group Number: NA
--- OUTSIDE RECORDS SUMMARY | 2024-12-17 11:18 | XMS_ITS | Continuity of Care Document ---
Author Organization [facility] Address [address] [place] [address]- Care Team Providers Care Office Manager Name Role Phone Solomon BOOTH, Gail Primary Care Physician [phone] Encounter [facility] Date(s): 10/05/24 - 12/04/24 [facility] [address] [place], [place] [address] Attending Physician: Not on Staff, Attending MD Encounter Type: Pre-OutPatient One Time Allergies, Adverse Reactions, Alerts Substance Criticality Severity [...] 3 Refills, Maintenance, 03/06/24 2:28:00 PM EDT, [facility]/pharmacy #[id number], Partial fill upon patient request [...] tablet, 3 Refills, Maintenance, 11/13/24 10:19:00 AMEST, [facility]/pharmacy #[id number], 162.5, cm, 09/22/24 14:27:00 EDT, Height, 86.3, kg, 06/20/24 15:45:00 EDT,Dry Weight Start Date: 11/13/24 Status: Ordered Quantity: 60.0 Unit: tablet Repeat number: 4 lidocaine 5% topical film 1 patch, Topically, Daily, remove patches after 12 hours, # 30 patch, 0 Refills, Acute 03/08/25 1:49:00 PM EDT, 03/08/24 1:49:00 PM EDT, Film, [facility]/pharmacy #[id number], Partial fill upon patient request [...] Team Personnel Name: Dayana Muller RN Position: [facility] RN Member Role: Primary Care Nurse [...] Position: Reference Physician Member Role: PCP Address: [address] [place] [id number] Telecom: Name: Cyndi Bautista RN Position: [facility] RN Member Role: Primary Care Nurse Name: Solitario Crespo RN Position: S RN Member Role: Primary Care Nurse Care Team Related Persons Name: ALFREDITO STRONG Name: FRAN FALLON Insurance Providers Guarantor name: LORNA TEJAL CHILDS Health Plan Information #: 1 Payer: [employer] Member Number: [id number] Policy Number: NA Group Number: NA Health Plan Information #: 2 Payer: [employer] Member Number: [id number] Policy Number: NA Group Number: NA
== END 2024-12-17 10:25 | disposition home or self-care (01) ==
PROVIDERS: Visit Provider Psychiatry & Neurology Neurology
DX: G43.719 Chronic migraine without aura, intractable, without status migrainosus (principal)
CPT/HCPCS: 64615

== ENCOUNTER → 2024-12-17 09:50 | Outpatient (BNVA) | payer OTHER, SELFPAY | PROVIDERS: Visit Provider Psychiatry & Neurology Neurology | DX: G43.719 Chronic migraine without aura, intractable, without status migrainosus (principal); G24.3 Spasmodic torticollis | CPT/HCPCS: 64615; 99211; J0585 ==

== ENCOUNTER 2025-04-06 08:43 | Outpatient (AMB) | payer OTHER, SELFPAY ==
[2025-04-06 08:45] VITALS: PULSE 88; O2SAT 99; BMI 33.2
--- NOTE | 2025-04-06 08:45 | MHC.OFFVIS ---
Vital Signs 04/06/25 08:45 Height 5 ft 7 in Weight 212 lb BMI 33.2 Pulse 88 Pulse Source Pulse Oximeter Pulse Oximetry (%) 99 Oxygen Delivery Method Room Air Intake Visit Reasons: BOTOX-Conf Intake Note: Patient presents for botox injection pharmacy supplied Allergies pineapple Allergy (Intermediate, Verified 04/06/25 08:48) Swelling Penicillins Allergy (Mild, Verified 04/06/25 08:48) Swelling Medication List - Last Reconciled 04/06/25 by Angelia Lawler MD acetaminophen 500 mg PO PRN acetazolamide 500 mg (2 x 250 mg) PO TID 30 days azelastine intranasal cetirizine 10 mg PO DAILY cyclobenzaprine 5 - 10 mg (1 - 2 x 5 mg) PO BEDTIME PRN 30 days diphenhydramine HCl (Benadryl) 25 - 50 mg (1 - 2 x 25 mg) PO Q8H PRN 30 days fluticasone propionate 110 mcg/actuation (Flovent HFA) grams inhalation fremanezumab-vfrm (Ajovy) 675 mg (4.5 mL) subcut [id number] 90 days ondansetron 4 mg PO PRN pantoprazole tabs PO prazosin 2 mg PO BEDTIME rizatriptan 5 - 10 mg (0.5 - 1 x 10 mg) PO Q2H PRN 21 days sertraline 50 mg PO PRN topiramate 100 mg (2 x 50 mg) PO BID 30 days ubrogepant (Ubrelvy) 50 - 100 mg (0.5 - 1 x 100 mg) PO ONCE PRN 30 days zolmitriptan (Zomig) take 1 tab at onset of headache; if no relief, may repeat 1 tab after at least 2 hrs; max = 2 tabs/24 hrs PO 30 days HPI Comments Details: ? 49y/o female comes for treatment of migraines with botox. ??? Most frequent reported adverse reactions following injection of botox for chronic migraine include neck pain (9%), headache(5%), eyelid ptosis(4%), migraine(4%), muscular weakness(4%), musculuskeletal stiffness(4%), bronchitis(3%), injection site pain (3%), musculoskeletal pain(3%), myalgia(3%), facial paresis(2%), HTN(2%) and muscle spasms(2%) were discussed in detail. ??? Botulinum toxin typeA 200units Lot no [id number] expiration February 2027 was diluted with 4 cc of normal saline . ??? Muscles injected- ??? Frontalis 4 sites ??? Procerus 1 site ??? Fruit And Vegetable Parer- 2 sites ??? Temporalis- 8 sites ??? Occipitalis- 6 sites ??? Cervical paraspinals- 4 sites ??? Trapezius- 6 sites- 10 units each ??? 5 units each in 31 site ??? Total use- 185units ??? Discarded-15units [facility] Medical History Chronic migraine without aura, intractable, without status migrainosus Facial numbness Chronic migraine without aura Cervical dystonia Sinusitis Anxiety and depression Seizure Cervicalgia Surgical History History of toe surgery History of surgery on wrist Family History Mother Heart disease HTN (hypertension) Father HTN (hypertension) Heart disease Diabetes Social History Household Members: Spouse and Children Alcohol intake: current Alcohol intake frequency: does not drink Patient Tobacco Use Status: Never used Tobacco Current occupational status: employed 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 Physical Exam Vital Signs: Last Vital Signs Pulse 88 04/06/25 08:45 Pulse Ox 99 04/06/25 08:45 Oxygen Delivery Method Room Air 04/06/25 08:45 BMI result Body Mass Index 33.2 Const General: cooperative and no acute distress Orientation/consciousness: patient oriented x3 HEENT Head: Yes normocephalic Resp Effort & Inspection: normal respiratory effort and able to speak in complete sentences Neuro General: patient oriented x3 and gait normal Cognition (Neuro): normal cognition Motor exam (neuro): 5/5 motor strength present throughout Office Procedures Botulinum toxin Injection 02171 - Migraine Procedure code (CPT) selection complete Office Meds onabotulinumtoxinA 200 unit solution for injection Performing Provider: Angelia Lawler MD Performing Location: [facility] Administered by: Angelia Lawler MD on 04/06/25 09:21 Dose Route Admin Location Dispensed Lot Number Expiration Date [facility] [employer] 185 unit subcut 200 units [id number] ALLERGAN/BOTOX Comments: see hpi Assessment & Plan Assessment & Plan (1) Chronic migraine without aura, intractable, without status migrainosus: Code(s): G43.719 - Chronic migraine without aura, intractable, without status migrainosus Category: Medical (2) Cervical dystonia: Code(s): G24.3 - Spasmodic torticollis Category: Medical Plan Patient tolerated the procedure well she will call with any side effects Orders: Orders AMB Botulinum toxin Injection Today G43.719 - Chronic migraine without aura, intractable, without status migrainosus Medications: New onabotulinumtoxinA 200 units subcut ONCE 1 ea 0RF migraine G43.719 - Chronic migraine without aura, intractable, without status migrainosus Coding Level of Care Code Est Pt Level 1 (77472) Diagnoses Chronic migraine without aura, intractable, without status migrainosus G43.719 Cervical dystonia G24.3 CPT Codes Botox Injection - Botox 3: 37516 - Migraine ([id number])
--- OUTSIDE RECORDS SUMMARY | 2025-04-06 09:05 | XMS_ITS | Data Portability ---
Author Organization [facility], [facility] Address [address] [place] [address] Care Team Providers Care Step Down Nurse Name Role Phone ZULEIMA MARX Primary Care Provider Assessment Encounter Date Assessment Date Assessment LastModified by Organization Details LastModified Time 12/22/2024 12/22/2024 Patient diagnosi s discussed with patient today. At this time I do feel the vast majority the pain discomfort is likely coming from underlying patellofemoral disease. Discussed multiple treatment options to include anti-inflammatorie s physical therapy and cortisone injection. Currently do not see role for surgical intervention. At this time patient like to focus her rehab on her foot once the rehabilitation on her foot is complete if she still having knee pain we will happily see her back for likely injection therapy. [email or web address] Not available 12/22/2024 16:09:38 03/04/2025 03/04/2025 I am seeing the patient today under the supervision of malena who was available but who did not see the patient. HPI: Patient presents today complaining of R hand numbness and tingling. Has been going on for R. 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 Does have positive nerve compression signs with the median nerve. EMG normal Impression:R Carpal tunnel like symptoms Plan: Patient was proceeded injections if this alleviates some of her symptoms of chondral flap Dick Corrales [facility] Radha speech recognition drafter (cad) electrical software was used to create portions of this document. An attempt at proofreading has been made to minimize errors. Please call for corrections. [email or web address] Not available 03/04/2025 10:13:57 Plan of Treatment Reminders Order Date Submit Date Provider Last Modified By Organization Details Last Modified Time Details Appointments RECHECK 15 2024 10:45A Emerita Martin MD Not available Not available Not available Lab None recorded. Referral physical therapist referral - Status post right fourth metatarsa l osteotomy , fourth toe long extensor tendon imbricati on; date of surgery 12/08/20242024 025 [email or web address] Not available 03/08/2025 16:40:41 Procedures None recorded. Surgeries None recorded. Imaging XR, foot, 3 or more view - room 101 postop 3v foot wb 2024 025 [email or web address] [facility], [address], [place], [address], 03/05/2025 10:41:58 XR, foot, 3 or more view - room 103 postop 3v foot wb 2024 025 [email or web address] [facility], [address], [address], [place], [address], 01/22/2025 14:18:55 XR, foot, 3 or more view 2024 025 [email or web address] [facility], [address], [address], [place], [address], 01/08/2025 15:04:57 Medication Orders meloxicam 15 mg tablet 2024 025 [email or web address] [id number], [address] [place], [address], 03/08/2025 16:40:41 acetamino phen [address] [facility] #[id number], [address] [place], [address], 03/04/2025 09:45:57 Patient TargetsNo targets recorded. Patient InstructionsNo instructions recorded. Reason for Referral Physical Therapist Referral for Peroneal tendinitis of right lower limb Status post right fourth metatarsal osteotomy, fourth toe long extensor tendon imbrication; date of surgery 12/08/2024 Referring Physician: Casi Martin, Orthopedic Surgery, Encounter Date: 03/05/2025 Results Created Date Observation Date Name Description Value Unit Range Abnormal Flag Note LastModifiedBy Organization Detail LastModifiedTime 12/02/1912/02/2024 MRI, knee, w/o contr ast [facility] Access ion Number : [id number] Patimilagros t Name: Clau Katz aaron Record Number : [id number] Date of : 1974 Date of Exam: 2024 Referr ing Physic jean-pierre: [facility] [address] [place] [address] , [address] [place] [address] Exam: MR Knee (C-) CPT 43792 - Right Room Descri ption: [facility] Pion 3T MR Knee (C-) CPT 12581 CLINIC AL INDICA TION: Reason For Exam: [...] unrema rkable . 0.9 x 0.6 cm histology manager ior medial gangli on cyst extend ing histology manager ior to the distal PCL footpr int. [...] al tear or ligame ntous injury Small histology manager ior medial gangli on cyst Electr onical ly Signed By: David Roe rd, MD [email or web address] [facility] ([facility]) [address], [place], [address], 12/03/2024 09:00:51 01/01/20 25 01/01/2025 XR, foot, 3 or more view [email or web address]:/ [email or web address] ?Encry pted=s hAaTro YD8dLq bEUv6g %2BXZw aYqtaq 0bqfl% 2Fg9IQ a4ajBk vP9nXo QUaueC m3YtLR FvZlgJ JJ8mAn HZtai3 7a4514 AC0Kqb HiCV6W uKiQtr MwF INTERFACE [facility] [address], [place], [address], 01/01/2025 10:21:09 01/01/20 25 01/01/2025 XR, foot, 3 or more view [email or web address]:/ [email or web address] ?Encry pted=s hAaTro YD8dLq bEUv6g %2BXZw aYqtaq 0bqfl% 2Fg9IQ a4ajBk vP9nXo QUaueC m3YtLR FvZlgJ JJ8mAn HZtai3 8q4788 AC0Kqb HiCV6W uKiQtr MwF INTERFACE [facility] [address], [place], [address], 01/01/2025 10:21:11 01/22/20 25 01/22/2025 XR, foot, 3 or more view [email or web address]:/ [email or web address] ?Encry pted=s hAaTro YD8dLq bEUv6g %2BXZw aYqtaq 0bqfl% 2Fg9IQ a4ajBk vP9nXo QUaueC m3YtLR FvZlgJ JJ8mAn HZtai3 5w9705 AC0Kqb X6BWKK kKiQtr MwF INTERFACE [facility] [address], [place], [address], 01/22/2025 10:47:26 01/22/20 25 01/22/2025 XR, foot, 3 or more view [email or web address]:/ [email or web address] ?Encry pted=s hAaTro YD8dLq bEUv6g %2BXZw aYqtaq 0bqfl% 2Fg9IQ a4ajBk vP9nXo QUaueC m3YtLR FvZlgJ JJ8mAn HZtai3 4c2892 AC0Kqb X6BWKK kKiQtr MwF INTERFACE [facility] [address], [place], [address], 01/22/2025 10:47:28 02/11/20 25 02/10/2025 XR, foot, 3 or more view No observ ation record ed. ALLYSSA [facility] [address] [facility] [address], [place], [address], 02/11/2025 10:52:09 02/12/20 25 02/10/2025 elect romyo gram + nerve condu ction study No observ ation record ed. [email or web address] [facility] [address] [facility], [place], [address], 02/18/2025 10:08:24 02/12/20 25 02/10/2025 elect romyo gram + nerve condu ction study No observ ation record ed. [email or web address] [facility] [address] [place], [address], 02/18/2025 10:08:13 03/05/20 25 03/05/2025 XR, foot, 3 or more view [email or web address]:/ [email or web address] ?Encry pted=s hAaTro YD8dLq bEUv6g %2BXZw aYqtaq 0bqfl% 2Fg9IQ a4ajBk vP9nXo QUaueC m3YtLR FvZlgJ JJ8mAn HZtai3 6v8491 AC0KqY 3mEV6S gKiQtr MwF INTERFACE [facility] [address], [place], [address], 03/05/2025 10:38:26 03/05/20 25 03/05/2025 XR, foot, 3 or more view [email or web address]:/ [email or web address] ?Encry pted=s hAaTro YD8dLq bEUv6g %2BXZw aYqtaq 0bqfl% 2Fg9IQ a4ajBk vP9nXo QUaueC m3YtLR FvZl JJ8Ledbetter HZtai3 8i8874 AC0KqY 3mEV6S gKiQtr MwF INTERFACE [facility] [address], [place], [address], 03/05/2025 10:38:28 Result Notes None recorded. Problems Name Problem SNOMED Code Status Onset Date Resolution Date Notes Provider Name and Address Organization Details Recorded Time Carpal tunnel syndrome of right wrist 424670284885 108 Active 2024 Grabiel Suarez PA-C [address], [place], [address] , [facility] 5 10:14:05 Impingeme nt syndrome of left shoulder region 042771032485 104 Active 2014 Problem Code: M75.42; Problem Code Type: ICD-10; Status: 'A'; Not Available [facility] 4 10:56:52 Follow-up orthopedi c assessmen t 662944626 Active 2014 Problem Code: Z47.89; Problem Code Type: ICD-10; Status: 'A'; Not Available [facility] 4 10:56:52 Secondary osteoarth ritis 186378319 Active 2014 Problem Code: M19.212; Problem Code Type: ICD-10; Status: 'A'; Not Available [facility] 4 10:56:52 Problem Notes None recorded. Procedures Surgical History Date Name Laterality Status Provider Name and Address Organization Details Recorded Time 5 JZCT inj completed Grabiel Suarez PA-C [address] [facility] [address], [place], [address], [facility] 03/04/2025 10:13:55 3 Bariatric Surgery completed Kati Spears [facility] 11/26/2024 09:45:03 Other completed Kati Spears [facility] 11/26/2024 09:45:03 Imaging Results Imaging Date Name Status LastModified by Organization Details LastModified Time 12/02/2024 MRI, knee, w/o contrast completed [email or web address] [facility] ([facility]) [address], [place], [address], 12/03/2024 09:00:51 01/01/2025 XR, foot, 3 or more view completed INTERFACE [employer] [facility] [address] [address], [place], [address], 01/01/2025 10:21:09 01/01/2025 XR, foot, 3 or more view completed INTERFACE [employer] [facility] [address], [place], [address], 01/01/2025 10:21:11 01/22/2025 XR, foot, 3 or more view completed INTERFACE [facility] [address], [place], [address], 01/22/2025 10:47:26 01/22/2025 XR, foot, 3 or more view completed INTERFACE [facility] [address], [place], [address], 01/22/2025 10:47:28 02/10/2025 XR, foot, 3 or more view completed ALLYSSA [facility] [address], [place], [address], 02/11/2025 10:52:09 02/10/2025 electromyogram + nerve conduction study completed [address] [facility] [address] [place], [address], 02/18/2025 10:08:24 02/10/2025 electromyogram + nerve conduction study completed [address] [facility] [address] [place], [address], 02/18/2025 10:08:13 03/05/2025 XR, foot, 3 or more view completed INTERFACE [facility] [address], [place], [address], 03/05/2025 10:38:26 03/05/2025 XR, foot, 3 or more view completed INTERFACE [facility] [address], [place], [address], 03/05/2025 10:38:28 Procedure Notes None recorded. Medical Equipment None Reported. Allergies Allergen ID Allergen Name Allergen Category Reaction Reaction Severity Criticality Documentation Date Start Date Code Code System Note Provider Name and Address Organization Details Recorded Time 38189 Product containin g penicilli n (product) medicatio n Not available Not available Not available 01/27/20242010 93808 8001 SNOMED Aller gyRea ction : 'Skin React ion'; Not Available [facility] 4 10:54:23 71460 pineapple extract food Not available Not available Not available 01/27/20242017 37034 74 RxNorm Not Available [facility] 4 10:54:23 Medications Name Sig Start Date Stop Date Status Note LastModified by Organization Details LastModified Time clindamycin HCl 300 mg capsule TAKE 1 CAPSULE BY MOUTH THREE TIMES A DAY FOR 7 DAYS 03/04 completed Not Available Not Available Not Available trazodone 50 mg tablet TAKE ONE- TWO OR THREE (1-2-3) TABLETS BY MOUTH AT BEDTIME, NEEDED active Not Available Not Available No t Available Maxalt-EXTRACTOR LOADER AND UNLOADER 10 mg disintegrat ing tablet Take by oral route. active Not Available Not Available No t Available azithromyci n 250 mg tablet TAKE 2 TABLETS BY MOUTH TODAY, THEN TAKE 1 TABLET DAILY FOR 4 DAYS DIRECTED 03/04 completed Not Available Not Available Not Available ibuprofen 800 mg tablet TAKE 1 TABLET BY MOUTH THREE TIMES A DAY NEEDED active Not Available Not Available No t Available sumatriptan 100 mg tablet PLEASE SEE ATTACHED FOR DETAILED DIRECTION S 10/01 completed Not Available Not Available Not Available meloxicam 15 mg tablet Take 1 tablet every day by oral route for 30 days. 2024 active Not Available Not Available Not Avai lable ondansetron HCl 4 mg tablet TAKE 1 TABLET EVERY 6-8 HOURS BY ORAL ROUTE NEEDED, FOR NAUSEA/VO MITING. active Not Available Not Available No t Available rizatriptan 10 mg tablet TAKE 1/2 TO 1 TABLET BY MOUTH EVERY 2 HOURS NEEDED MIGRAINE MAX 2 TABS/DAY OR 4 PER WEEK active Not Available Not Available No t Available sertraline 100 mg tablet TAKE ONE (1) TABLET BY MOUTH DAILY 25 MG TOTAL DAILY DOSE OF 125 MG DAILY. active Not Available Not Available No t Available acetazolami de 250 mg tablet TAKE 2 TABLETS BY MOUTH 3 TIMES A DAY active Not Available Not Available No t Available fexofenadin e 180 mg tablet TAKE ONE TABLET BY MOUTH EVERY MORNING NEEDED FOR ALLERGIES active Not Available Not Available No t Available ciprofloxac in 250 mg tablet TAKE 1 TABLET BY MOUTH TWICE A DAY FOR 3 DAYS 10/01 completed Not Available Not Available Not Available acetaminoph en 500 mg tablet TAKE 2 TABLETS EVERY 8 HOURS BY ORAL ROUTE FOR 15 DAYS. 03/04 completed Not Available Not Available Not Available cyproheptad ine 4 mg tablet TAKE 1 TABLET BY MOUTH EVERY DAY AT BEDTIME active Not Available Not Available No t Available ofloxacin 0.3 % ear drops ADMINISTE R 4 DROPS INTO EACH EAR 2 TIMES A DAY FOR 7 DAYS. 03/04 completed Not Available Not Available Not Available triamcinolo ne acetonide 0.025 % topical [...] completed Not Available Not Available Not Available azelastine 137 mcg (0.1 %) nasal spray USE 2 SPRAYS IN EACH NOSTRIL TWICE A DAY active Not Available Not Available No t Available epinephrine 0.3 mg/0.3 mL injection, auto-inject or INJECT 1 DEVICE DIRECTED NEEDED FOR ANPHYLAXI S. USE DIRECTED 10/01 completed Not Available Not Available Not Available fluticasone propionate 50 mcg/actuati on nasal spray,suspe nsion SPRAY 2 SPRAYS BY NASAL ROUTE DAILY 10/01 completed Not Available Not Available Not Available sertraline 50 mg tablet TAKE ONE (1) TABLET BY MOUTH DAILY TOGETHER WITH 100 MG TOTAL DAILY DOSE 150 MG active Not Available Not Available No t Available loratadine 10 mg tablet 10 mg every day by oral route. active Not Available Not Available No t Available prazosin 2 mg capsule TAKE FOUR (4) CAPSULES BY MOUTH AT BEDTIME active Not Available Not Available No t Available Ventolin HFA 90 mcg/actuati on aerosol [...] Available Not Available topiramate 50 mg tablet TAKE 2 TABLETS ORALLY 2 TIMES A DAY FOR 30 DAYS active Not Available Not Available No t Available Flovent HFA 110 mcg/actuati on aerosol inhaler INHALE 1 PUFF BY MOUTH TWICE A DAY 10/01 completed Not Available Not Available Not Available levocetiriz ine 5 mg tablet TAKE 1 TABLET BY MOUTH EVERYDAY AT BEDTIME active Not Available Not Available No t Available diclofenac 1 % topical gel APPLY [...] and Address Organization Details Last Updated DateTime 12/22/2024 162.56 cm 35 kg/m2 58469.84 g Kati Spears [facility] 12/22/2024 15:15:56 Date Recorded Body height Body mass index (BMI) Body weight Provider Name and Address Organization Details Last Updated DateTime 01/01/2025 162.56 cm 35 kg/m2 01665.84 g EZE JORDAN [facility] 01/01/2025 10:13:26 Date Recorded Body height Body mass index (BMI) Body weight Provider Name and Address Organization Details Last Updated DateTime 01/22/2025 162.56 cm 35 kg/m2 68301.84 g Noris rodrigues [facility] 01/22/2025 10:41:06 Date Recorded Body height Body mass index (BMI) Body weight Provider Name and Address Organization Details Last Updated DateTime 03/04/2025 162.56 cm 35 kg/m2 57199.84 g Lonny Gooden [facility] 03/04/2025 09:45:44 Date Recorded Body height Body mass index (BMI) Body weight Provider Name and Address Organization Details Last Updated DateTime 03/05/2025 162.56 cm 35 kg/m2 69002.84 g Noris rodrigues [facility] 03/05/2025 10:29:01 Social History Question Answer Notes LastModified by Organizat ion Details LastModified Time Tobacco Smoking Status Never Smoker Kati Casillaston [facility] 11/26/2024 09:45:03 What Is Your Relationship Status? Single Information not available 11/26/2024 How Many Years Have You Smoked Tobacco? 0 Information not available 11/26/2024 Sex: Unknown Functional Status Question Answer Note LastModified by Organizat ion Details LastModified Time How many times per week do you consume alcohol? Less than 1 time per week [email or web address] Information not available 11/26/2024 Do you use any illicit or recreational drugs? No [email or web address] Information not available 11/26/2024 Do you or have you ever used any other forms of tobacco or nicotine? No [email or web address] Information not available 11/26/2024 Do you or have you ever used e-cigarettes or vape? Never used electronic cigarettes [email or web address] Information not available 11/26/2024 Mental Status None recorded. Family History Nothing Reported. Medical History Condition Response Anxiety/Depression Y Pulmonary Embolism Y Seizures/Epilepsy Y Asthma Y Blood Clot Y Gynecological HistoryNo gynecological history recorded. Obstetrics History GPAL:G 0 P 0 0 0 0 Past Encounters Encounter ID Performer Location Encounter Start Date Encounter Closed Date Diagnosis/Indication Diagnosis SNOMED-CT Code Diagnosis ICD10 Code Diagnosis Note [id number] MD Vipul Mak [address] [place] [address] 10/02/2024 09:38:27 11/01/2024 16:46:00 Pain in right foot 6915260010 46652 M79.671 Metatarsal varghese of right foot 8513982088 88579 M77.41 [id number] JESUS Cheng [address] [place] [address] 10/01/2024 09:07:32 10/29/2024 11:33:25 Pain of right wrist 1927942592 54258 M25.531 Carpal hamida fabiola syndrome of right wrist 7223206707 29478 G56.01 [id number] JESUS Barreranijose l [address] [place] [address] 11/26/2024 09:12:59 12/15/2024 13:44:26 Tear of medial meniscus of knee 004552544 S83.241A [id number] MD MOISÉS Mak [address] [place] [address] 11/30/2024 08:00:50 12/15/2024 11:11:45 Pain in right foot 3550435391 32210 M79.671 Metatarsal varghese of right foot 7347545580 89586 M77.41 [id number] MD MOISÉS Mak - [address] [place] [address] 12/16/2024 09:47:01 12/16/2024 10:12:28 Surgical follow-up 096822425 Z09 [id number] JESUS Barrera - [place] [address] [place] [address] 12/22/2024 14:24:33 01/01/2025 15:13:05 Pain of knee region 2325621451 M25.047 [id number] JESUS Parada - [facility] [address] [place] [address] 01/01/2025 09:21:03 01/08/2025 15:04:57 Metatarsalgia of right foot 6982038392 23144 M77.41 [id number] MD MOISÉS Mak - [address] [place] [address] 01/22/2025 10:16:39 02/10/2025 19:21:35 Metatarsalgia of right foot 3701898093 51865 M77.41 Pain in right foot 05126 84023 71456 M79.186 [id number] MD MOISÉS Mak - [address] [place] [address] 03/05/2025 10:04:30 03/19/2025 10:46:06 Metatarsalgia of right foot 8496386803 82184 M77.41 Pain in right foot 61458 39932 50416 M79.671 Peroneal t endinitis of right lower limb 6614160936 53265 M76.71 [id number] Grabiel Suarez PA-C MO[facility] - [facility] [address] [place] [address] 03/04/2025 09:33:17 03/17/2025 10:51:04 Carpal tunnel syndrome of right wrist 1058691316 93436 G56.01 Health Concerns Section Related Observation LastModified by Organization Detai ls LastModified Time None Recorded Concern Status LastModified by Organization Details LastModified Time None Recorded Advance Directives Directive None Recorded Payers Encounter Date Sequence Insurance Name Policy Number Policy Diehl Covered Member ID Diehl Member ID Guarantor Name 12/22/2024 1 [facility] [employer] (MEDICAID HMO) WILLIAN Katz [id number] Clau Felder Sterling 01/01/2025 1 [facility] [employer] (MEDICAID HMO) WILLIAN Katz [id number] Clau Felder Sterling 01/22/2025 1 [facility] [employer] (MEDICAID HMO) WILLIAN Katz [id number] Clau Felder Sterling 03/04/2025 1 [facility] [employer] (MEDICAID HMO) WILLIAN Katz [id number] Clau Katz Notes Date Note Type Note Provider Name and Address Organization Details Recorded Time 5 text/html I am seeing the patient today under the supervision of {{Dr. Georgette Quintero* Dr. Lolis Waterman}} who was available but who did not see the patient. Patient comes in for recheck of right knee pain. Has longstanding history of pain discomfort that is documented in her chart had failed attempts at conservative management to include anti-inflammatories and physical therapy therefore MRI was obtained to further evaluate the integrity of the meniscus. Patient states that she still has the same pain discomfort over the anterior aspect though radiate laterally over the lateral aspect of that knee. In the interim since the last visit patient has undergone surgery on her right foot. Solitario Steele PA-C [address] [facility] [address], [place], [address], [facility] 12/22/2024 16:10:00 5 text/html I am seeing this patient under the supervision of Dr. Brown, who was available but who did not see the patient. CHIEF COMPLAINT: Status post right fourth metatarsal Bandar osteotomy, fourth MTP joint capsulotomy with capsular imbrication, fourth toe long extensor tendon repair. Date of surgery 12/08/2024 HPI: Patient is a 49-year-old female presenting today about 3 weeks status post surgery as above. She has been doing fairly well since surgery. She has been heel weightbearing in her heel wedge sandal. She is on Eliquis at baseline. Compliant with kilogram status. Denies any interval trauma. Denies any fevers, chills, or paresthesias. PFMSH, Meds and ROS reviewed, updated and signed by me, and is located in the patient's chart.PHYSICAL EXAMINATION: The patient is well appearing and in no apparent distress. Alert and oriented x 3. Examination of her right foot reveals well healing surgical incision with sutures in place. Well aligned fourth toe. Calf soft, nontender. Sensation intact to light touch in the right lower extremity. RADIOLOGY: X-rays were ordered, obtained, and reviewed today in our office. 3 views nonweightbearing of the fourth MTP joint IMPRESSION: Status post right fourth metatarsal Bandar osteotomy, fourth MTP joint capsulotomy with capsular imbrication, fourth toe long extensor tendon repair. Date of surgery 12/08/2024 PLAN: Discussed the findings and situation with the patient today. She seems be doing fairly well overall. Sutures were removed. She will continue with regular sandal and a heel weight-bear for transfers. She was given a prescription for a flat postoperative sandal. In 1 week when she is 4 weeks postop she may fully weight-bear in her postop sandal. Follow-up in [address] Martin. Call with questions or concerns. Riya Lopez PA-C [address] [place] [address] [address], [place], [address], [facility] 01/01/2025 10:52:25 5 text/html Chief complaint: Status post right fourth metatarsal osteotomy, fourth toe long extensor tendon imbrication; date of surgery 12/08/2024 History of present illness: Tameak presents today for follow-up postoperative evaluation. She is full weightbearing in a flat postoperative sandal. On presentation today she estimates her pain is about a 3 out of 10. She does report compliance with use of the sandal. She does feel as though her preoperative pain is resolved Physical exam: Patient in no acute distress, alert and oriented. Mood and affect appropriate Focused examination right lower extremity there is mild swelling which is within normal limits for this stage postop Surgical incision is fully healedFourth toe does sit in a slightly plantarflexed position compared to the second and third toes. She is nontender at her osteotomy site No tenderness plantarly over the fourth metatarsal head No pain with fourth MTP joint range of motion She is grossly neurovascular intact with motor and sensation intact in all distributions Toes are warm and well-perfused with palpable DP and PT pulses Imaging: AP, lateral, oblique weightbearing imaging of the right foot was obtained today in office. This demonstrates screws in place in the second third fourth and fifth metatarsal heads. Fourth metatarsal osteotomy appears to be in unchanged alignment compared to previous. There is no evidence of impending nonunion or hardware complication. No malalignment at the fourth MTP joint Impression: ? Status post right fourth metatarsal osteotomy, fourth toe along extensor tendon repair/imbrication; date of surgery 12/08/2024 Plan: ? Overall the patient is doing relatively well postoperatively. Like her to continue to use a flat postoperative sandal for the next 2 weeks and thereafter may transition back to normal shoewear ? We will see her back in office in about 6 weeks time. If she is doing well at that point in time we will likely transition to as needed visits Casi Martin MD [address] [place] [address] [address], [place], [address], [facility] - [facility] 01/31/2025 14:00:22 5 text/html Chief complaint: Status post right fourth metatarsal osteotomy, fourth toe long extensor tendon imbrication; date of surgery 12/08/2024 History of present illness: Clau presents today for follow-up postoperative evaluation. She presents today full weightbearing in a sneaker. On presentation today she reports that her preoperative pain has completely resolved. Her main complaint today is pain laterally along the peroneal tendons that seems to worsen with weightbearing activity. Physical exam:Patient in no acute distress, alert and oriented. Mood and affect appropriateFocused examination right lower extremity there is minimal swelling which is within normal limits for this stage postopSurgical incision is fully healedFourth toe does sit in a slightly plantarflexed position compared to the second and third toes. However does not appear to droop or interfere with ambulationShe is nontender at her osteotomy siteNo tenderness plantarly over the fourth metatarsal headNo pain with fourth MTP joint range of motionTenderness laterally along the peroneal tendons and pain with resisted eversion that localizes to the peroneal tendonsShe is grossly neurovascular intact with motor and sensation intact in all distributionsToes are warm and well-perfused with palpable DP and PT pulses Imaging: AP, lateral, oblique weightbearing imaging of the right foot was again obtained today in office. This demonstrates screws in place in the second third fourth and fifth metatarsal heads. Fourth metatarsal osteotomy appears to be in unchanged alignment compared to previous. There is no evidence of impending nonunion or hardware complication. No malalignment at the fourth MTP joint Impression:? Status post right fourth metatarsal osteotomy, fourth toe along extensor tendon repair/imbrication; date of surgery 12/08/2024- Right peroneal tendinitis in setting of increased activity Plan:? With regard to the patient's actual surgery, she seems to have had near complete pain relief. She does seem to have some peroneal tendinitis which is likely related to an increase in activity after a prolonged period of relative inactivity ? I have recommended a once daily anti-inflammatory as well as a lace up ankle brace. I will prescribe a short course of physical therapy for peroneal tendinitis and overall right lower extremity rehab, in particular gait training ? We will see her back in office in 6 to 8 weeks for repeat evaluation. Casi Martin MD [address] [place] [address] [address], [place], [address], [facility] - [facility] 03/07/2025 18:47:29 OBGyn Episode No OBEpisode recorded.
--- OUTSIDE RECORDS SUMMARY | 2025-04-06 09:06 | XMS_ITS | Encounter Summary ---
Author Organization [facility] Address [address] [place] [address] Care Team Providers Care Counter Tacker Name Role Phone Gail Carbajal MD Primary Care Provider [phone] Reason for Visit * Reason Onset Date Comments Ear Problems 10/01/2024 Encounter Details Date Type Department Care Team (Late st Contact Info) Description 10/01/2024 Nurse Triage Adult Medicine [address] [phone] Gail Carbajal MD [address] [place] [id number] Ear Problems Social History Tobacco Use Types Packs/Day Years Used Date Smoking Tobacco: Never Smokeless Tobacco: Never Alcohol Use Standard Drinks/Week Comments Yes 0 (1 standard drink = 0.6 oz pur e alcohol) Comments Unknown Sex and Gender Information Value Date Recorded Sex Assigned at Not on file Legal Sex Female 5:41 PM EST Gender Identity Not on file Sexual Orientation Not on file documented as of this encounter Progress Notes * Chari Bunn LPN - 10/05/2024 2:00 PM EST Pt is booked for 10/05/24 * Celeste Bekah, RN - 10/01/2024 3:15 PM EST Call to pt and left message for her to call triage * Kishan Armenta - 10/01/2024 1:56 PM EST Patient call requires triage: Symptoms patient is presenting: ear problems sometimes they itch sometimes they are in pain sometimes hot to the touch How long has patient had these symptoms?: 1 week For ALL patients calling to schedule any appointment (routine, sick visit, follow up, consult, etc.) in the outpatient setting please ask the following questions: Do you have fever of higher than 101, sore throat with difficulty swallowing or severe shortness ofbreath? no If YES to any of these above symptoms, send a message to triage and do not book. Red dot. If no, an audio or video visit should be booked. Have you had close contact with someone with Coronavirus in the last 14 days? no Have you traveled abroad? no Have you traveled recently to another state outside of [place], [place], [place], [place], [place], [place], [place]? no o If yes, did you quarantine for 14 days or have a negative covid test? no If yes to any of the above, patient is not to be scheduled in office until after 14 day quarantine or negative covid test. If pain or injury related was it due to an accident at work or from a motor vehicle accident? If yes, date of accident/Injury: No If yes, gather 3rd libertarian insurance information [employer] Party Information: not applicable PCP: aGil Carbajal MD Payor: / No coverage found. documented in this encounter Plan of Treatment Upcoming Encounters Date Type Department Care Team (Late st Contact Info) Description 05/03/2025 10:30 AM EDT Office Visit Adult Medicine [address] [phone] Allie Holguin PA [address] [place] [phone] 06/17/2025 9:30 AM EDT Office Visit Bariatric Surgery - [place] [address] [facility] [address] [place] [phone] David Solano MD [address] [facility] [address] [place] [address] 12/22/2025 9:30 AM EST Office Visit Pulmonolgy - [place] [address] [facility] [address] [place] [phone] Jie Gonzalez MD [address] [address] 01/04/2026 9:30 AM EST Office Visit [facility] Hematology Oncology [address] [place] [phone] Julianne Ramirez MD [address] [place] [phone] documented as of this encounter Visit Diagnoses Not on filedocumented in this encounter Care Teams Counter Tacker Relationship Specialty Start Date End Date Gail Carbajal MD [address] [place] [id number] PCP - General 04/30/24 documented as of this encounter
--- OUTSIDE RECORDS SUMMARY | 2025-04-06 09:06 | XMS_ITS | Clinical Summary ---
Author Organization [facility] [address] [facility] Address [address] [place], [place] Phone Care Team Providers Care Track Walker Name Role Phone Gail Carbajal MD Primary Care Provider [phone] Allergies Active Allergy Reactions Criticality Noted Date Comments Azithromycin Medium 08/25/2024 Throat tigtness Doxycycline 03/05/2024 Penicillins 03/05/2024 Pineapple Rash 01/24/2021 Throat swelling Medications albuterol HFA (PROAIR HFA ; PROVENTIL HFA ; VENTOLIN HFA) 90 mcg/actuation inhaler INHALE 2 PUFFS INTO THE LUNGS EVERY 4 HOURS NEEDED FOR COUGH OR WHEEZING. 9 Active apixaban (Eliquis) 5 mg tablet TAKE 10 MG (2 TABS) BY MOUTH 2 TIMES DAILY FOR 7 DAYS, THEN 5 MG (1 TAB) 2 TIMES DAILY FOR 90 DAYS 4 Active diphenhydrAMINE (Banophen) 25 mg capsule TAKE 1 TO 2 CAPSULES BY MOUTH EVERY 8 HOURS NEEDED FOR ALLERGIC REACTIONS 4 Active fremanezumab-vf rm (Ajovy Autoinjector) 225 mg/1.5 mL auto-injector every 30 days. 4 Active gabapentin (NEURONTIN) 300 mg capsule Take 1 capsule (300 mg total) by mouth. Active medroxyPROGESTE Abhinav 150 mg/mL injection Inject 1 mL (150 mg total) into the muscle every 3 (three) months. Active prazosin (MINIPRESS) 2 mg capsule TAKE FOUR (4) CAPSULES BY MOUTH AT BEDTIME 4 Active sertraline (ZOLOFT) 100 mg tablet Take 1 tablet (100 mg total) by mouth daily. 4 Active topiramate (TOPAMAX) 50 mg tablet TAKE 2 TABLETS (2 X 50 MG) ORALLY DAILY FOR 30 DAYS 4 Active diclofenac (VOLTAREN) 1 % topical gel Apply 1 Dose topically. 4 Active amitriptyline (ELAVIL) 25 mg tablet Take 2 tablets (50 mg total) by mouth. Active butalbital-acet aminophen-caffe ine (FIORICET, ESGIC) 50-325-40 mg per tablet Take 1 tablet by mouth daily. Manage by Neurlogist, Dr. Sharp Active propranoloL (INDERAL) 10 mg tablet 1 tablet (10 mg total). Active SUMAtriptan (IMITREX) 100 mg tablet PLEASE SEE ATTACHED FOR DETAILED DIRECTIONS Neurologist, Dr. Sharp Active traZODone (DESYREL) 50 mg tablet TAKE (1-2) TABLETS BY MOUTH AT BEDTIME, NEEDED. Psychaitrist, Dr Davis, manage refills Active rizatriptan (MAXALT) 10 mg tablet Take 1 tablet (10 mg total) by mouth. 4 Active cholecalciferol (VITAMIN D-3) 25 mcg (1,000 unit) tablet Take 1 tablet (1,000 Units total) by mouth. Active calcium carbonate 1,500 mg (600 mg elemental calcium) tablet Take 600 mg by mouth. Active fluticasone propionate (FLONASE) 50 mcg/actuation nasal spray Administer 2 sprays into affected nostril(s). 4 Active EPINEPHrine (EpiPen 2-Mahendra) 0.3 mg/0.3 mL injection Inject 0.3 mL (0.3 mg total) as directed. 4 Active fluticasone HFA (Flovent HFA) 110 mcg/actuation inhaler Inhale 1 puff by mouth 2 (two) times a day. 4 Active acetaminophen (TYLENOL) 325 mg tablet Take 3 tablets (975 mg total) by mouth. 4 Active Active Problems Problem Noted Date Diagnosed Date Weight loss 09/23/2024 Constipation 09/23/2024 GERD (gastroesophageal reflux disease) Epigastric pain 09/23/2024 Acute deep vein thrombosis ( DVT) of femoral vein of left lower extremity ([facility] V24, [facility] V28) 03/05/2024 Multiple subsegmental pulmon huseyin emboli without acute cor pulmonale ([facility] V24, [facility] V28) 03/05/2024 H/O gastric sleeve 03/05/2024 Hypercoagulable state ([facility] V24) 02/12/2024 SOB (shortness of breath) 02/11/2024 Primary osteoarthritis of fi rst carpometacarpal joint of right hand 09/30/2023 Palpitations 09/18/2023 Overview (09/23/2024): Last Assessment & Plan: The patient has been experiencing episodes of palpitations. We will order a Holter monitor to evaluate for any underlying arrhythmias as a cause of her symptoms. We will also order an echocardiogram to rule out any significant structural heart disease. Chest pain 09/17/2023 Overview (09/23/2024): Last Assessment & Plan: The patient was experiencing episodes of chest discomfort and shortness of breath. She underwent a cardiac CT scan which showed normal coronary arteries. There was an incidental finding of a right-sided pulmonary embolism and the patient was treated in the emergency room as outlined above. She continues on Lovenox as prescribed. She also underwent an echocardiogram November 2023 which showed normal LV function and no significant valvular disease. Trigger finger of left thumb 10/23/2022 Abnormal mammogram 02/27/2022 Overview (09/23/2024): [facility] breast and wellness 02/22/22 ovoid asymmetry anteromedial R breast. Spot compression CC and full field ML tomosynthesis images recommended. [facility] to call pt, they also sent letter. CKD (chronic kidney disease) stage 3, GFR 30-59 ml/min ([facility] V24, [facility] V28) 08/01/2021 Perennial allergic rhinitis 01/24/2021 Conjunctivitis, allergic, bilateral 01/24/2021 Mild intermittent asthma without complication Personal history of COVID-19 01/13/2021 Insomnia 09/09/2020 De Quervain's tenosynovitis, left 05/16/2020 Trigger finger of right thumb 05/16/2020 Seasonal allergic rhinitis due to pollen 018 Trochanteric bursitis of both hips 03/06/2018 Pernicious anemia 01/06/2018 Easy bruising 01/06/2018 Vomiting 09/03/2017 Migraine headache 09/02/2013 Seizure disorder ([facility] V24, [facility] V28) 03/2013 Overview (09/23/2024): Dr. Neri, not taking any medications but being evaluated for this Anxiety and depression 07/30/2013 Overview (09/23/2024): CHD, sees counselor every other week and psychiatrist every other month Osteopenia 07/30/2013 Encounters Date Type Department Care Team Description 02/15/2025 Telephone Adult Medicine [address] [phone] Gail Carbajal MD Ankle Pain 01/27/2025 9:30 AM EST Office Visit Adult [address] [phone] Allie Holguin PA Acute pain of both shoulders (Primary Dx); Anticoagulated 01/12/2025 8:08 AM EST - 01/12/2025 11:59 PM EST Hospital Encounter CT Scan [address] [phone] Abnormal findings on diagnostic imaging of skull and head, not elsewhere classified Discharge Disposition: Home or Self Care 01/11/2025 2:00 PM EST Office Visit Adult [address] [phone] Allie Holguin PA Right sided facial pain (Primary Dx); Jaw clicking 01/11/[address] [phone] Gail Carbajal MD Earache from Last 3 Months Immunizations Name Administration Dates Next Due Influenza Quadravalent, MDCK , 0.5ml, with preservative (Flucelvax) 6mo and older 08/14/2018 Influenza trivalent, 0.5mL, preservative free (Fluarix; FluLaval; Fluzone) ages 6mo and older (Afluria) 3 years and older 08/27/2024 Influenza trivalent, with preservative (Fluzone; Afluria) 6mo and older 10/02/2022,09/07/2021,07/29/2020,2015 Tdap Tetanus diptheria acell ular pertussis (Boostrix; Adacel) 7yo and older 07/18/2016 Surgical History Surgery Date Site/Laterality Comments CHOLECYSTECTOMY PROCEDURE:CHOLECYSTECTOMY FOOT SURGERY PROCEDURE:FOOT SURGERY LAPAROSCOPIC GASTRIC BANDING PROCEDURE:LAPAROSCOPIC PLACEMENT GASTRIC RESTRICTIVE DEVICE LAPAROSCOPIC GASTRIC BANDING 2004 PROCEDURE: LAP ADJUSTABLE GASTRIC BAND CHOLECYSTECTOMY PROCEDURE: HISTORICAL CHOLECYSTECTOMY FOOT SURGERY 03/2015 Bilateral PROCEDURE: HISTORICAL FOOT SURGERY; COMMENT: left foot: multiple surgery BREAST LUMPECTOMY 2015 Right PROCEDURE: ---- BREAST LUMP BIOPSY ---- UPPER GASTROINTESTINAL ENDOSCOPY 06/03/2019 PROCEDURE: UPPER GI ENDOSCOPY/EXAM; COMMENT: lap band with retained food and gastropathy, biopsy pending LAPAROSCOPIC GASTRIC BANDING PROCEDURE: LAP ADJUSTABLE GASTRIC BAND; COMMENT: Removed September [address] Harris at [facility] Medical History Medical History Date Comments Seizures (CMS/HCC V24, [facility] V28) DX:Seizures (HCC) GERD (gastroesophageal reflux disease) DX:GERD (gastroesophageal reflux disease) DVT (deep venous thrombosis) (CMS/HCC V24, [facility] V28) DX:DVT (deep venous thrombos is) ([facility]) Chronic kidney disease DX:Chroni c kidney disease Nausea and vomiting DX:Nausea an d vomiting Epigastric pain DX:Epigastric pa in Constipation DX:Constipation GERD (gastroesophageal reflux disease) DX:GERD (gastroesophageal reflux disease) History of Helicobacter pylori infection DX:History of Helicobacter pylori infection History of laparoscopic adju stable gastric banding DX:History of laparoscopic adjustable gastric banding Weight loss DX:Weight loss CKD (chronic kidney disease) stage 3, GFR 30-59 ml/min (CMS/HCC V24, CMS/HCC V28) 08/01/2021 DX:CKD (chronic kidney disea se) stage 3, GFR 30-59 ml/min ([facility]) Gastroesophageal reflux disease 03/06/2018 DX:Gastroesophageal reflux disease Family History Medical History Relation Name Comments Breast cancer Aunt Ovarian cancer Aunt Other: Heart Issues Brother Other: pickle allergy Brother Other: Other Daughter colon polyp Coronary artery disease Father Diabetes Father Hyperlipidemia Father Hypertension Father Stroke Father Diabetes Mother Hyperlipidemia Mother Hypertension Mother Kidney failure Mother Other: Coronary artery disease Mother Stroke Mother Breast cancer Other Neice Asthma Sister Other: allergic rhinitis Sister Relation Name Status Comments Aunt Brother Daughter Alive Father Mother Other Neice Alive Sister Son Alive Seizure disorde r Social History Tobacco Use Types Packs/Day Years Used Date Smoking Tobacco: Never Smokeless Tobacco: Never Tobacco Cessation:Counseling Given: Not Answered Alcohol Use Standard Drinks/Week Comments Yes 0 (1 standard drink = 0.6 oz pur e alcohol) rarely Living Situation Answer Date Recorded What is your living situation? 1 01/14/2024 Comments No Sex and Gender Information Value Date Recorded Sex Assigned at Not on file Legal Sex Female 5:41 PM EST Gender Identity Not on file Sexual Orientation Not on file Obstetrics History Last Filed Vital Signs Vital Sign Reading Time Taken Comments Blood Pressure 124/80 01/27/2025 9:01 AM EST Pulse 80 01/27/2025 9:01 AM EST Temperature 37.2 ??C (99 ??F) 01/27/2025 9:01 AM EST Respiratory Rate 14 01/27/2025 9:01 AM EST Oxygen Saturation 100% 01/06/2025 9:12 AM EST Inhaled Oxygen Concentration - - Weight 90.1 kg (198 lb 9.6 oz) 01/27/2025 9:01 A M EST Height 170.2 cm (5' 7 ) 01/27/2025 9:01 AM EST Body Mass Index 31.11 01/27/2025 9:01 AM EST Plan of Treatment Upcoming Encounters Date Type Department Care Team (Late st Contact Info) Description 05/03/2025 10:30 AM EDT Office Visit Adult Medicine [address] [place] [phone] Allie Holguin PA [address] [place] [address] 06/17/2025 9:30 AM EDT Office Visit Bariatric Surgery - [place] [address] [phone] David Solano MD [address] [address] 12/22/2025 9:30 AM EST Office Visit Pulmonolgy - [place] [address] [phone] Jie Gonzalez MD [address] [address] 01/04/2026 9:30 AM EST Office Visit [facility] Hematology Oncology [address] [place] [phone] Julianne Ramirez MD [address] [place] [phone] Health Maintenance Due Date Last Done Comments Hepatitis B Vaccines (1 of 3 - 19+ 3-dose series) 1995 Pneumococcal Vaccine: Pediatrics (0 to 5 Years) and At-Risk Patients (6 to 64 Years) (1 of 2 - PCV) 1995 COVID-19 Vaccine (3 - Moderna risk series) 06/09/2021 05/12/2021, 04/14/2021 Colorectal Cancer Screening: Colonoscopy 11/03/2022 HIV Screening 11/03/2022 Hepatitis C Screening 11/03/2022 Social Influencers of Health Screening 2025 2024, 12/03/2021 Depression Screening 01/11/2026 01/11/2025, 08/10/20 Breast Cancer Screening 03/25/2026 03/25/2024 DTaP,Tdap,and Td Vaccines (2 - Td or Tdap) 07/18/2026 07/18/2016 Cervical Cancer Screening: Pap Smear 10/22/2026 10/22/2023 Cholesterol Screening (Lipid Panel) 03/12/2029 03/12/2024 Influenza Vaccine Completed 08/27/2024, , 09/07/2021, Additional history exists HIB Vaccines Aged Out No longer eligi ble based on patient's age to complete this topic HPV Vaccines Aged Out No longer eligi ble based on patient's age to complete this topic Hepatitis A Vaccines Aged Out No long er eligible based on patient's age to complete this topic IPV Vaccines Aged Out No longer eligi ble based on patient's age to complete this topic MMR Vaccines Aged Out No longer eligi ble based on patient's age to complete this topic Meningococcal ACWY Vaccine Aged Out N o longer eligible based on patient's age to complete this topic Meningococcal B Vaccine Aged Out No l onger eligible based on patient's age to complete this topic RSV Immunization Patients Under 20 months Aged Out No longer eligible based on patient's age to complete this topic Varicella Vaccines Aged Out No longer eligible based on patient's age to complete this topic Procedures Procedure Name Priority Date/Time Associated Diagnosis Comments CT HEAD WO CONTRAST Routine 01/12/2025 8 :21 AM EST Abnormal findings on diagnostic imaging of skull and head, not elsewhere classified from Last 3 Months Results * CT Head wo Contrast (01/12/2025 8:21 AM EST) Anatomical Region Laterality Modality Head and Neck Computed Tomogra phy 01/12/2025 9:36 AM EST Narrative 01/12/2025 9:[address] without intravenous contrast. History sclerotic density in the right frontal bone on prior CT scan. Examination was performed on multidetector scanner without administration of intravenous contrast. Comparison with prior study from 06/06/2024. There is no significant interval change in the small sclerotic lesion in the right parietal bone, on today's study measuring 6.3 mm, axial image #39. No other sclerotic or lytic lesions were identified in the skull bones. Are again noted is frontal hyperostosis. There is no evidence of midline shift, extra or intra-axial blood fluid collections. There is no visible masses or mass effect in the brain and cerebellum. There is no evidence of territorial infarct or focal areas of abnormal attenuation. Ventricular system is symmetric and normal in size. Visualized portions of the paranasal sinuses and mastoid processes are aerated. CONCLUSIONS: Stable small sclerotic lesion in the right parietal bone, without suspicious aggressive features. It could represent small osteoma or bone island. No acute intracranial abnormalities. No significant interval change. -------- FINAL REPORT -------- Dictated By: Yamilka Larios Dictated Date: 01/12/2025 09:36 ET Assigned Physician: Yamilka Larios Reviewed and Electronically Signed By: Yamilka Larios Signed Date: 01/12/2025 09:45 ET Workstation ID: [id number] Transcribed By: Self Edit Transcribed Date: 01/12/2025 09:36 ET Procedure Note Yamilka Larios MD - 01/12/[address] without intravenous contrast. History sclerotic density in the right frontal bone on prior CT scan. Examination was performed on multidetector scanner without administrationof intravenous contrast. Comparison with prior study from 06/06/2024. There is no significant interval change in the small sclerotic lesion inthe right parietal bone, on today's study measuring 6.3 mm, axial image#39. No other sclerotic or lytic lesions were identified in the skullbones. Are again noted is frontal hyperostosis. There is no evidence of midline shift, extra or intra-axial blood fluidcollections. There is no visible masses or mass effect in the brain andcerebellum. There is no evidence of territorial infarct or focal areas ofabnormal attenuation. Ventricular system is symmetric and normal in size.Visualized portions of the paranasal sinuses and mastoid processes areaerated. CONCLUSIONS: Stable small sclerotic lesion in the right parietal bone,without suspicious aggressive features. It could represent small osteomaor bone island. No acute intracranial abnormalities. No significantinterval change. -------- FINAL REPORT -------- Dictated By: Yamilka Larios Dictated Date: 01/12/2025 09:36 ET Assigned Physician: Yamilka Larios Reviewed and Electronically Signed By: Yamilka Larios Signed Date: 01/12/2025 09:45 ET Workstation ID: [id number] Transcribed By: Self Edit Transcribed Date: 01/12/2025 09:36 ET Allie ROJAS IMG CT PROCEDURES Final Result from Last 3 Months Insurance [employer] Care Teams Track Walker Relationship Specialty Start Date End Date Gail Carbajal MD [address] [place] [phone] PCP - General 04/30/24
--- OUTSIDE RECORDS SUMMARY | 2025-04-06 09:06 | XMS_ITS | Encounter Summary ---
Author Organization [facility] Address [address] [place] [address] Care Team Providers Care Internal Grinding Machine Operator Name Role Phone Gail Carbajal MD Primary Care Provider [phone] Reason for Visit * Reason Onset Date Comments Earache 10/05/2024 Encounter Details Date Type Department Care Team (Late st Contact Info) Description 10/05/2024 Nurse Triage Adult Medicine [address] [phone] Gail Carbajal MD [address] [place] [phone] Earache Social History Tobacco Use Types Packs/Day Years Used Date Smoking Tobacco: Never Smokeless Tobacco: Never Alcohol Use Standard Drinks/Week Comments Yes 0 (1 standard drink = 0.6 oz pur e alcohol) Comments No Sex and Gender Information Value Date Recorded Sex Assigned at Not on file Legal Sex Female 5:41 PM EST Gender Identity Not on file Sexual Orientation Not on file documented as of this encounter Progress Notes * Celeste Godfrey RN - 10/05/2024 11:57 AM EST Pt to see mariana sheets today at 5:00 Reason for Disposition ? ? Earache (Exceptions: Brief ear pain of < 60 minutes duration, or earache occurring during air travel.) Answer Assessment - Initial Assessment Questions 1. LOCATION: Which ear is involved? Both 2. ONSET: When did the ear pain start? Comes and goes, worse at night . Has been over a week 3. SEVERITY: How bad is the pain? (Scale 1-10; mild, moderate or severe) - MODERATE (4-7): Interferes with normal activities or awakens from sleep Moderate 4. URI SYMPTOMS: Do you have a runny nose or cough? Congestion 5. FEVER: Do you have a fever? If Yes, ask: What is your temperature, how was it measured, and when did it start? None 6. CAUSE: Have you been swimming recently? , How often do you use Q-TIPS? , Have you had any recent air travel or scuba diving? Has pain when she uses Q tips 7. OTHER SYMPTOMS: Do you have any other symptoms? (e.g., decreased hearing, dizziness, headache,stiff neck, vomiting) No chest pain or SOB, she has no drainage from her ears, ear and face are not hot red or swollen. 8. : Is there any chance you are ? When was your last menstrual period? None depo Protocols used: Poiceze-C-XP * Donna Rodriguez - 10/05/2024 10:33 AM EST Patient call requires triage: Symptoms patient is presenting: PATIENT IS HAING EAR PROBLEM How long has patient had these symptoms?: 4-5 DAYS For ALL patients calling to schedule any [...] traveled recently to another state outside of [place], [place], [place], [place], [place], [place], [place]? no o If yes, did you quarantine [...] of accident/Injury: No If yes, gather 3rd constitution party insurance information Third Democrat Information: not applicable PCP: Gail Carbajal MD Payor: / No coverage found. documented in this encounter Plan of Treatment Upcoming Encounters Date Type Department Care Team (Late st Contact Info) Description 05/03/2025 10:30 AM EDT Office Visit Adult Medicine [facility] [address] [place] [phone] Allie Holguin PA [address] [place] [address] 06/17/2025 9:30 AM EDT Office Visit Bariatric Surgery - [place] [address] [phone] David Solano MD [address] [address] 12/22/2025 9:30 AM EST Office Visit Pulmonolgy - [place] [address] [phone] Jie Gonzalez MD [address] [address] 01/04/2026 9:30 AM EST Office Visit [facility] Hematology Oncology [address] [place] [phone] Julianne Ramirez MD [address] [place] [phone] documented as of this encounter Visit Diagnoses Not on filedocumented in this encounter Care Teams Internal Grinding Machine Operator Relationship Specialty Start Date End Date Gail Carbajal MD [address] [place] [phone] PCP - General 04/30/24 documented as of this encounter
--- OUTSIDE RECORDS SUMMARY | 2025-04-06 09:06 | XMS_ITS | Encounter Summary ---
Author Organization [facility] Address [address] [place] [address] Care Team Providers Care Curtain Supervisor Name Role Phone Gail Carbajal MD Primary Care Provider [phone] Encounter Details Date Type Department Care Team (Latest Contact Info) Description 08/31/2024 11:43 AM EDT Hospital Encounter TH HISTORIC ENCOUNTERS EASTERN CONVERSION ONLY Mirian Rivero MD [address] [phone] Shortness of breath Social History Tobacco Use [...] 10:30 AM EDT Office Visit Adult Medicine [address] [phone] Allie Holguin PA [address] [place] [address] 06/17/2025 9:30 AM EDT Office Visit Bariatric Surgery - [place] [address] [phone] David Solano MD [address] [phone] 12/22/2025 9:30 AM EST Office Visit Pulmonolgy - [place] [address] [phone] Mirian Rivero MD [address] [phone] 01/04/2026 9:30 AM EST Office Visit [facility] Hematology Oncology [address] [place] [phone] Julianne Ramirez MD [address] [place] [address] documented as of this encounter Procedures Procedure Name Priority Date/Time Associated Diagnosis Comments CHEST ROUTINE 2 VIEWS Routine 08/31/2024 12:08 PM EDT Shortness of breath documented in this encounter Results * CHEST ROUTINE 2 VIEWS (08/31/2024 12:08 PM EDT) Anatomical Region Laterality Modality Radiographic Meg ging 08/31/2024 11:4 8 AM EDT Narrative 08/31/2024 12:08 PM EDT [facility] Diagnostic Imaging Department [address] [place] [phone] Patient: ??CLAU KATZ ?/Age/Sex: 1975 Unit#: ??[id number] ? Location/Status: ??SPDIGEN/REG CLI ? Mnemonic/Ordering Site: ??CHESTXR/SPDI Ordering Physician: ??MIRIAN RIVERO MD Chest Routine 2 Views - 08/31/24 - 1155 Report Status:Signed Chest Routine 2 Views INDICATION: ??Shortness of breath TECHNIQUE: DR Chest Routine 2 Views COMPARISON: 05/21/1970 FINDINGS/IMPRESSION: Lungs are clear. ??No pleural effusion or pneumothorax. Cardiac silhouette and bones are within normal limits. Dictating Physician: ??KINSEY ALVARADO MD Electronically Signed by: ??KINSEY ALVARADO MD Dic Date/Time: ??08/31/241207 Sign date/Time: ??08/31/241207 Procedure Note Kinsey Alvarado MD - 09/22/2024 [facility] Diagnostic Imaging Department [address] [place], [place] [phone] Patient: CLAU KATZO.B./Age/Sex: 1975 Unit#: [id number] Location/Status: SPDIGEN/REG CLI Mnemonic/Ordering Site: CHESTXR/SPDI Ordering Physician: MIRIAN RIVERO MD DR Chest Routine 2 Views - 08/31/24 - 1155 Report Status:Signed DR Chest Routine 2 Views INDICATION: Shortness of breath TECHNIQUE: DR Chest Routine 2 Views COMPARISON: 05/21/1970 FINDINGS/IMPRESSION: Lungs are clear. No pleural effusion orpneumothorax. Cardiac silhouette and bones are within normal limits. Dictating Physician: KINSEY ALVARADO MD Electronically Signed by: KINSEY ALVARADO MD Dic Date/Time: 08/31/241207 Sign date/Time: 08/31/241207 Mirian Rivero MD IMG XR PROCEDURES Final Result documented in this encounter Visit Diagnoses Diagnosis Shortness of breath documented in this encounter Care Teams Curtain Supervisor Relationship Specialty Start Date End Date Gail Carbajal MD [address] [place] [phone] PCP - General 04/30/24 documented as of this encounter
--- OUTSIDE RECORDS SUMMARY | 2025-04-06 09:06 | XMS_ITS | Clinical Summary ---
Author Organization [id number] Address [address] [place] [address] Care Team Providers Care Datastage Architect Name Role Phone Gail Carbajal MD Primary Care Provider [phone] Allergies Active Allergy Reactions Criticality Noted Date Comments Doxycycline 03/05/2024 Penicillins 03/05/2024 Medications Medication Sig Dispensed Refills Start Date End Date Status albuterol (Ventolin HFA) 108 (90 Base) MCG/ACT inhaler INHALE 2 PUFFS INTO THE LUNGS EVERY 4 HOURS NEEDED FOR COUGH OR WHEEZING. 0 01/15/2019 Active Eliquis 5 MG TABS tablet TAKE 10 MG (2 TABS) BY MOUTH 2 TIMES DAILY FOR 7 DAYS, THEN 5 MG (1 TAB) 2 TIMES DAILY FOR 90 DAYS 0 12/19/2023 Active cyclobenzaprine (FLEXERIL) 5 MG tablet TAKE 1 TO 2 TABLETS ORALLY BEDTIME NEEDED FOR MUSCLE SPASM FOR 30 DAYS 0 02/21/2024 Active Banophen 25 MG capsule TAKE 1 TO 2 CAPSULES BY MOUTH EVERY 8 HOURS NEEDED FOR ALLERGIC REACTIONS 0 02/21/2024 Active Fremanezumab-vfrm (Ajovy) 225 MG/1.5ML SOAJ every 30 days. 0 12/25/2023 Active medroxyPROGESTERone (DEPO-PROVERA) 150 MG/ML injection Inject 1 mL (150 mg total) into the muscle every 3 (three) months. 0 Active gabapentin (NEURONTIN) 300 MG capsule Take 1 capsule (300 mg total) by mouth. 0 Active prazosin (MINIPRESS) 2 MG capsule TAKE FOUR (4) CAPSULES BY MOUTH AT BEDTIME 0 01/14/2024 Active omeprazole (PriLOSEC) 20 MG capsule TAKE 1 CAPSULE BY MOUTH DAILY. 30 MINUTES PRIOR TO MEAL 0 12/27/2023 Active sertraline (ZOLOFT) 100 MG tablet Take 1 tablet (100 mg total) by mouth daily. 0 12/18/2023 Active topiramate (TOPAMAX) 50 MG tablet TAKE 2 TABLETS (2 X 50 MG) ORALLY DAILY FOR 30 DAYS 0 02/02/2024 Active enoxaparin (LOVENOX) 100 MG/ML SOSY INJECT 90MG EVERY 12 HOURS X30 DAYS. 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 03/05/2024 Social History Tobacco Use Types Packs/Day Years Used Date Smoking Tobacco: Never Smokeless Tobacco: Never Tobacco Cessation:Counseling Given: Not Answered Alcohol Use Standard Drinks/Week Comments Yes 0 (1 standard drink = 0.6 oz pur e alcohol) Sex and Gender Information Value Date Recorded Sex Assigned at Not on file Gender Identity Not on file Sexual Orientation Not on file Job Start Date Occupation Industry Not on file Not on file Not on file Last Filed Vital Signs Vital Sign Reading Time Taken Comments Blood Pressure 122/77 03/05/2024 12:45 PM EDT Pulse 89 03/05/2024 12:45 PM EDT Temperature 36.3 ??C (97.3 ??F) 03/05/2024 12:45 PM E DT Respiratory Rate - - Oxygen Saturation 99% 03/05/2024 12:45 PM EDT Inhaled Oxygen Concentration - - Weight 89.4 kg (197 lb 3.2 oz) 03/05/2024 12:45 PM EDT Height 160 cm (5' 3 ) 03/05/2024 12:45 PM EDT Body Mass Index 34.93 03/05/2024 12:45 PM EDT Plan of Treatment Health Maintenance Due Date Last Done Comments Hepatitis B Vaccines (1 of 3 - 3-dose series) 1976 Hepatitis C Screening 1976 COVID-19 Vaccine (#1) 05/14/1977 Depression Screening 1988 Preventative Health Evaluation 1994 Cervical Cancer Screening (Pap Smear) 1997 Colon Cancer Screening (Colonoscopy) 2021 Influenza Vaccine (#1) 2024 , 09/07/2021, 09/07/2021, Additional history exists DTap / Tdap / Td (2 - Td or Tdap) 07/18/2026 07/18/2016 Pneumococcal Vaccine Aged Out No long er eligible based on patient's age to complete this topic RSV Ped < 20 months Aged Out No longe r eligible based on patient's age to complete this topic Care Teams Datastage Architect Relationship Specialty Start Date End Date Gail Carbajal MD [address] [place] [address] PCP - General Internal Medicine 12/31/23
== END 2025-04-06 09:19 | disposition home or self-care (01) ==
LOC: HO.HSMS 08:44
PROVIDERS: Visit Provider Psychiatry & Neurology Neurology
DX: G43.719 Chronic migraine without aura, intractable, without status migrainosus (principal)
CPT/HCPCS: 64615

== ENCOUNTER → 2025-04-06 08:43 | Outpatient (BNVA) | payer OTHER, SELFPAY | PROVIDERS: Visit Provider Psychiatry & Neurology Neurology | DX: G43.719 Chronic migraine without aura, intractable, without status migrainosus (principal); G24.3 Spasmodic torticollis | CPT/HCPCS: 64615; 99211; J0585 ==

== ENCOUNTER 2025-05-12 08:55 | Outpatient (AMB) | payer OTHER, SELFPAY ==
[2025-05-12 09:02] VITALS: BP 112/82; PULSE 86; O2SAT 97; BMI 28.0
--- NOTE | 2025-05-12 09:02 | A.OFFVIS_ITS ---
Vital Signs 05/12/25 09:02 Height 5 ft 7 in Weight 179 lb BMI 28.0 BP 112/82 Blood Pressure Location Rt brachial Position Sitting Pulse 86 Pulse Source Pulse Oximeter Pulse Oximetry (%) 97 Oxygen Delivery Method Room Air Intake Visit Reasons: Dizziness/Seizure Resident Care Supervisor Required: No Accompanied by: Self / Same As Patient Allergies pineapple Allergy (Intermediate, Verified 05/12/25 09:05) Swelling Penicillins Allergy (Mild, Verified 05/12/25 09:05) Swelling Medication List - Last Reconciled 05/12/25 by ZABRINA Dowd acetaminophen 500 mg PO PRN acetazolamide 500 mg (2 x 250 mg) PO TID 30 days apixaban (Eliquis) 5 mg PO BID azelastine intranasal cetirizine 10 mg PO DAILY cyclobenzaprine 5 - 10 mg (1 - 2 x 5 mg) PO BEDTIME PRN 30 days diphenhydramine HCl (Benadryl) 25 - 50 mg (1 - 2 x 25 mg) PO Q8H PRN 30 days fluticasone propionate 110 mcg/actuation (Flovent HFA) grams inhalation fremanezumab-vfrm (Ajovy) 675 mg (4.5 mL) subcut [id number] 90 days levocetirizine 5 mg PO DAILY magnesium oxide 400 mg PO BEDTIME 90 days ondansetron HCl 4 mg PO TID PRN 30 days pantoprazole tabs PO prazosin 2 mg PO BEDTIME riboflavin (vitamin B2) 400 mg PO DAILY 90 days rizatriptan 5 - 10 mg (0.5 - 1 x 10 mg) PO Q2H PRN 21 days sertraline 50 mg PO PRN topiramate 100mg qam and 150mg at bedtime x's 1 week, then 150mg bid x's 1 week, then 150mg qam and 200mg qhs x's 1 week, then 200mg BID orally .; 30 days ubrogepant (Ubrelvy) 50 - 100 mg (0.5 - 1 x 100 mg) PO ONCE PRN 30 days zolmitriptan (Zomig) take 1 tab at onset of headache; if no relief, may repeat 1 tab after at least 2 hrs; max = 2 tabs/24 hrs PO 30 days HPI Comments Details: 48-yr-old female presents for f/u visit of migraine and left eye visual change, however states she is primarily concerned with a new onset left-sided headache status post having a breakthrough seizure in March. Patient states that approximately a month ago, she was in her usual state of health, had sub well, woke up in the morning, took her medications, had a drain, had some toast with peanut butter. Then took a shower without difficulty. After the shower, she started to feel strange and an onset of a headache, and next thing she knew she had come to on the ground. She believes her loss of consciousness lasted just a couple of minutes. When she got up she had a worsening headache and dizziness, at which point she lost her balance and struck her right forehead into the door frame. She endorses postictal fatigue times 2- 3 days. She felt that this was a typical seizure episode for her. After the event, she had a tele video visit, and was advised to treat the headache conservatively. She did not go to the ER, and has had not had interval head imaging. She is compliant with her Eliquis due to history of PE and DVT. She denies any preceding infection or injury prior to his breakthrough seizure. She denies any preceding lightheadedness or dizziness prior to this episode. She states does been a very long time since she had her last breakthrough seizure. She is compliant with her topiramate 100 mg twice a day- used for both migraine prevention and seizure prevention. Since this episode, she has had an ongoing daily left-sided headache, which is different from her baseline migraine. It is associated with light and sound sensitivity and intermittent nausea. She states rizatriptan was helping for this some, but she ran out of it. States Ubrelvy is helpful for her regular migraine, but not so much this new left-sided headache. She continues to follow-up with [facility], is awaiting new prescription glasses. She is scheduled to see the neuroophthalmologist later this year. 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 She had had initial consult w/ Dr Cory Ordonez, neuro-ophthamologist at [facility]. Pt reports she has had additional eye exama, lab work-up, and just had a f/u brain/eye/neck MRI on 10/17- results still pending. She is using the blue-light filtering glasses. She also had a 06/17 she underwent left common iliac vein stent and angioplasty. for tx of LLE DVT w/PE. Continues on Eliquis. COUNT INCLUDES THE [facility] Medical History (Updated 05/12/25 @ 10:34 by ZABRINA Dowd) Chronic migraine without aura, intractable, without status migrainosus Facial numbness Chronic migraine without aura Cervical dystonia Sinusitis Anxiety and depression Seizure Cervicalgia Surgical History History of toe surgery History of surgery on wrist Family History Mother Heart disease HTN (hypertension) Father HTN (hypertension) Heart disease Diabetes Social History Household Members: Spouse and Children Alcohol intake: current Alcohol intake frequency: does not drink Patient Tobacco Use Status: Never used Tobacco Current occupational status: employed 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 General: patient oriented x3 Cranial nerves: Yes Facial sensation intact/muscles of mastication intact, Yes Bilaterally intact EOM present, Yes Nystagmus not present, Yes Normal facial strength present, Yes Midline tongue present, Yes Normal gag reflex present, Yes Symmetric palate elevation present, Yes Ability to bilaterally rotate head present and Yes Ability to bilaterally elevate shoulders present Cognition (Neuro): normal cognition Gait exam (Neuro): Normal gait present Motor exam (neuro): 5/5 motor strength present throughout Deep tendon reflexes (DTR's): Right triceps reflex intensity grade: 2+, Left triceps reflex intensity grade: 2+, Rt Biceps (C5, C6): 2+, Left biceps reflex intensity grade: 2+, Right brachioradialis reflex intensity grade: 2+, Left brachioradialis reflex intensity grade: 2+, Right patellar reflex intensity grade: 1+ and Left patellar reflex intensity grade: 1+ Coordination: ihlhal-kg-hyvo test normal Psych Appearance: grossly normal Mental Status: mental status grossly normal Speech and movement: Normal speech and movement present Affect: normal affect Attitude: cooperative Assessment & Plan Assessment & Plan (1) Concussion: Comment: March 2025- status post breakthrough seizure episode, which triggered headache and dizziness, which was followed by loss of balance and positive right frontal head strike- with residual new onset left-sided migrainous headache Code(s): S06.0XAA - Concussion with loss of consciousness status unknown, initial encounter Category: Medical Qualifiers: Encounter type: initial encounter Loss of consciousness presence/duration: with LOC of 30 min or less Qualified Code(s): S06.0X1A - Concussion with loss of consciousness of 30 minutes or less, initial encounter (2) Seizure: Comment: childhood Code(s): R56.9 - Unspecified convulsions Category: Medical (3) Syncope: Code(s): R55 - Syncope and collapse Category: Medical Qualifiers: Syncope type: unspecified Qualified Code(s): R55 - Syncope and collapse (4) Chronic migraine without aura, intractable, without status migrainosus: Code(s): G43.719 - Chronic migraine without aura, intractable, without status migrainosus Category: Medical (5) IIH (idiopathic intracranial hypertension): Code(s): G93.2 - Benign intracranial hypertension Category: Medical (6) Vision loss of left eye: Code(s): H54.62 - Unqualified visual loss, left eye, normal vision right eye Category: Medical Plan For new onset left sided headache status post positive head strike following breakthrough typical seizure attack: You are advised to undergo the following studies: * Brain MRI with and without contrast * Baseline EEG * Labs CBC and CMP today Your advised to trial the following treatments: * Start riboflavin 400 mg daily in the morning * Start magnesium 400 mg daily at bedtime * Discontinue topiramate 50 mg tab, 2 tabs (100 mg) twice a day order * Increase topiramate as follows, in hopes this reduces new onset headache symptoms and reduces risk for seizure recurrence: * Topiramate 100 mg tab, 1 tab in morning and 1.5 tabs at bedtime x1 week * Topiramate 100 mg tab, 1.5 tabs in the morning and 1.5 tabs at bedtime x1 week * Topiramate 100 mg tab, 1.5 tabs in the morning and 2 tabs at bedtime 10 1 week * Topiramate 100 mg tab, 2 tabs in the morning and 2 tabs at bedtime * Resume Rizatriptan 10mg tab, 1/2 - 1 tab (5-10mg) at onset of headache, may repeat in 2 hours. Max of 2 tabs (200mg) per 24 hours. * May take rizatriptan with OTC Tylenol 650-1000mg every 4-6 hours as needed. General recommendations: * Do not drive or engage in high-risk activities, such as so low tub bathing, so low water activities, operating heavy machinery, etc- times at least 6 months following any breakthrough seizure activity. * Please obtain urgent ER evaluation if you fall and strike her head, or have an unwitnessed seizure/syncopal event. Future considerations: * Prednisone burst For left medial vision deficit and h/o IIH: * Follow-up with Neuro-Ophthalmology at [facility]. * Continue Acetazolamide 500 mg 3 times per day * Recheck labs CBC and CMP- as above For chronic migraine prevention: * Continue Ajovy 225mg s subcutaneous injection every month * Increase topiramate as above. * Continue Botox 155 units IM every 12 weeks- for now For acute migraine treatment: * Resume Rizatriptan 10mg prn mild to moderate migraine. * As rizatriptan is not always fully effective her more severe migraine, continue Ubrogepant. * Ubrogepant (Ubrelvy) 100mg tab, 1/2 - 1 tab (50-100mg) at onset of headache, may repeat in 2 hours. Max of 2 tabs (200mg) per 24 hours. May adjunct with OTC Tylenol 650-1000 mg every 4-6 hours as needed. * Continue cyproheptadine 4 mg daily at bedtime as needed. * May use Benadryl 25-50mg every 8 hours as needed for more severe migraine attack. Previous tx: Amitriptyline 50mg- no benefit. Previous acute treatment: Sumatriptan- causes nausea. Rizatriptan not fully effective for more severe migraine. Fioricet- lost efficacy. Will follow-up upon review of above and patient to follow-up in clinic in 3-6 months or sooner prn. Orders: Orders EEG electroencephalogram Today R55 - Syncope and collapse, R56.9 - Unspecified convulsions Comprehensive Met. Panel Today I82.402 - Acute embolism and thrombosis of unspecified deep veins of left lower extremity, R51.9 - Headache, unspecified, R55 - Syncope and collapse MR head/brain wo/w con Today R55 - Syncope and collapse, R56.9 - Unspecified convulsions Complete Blood Count Auto Diff Today I82.402 - Acute embolism and thrombosis of unspecified deep veins of left lower extremity, R51.9 - Headache, unspecified, R55 - Syncope and collapse Medications: New topiramate 100mg qam and 150mg at bedtime x's 1 week, then 150mg bid x's 1 week, then 150mg qam and 200mg qhs x's 1 week, then 200mg BID orally .; 120 tabs 3RF 30 days ondansetron HCl 4 mg PO TID PRN 30 tabs 3RF nausea and vomiting 30 days magnesium oxide may hold for loose stools 400 mg PO BEDTIME 90 tabs 3RF 90 days riboflavin (vitamin B2) 400 mg PO DAILY 90 tabs 3RF 90 days Refilled ubrogepant (Ubrelvy) take at onset of migraine, may repeat in 2hrs (may take w/ Tylenol 50 - 100 mg (0.5 - 1 x 100 mg) PO ONCE PRN 16 tabs 3RF migraine headache 30 days rizatriptan max 2 tabs per day or 4 tabs per week 5 - 10 mg (0.5 - 1 x 10 mg) PO Q2H PRN 12 tabs 6RF migraine headache 21 days acetazolamide 500 mg (2 x 250 mg) PO TID 180 tabs 3RF 30 days G93.2 - Benign intracranial hypertension cyclobenzaprine 5 - 10 mg (1 - 2 x 5 mg) PO BEDTIME PRN 60 tabs 3RF muscle spasm 30 days Discontinued topiramate Discontinued Reason: Doctor's Order 100 mg (2 x 50 mg) PO BID 30 days 120 tabs 6RF Coding Level of Care Code Est Pt Level 4 (22565) Complex EM visit Add On G2211 Diagnoses Concussion with loss of consciousness of 30 minutes or less, initial encounter S06.0X1A Encounter type: initial encounter Loss of consciousness presence/duration: with LOC of 30 min or less Seizure R56.9 Syncope, unspecified syncope type R55 Syncope type: unspecified Chronic migraine without aura, intractable, without status migrainosus G43.719 IIH (idiopathic intracranial hypertension) G93.2 Vision loss of left eye H54.62
--- OUTSIDE RECORDS SUMMARY | 2025-05-12 09:32 | XMS_ITS | Data Portability ---
Author Organization [facility], [facility] Address [address] [place] [address] Care Team Providers Care Senior Administrative Associate Name Role Phone ZULEIMA MARX Primary Care Provider [phone] Assessment Encounter Date Assessment Date Assessment LastModified [...] reviewed, updated and is located in the patient s chart. Examination:R Hand exam: no warmth, effusion, erythema, ecchymosis, full ROM of the digits, good FDS/FDPS function, no triggering, good cap refill, grossly nontender,negative basal joint grind, digits are neurovascularly intact, 4/5 plastic sewer strength. Does have positive nerve compression signs with the median nerve. EMG normal Impression:R Carpal tunnel like symptoms Plan: Patient was proceeded injections if this alleviates some of her symptoms of chondral flap Dick Corrales [facility] Radha speech recognition nut sheller software was used to create portions of this document. An attempt at proofreading has been made to minimize errors. Please call for corrections. [email or web address] Not available 03/04/2025 10:13:57 Plan of Treatment Reminders Order Date Submit Date Provider Last Modified By Organization Details Last Modified Time Details Appointments RECHECK 15 2024 10:45A M Casi Martin [...] postop 3v foot wb 2024 025 [email or web address] [facility] Office, [address], [place], [address], 03/05/2025 10:41:58 XR, foot, 3 or more view - room 103 postop 3v foot wb 2024 [email or web address] [facility] Office, [address], [address], [place], [address], 01/22/2025 14:18:55 XR, foot, 3 or more view 2024 [email or web address] [facility] Office, [address], [place], [address], 01/08/2025 15:04:57 Medication Orders meloxicam 15 mg tablet 2024 025 [email or web address] [facility]/Pharmacy #[id number], [address] [place], [address], 03/08/2025 16:40:41 acetamino phen 500 mg tablet 2024 025 [facility]/Pharmacy #[id number], [address] [place], [address], 03/04/2025 09:45:57 Patient TargetsNo targets recorded. Patient [...] knee, w/o contr ast [facility] Access ion Number : [id number] [address] t Name: Clau Katz Record Number : [id number] Date of : 1974 Date of Exam: 2024 Referr ing Physic jean-pierre: [facility] [address] [place] [address] , [address] [place] [address] Exam: MR Knee (C-) CPT 53016 - Right Room Descri ption: [facility] Pion 3T MR Knee (C-) CPT 52294 CLINIC AL INDICA TION: Reason For Exam: [...] unrema rkable . 0.9 x 0.6 cm signal maintenance technician ior medial gangli on cyst extend ing signal maintenance technician ior to the distal PCL footpr int. [...] al tear or ligame ntous injury Small signal maintenance technician ior medial gangli on cyst Electr onical ly Signed By: David Roe rd, MD [email or web address] [facility] ([facility] [address], [place], [address], 12/03/2024 09:00:51 01/01/20 25 01/01/2025 XR, foot, 3 or more view [email or web address]:/ [email or web address] ?Encry pted=s hAaTro YD8dLq bEUv6g %2BXZw aYqtaq 0bqfl% 2Fg9IQ a4ajBk vP9nXo QUaueC m3YtLR FvZlgJ JJ8mAn HZtai3 2c0979 AC0Kqb HiCV6W uKiQtr MwF INTERFACE [facility] [address], [place], [address], 01/01/2025 10:21:09 01/01/20 25 01/01/2025 XR, foot, 3 or more view http:/ [email or web address] ?Encry pted=s hAaTro YD8dLq bEUv6g %2BXZw aYqtaq 0bqfl% 2Fg9IQ a4ajBk vP9nXo QUaueC m3YtLR FvZlgJ JJ8mAn HZtai3 9b5627 AC0Kqb HiCV6W uKiQtr MwF INTERFACE [facility] [address], [place], [address], 01/01/2025 10:21:11 01/22/20 25 01/22/2025 XR, foot, 3 or more view [email or web address]:/ [email or web address] ?Encry pted=s hAaTro YD8dLq bEUv6g %2BXZw aYqtaq 0bqfl% 2Fg9IQ a4ajBk vP9nXo QUaueC m3YtLR FvZlgJ JJ8mAn HZtai3 8k2915 AC0Kqb X6BWKK kKiQtr MwF INTERFACE [facility] [address], [place], [address], 01/22/2025 10:47:26 01/22/20 25 01/22/2025 XR, foot, 3 or more view http:/ [email or web address] ?Encry pted=s hAaTro YD8dLq bEUv6g %2BXZw aYqtaq 0bqfl% 2Fg9IQ a4ajBk vP9nXo QUaueC m3YtLR FvZlgJ JJ8mAn HZtai3 8v2881 AC0Kqb X6BWKK kKiQtr MwF INTERFACE [facility] [address], [place], [address], 01/22/2025 10:47:28 02/11/20 25 02/10/2025 XR, foot, 3 or more view No observ ation record ed. [facility] [address], [place], [address], 02/11/2025 10:52:09 02/12/20 25 02/10/2025 elect romyo gram + nerve condu ction study No observ ation record ed. [facility] [address] [place], [address], 02/18/2025 10:08:24 02/12/20 25 02/10/2025 elect romyo gram + nerve condu ction study No observ ation record ed. [email or web address] [facility] [address] [place], [address], 02/18/2025 10:08:13 03/05/20 25 03/05/2025 XR, foot, 3 or more view http:/ [email or web address] ?Encry pted=s hAaTro YD8dLq bEUv6g %2BXZw aYqtaq 0bqfl% 2Fg9IQ a4ajBk vP9nXo QUaueC m3YtLR FvZlgJ JJ8mAn HZtai3 6q2837 AC0KqY 3mEV6S gKiQtr MwF INTERFACE [facility] [address] [facility] [address], [place], [address], 03/05/2025 10:38:26 03/05/20 25 03/05/2025 XR, foot, 3 or more view http:/ [email or web address] ?Encry pted=s hAaTro YD8dLq bEUv6g %2BXZw aYqtaq 0bqfl% 2Fg9IQ a4ajBk vP9nXo QUaueC m3YtLR FvZl JJ8mAn HZtai3 8p5063 AC0KqY 3mEV6S gKiQtr MwF INTERFACE [facility] [address] [facility] [address], [place], [address], 03/05/2025 10:38:28 Result Notes Documentation Provider Name and Address Organization Details Recorded Time Xr, Foot, 3 Or More View : [email or web address]? Encrypted=ivOjOmhLS3tJggO Uv6g%9KYZvcOemjk8xlex%2Fg 5ZNp3btCwnS5vIkOLxwgSd4Zt NPGyHpqCYB9yDkNOlvl39s799 8KU3GgyEhSQ6VvMwFjtWcM Not Available [facility] 01/01/2025 10:21: 09 Xr, Foot, 3 Or More View : [email or web address] Encrypted=wqMdGytEM1tNwuT Uv6g%5WKHovHiyjk8jvrx%2Fg 4QNl0iyBxcF1fNyGBcftNf8Yt IFLfLxoZMA2cVxCGzup08z120 6VI2IghIaQV1OtEzBckKhC Not Available [facility] 01/01/2025 10:21: 12 Xr, Foot, 3 Or More View : [email or web address]? Encrypted=dsKdHccQG7aIvhP Uv6g%9LSWdhOpvqw2qtlw%2Fg 3JIj3ojWfsE5fExECyswJw8Wg QZDgRxaGZO3xAcFOvrl44s649 3YJ4QyyB0WKDPpPaHwrSyM Not Available [facility] 01/22/2025 10:47: 27 Xr, Foot, 3 Or More View : [email or web address] Encrypted=evNcWjhJW8tKhdX Uv6g%4RUUwdZbhzn1bcdm%2Fg 5UQi8coHyaQ5tGtUKnfoFq9Ws UZCfXbtQEN7eDsJXvkx25d388 8FE5KtmN2GEYCzYmSslDuO Not Available [facility] 01/22/2025 10:47: 29 Xr, Foot, 3 Or More View : [email or web address] Encrypted=ydIfPthDJ9uLsjY Uv6g%9WIUpxBqazf4cega%2Fg 7AOs6apPmnI5hXxHOwwcAc1Tm SDLcEfcBOM8sJfHUmwa22i413 5WT5NeI1wBK3UiQlJsyAxN Not Available [facility] 03/05/2025 10:38: 27 Xr, Foot, 3 Or More View : [email or web address]? Encrypted=fxIxRzeSD3cBvrH Uv6g%4KKErePbzfk0dcko%2Fg 0NWt2noBygF6eVgSXdsvJd4Pb SCJmEpvZCB4vSbKGdai72j281 2HJ0TpC1yZA7BfNlQznGuC Not Available [facility] 03/05/2025 10:38: 29 Problems Name Problem SNOMED Code Status Onset Date Resolution Date Notes Provider Name and Address Organization Details Recorded Time Carpal tunnel syndrome of right wrist 667285576810 108 Active 2024 Grabiel Suarez PA-C [address], [place], [address] , [facility] 5 10:14:05 Impingeme nt syndrome of left shoulder region 243126625424 104 Active 2014 Problem Code: M75.42; Problem Code Type: ICD-10; Status: 'A'; Not Available [facility] 4 10:56:52 Follow-up orthopedi c assessmen t 032018065 Active 2014 Problem Code: Z47.89; Problem Code Type: ICD-10; Status: 'A'; [facility] Available [facility] 4 10:56:52 Secondary osteoarth ritis 640759617 Active 2014 Problem Code: M19.212; Problem Code Type: ICD-10; Status: 'A'; [facility] 4 10:56:52 Problem Notes None recorded. Procedures Surgical History Date Name Laterality Status Provider Name and Address Organization Details Recorded Time 5 JZCT inj completed Grabiel Suarez PA-C [address], [place], [address], [facility] 03/04/2025 10:13:55 3 Bariatric Surgery completed Kati Spears [facility] 11/26/2024 09:45:03 Other completed Kati Spears [place] - N [facility] 11/26/2024 09:45:03 Imaging Results None recorded. Procedure Notes None recorded. Medical Equipment None Reported. Allergies Allergen ID Allergen Name Allergen Category Reaction Reaction Severity Criticality Documentation Date Start Date Code Code System Note Provider Name and Address Organization Details Recorded Time 69475 Product containin g penicilli n (product) medicatio n Not available Not available Not available 01/27/20242010 18274 8001 SNOMED Aller gyRea ction : 'Skin React ion'; Not Available [facility] 4 10:54:23 01903 pineapple extract food Not available Not available Not available 01/27/20242017 73269 74 RxNorm Not Available [facility] 4 10:54:23 Medications Name Sig Start Date [...] Not Available Not Available No t Available 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 active Not Available Not Available No t Available prazosin 2 mg capsule TAKE FOUR CAPSULES BY MOUTH AT BEDTIME active Not [...] 1 TABLET BY MOUTH EVERY DAY AT NIGHT active Not Available Not Available No t [...] Available Not Available Ubrelvy 100 mg tablet TAKE 1/2-1 TABLET BY MOUTH ONCE NEEDED FOR MIGRAINE, MAY REPEAT IN 2 HOURS. MAY TAKE WITH TYLENOL active Not Available Not Available No t Available Ajovy 225 mg/1.5 mL subcutaneou s auto-inject or 225 mg every month by sub-q route. active Not Available Not Available No t Available Vitals Date Recorded Body height Body mass index (BMI) Body weight Provider Name and Address Organization Details Last Updated DateTime 12/22/2024 162.56 cm 35 kg/m2 26531.84 g Kati Spears [facility] 12/22/2024 15:15:56 Date Recorded Body height Body mass index (BMI) Body weight Provider Name and Address Organization Details Last Updated DateTime 01/01/2025 162.56 cm 35 kg/m2 90053.84 g EZE JORDAN [facility] 01/01/2025 10:13:26 Date Recorded Body height Body mass index (BMI) Body weight Provider Name and Address Organization Details Last Updated DateTime 01/22/2025 162.56 cm 35 kg/m2 [address]4537.[address] Xochitl N [facility] 01/22/2025 10:41:06 Date Recorded Body height Body mass index (BMI) Body weight Provider Name and Address Organization Details Last Updated DateTime 03/04/2025 162.56 cm 35 kg/m2 [address]1258.[address] Xochitl N [facility] 03/04/2025 09:45:44 Date Recorded Body height Body mass index (BMI) Body weight Provider Name and Address Organization Details Last Updated DateTime 03/05/2025 162.56 cm 35 kg/m2 55262.84 g Noris lilia DOLL - [place] [facility] 03/05/2025 10:29:01 Social History Question Answer Notes LastModified by Organizat ion Details LastModified Time Tobacco Smoking Status Never Smoker Katigeovany Spears SHARMILA [facility] - [place] [facility] 11/26/2024 09:45:03 What Is Your Relationship Status? Single [email or web address] Information not available 11/26/2024 How Many Years Have You Smoked Tobacco? 0 [email or web address] Information not available 11/26/2024 Sex: Unknown Functional Status Question Answer Note LastModified by Organizat ion Details LastModified Time How many times per week do you consume alcohol? Less than 1 time per week [email or web address] Information not available 11/26/2024 Do you use any illicit or recreational drugs? No [email or web address] Information not available 11/26/2024 Do you or have you ever used any other forms of tobacco or nicotine? No Information not available 11/26/2024 Do you or have you ever used e-cigarettes or vape? Never used electronic cigarettes [email or web address] Information not available 11/26/2024 Mental Status None recorded. Family History Nothing Reported. Medical History Condition Response Anxiety/Depression Y Pulmonary Embolism Y Seizures/Epilepsy Y Asthma Y Blood Clot Y Gynecological HistoryNo gynecological history recorded. Obstetrics History GPAL:G 0 P 0 0 0 0 Past Encounters Encounter ID Performer Location Encounter Start Date Encounter Closed Date Diagnosis/Indication Diagnosis SNOMED-CT Code Diagnosis ICD10 Code Diagnosis Note [id number] MD Juan Manuel Mak [address] [place] [address] 10/02/2024 09:38:27 11/01/2024 16:46:00 Pain in right foot 1648930635 32627 M79.671 Metatarsal varghese of right foot 3634879189 54371 M77.41 [id number] JESUS Cheng [address] [place] [address] 10/01/2024 09:07:32 10/29/2024 11:33:25 Pain of right wrist 1284811019 42387 M25.531 Carpal hamida fabiola syndrome of right wrist 2173068533 49076 G56.01 [id number] Solitario Steele PA-C [facility] [address] [place] [address] 11/26/2024 09:12:59 12/15/2024 13:44:26 Tear of medial meniscus of knee 256954565 S83.241A [id number] MD [facility] [address] [place] [address] 11/30/2024 08:00:50 12/15/2024 11:11:45 Pain in right foot 0595921671 21790 M79.671 Metatarsal varghese of right foot 2002861552 30937 M77.41 [id number] MD MO[facility]S [facility] [address] [place], [place] [address] 12/16/2024 09:47:01 12/16/2024 10:12:28 Surgical follow-up 860812860 Z09 [id number] JESUS Barrera - [facility] [address] [place] [address] 12/22/2024 14:24:33 01/01/2025 15:13:05 Pain of knee region 6241865820 M25.323 [id number] Riya Lopez PA-C [facility] [address] [place] [address] 01/01/2025 09:21:03 01/08/2025 15:04:57 Metatarsalgia of right foot 6225359642 12386 M77.41 [id number] MD MO[facility]S [facility] [address] [place] [address] 01/22/2025 10:16:39 02/10/2025 19:21:35 Metatarsalgia of right foot 6118049664 54788 M77.41 Pain in right foot 24187 56247 27450 M79.563 [id number] MD MO[facility]S [facility] - [address] [place] [address] 03/05/2025 10:04:30 03/19/2025 10:46:06 Metatarsalgia of right foot 9492705258 67366 M77.41 Pain in right foot 53173 21621 25432 M79.671 Peroneal t endinitis of right lower limb 4291914611 23019 M76.71 [id number] JESUS Cheng 3[address] [place] [address] 03/04/2025 09:33:17 03/17/2025 10:51:04 Carpal tunnel syndrome of right wrist 3025011209 30594 G56.01 Health Concerns Section Related Observation LastModified by Organization Detai ls LastModified Time None Recorded Concern Status LastModified by Organization Details LastModified Time None Recorded Advance Directives Directive None Recorded Payers Insurance Date Sequence Insurance Name Policy Number Policy Diehl Covered Member ID Diehl Member ID Guarantor Name 04/23/2025 1 [facility] - HEALTH NET PLAN (MEDICAID HMO) [facility] Clau Katz [id number] Clau Katz Notes Date Note Type Note Provider Name and Address Organization Details Recorded Time 5 text/html I am seeing the patient today under the supervision of Dr. Quintero who was available but who did not [...] her right foot. Solitario Steele PA-C [address], [place], [address], [facility] [place] [facility] 12/22/2024 16:10:00 5 text/html I am [...] with questions or concerns. Riya Lopez PA-C [address] [place] [address] [address], [place], [address], [facility] 01/01/2025 10:52:25 5 text/html Chief complaint: Status post right fourth metatarsal osteotomy, fourth toe long extensor tendon imbrication; date of surgery 12/08/2024 History of present illness: Tameka presents today for follow-up postoperative evaluation. She [...] malalignment at the fourth MTP joint Impression: Status post right fourth metatarsal osteotomy, fourth toe along extensor tendon repair/imbrication; date of surgery 12/08/2024 Plan: Overall the patient is doing relatively well postoperatively. Like her to continue to use a flat postoperative sandal for the next 2 weeks and thereafter may transition back to normal shoewear We will see her back in office in about 6 weeks time. If she is doing well at that point in time we will likely transition to as needed visits Casi Martin MD [address] [place] [address] [address], [place], [address], [facility] 01/31/2025 14:00:22 5 text/html [...] malalignment at the fourth MTP joint Impression: Status post right fourth metatarsal osteotomy, fourth toe along extensor tendon repair/imbrication; date of surgery 12/08/2024- Right peroneal tendinitis in setting of increased activity Plan: With regard to the patient's actual surgery, she seems to have had near complete pain relief. She does seem to have some peroneal tendinitis which is likely related to an increase in activity after a prolonged period of relative inactivity I have recommended a once daily anti-inflammatory as well as a lace up ankle brace. I will prescribe a short course of physical therapy for peroneal tendinitis and overall right lower extremity rehab, in particular gait training We will see her back in office in 6 to 8 weeks for repeat evaluation. Casi Martin MD [address] [facility] [address], [place], [address], [facility] 03/07/2025 18:47:29 OBGyn Episode No OBEpisode recorded.
== END 2025-05-12 10:14 | disposition home or self-care (01) ==
LOC: HO.HSMS 08:56
PROVIDERS: Visit Provider Nurse Practitioner Family
DX: S06.0X1A Concussion with loss of consciousness of 30 minutes or less, initial encounter (principal); R56.9 Unspecified convulsions; R55 Syncope and collapse; G43.719 Chronic migraine without aura, intractable, without status migrainosus; G93.2 Benign intracranial hypertension; H54.62 Unqualified visual loss, left eye, normal vision right eye
CPT/HCPCS: 99214; G2211

== ENCOUNTER 2025-05-12 08:55 | Outpatient (REF) | payer OTHER, SELFPAY ==
[2025-05-12 17:55] LABS: MANUAL DIFF FLAG NO
[2025-05-12 18:15] LABS: Basophils Percent Auto 0.7 % (0-2); Eosinophils Percent Auto 0.3 % (0-4); Hematocrit 42.6 % (37.0-47.0); Imm Gran Abs Auto 0.02 X10*3/uL (0.00-0.03); Imm Gran Pct Auto 0.3 % (0.0-0.4); Lymphocytes Absolute Auto 1.9 X10*3/uL (1.2-4.9); Lymphocytes Percent Auto 32.2 % (20-40); Mean Corpuscular HGB Conc 32.9 g/dl (31.0-35.0); Mean Corpuscular Hemoglobin 30.6 pg (27.0-33.0); Mean Corpuscular Volume 93.2 fL (80.0-98.0); Monocytes Absolute Auto 0.4 X10*3/uL (0.1-1.2); Monocytes Percent Auto 5.9 % (2-11); Neutrophils Absolute Auto 3.6 x10*3/uL (2.0-8.3); Neutrophils Percent Auto 60.6 % (45-73); Platelet Count 280 X10*3/uL (160-400); Red Blood Count 4.57 X10*6/uL (4.20-5.50); Red Cell Distribution Width 12.6 % (11.0-16.0); White Blood Count 5.9 X10*3/uL (4.8-10.8)
[2025-05-12 18:24] LABS: Alanine Aminotransferase 16 U/L (0-31); Albumin Level 4.7 g/dL (3.5-5.0); Alkaline Phosphatase 65 U/L (39-117); Anion Gap 12 (12-20); Aspartate Amino Transferase 21 U/L (5-31); Bilirubin Total 0.4 mg/dL (0.0-1.0); Blood Urea Nitrogen 16 mg/dL (9-16); Calcium 9.8 mg/dL (8.4-10.2); Carbon Dioxide 19 mmol/L (22-29); Chloride 113 mmol/L (96-108); Estimated Glomerular Filt Rate 59; Glucose Random 88 mg/dL (60-115); Potassium 3.7 mmol/L (3.3-5.1); Sodium 140 mmol/L (135-145)
== END 2025-05-12 08:56 | disposition home or self-care (01) ==
LOC: HO.HKASLDS 08:55
PROVIDERS: Visit Provider Nurse Practitioner Family
DX: G43.109 Migraine with aura, not intractable, without status migrainosus (principal); G93.2 Benign intracranial hypertension; R55 Syncope and collapse; I82.402 Acute embolism and thrombosis of unspecified deep veins of left lower extremity
CPT/HCPCS: 36415; 80053; 85025; 99212

== ENCOUNTER → 2025-06-04 09:26 | Outpatient (BNV) | payer OTHER, SELFPAY | PROVIDERS: PCP Internal Medicine; Visit Provider Radiology Diagnostic Radiology | DX: R55 Syncope and collapse (principal) | CPT/HCPCS: 70553 ==

== ENCOUNTER 2025-06-04 09:46 | Outpatient (REF) | payer OTHER, SELFPAY ==
--- NOTE | ~2025-06-04 | MR_ITS ---
EXAMINATION: MR BRAIN WITHOUT AND WITH CONTRAST CLINICAL INFORMATION: Syncope. COMPARISON: June 05, 2024. TECHNIQUE: Multiplanar, multisequence MRI of the brain was obtained before and after the intravenous administration of 8.0 mL gadolinium based (Gadavist) without reported immediate complications.. FINDINGS: No restricted diffusion. No abnormal enhancement within the intra-axial or the extra-axial compartment of the cranium. No acute intracranial hemorrhage, mass effect, midline shift, hydrocephalus or herniation. Posterior cranial fossa contents demonstrated no gross signal abnormality or enhancing lesion. Craniocervical junction demonstrates normal position of the cerebellar tonsils. Sellar/suprasellar region is normal. Flow-void signal within the main cerebral vessels is normal. MR/MR head/brain wo/w con IMPRESSION: No acute or structural brain abnormality. No abnormal enhancement. Electronically signed by: Parminder John MD 06/04/2025 11:56 AM EDT
--- OUTSIDE RECORDS SUMMARY | 2025-06-04 10:06 | XMS_ITS | Encounter Summary ---
Author Organization [facility] Address [address] [place] [address] Care Team Providers Care Hedis Abstractor Name Role Phone Gail Carbajal MD Primary Care Provider Reason for Visit * Reason Onset Date Comments Ear Problems 10/01/2024 Encounter Details Date Type Department Care Team (Late st Contact Info) Description 10/01/2024 Nurse Triage Adult Medicine [address] [phone] Gail Carbajal MD [address] [place] [address] Ear Problems Social History Tobacco Use Types [...] Pt is booked for 10/05/24 * Celeste Godfrey RN - 10/01/2024 3:15 PM EST Call to pt and left message for her to call triage * Urbanomadhu Geovany - 10/01/2024 1:56 PM EST Patient call [...] traveled recently to another state outside of [place], [place], [place], [place], [place], [place], [place]? no o If yes, did you quarantine [...] yes, gather 3rd libertarian insurance information Third Republican Information: not applicable PCP: Gail Carbajal MD Payor: / No coverage found. documented in this encounter Plan of Treatment Upcoming Encounters Date Type Department Care Team (Late st Contact Info) Description 06/17/2025 9:30 AM EDT Office Visit Bariatric Surgery - [place] [address] [facility] [address] [place] [phone] David Solano MD [address] [facility] [address] [place] [address] 09/10/2025 1:15 PM EDT [place] [facility] [place] [address] [place] [phone] Gail Carbajal MD [address] [place] [address] 12/22/2025 9:30 AM EST Office Visit Pulmonolgy - [place] [address] [address] Jie Gonzalez MD [address] [address] 01/04/2026 9:30 AM EST Office Visit [facility] Hematology Oncology [address] [place] [phone] Julianne Ramirez MD [address] [place] [phone] documented as of this encounter Visit Diagnoses Not on filedocumented in this encounter Care Teams Hedis Abstractor Relationship Specialty Start Date End Date Gail Carbajal MD [address] [place] [address] PCP - General 04/30/24 documented as of this encounter
--- OUTSIDE RECORDS SUMMARY | 2025-06-04 10:06 | XMS_ITS | Clinical Summary ---
Author Organization [facility] Address [address] [place] [address] Care Team Providers Care Business Team Leader Name Role Phone Gail Carbajal MD Primary Care Provider [phone] Allergies Active Allergy Reactions Criticality Noted Date [...] 89 03/05/2024 12:45 PM EDT Temperature 36.3 C (97.3 F) 03/05/2024 12:45 PM EDT Respiratory Rate - - Oxygen Saturation 99% [...] Cancer Screening (Colonoscopy) 2021 Influenza Vaccine (#1) 2025 , 09/07/2021, 09/07/2021, Additional history exists DTap / Tdap / Td (2 - Td or Tdap) 07/18/2026 07/18/2016 Pneumococcal Vaccine Aged Out No long er eligible based on patient's age to complete this topic RSV Ped < 20 months Aged Out No longe r eligible based on patient's age to complete this topic Care Teams Business Team Leader Relationship Specialty Start Date End Date Gail Carbajal MD [address] [place] [address] PCP - General Internal Medicine 12/31/23
--- OUTSIDE RECORDS SUMMARY | 2025-06-04 10:06 | XMS_ITS | Data Portability ---
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 Does have positive nerve compression signs with the median nerve. EMG normal Impression:R Carpal tunnel like symptoms Plan: Patient was proceeded injections if this alleviates some of her symptoms of chondral flap [facility] speech recognition activities leader software was used to create portions of this document. An attempt at proofreading has been made to minimize errors. Please call for corrections. [email or web address] Not available 03/04/2025 10:13:57 Plan of Treatment Reminders Order Date Submit Date Provider Last Modified By Organization Details Last Modified Time Details Appointments RECHECK 15 2024 09:45A M Casi Martin MD Not available Not [...] postop 3v foot wb 2024 025 [email or web address] [facility], [address], [address], [place], [address], 03/05/2025 10:41:58 XR, foot, 3 or more view - room 103 postop 3v foot wb 2024 025 [email or web address] [facility], [address], [address], [place], [address], 01/22/2025 14:18:55 XR, foot, 3 or more view 2024 025 [email or web address] [facility], [address], [address], [place], [address], 01/08/2025 15:04:57 Medication Orders meloxicam 15 mg tablet 2024 025 [email or web address] [id number], [address] [place], [address], 03/08/2025 16:40:41 acetamino phen 500 mg tablet 2024 025 [email or web address] [id number], [address] [place], [address], 03/04/2025 09:45:57 Patient TargetsNo targets recorded. Patient [...] knee, w/o contr ast [facility] Access ion Number : [id number] Patien t Name: Clau Katz Record Number : [id number] Date of : 1974 Date of Exam: 2024 Referr ing Physic jean-pierre: [place] re[place], [facility] [address] [facility] , [address] [place] [address] Exam: MR Knee (C-) CPT 75201 - Right Room Descri ption: Spur GE Pion 3T MR Knee (C-) CPT 01813 CLINIC AL INDICA TION: Reason For Exam: [...] unrema rkable . 0.9 x 0.6 cm test pilot ior medial gangli on cyst extend ing test pilot ior to the distal PCL footpr int. [...] al tear or ligame ntous injury Small test pilot ior medial gangli on cyst Electr onical ly Signed By: David Roe rd, MD [email or web address] [facility] [address], [place], [address], 12/03/2024 09:00:51 01/01/20 25 01/01/2025 XR, foot, 3 or more view [email or web address]:/ [email or web address] ?Encry pted=s hAaTro YD8dLq bEUv6g %2BXZw aYqtaq 0bqfl% 2Fg9IQ a4ajBk vP9nXo QUaueC m3YtLR FvZl JJ8Rushmore HZtai3 2d9856 AC0Kqb HiCV6W uKiQtr MwF INTERFACE [facility] [address], [place], [address], 01/01/2025 10:21:09 01/01/20 25 01/01/2025 XR, foot, 3 or more view http:/ [email or web address] ?Encry pted=s hAaTro YD8dLq bEUv6g %2BXZw aYqtaq 0bqfl% 2Fg9IQ a4ajBk vP9nXo QUaueC m3YtLR FvZl JJ8mAn HZtai3 6f0380 AC0Kqb HiCV6W uKiQtr MwF INTERFACE [facility] [address], [place], [address], 01/01/2025 10:21:11 01/22/20 25 01/22/2025 XR, foot, 3 or more view http:/ [email or web address] ?Encry pted=s hAaTro YD8dLq bEUv6g %2BXZw aYqtaq 0bqfl% 2Fg9IQ a4ajBk vP9nXo QUaueC m3YtLR FvZlgJ JJ8mAn HZtai3 4w9054 AC0Kqb X6BWKK kKiQtr MwF INTERFACE [facility] [address], [place], [address], 01/22/2025 10:47:26 01/22/20 25 01/22/2025 XR, foot, 3 or more view http:/ [email or web address] ?Encry pted=s hAaTro YD8dLq bEUv6g %2BXZw aYqtaq 0bqfl% 2Fg9IQ a4ajBk vP9nXo QUaueC m3YtLR FvZlgJ JJ8mAn HZtai3 4u3767 AC0Kqb X6BWKK kKiQtr [facility] INTERFACE [facility] Office [address], [place], [address], 01/22/2025 10:47:28 02/11/20 25 02/10/2025 XR, foot, 3 or more view No observ [facility]ion [facility] ed[facility] [address], [place], [address], 02/11/2025 10:52:09 02/12/20 25 02/10/2025 elect romyo gram + nerve condu ction study No observ ation record ed. [address] [facility] [address] [place], [address], 02/18/2025 10:08:24 02/12/20 25 02/10/2025 elect romyo gram + nerve condu ction study No observ ation record ed. [address] [facility] [address] [place], [address], 02/18/2025 10:08:13 03/05/20 25 03/05/2025 XR, foot, 3 or more view http:/ [email or web address] ?Encry pted=s hAaTro YD8dLq bEUv6g %2BXZw aYqtaq 0bqfl% 2Fg9IQ a4ajBk vP9nXo QUaueC m3YtLR FvZlgJ JJ8mAn HZtai3 4q4980 AC0KqY 3mEV6S gKiQtr MwF INTERFACE [facility] [address], [place], [address], 03/05/2025 10:38:26 03/05/20 25 03/05/2025 XR, foot, 3 or more view http:/ [email or web address] ?Encry pted=s hAaTro YD8dLq bEUv6g %2BXZw aYqtaq 0bqfl% 2Fg9IQ a4ajBk vP9nXo QUaueC m3YtLR FvZlJ JJ8mAn HZtai3 8h4989 AC0KqY 3mEV6S gKiQtr MwF INTERFACE [facility] [address], [place], [address], 03/05/2025 10:38:28 06/03/20 25 06/03/2025 XR, foot, 3 or more view http:/ [email or web address] ?Encry pted=s hAaTro YD8dLq bEUv6g %2BXZw aYqtaq 0bqfl% 2Fg9IQ a4ajBk vP9nXo QUaueC m3YtLR FvZlg JJ8mAn HZtai3 4a3688 AC0Kla XiGU6a iKiQtr MwF INTERFACE [facility] [address], [place], [address], 06/03/2025 11:17:58 06/03/20 25 06/03/2025 XR, foot, 3 or more view http:/ [email or web address] ?Encry pted=s hAaTro YD8dLq bEUv6g %2BXZw aYqtaq 0bqfl% 2Fg9IQ a4ajBk vP9nXo QUaueC m3YtLR FvZlgJ JJ8mAn HZtai3 6c8922 AC0Kla XiGU6a iKiQtr MwF INTERFACE [facility] [address] [facility] [address], [place], [address], 06/03/2025 11:17:59 Result Notes Documentation Provider Name and Address Organization Details Recorded Time Xr, Foot, 3 Or More View : [email or web address]? Encrypted=qzTiXjbKE6bLxcR Uv6g%5UCNehMljnw2ptwc%2Fg 1YZl5caOsoW1qPlBEqzdBe1Rz SGVkSsqTQB2iPgKJpba89q108 5CV3MhxJnZU6UgPvXxhCoT Not Available [facility] 01/01/2025 10:21: 09 Xr, Foot, 3 Or More View : [email or web address] Encrypted=wjMbMawCS5cWngZ Uv6g%7HHFyeWroag9elmz%2Fg 6DYf2kfTceX7cHaCFzokSp3Eo RBUhIjzCJQ2kEzSVaus68v605 0KA3NynFzRN0MvOeArbFjJ Not Available [facility] 01/01/2025 10:21: 12 Xr, Foot, 3 Or More View : [email or web address]? Encrypted=euOgWsmHV9lSgeS Uv6g%6YAWniRelze0ehij%2Fg 1YTd3vbVdkI5eVtVDwgtNs3Bs UEDiMdzIXI5pKzYLmtu07e430 0BW1MsbD3MHDWuLcKppFwA Not Available [facility] 01/22/2025 10:47: 27 Xr, Foot, 3 Or More View : [email or web address] Encrypted=qtYiNegPZ3hMzwY Uv6g%3SJUpyUbapr1nfvk%2Fg 0XXb8tzRjdZ1sYxAPwleCc1Bm EKRhJvvUEI8tOuLViix63a364 3LZ7AgjI8HTIUqRyVzlSnH Not Available [facility] 01/22/2025 10:47: 29 Xr, Foot, 3 Or More View : [email or web address] Encrypted=mvMqCnnIK0iFuxN Uv6g%2HMVsrZpznm2cgou%2Fg 5ZXs8qlIzbM0aSdEClzbKn1Ob YLLqXchDDZ5tUuIMdzn40f486 8DK1JpO1kKN1ZoElQteZgM Not Available [facility] 03/05/2025 10:38: 27 Xr, Foot, 3 Or More View : [email or web address] Encrypted=toIjTyjOH2gZikZ Uv6g%4XJVqzYskoo1wkza%2Fg 0JRr3hfGupA7nMmWBrfcJy8Qx BBTnAwiAHC7hXqVRsld91n543 7LT5TtU0mRZ1DmLyUwgPaQ Not Available [facility] 03/05/2025 10:38: 29 Xr, Foot, 3 Or More View : [email or web address] Encrypted=dtXqOprWW5qYsjM Uv6g%9VHCxeHcots2qvaw%2Fg 6XSs3uaSttN3rUjXXoghLl2Fs YAUjXqvCYO8lPlVOeyu06s071 1OM3JtjApMF0jrPnJtqUfI Not Available [facility] 06/03/2025 11:17: 58 Xr, Foot, 3 Or More View : [email or web address] Encrypted=oiJuFbuXL5qJovA Uv6g%0CFXclFhuww3hepq%2Fg 5DAn2oaFtvP8dXjJKbilPb8Oy JYApRfnDKT5lElULnxe72m359 0LP5FvpCjOI5loIxYvmTzS Not Available [facility] 06/03/2025 11:18: 00 Problems Name Problem SNOMED Code Status Onset Date Resolution Date Notes Provider Name and Address Organization Details Recorded Time Carpal tunnel syndrome of right wrist 345507950048 108 Active 2024 Grabiel Suarez PA-C [address], [place], [address] , [facility] 5 10:14:05 Impingeme nt syndrome of left shoulder region 912427692050 104 Active 2014 Problem Code: M75.42; Problem Code Type: ICD-10; Status: 'A'; Not Available [facility] 4 10:56:52 Follow-up orthopedi c assessmen t 790462844 Active 2014 Problem Code: Z47.89; Problem Code Type: ICD-10; Status: 'A'; Not Available [facility] 4 10:56:52 Secondary osteoarth ritis 341869357 Active 2014 Problem Code: M19.212; Problem Code Type: ICD-10; Status: 'A'; Not Available [facility] 4 10:56:52 Problem Notes None recorded. Procedures Surgical History Date Name Laterality Status Provider Name and Address Organization Details Recorded Time 5 JZCT inj completed Grabiel Suarez PA-C [address], [place], [address], [facility] 03/04/2025 10:13:55 3 Bariatric Surgery completed Kati Spears [facility] 11/26/2024 09:45:03 Other completed Kati Leung [facility] 11/26/2024 09:45:03 Imaging Results None recorded. Procedure Notes None recorded. Medical Equipment None Reported. Allergies Allergen ID Allergen Name Allergen Category Reaction Reaction Severity Criticality Documentation Date Start Date Code Code System Note Provider Name and Address Organization Details Recorded Time 83108 Product containin g penicilli n (product) medicatio n Not available Not available Not available 01/27/20242010 82182 8001 SNOMED Aller gyRea ction : 'Skin React ion'; Not Available [facility] 4 10:54:23 86214 pineapple extract food Not available Not available Not available 01/27/20242017 05872 74 RxNorm Not Available [facility] 4 10:54:23 Medications Name Sig Start Date [...] Not Available Not Available No t Available atorvastati n 10 mg tablet TAKE 1 TABLET BY MOUTH EVERYDAY AT BEDTIME active Not Available Not Available No t Available Maxalt-REMOTELY OPERATED VEHICLE 10 mg disintegrat ing tablet Take by oral route. active Not Available Not Available No t Available azithromyci n 250 mg tablet TAKE 2 TABLETS ON DAY 1, THEN 1 TABLET ONCE DAILY FOR 4 DAYS active Not Available Not Available No t Available ibuprofen 800 mg tablet TAKE 1 TABLET BY MOUTH EVERY 8 HOURS NEEDED FOR PAIN active Not Available Not Available No t Available sumatriptan 100 mg tablet PLEASE SEE ATTACHED FOR DETAILED DIRECTION S 10/01 completed Not Available Not Available Not Available meloxicam 15 mg tablet TAKE 1 TABLET BY MOUTH EVERY DAY FOR 30 DAYS active Not Available Not Available No t Available ondansetron HCl 4 mg tablet TAKE 1 TABLET ORALLY 3 TIMES A DAY NEEDED FOR NAUSEA AND VOMITING FOR 30 DAYS active Not Available Not Available No t Available rizatriptan 10 mg tablet TAKE 1/2-1 TAB EVERY 2 HOURS NEEDED FOR MIGRAINE FOR 21 DAYS,MAX 2 TABS PER DAY OR 4 TAB PER WEEK active Not Available Not Available No t Available sertraline 100 mg tablet TAKE ONE (1) TABLET BY MOUTH DAILY 50 MG TOTAL DAILY DOSE 150 MG DAILY. active Not Available Not Available No t Available acetazolami de 250 mg tablet TAKE 2 TABLETS BY MOUTH 3 TIMES A DAY FOR 30 DAYS [...] completed Not Available Not Available Not Available magnesium oxide 400 mg (241.3 mg magnesium) tablet TAKE 1 TABLET BY MOUTH EVERY DAY FOR 90 DAYS MAY HOLD FOR LOOSE STOOLS active Not Available Not Available No t [...] Not Available Not Available Not Available topiramate 100 mg tablet PLEASE SEE ATTACHED FOR DETAILED DIRECTION S active Not Available Not Available No t Available fluticasone propionate 50 mcg/actuati on nasal [...] Available cyclobenzap rine 5 mg tablet TAKE 1-2 TABS BY MOUTH AT BEDTIME NEEDED FOR MUSCLE SPASM FOR 30 DAYS active Not Available Not Available No t Available topiramate 50 mg tablet TAKE 2 [...] completed Not Available Not Available Not Available riboflavin (vitamin B2) 400 mg tablet TAKE 1 TABLET BY MOUTH EVERY DAY active Not Available Not Available No t Available Ubrelvy 100 mg tablet TAKE 1/2-1 [...] Updated DateTime 01/01/2025 162.56 cm 35 kg/m2 16851.84 g EZE JORDAN [facility] 01/01/2025 10:13:26 Date Recorded Body height Body mass index (BMI) Body weight Provider Name and Address Organization Details Last Updated DateTime 01/22/2025 162.56 cm 35 kg/m2 89925.84 g Noris Byrne [facility] 01/22/2025 10:41:06 Date Recorded Body height Body mass index (BMI) Body weight Provider Name and Address Organization Details Last Updated DateTime 03/04/2025 162.56 cm 35 kg/m2 39594.84 g Lonny Byrne [facility] 03/04/2025 09:45:44 Date Recorded Body height Body mass index (BMI) Body weight Provider Name and Address Organization Details Last Updated DateTime 03/05/2025 162.56 cm 35 kg/m2 53635.84 g Noris Byrne [facility] 03/05/2025 10:29:01 Date Recorded Body height Body mass index (BMI) Body weight Provider Name and Address Organization Details Last Updated DateTime 06/03/2025 162.56 cm 35 kg/m2 78391.84 g Noris Leung [facility] 06/03/2025 10:59:20 Social History Question Answer Notes LastModified by Organizat [employer] Details LastModified Time Tobacco Smoking Status Never Smoker Kati Spears [facility] 11/26/2024 09:45:03 What Is Your Relationship Status? Single [email or web address] Information not available 11/26/2024 How Many Years Have You Smoked Tobacco? 0 [email or web address] Information not available 11/26/2024 Sex: Unknown Functional Status Question Answer Note LastModified by Organizat ion Details LastModified Time How many times per week do you consume alcohol? Less than 1 time per week [email or web address] Information not available 11/26/2024 Do you use any illicit or recreational drugs? No [email or web address] Information not available 11/26/2024 Do you or have you ever used any other forms of tobacco or nicotine? No [email or web address] Information not available 11/26/2024 Do you or have you ever used e-cigarettes or vape? Never used electronic cigarettes [email or web address] Information not available 11/26/2024 Mental Status None recorded. Family History Nothing Reported. Medical History Condition Response Anxiety/Depression Y Pulmonary Embolism Y Seizures/Epilepsy Y Asthma Y Blood Clot Y Gynecological HistoryNo gynecological history recorded. Obstetrics History GPAL:G 0 P 0 0 0 0 Past Encounters Encounter ID Performer Location Encounter Start Date Encounter Closed Date Diagnosis/Indication Diagnosis SNOMED-CT Code Diagnosis ICD10 Code Diagnosis Note [id number] MD Juan Manuel Mak [address] [place] [address] 10/02/2024 09:38:27 11/01/2024 16:46:00 Pain in right foot 8802711129 06211 M79.671 Metatarsal varghese of right foot 4225912097 09888 M77.41 [id number] JESUS Cheng [address] [place] [address] 10/01/2024 09:07:32 10/29/2024 11:33:25 Pain of right wrist 2595268881 18972 M25.531 Carpal hamida fabiola syndrome of right wrist 8718512208 22700 G56.01 [id number] JESUS [facility] [address] [place] [address] 11/26/2024 09:12:59 12/15/2024 13:44:26 Tear of medial meniscus of knee 981240800 S83.241A [id number] MD MOISÉS Mak [address] [place] [address] 11/30/2024 08:00:50 12/15/2024 11:11:45 Pain in right foot 4400560767 36054 M79.671 Metatarsal varghese of right foot 2799491109 50482 M77.41 [id number] MD MOISÉS Mak [facility] [address] [place] [address] 12/16/2024 09:47:01 12/16/2024 10:12:28 Surgical follow-up 159000745 Z09 [id number] JESUS Barrera [facility] [address] [place] [address] 12/22/2024 14:24:33 01/01/2025 15:13:05 Pain of knee region 9494733821 M25.633 [id number] JESUS [facility] [address] [place] [address] 01/01/2025 09:21:03 01/08/2025 15:04:57 Metatarsalgia of right foot 8711254656 00684 M77.41 [id number] MD MOISÉS Mak [facility] [address] [place] [address] 01/22/2025 10:16:39 02/10/2025 19:21:35 Metatarsalgia of right foot 2467745508 62902 M77.41 Pain in right foot 70194 32642 76096 M79.691 [id number] MD MOISÉS Make [address] [place] [address] 03/05/2025 10:04:30 03/19/2025 10:46:06 Metatarsalgia of right foot 9956802970 04091 M77.41 Pain in right foot 61842 81884 20546 M79.671 Peroneal t endinitis of right lower limb 5174193042 30582 M76.71 [id number] JESUS Cheng [address] [place] [address] 03/04/2025 09:33:17 03/17/2025 10:51:04 Carpal tunnel syndrome of right wrist 7298460372 60063 G56.01 Health Concerns Section Related Observation LastModified by Organization Detai ls LastModified Time None Recorded Concern Status LastModified by Organization Details LastModified Time None Recorded Advance Directives Directive None Recorded Payers Insurance Date Sequence Insurance Name Policy Number Policy Diehl Covered Member ID Diehl Member ID Guarantor Name 06/03/2025 1 [facility] NET PLAN (MEDICAID HMO) WILLIAN Clau Katz [id number] Clau Katz Notes Date Note Type Note Provider Name and Address Organization Details Recorded Time 5 text/html I am seeing this patient [...] with questions or concerns. Riya Lopez PA-C [address] [place] [address] [place] [address], [address], [facility] 01/01/2025 10:52:25 5 text/html Chief complaint: Status [...] to as needed visits Casi Martin MD [address] [place] [address] [address], [place], [address], [facility] 01/31/2025 14:00:22 5 text/html Chief complaint: Status [...] weeks for repeat evaluation. Casi Martin MD [address] [place] [address] [address], [place], [address], [facility] - [facility] 03/07/2025 18:47:29 OBGyn Episode No OBEpisode recorded.
== END 2025-06-04 09:47 | disposition home or self-care (01) ==
LOC: HO.MRI 09:46
PROVIDERS: PCP Internal Medicine; Visit Provider Nurse Practitioner Family
DX: R55 Syncope and collapse (principal); R56.9 Unspecified convulsions
CPT/HCPCS: 70553; A9585

== ENCOUNTER 2025-06-17 10:13 | Outpatient (REF) | payer OTHER, SELFPAY ==
--- NOTE | 2025-06-17 10:15 | EEG_ITS ---
This is a 16 channel EEG with an EKG lead. Patient is reported awake during the tracing. Background EEG rhythm is 12-14 hertz 5-50 microvolt posteriorly and lower amplitude fast anteriorly. Periods of left frontotemporal slowing with occasional temporal sharp wave was noted. Photic stimulation does not produce any significant abnormality. Hyperventilation is not performed. Cardiac lead does not reveal any significant abnormality. Impression: Mildly abnormal EEG suggestive of left hemispheric paroxysmal dysfunction with temporal irritability. This suggests underlying tendency for seizure disorder. MTDD
--- OUTSIDE RECORDS SUMMARY | 2025-06-17 10:59 | XMS_ITS | Clinical Summary ---
Author Organization [facility] Address [address] [address] Phone Care Team Providers Care Research Biostatistician Name Role Phone Keron Hansen MD Primary Care Provider Allergies Active Allergy Reactions Criticality Noted Date Comments Penicillins Swelling 02/27/2024 Medications enoxaparin (LOVENOX) 100 mg/mL Syrg subcutaneous syringe Inject 100 mg under the skin every 12 (twelve) hours. Active topiramate (TOPAMAX) 50 MG tablet Take 100 mg by mouth 2 (two) times a day. Active fremanezumab-vfrm (AJOVY AUTOINJECTOR) 225 mg/1.5 mL AtIn Inject 225 mg under the skin every 28 days. Active medroxyPROGESTERo ne (DEPO-PROVERA) 150 mg/mL injection Inject 150 mg into the muscle every 3 (three) months. Active Active Problems No known active problems Encounters Date Type Department Care Team Description 04/22/2025 10:30 AM EDT Office Visit [facility] [address] [place] [address] Regan Forbes MD Left optic neuropathy (Primary Dx); Myopia with presbyopia of both eyes; Left optic atrophy from Last 3 Months Family History Medical History Relation Comments Cataracts Mother Diabetes Mother Glaucoma Mother Blindness Neg Hx Macular degeneration Neg Hx Relation Status Comments Mother Social History Tobacco Use Types Packs/Day Years Used Date Smoking Tobacco: Never Assessed Tobacco Cessation:Counseling Given: Not Answered Education Answer Date Recorded Are you interested in more education? Not on arianne e 06/06/2023 Are you concerned about learning? Not on file 06/06/2023 No 06/06/2023 No 06/06/2023 Digital Access Answer Date Recorded No 06/06/2023 No 06/06/2023 Reliable internet access at home? Not on file 06/06/2023 Device with a working camera? Not on file Comments Unknown Sex and Gender Information Value Date Recorded Sex Assigned at Female 09/29/2024 7:15 AM EST Legal Sex Female 10:36 AM EDT Gender Identity Female 09/29/2024 7:15 AM EST Sexual Orientation Not on file Last Filed Vital Signs Vital Sign Reading Time Taken Comments Blood Pressure - - Pulse - - Temperature - - Respiratory Rate - - Oxygen Saturation - - Inhaled Oxygen Concentration - - Weight 93 kg (205 lb) 10/12/2024 4:42 PM EST Height 162.6 cm (5' 4 ) 10/12/2024 4:42 PM EST Body Mass Index 35.19 10/12/2024 4:42 PM EST Plan of Treatment Upcoming Encounters Date Type Department Care Team (Late st Contact Info) Description 08/16/2025 8:00 AM EDT Office Visit [address] [address] Christianne Leos MD [address] [place] [phone] [email or web address] 05/26/2026 10:30 AM EDT Office Visit [address] [address] Regan Forbes MD [address] [place] [phone] [email or web address] Health Maintenance Due Date Last Done Comments Adult Td,Tdap Booster 1976 LIPID PANEL 1976 DEPRESSION SCREENING 1988 SMOKING Hx and SMOKELESS TOB ACCO SCREENING 1989 HEPATITIS C SCREENING 1994 HIV ONE-TIME SCREENING (18-6 5 YEARS) 1994 PAP SMEAR 1997 SCREENING FOR DIABETES 2011 MAMMOGRAM 2016 COLOGUARD 2021 COLONOSCOPY 2021 COLORECTAL CANCER SCREENING 2021 FIT TEST 2021 FOBT 2021 SIGMOIDOSCOPY 2021 VIRTUAL COLONOSCOPY 2021 COVID-19 VACCINE ( - 2023-2 5 season) 2024 HEPATITIS A VACCINES Aged Out No long er eligible based on patient's age to complete this topic HIB VACCINES Aged Out No longer eligi ble based on patient's age to complete this topic MENINGOCOCCAL VACCINES (ACWY) Aged Out No longer eligible based on patient's age to complete this topic MENINGOCOCCAL VACCINES (B) Aged Out N o longer eligible based on patient's age to complete this topic PNEUMOCOCCAL VACCINES (0-49 years) Aged Out No longer eligible based on patient's age to complete this topic Medical Devices Not on file Insurance [employer] [facility] [employer] [address] [place], [place] [address] Member Subscriber Plan / Payer (Ef fective 2024-Present) Name:Clau Katz Relation to Subscriber:Self Name:Clau Katz Payer ID:[id number] Group ID:[id number] Type:Medicaid Address: [place] [id number] [facility] [employer] [facility] Care Teams Research Biostatistician Relationship Specialty Start Date End Date Keron Hansen MD [address] [place] [address] PCP - General Internal Medicine 05/08/23 Additional Source Comments The information contained in this document represents components of the legal health record. It is not the complete legal health record.[facility]
--- OUTSIDE RECORDS SUMMARY | 2025-06-17 11:00 | XMS_ITS | Clinical Summary ---
Author Organization [facility] Address [address] [place] [address] Care Team Providers Care Appeals Writer Name Role Phone Gail Carbajal MD Primary Care Provider [phone] Allergies Active Allergy Reactions Criticality Noted Date [...] age to complete this topic Care Teams Appeals Writer Relationship Specialty Start Date End Date Gail Carbajal MD [address] [place] [address] PCP - General Internal Medicine 12/31/23
--- OUTSIDE RECORDS SUMMARY | 2025-06-17 11:00 | XMS_ITS | Data Portability ---
Author Organization MD - [facility], Allergy Address [address] [address] Assessment Encounter Date Assessment Date Assessment LastModified [...] Orders loratadine 10 mg tablet 2023 024 [facility]armacy #[id number], [address] [place], [address], 4 10:35:19 azelastine 205.5 mcg (0.15 %) nasal spray 2023 024 [facility]/Pharmacy #[id number], [address] [place], [address], 08:39:51 olopatadine 0.1 % eye drops 2023 024 [facility]/Pharmacy #[id number], [address] [place], [address], 4 10:35:20 Patient TargetsNo targets recorded. Patient InstructionsNo [...] ation record ed. [email or web address] Not Available 05:38:56 07/15/20 24 03/27/2022 imagi ng/di agnos tic resul t No observ ation record ed. [email or web address] Not Available 05:39:01 07/15/2007/23/2022 imagi ng/di agnos tic resul t No observ ation record ed. [email or web address] Not Available 05:39:41 Result Notes None recorded. Problems Name Problem SNOMED Code Status Onset Date Resolution Date Notes Provider Name and Address Organization Details Recorded Time Chronic sphenoid al sinusiti s 52242262 Completed 202106/26/2024 Chronic sphenoid al sinusiti s; Note: Date Diagnose d: 2 2:52 PM (J32.3) Not Available [facility] 4 02:12:45 Migraine 24437922 Active 2021 Other migraine , not intracta ble, without status migraino tasia; Note: Date Diagnose d: 2 2:51 PM (G43.809 ) Not Available [facility] 4 02:12:58 Allergic rhinitis 66756875 Active 2022 Allergic rhinitis , unspecif ied; Note: Date Diagnose d: 3 11:13 AM (J30.9) Not Available [facility] 4 02:14:07 Chronic rhinitis 77931199 Active 2023 Rhinitis (chronic ) NOS; Note: Date Diagnose d: 4 1:57 PM (J31.0) Not Available [facility] 4 02:14:55 Hayes walker allergic rhinitis 970165100 Active 2023 ANDREI MOSCOSO PA-C [address] [place] [address], [place], [address] , [facility] - [facility] 4 10:33:25 Problem Notes None recorded. Medical Equipment None Reported. Allergies Allergen ID Allergen Name Allergen Category Reaction Reaction Severity Criticality Documentation Date Start Date Code Code System Note Provider Name and Address Organization Details Recorded Time 755814 doxycycli ne Not available Not available Not available Not available 06/10/2024 3640 RxNorm Gretchen ogden [place] - [facility] 4 10:01:03 72042 Product containin g penicilli n (product) medicatio n other Not available Not available 04/07/2024 20865 8001 SNOMED React ion: Unkno wn; Not Available [facility] 4 00:48:32 Medications Name Sig Start Date Stop Date Status Note LastModified by Organization Details LastModified Time neomycin- polymyxin -hydrocor t 3.5 mg/mL-10, 000 unit/mL-1 % ear solution 07/09 completed Medicati on ID: [id number] B rand Name: neomycin -polymyx in-HC Se nd Method: E-Prescr ibed Sub s Allowed: subs OK Speci al Instruct ion: PLACE 3 DROPS IN EAR(S) 4 TIMES DAILY FOR 10 DAYS. Me dication GenericN gabriela: neomycin -polymyx in-HC Not Available Not Available Not Available azelastin e 0.05 % eye drops 07/12 completed Medicati on ID: [id number] B rand Name: azelasti ne Send Method: E-Prescr ibed Sub s Allowed: subs OK Speci al Instruct ion: PLACE 1 DROP INTO BOTH EYES 2 TIMES DAILY NEEDED (ITCH OR TEAR). M edicatio nGeneric Name: azelasti ne Not Available Not Available Not Available trazodone 50 mg tablet TAKE ONE- TWO OR THREE (1-2-3) TABLETS BY MOUTH AT BEDTIME, NEEDED active Not Available Not Available No t Available ibuprofen 800 mg tablet 07/09 completed Medicati on ID: [id number] B rand Name: ibuprofe n Send Method: [...] mg tablet 07/09 completed Medicati on ID: [id number] B rand Name: levoflox acin Sen d Method: E-Prescr ibed Sub s Allowed: subs OK Speci al Instruct ion: TAKE 1 TABLET BY MOUTH EVERY DAY FOR 5 DAYS Med icationG enericNa me: levoflox acin Not Available Not Available Not Available acetamino phen 500 mg tablet 07/12 completed Medicati on ID: [id number] B rand Name: acetamin ophen Se nd Method: E-Prescr ibed Sub s Allowed: subs OK Speci al Instruct ion: TAKE 1 TABLET BY MOUTH EVERY 6 HOURS NEEDED FOR PAIN FOR UP TO 10 DAYS. Me dication GenericN gabriela: acetamin ophen Not Available Not Available Not Available butalbita l-acetami nophen-ca ffeine 50 mg-325 mg-40 mg tablet 07/09 completed Medicati on ID: [id number] B rand Name: butalbit al-aceta minophen -caff [...] mg tablet 07/09 completed Medicati on ID: [id number] B rand Name: proprano lol Send Method: E-Prescr ibed Sub s Allowed: subs OK Speci al Instruct ion: TAKE 1 TABLET BY MOUTH TWICE A DAY Medi cationGe nericNam e: proprano lol Not Available Not Available Not Available amitripty line 25 mg tablet 07/12 completed Medicati on ID: [id number] B rand Name: amitript yline Se nd [...] mg capsule 07/09 completed Medicati on ID: [id number] B rand Name: benzonat ate Send Method: [...] spray aerosol 07/09 completed Medicati on ID: [id number] B rand Name: triamcin olone acetonid e [...] 300 mg capsule active Medicati on ID: [id number] B rand Name: gabapent in Send Method: [...] capsule,d elayed release active Medicati on ID: [id number] B rand Name: omeprazo le Send Method: [...] oral liquid 07/09 completed Medicati on ID: [id number] B rand Name: codeine- guaifene sin Send Method: E-Prescr ibed Sub s Allowed: subs OK Speci al Instruct ion: TAKE 5 ML BY MOUTH 4 TIMES DAILY NEEDED FOR COUGH (COUGH). NOT COVERED Medicati onGeneri cName: codeine- guaifene sin Not Available Not Available Not Available zolpidem 5 mg tablet 07/09 completed Medicati on ID: [id number] B rand Name: zolpidem Send Method: E-Prescr [...] mg tablet 07/09 completed Medicati on ID: [id number] B rand Name: ibuprofe n Send Method: E-Prescr ibed Sub s Allowed: subs OK Speci al Instruct ion: TAKE 1 TAB BY MOUTH EVERY 6 HOURS NEEDED FOR PAIN Med icationG enericNa me: ibuprofe n Not Available Not Available Not Available sertralin e 50 mg tablet 06/10 completed Medicati on ID: [id number] B rand Name: sertrali ne Send Method: E-Prescr ibed Sub s Allowed: subs OK Speci al Instruct ion: TAKE 1 TABLET BY MOUTH EVERY DAY Medi cationGe nericNam e: sertrali ne Medic ation ID: [id number] B rand Name: sertrali ne Send Method: [...] tion aerosol inhaler active Medicati on ID: [id number] B rand Name: Flovent HFA Send Method: E-Prescr ibed Sub s Allowed: subs OK Speci al Instruct ion: INHALE 1 PUFF BY MOUTH TWICE A DAY Medi cationGe nericNam e: Flovent HFA Not Available Not Available Not Available levocetir izine 5 mg tablet 07/09 completed Medicati on ID: [id number] B rand Name: levoceti rizine S end Method: E-Prescr ibed Sub s Allowed: subs OK Speci al Instruct ion: TAKE 1 TABLET BY MOUTH EVERY EVENING FOR 360 DAYS. Me dication GenericN gabriela: levoceti rizine Not Available Not Available Not Available oxycodone 10 mg tablet 07/09 completed Medicati on ID: [id number] B rand Name: oxycodon e Send Method: [...] Updated DateTime 06/10/2024 162.56 cm 33.3 kg/m2 17541.92 g Gretchen Pickard [place] - [facility] 06/10/2024 10:00:55 Social History None recorded. Functional Status None recorded. Mental Status None recorded. Family History Nothing Reported. Medical History No medical history recorded. Gynecological HistoryNo gynecological history recorded. Obstetrics History GPAL:G 0 P 0 0 0 0 Past Encounters Encounter ID Performer Location Encounter Start Date Encounter Closed Date Diagnosis/Indication Diagnosis SNOMED-CT Code Diagnosis ICD10 Code Diagnosis Note [id number] ANDREI MOSCOSO PA-C [facility] [address] [address] 06/10/2024 09:54:34 06/10/2024 10:16:50 Perennial allergic rhinitis 537038773 J30.89 Health Concerns Section Related Observation LastModified by Organization Detai ls LastModified Time None Recorded Concern Status LastModified by Organization Details LastModified Time None Recorded Advance Directives Directive None Recorded Payers Insurance Date Sequence Insurance Name Policy Number Policy Diehl Covered Member ID Diehl Member ID Guarantor Name 06/10/2024 1 [facility] (MEDICAID REPLACEMENT - HMO) Clau Katz [id number] Clau Katz Notes Date Note Type Note Provider Name and Address Organization Details Recorded Time 06/10/2024 text/html 48 year old kvng dacosta presents for re-evaluation of chronic rhinitis, reporting moderate to severe symptoms of rhinorrhea, sneezing, and ocular itching that do not wax and wane with seasons or environment. Skin prick allergy testing previously demonstrated [id number] allergies to dogs, pita trees, and one type of mold. She does not know what medications she has taken in the past. KARINA JUAREZ MD [address] [place] [address], [phone], [facility] - [facility] 06/10/2024 12:40:43 OBGyn Episode No OBEpisode recorded.
--- OUTSIDE RECORDS SUMMARY | 2025-06-17 11:00 | XMS_ITS ---
Author Name [facility] Organization Unknown Care Team Organization Name Specialty Phone Email Start Date End Da te [facility] Gail Carbajal Primary Care 08/01/2023 024 [facility] Keron Hansen Primary Care 10/02/202206/25
--- OUTSIDE RECORDS SUMMARY | 2025-06-17 11:00 | XMS_ITS | Encounter Summary ---
Author Organization [facility] Address [address] [place] [address] Care Team Providers Care Assembler Flexible Leads Name Role Phone Gail Carbajal MD Primary Care Provider [phone] Reason for Visit * Reason Onset Date Comments Ear Problems 10/01/2024 Encounter Details Date Type Department Care Team (Late st Contact Info) Description 10/01/2024 Nurse Triage Adult Medicine [address] [phone] Gail Carbajal MD [address] [place] [phone] Ear Problems Social History Tobacco Use Types [...] message for her to call triage * Matildamadelin Geovany - 10/01/2024 1:56 PM EST Patient [...] traveled recently to another state outside of [place], [place], [place], [place], [place], [place], [place]? no o If yes, did you quarantine [...] of accident/Injury: No If yes, gather 3rd republican insurance information Third Libertarian Information: not applicable PCP: Gail Carbajal MD Payor: / No coverage found. documented in this encounter Plan of Treatment Upcoming Encounters Date Type Department Care Team (Late st Contact Info) Description 06/17/2025 2:00 PM EDT Office Visit Bariatric Surgery - [place] [address] [facility] [address] [place] [phone] David Solano MD [address] [facility] [address] [place] [address] 09/10/2025 1:15 PM EDT Office Visit Adult Medicine [facility] [address] [place] [phone] Gail Carbajal MD [address] [place] [address] 12/22/2025 9:30 AM EST Office Visit Pulmonolgy - [place] [address] [address] Jie Gonzalez MD [address] [address] 01/04/2026 9:30 AM EST Office Visit [facility] Hematology Oncology [address] [place] [phone] Julianne Ramirez MD [address] [place] [phone] documented as of this encounter Visit Diagnoses Not on filedocumented in this encounter Care Teams Assembler Flexible Leads Relationship Specialty Start Date End Date Gail Carbajal MD [address] [place] [address] PCP - General 04/30/24 documented as of this encounter
== END 2025-06-17 10:14 | disposition home or self-care (01) ==
LOC: HO.NEURO 10:13
PROVIDERS: PCP Internal Medicine; Visit Provider Nurse Practitioner Family
DX: R55 Syncope and collapse (principal); R56.9 Unspecified convulsions; R94.01 Abnormal electroencephalogram [EEG]
CPT/HCPCS: 95816

== ENCOUNTER → 2025-06-17 10:15 | Outpatient (BNV) | payer OTHER, SELFPAY | PROVIDERS: PCP Internal Medicine; Visit Provider Psychiatry & Neurology Neurology | DX: R55 Syncope and collapse (principal); R94.01 Abnormal electroencephalogram [EEG] | CPT/HCPCS: 95816 ==

== ENCOUNTER 2025-07-13 08:55 | Outpatient (AMB) | payer OTHER, SELFPAY ==
[2025-07-13 08:58] VITALS: BP 110/76; PULSE 81; O2SAT 100; BMI 26.6
--- NOTE | 2025-07-13 08:58 | MHC.OFFVIS ---
Vital Signs 07/13/25 08:58 Height 5 ft 7 in Weight 170 lb BMI 26.6 BP 110/76 Blood Pressure Location Rt brachial Position Sitting Pulse 81 Pulse Source Pulse Oximeter Pulse Oximetry (%) 100 Oxygen Delivery Method Room Air Intake Visit Reasons: Botox Intake Note: Botox Data Operations Leader Required: No Accompanied by: Self / Same As Patient Allergies pineapple Allergy (Intermediate, Verified 07/13/25 09:04) Swelling Penicillins Allergy (Mild, Verified 07/13/25 09:04) Swelling Medication List - Last Reconciled 07/13/25 by Angelia Lawler MD acetaminophen 500 mg PO PRN acetazolamide 500 mg (2 x 250 mg) PO TID 30 days apixaban (Eliquis) 5 mg PO BID atorvastatin (Lipitor) 10 mg PO BEDTIME azelastine intranasal cetirizine 10 mg PO DAILY cyclobenzaprine 5 - 10 mg (1 - 2 x 5 mg) PO BEDTIME PRN 30 days diphenhydramine HCl (Benadryl) 25 - 50 mg (1 - 2 x 25 mg) PO Q8H PRN 30 days fluticasone propionate 110 mcg/actuation (Flovent HFA) grams inhalation fremanezumab-vfrm (Ajovy) 675 mg (4.5 mL) subcut [id number] 90 days levocetirizine 5 mg PO DAILY magnesium oxide 400 mg PO BEDTIME 90 days ondansetron HCl 4 mg PO TID PRN 30 days pantoprazole tabs PO prazosin 2 mg PO BEDTIME riboflavin (vitamin B2) 400 mg PO DAILY 90 days rizatriptan 5 - 10 mg (0.5 - 1 x 10 mg) PO Q2H PRN 21 days sertraline 50 mg PO PRN topiramate 100mg qam and 150mg at bedtime x's 1 week, then 150mg bid x's 1 week, then 150mg qam and 200mg qhs x's 1 week, then 200mg BID orally .; 30 days ubrogepant (Ubrelvy) 50 - 100 mg (0.5 - 1 x 100 mg) PO ONCE PRN 30 days zolmitriptan (Zomig) take 1 tab at onset of headache; if no relief, may repeat 1 tab after at least 2 hrs; max = 2 tabs/24 hrs PO 30 days HPI Comments Details: ? 49y/o female comes for treatment of migraines with botox. ??? Most frequent reported adverse reactions following injection of botox for chronic migraine include neck pain (9%), headache(5%), eyelid ptosis(4%), migraine(4%), muscular weakness(4%), musculuskeletal stiffness(4%), bronchitis(3%), injection site pain (3%), musculoskeletal pain(3%), myalgia(3%), facial paresis(2%), HTN(2%) and muscle spasms(2%) were discussed in detail. ??? Botulinum toxin typeA 200units Lot no [id number] expiration Sep 2026 was diluted with 4 cc of normal saline . ??? Muscles injected- ??? Frontalis 4 sites ??? Procerus 1 site ??? Rugby League Footballer- 2 sites ??? Temporalis- 8 sites ??? Occipitalis- 6 sites ??? Cervical paraspinals- 4 sites ??? Trapezius- 6 sites- 10 units each ??? 5 units each in 31 site ??? Total use- 185units ??? Discarded-15units [facility] Medical History Chronic migraine without aura, intractable, without status migrainosus Facial numbness Chronic migraine without aura Cervical dystonia Sinusitis Anxiety and depression Seizure Cervicalgia Surgical History History of toe surgery History of surgery on wrist Family History Mother Heart disease HTN (hypertension) Father HTN (hypertension) Heart disease Diabetes Social History Household Members: Spouse and Children Alcohol intake: current Alcohol intake frequency: does not drink Patient Tobacco Use Status: Never used Tobacco Current occupational status: employed 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 Physical Exam Vital Signs: Last Vital Signs Pulse 81 07/13/25 08:58 BP 110/76 07/13/25 08:58 Pulse Ox 100 07/13/25 08:58 Oxygen Delivery Method Room Air 07/13/25 08:58 BMI result Body Mass Index 26.6 Const General: cooperative and no acute distress Orientation/consciousness: patient oriented x3 HEENT Head: Yes normocephalic Resp Effort & Inspection: normal respiratory effort and able to speak in complete sentences Neuro General: patient oriented x3 and gait normal Cognition (Neuro): normal cognition Motor exam (neuro): 5/5 motor strength present throughout Office Procedures Botulinum toxin Injection 20969 - Migraine Procedure code (CPT) selection complete Office Meds onabotulinumtoxinA 200 unit solution for injection Performing Provider: Angelia Lawler MD Performing Location: [facility] Administered by: Angelia Lawler MD on 07/13/25 12:04 Dose Route Admin Location Dispensed Lot Number Expiration Date [facility] Still Operator 185 unit subcut 200 units [id number] ALLERGAN/BOTOX Total Dispensed Waste 200 units 7.5 % Comments: see HPI Assessment & Plan Assessment & Plan (1) Chronic migraine without aura, intractable, without status migrainosus: Code(s): G43.719 - Chronic migraine without aura, intractable, without status migrainosus Category: Medical (2) Cervical dystonia: Code(s): G24.3 - Spasmodic torticollis Category: Medical Plan Patient tolerated the procedure well she will call with any side effects Orders: Orders AMB Botulinum toxin Injection Today G43.719 - Chronic migraine without aura, intractable, without status migrainosus Coding Level of Care Code Est Pt Level 1 (65922) Diagnoses Chronic migraine without aura, intractable, without status migrainosus G43.719 Cervical dystonia G24.3 CPT Codes Botox Injection - Botox 3: 19648 - Migraine ([id number])
--- OUTSIDE RECORDS SUMMARY | 2025-07-13 09:48 | XMS_ITS | Clinical Summary ---
Author Organization [employer] [facility] Address [address] [place] [address] Care Team Providers Care Salesperson Art Objects Name Role Phone Gail Carbajal MD Primary Care Provider [phone] Allergies Active Allergy Reactions Criticality Noted Date [...] age to complete this topic Care Teams Salesperson Art Objects Relationship Specialty Start Date End Date Gail Carbajal MD [address] [place] [address] PCP - General Internal Medicine 12/31/23
--- OUTSIDE RECORDS SUMMARY | 2025-07-13 09:48 | XMS_ITS | Encounter Summary ---
Author Organization [facility] Address [address] [place] [address] Care Team Providers Care Alteration Hand Name Role Phone Gail Carbajal MD Primary Care Provider [phone] Reason for Visit * Reason Onset Date Comments Ear Problems 10/01/2024 Encounter Details Date Type Department Care Team (Late st Contact Info) Description 10/01/2024 Nurse Triage Adult Medicine [address] [phone] Gali Carbajal MD [address] [place] [address] Ear Problems Social History Tobacco Use Types [...] traveled recently to another state outside of [place], [place], [place], [place], [place], [place], [place]? no o If yes, did you quarantine [...] of accident/Injury: No If yes, gather 3rd alliance party insurance information Third Alliance Party Information: not applicable PCP: Gail Carbajal MD Payor: / No coverage found. documented in this encounter Plan of Treatment Upcoming Encounters Date Type Department Care Team (Late st Contact Info) Description 08/04/2025 10:30 AM EDT Consult Adult Medicine [address] [phone] Gail Carbajal MD [address] [place] [address] 09/10/2025 1:15 PM EDT Office Visit Adult Medicine [facility] [address] [place] [phone] Gail Carbajal MD [address] [place] [address] 12/09/2025 1:00 PM EST Office Visit Bariatric Surgery - [place] [address] [phone] David Solano MD [address] [address] 12/22/2025 9:30 AM EST Office Visit Pulmonolgy - [place] 175 [facility] 200 [place] [address] Jie Gonzalez MD [address] [address] 01/04/2026 9:30 AM EST Office Visit [facility] Hematology Oncology [address] [place] [phone] Julianne Ramirez MD [address] [place] [phone] documented as of this encounter Visit Diagnoses Not on filedocumented in this encounter Care Teams Alteration Hand Relationship Specialty Start Date End Date Gail Carbajal MD [address] [place] [address] PCP - General 04/30/24 documented as of this encounter
--- OUTSIDE RECORDS SUMMARY | 2025-07-13 09:48 | XMS_ITS | Clinical Summary ---
Author Organization [facility] Address [address] [address] Phone Care Team Providers Care Sheeter Operator Name Role Phone Keron Hansen MD Primary [...] Description 04/22/2025 10:30 AM EDT Office Visit [facility] [address] [place] [address] Regan Forbes MD Left optic neuropathy (Primary [...] Description 08/16/2025 8:00 AM EDT Office Visit [address] [address] Christianne Leos MD [address] [place] [address] [email or web address] 05/26/2026 10:30 AM EDT Office Visit [address] [address] Regan Forbes MD [address] [place] [address] [email or web address] Health Maintenance Due Date Last Done [...] topic Medical Devices Not on file Insurance [employer] [facility] [employer] [address] [place], [place] [address] A[employer] Member Subscriber Plan / Payer (Ef fective 2024-Present) Name:Clau Katz Relation to Subscriber:Self Name:Clau Katz Payer ID:[id number] Group ID:[id number] Type:Medicaid Address: [place] [id number] [facility] [employer] [facility] A[facility] Care Teams Sheeter Operator Relationship Specialty Start Date End Date Keron Hansen MD [address] [place] [address] PCP - General Internal Medicine 05/08/23 Additional Source Comments The information contained in this document represents components of the legal health record. It is not the complete legal health record.[facility]
== END 2025-07-13 09:34 | disposition home or self-care (01) ==
LOC: HO.HSMS 08:55
PROVIDERS: Visit Provider Psychiatry & Neurology Neurology
DX: G43.719 Chronic migraine without aura, intractable, without status migrainosus (principal); G24.3 Spasmodic torticollis
CPT/HCPCS: 64615

== ENCOUNTER → 2025-07-13 08:55 | Outpatient (BNVA) | payer OTHER, SELFPAY | PROVIDERS: Visit Provider Psychiatry & Neurology Neurology | DX: G43.719 Chronic migraine without aura, intractable, without status migrainosus (principal); G24.3 Spasmodic torticollis | CPT/HCPCS: 64615; 99211; J0585 ==

== ENCOUNTER 2025-10-19 08:10 | Outpatient (AMB) | payer OTHER, SELFPAY ==
--- OUTSIDE RECORDS SUMMARY | 2024-08-31 10:43 | XMS_ITS | Encounter Summary ---
Author Organization [facility] Address [address] [place] [address] Care Team Providers Care Burn Nurse Name Role Phone Gail Carbajal MD Primary Care Provider [phone] Encounter Details Date Type Department Care Team (Latest Contact Info) Description 08/31/2024 11:43 AM EDT Hospital Encounter TH HISTORIC ENCOUNTERS EASTERN CONVERSION ONLY Mirian Rivero MD [address] [place] [address] Shortness of breath Social History [...] PM EST Office Visit Bariatric Surgery - [place] [address] [place] [address] David Solano MD [address] [place] [address] 12/22/2025 9:30 AM EST Office Visit Pulmonology - [place] [address] [facility] [address] [place] [phone] Mirian Rivero MD [address] [place] [phone] 01/04/2026 9:30 AM EST Office Visit [facility] Hematology Oncology [address] [place] [phone] Julianne Ramirez MD [address] [place] [address] 06/15/2026 9:30 AM EDT Office Visit Adult Medicine [address] [phone] Gail Carbajal MD [address] [place] [address] documented as of this encounter Procedures Procedure Name Priority Date/Time Associated Diagnosis Comments CHEST ROUTINE 2 VIEWS Routine 08/31/2024 12:08 PM EDT Shortness of breath documented in this encounter Results * CHEST ROUTINE 2 VIEWS (08/31/2024 12:08 PM EDT) Anatomical Region Laterality Modality Radiographic Meg ging 08/31/2024 11:4 8 AM EDT Narrative 08/31/2024 12:08 PM EDT [facility] Diagnostic Imaging Department [address] [place], [place] [phone] Patient: CLAU KATZ/Age/Sex: 1975 Unit#: [id number] Location/Status: SPDIGEN/REG CLI Mnemonic/Ordering Site: CHESTXR/SPDI Ordering [...] Procedure Note Kinsey Alvarado MD - 09/22/2024 [facility] Diagnostic Imaging Department [address] [place] [address] Patient: CLAU KATZ D.O.B./Age/Sex: 1975 Unit#: [id number] Location/Status: SPDIGEN/REG CLI Mnemonic/Ordering Site: CHESTXR/SPDI Ordering [...] breath documented in this encounter Care Teams Burn Nurse Relationship Specialty Start Date End Date Gail Carbajal MD [address] [place] [address] PCP - General 04/30/24 documented as of this encounter
--- OUTSIDE RECORDS SUMMARY | 2025-10-19 08:22 | XMS_ITS | Encounter Summary ---
Author Organization [facility] Address [address] [place] [address] Care Team Providers Care Data Center Manager Name Role Phone Gail Carbajal MD Primary Care Provider [phone] Reason for Visit * Reason Onset Date Comments Earache 10/05/2024 Encounter Details Date Type Department Care Team (Late st Contact Info) Description 10/05/2024 Nurse Triage Adult Medicine [address] [phone] Gail Carbajal MD [address] [place] [address] Social History Tobacco Use Types Packs/Day Years [...] sheets today at 5:00 Reason for Disposition Earache (Exceptions: Brief ear pain of < [...] last menstrual period? None depo Protocols used: [id number]-SI * Donna Rodriguez - 10/05/2024 10:33 AM [...] traveled recently to another state outside of [place], [place], [place], [place], [place], [place], [place]? no o If yes, did you quarantine [...] of accident/Injury: No If yes, gather 3rd democrat insurance information Third Libertarian Information: not applicable PCP: Gail Carbajal MD Payor: / No coverage found. documented in this encounter Plan of Treatment Upcoming Encounters Date Type Department Care Team (Late st Contact Info) Description 12/09/2025 1:00 PM EST Office Visit Bariatric Surgery - [place] 175 [facility] [address] [place] [phone] David Solano MD [address] [place] [phone] 12/22/2025 9:30 AM EST Office Visit Pulmonology - [place] 175 [facility] 200 [place] [phone] Jie Gonzalez MD [address] [place] [phone] 01/04/2026 9:30 AM EST Office Visit [facility] Hematology Oncology [address] [place] [phone] Julianne Ramirez MD [address] [place] [phone] 06/15/2026 9:30 AM EDT Office Visit Adult Medicine [address] [phone] Gail Carbajal MD [address] [place] [address] documented as of this encounter Visit Diagnoses Not on filedocumented in this encounter Care Teams Data Center Manager Relationship Specialty Start Date End Date Gail Carbajal MD [address] [place] [address] PCP - General 04/30/24 documented as of this encounter
--- OUTSIDE RECORDS SUMMARY | 2025-10-19 08:22 | XMS_ITS | Clinical Summary ---
Author Organization [facility] Address [address] [place] [address] Care Team Providers Care Pipe Bowls Paint Trimmer Name Role Phone Gail Carbajal MD Primary Care Provider [phone] Allergies Active Allergy Reactions Criticality Noted Date [...] age to complete this topic Care Teams Pipe Bowls Paint Trimmer Relationship Specialty Start Date End Date Gail Carbajal MD 4 [place] [address] PCP - General Internal Medicine 12/31/23
--- OUTSIDE RECORDS SUMMARY | 2025-10-19 08:22 | XMS_ITS | Data Portability ---
Author Organization [place] [facility], [facility] Address [address] [address] Assessment Encounter Date Assessment Date Assessment LastModified [...] Orders loratadine [address] [facility][id number], [address] [place], [address], 4 10:35:19 azelastine 205.5 mcg (0.15 %) nasal spray 2023 024 [email or web address] [facility] #[id number], [address] [place], [address], 08:39:51 olopatadine 0.1 % eye drops [address] [facility] #[id number], [address] [place], [address], 4 10:35:20 Patient TargetsNo targets recorded. Patient [...] Recorded Time Chronic sphenoid al sinusiti s 27606259 Completed 202106/26/2024 Chronic sphenoid al sinusiti s; Note: Date Diagnose d: 2 2:52 PM (J32.3) Not Available [facility] 4 02:12:45 Migraine 85065709 Active 2021 Other migraine , not intracta ble, without status migraino tasia; Note: Date Diagnose d: 2 2:51 PM (G43.809 ) Not Available [facility] 4 02:12:58 Allergic rhinitis 66497854 Active 2022 Allergic rhinitis , unspecif ied; Note: Date Diagnose d: 3 11:13 AM (J30.9) Not Available [facility] 4 02:14:07 Chronic rhinitis 07156889 Active 2023 Rhinitis (chronic ) NOS; Note: Date Diagnose d: 4 1:57 PM (J31.0) Not Available [facility] 4 02:14:55 Perequeia l allergic rhinitis 327483132 Active 2023 Stacia ogden [place] - [facility] 4 10:33:25 Problem Notes None recorded. Medical Equipment None Reported. Allergies Allergen ID Allergen Name Allergen Category Reaction Reaction Severity Criticality Documentation Date Start Date Code Code System Note Provider Name and Address Organization Details Recorded Time 365676 doxycycli ne Not available Not available Not available Not available 06/10/2024 3640 RxNorm Gretchen Melly ogden [place] - [facility] 4 10:01:03 35214 Product containin g penicilli n (product) medicatio n other Not available Not available 04/07/2024 43883 8001 SNOMED React ion: Unkno wn; Not Available [facility] 4 00:48:32 Medications Name Sig Start Date Stop Date Status Note LastModified by Organization Details LastModified Time neomycin- polymyxin -hydrocor t 3.5 mg/mL-10, 000 unit/mL-1 % ear solution 07/09 completed Medicati on ID: [id number] B rand Name: neomycin -polymyx in-HC Se nd Method: E-Prescr ibed Sub s Allowed: subs OK Speci al Instruct ion: PLACE 3 DROPS IN EAR(S) 4 TIMES DAILY FOR 10 DAYS. Me dication GenericN gabriela: neomycin -polymyx in-HC Not Available Not Available Not Available azelastin e 0.05 % eye drops 07/12 completed Medicati on ID: [id number] B rand Name: azelasti ne Send Method: [...] mg tablet 07/09 completed Medicati on ID: [id number] B rand Name: ibuprofe n Send Method: [...] mg tablet 07/09 completed Medicati on ID: [id number] B rand Name: levoflox acin Sen d Method: E-Prescr ibed Sub s Allowed: subs OK Speci al Instruct ion: TAKE 1 TABLET BY MOUTH EVERY DAY FOR 5 DAYS Med icationG enericNa me: levoflox acin Not Available Not Available Not Available acetamino phen 500 mg tablet 07/12 completed Medicati on ID: [id number] B rand Name: acetamin ophen Se nd Method: E-Prescr ibed Sub s Allowed: subs OK Speci al Instruct ion: TAKE 1 TABLET BY MOUTH EVERY 6 HOURS NEEDED FOR PAIN FOR UP TO 10 DAYS. Me dication GenericN gabriela: acetamin ophen Not Available Not Available Not Available butalbita l-acetami nophen-ca ffeine 50 mg-325 mg-40 mg tablet 07/09 completed Medicati on ID: [id number] B rand Name: butalbit al-aceta minophen -caff [...] mg tablet 07/09 completed Medicati on ID: [id number] B rand Name: proprano lol Send Method: E-Prescr ibed Sub s Allowed: subs OK Speci al Instruct ion: TAKE 1 TABLET BY MOUTH TWICE A DAY Medi cationGe nericNam e: proprano lol Not Available Not Available Not Available amitripty line 25 mg tablet 07/12 completed Medicati on ID: [id number] B rand Name: amitript yline Se nd [...] mg capsule 07/09 completed Medicati on ID: [id number] B rand Name: benzonat ate Send Method: [...] spray aerosol 07/09 completed Medicati on ID: [id number] B rand Name: triamcin olone acetonid e [...] 300 mg capsule active Medicati on ID: [id number] B rand Name: gabapent in Send Method: [...] capsule,d elayed release active Medicati on ID: [id number] B rand Name: omeprazo le Send Method: [...] oral liquid 07/09 completed Medicati on ID: [id number] B rand Name: codeine- guaifene sin Send Method: E-Prescr ibed Sub s Allowed: subs OK Speci al Instruct ion: TAKE 5 ML BY MOUTH 4 TIMES DAILY NEEDED FOR COUGH (COUGH). NOT COVERED Medicati onGeneri cName: codeine- guaifene sin Not Available Not Available Not Available zolpidem 5 mg tablet 07/09 completed Medicati on ID: [id number] B rand Name: zolpidem Send Method: E-Prescr [...] mg tablet 07/09 completed Medicati on ID: [id number] B rand Name: ibuprofe n Send Method: E-Prescr ibed Sub s Allowed: subs OK Speci al Instruct ion: TAKE 1 TAB BY MOUTH EVERY 6 HOURS NEEDED FOR PAIN Med icationG enericNa me: ibuprofe n Not Available Not Available Not Available sertralin e 50 mg tablet 06/10 completed Medicati on ID: [id number] B rand Name: sertrali ne Send Method: E-Prescr ibed Sub s Allowed: subs OK Speci al Instruct ion: TAKE 1 TABLET BY MOUTH EVERY DAY Medi cationGe nericNam e: sertrali ne Medic ation ID: [id number] B rand Name: sertrali ne Send Method: [...] tion aerosol inhaler active Medicati on ID: [id number] B rand Name: Flovent HFA Send Method: E-Prescr ibed Sub s Allowed: subs OK Speci al Instruct ion: INHALE 1 PUFF BY MOUTH TWICE A DAY Medi cationGe nericNam e: Flovent HFA Not Available Not Available Not Available levocetir izine 5 mg tablet 07/09 completed Medicati on ID: [id number] B rand Name: levoceti rizine S end Method: E-Prescr ibed Sub s Allowed: subs OK Speci al Instruct ion: TAKE 1 TABLET BY MOUTH EVERY EVENING FOR 360 DAYS. Me dication GenericN gabriela: levoceti rizine Not Available Not Available Not Available oxycodone 10 mg tablet 07/09 completed Medicati on ID: [id number] B rand Name: oxycodon e Send Method: [...] Updated DateTime 06/10/2024 162.56 cm 33.3 kg/m2 47729.92 g Gretchen Pickard [place] - [facility] 06/10/2024 10:00:55 Social History None recorded. Functional Status None recorded. Mental Status None recorded. Family History Nothing Reported. Medical History No medical history recorded. Gynecological HistoryNo gynecological history recorded. Obstetrics History GPAL:G 0 P 0 0 0 0 Past Encounters Encounter ID Performer Location Encounter Start Date Encounter Closed Date Diagnosis/Indication Diagnosis SNOMED-CT Code Diagnosis ICD10 Code Diagnosis IMO Codes Diagnosis Note [id number] STACIA MOSCOSO PA-C [facility] [address] [address] 06/10/2024 09:54:34 06/10/2024 10:16:50 Perennial allergic rhinitis [id number] J30.89 Health Concerns Section Related Observation LastModified by Organization Detai ls LastModified Time None Recorded Concern Status LastModified by Organization Details LastModified Time None Recorded Advance Directives Directive None Recorded Payers Insurance Date Sequence Insurance Name Policy Number Policy Diehl Covered Member ID Diehl Member ID Guarantor Name 06/10/2024 1 [facility] (MEDICAID REPLACEMENT - HMO) Clau Katz [id number] Clau Katz Notes Date Note Type Note Provider Name and Address Organization Details Recorded Time 06/10/2024 text/html ROS as noted in the HPI 48 year old female presents for re-evaluation of chronic rhinitis, reporting moderate to severe symptoms of rhinorrhea, sneezing, and ocular itching that do not wax and wane with seasons or environment. Skin prick allergy testing previously demonstrated [id number] allergies to dogs, pita trees, and one type of mold. She does not know what medications she has taken in the past. KARINA JUAREZ MD [address] [place] [address], [phone], [facility] - [facility] 06/10/2024 12:40:43 OBGyn Episode No OBEpisode recorded.
--- OUTSIDE RECORDS SUMMARY | 2025-10-19 08:22 | XMS_ITS | Encounter Summary ---
Author Organization [facility] Address [address] [place] [address] Care Team Providers Care Admission Nurse Name Role Phone Gail Carbajal MD Primary Care Provider [phone] Reason for Visit * Reason Onset Date Comments Ear Problems 10/01/2024 Encounter Details Date Type Department Care Team (Late st Contact Info) Description 10/01/2024 Nurse Triage Adult Medicine [address] [phone] Gail Carbajal MD [address] [place] [address] Social History Tobacco Use Types Packs/Day Years [...] for her to call triage * Kishan Gua - 10/01/2024 1:56 PM EST Patient call [...] traveled recently to another state outside of [place], [place], [place], [place], [place], [place], [place]? no o If yes, did you quarantine [...] yes, gather 3rd democrat insurance information Third Alliance Party Information: not applicable PCP: Gail Carbajal MD Payor: / No coverage found. documented in this encounter Plan of Treatment Upcoming Encounters Date Type Department Care Team (Late st Contact Info) Description 12/09/2025 1:00 PM EST Office Visit Bariatric Surgery - [address] [place] [phone] David Solano MD [address] [place] [phone] 12/22/2025 9:30 AM EST Office Visit Pulmonology - [place] 175 [facility] [address] [place] [phone] Jie Gonzalez MD [address] [place] [phone] 01/04/2026 9:30 AM EST Office Visit [facility] Hematology Oncology [address] [place] [phone] Julianne Ramirez MD [address] [place] [phone] 06/15/2026 9:30 AM EDT Office Visit Adult Medicine [address] [phone] Gail Carbajal MD [address] [place] [address] documented as of this encounter Visit Diagnoses Not on filedocumented in this encounter Care Teams Admission Nurse Relationship Specialty Start Date End Date Gail Carbajal MD [address] [place] [address] PCP - General 04/30/24 documented as of this encounter
--- OUTSIDE RECORDS SUMMARY | 2025-10-19 08:22 | XMS_ITS | Encounter Summary ---
Author Organization [facility] Address [address] [place] [address] Phone Care Team Providers Care Medical Assisting Instructor Name Role Phone Keron Hansen MD Primary Care Provider Encounter Details Date Type Department Care Team (Late st Contact Info) Description 09/29/2024 Procedure Pass [facility] - [facility], [address] [address] Social History Tobacco Use Types Packs/Day Years Used Date Smoking Tobacco: Never Assessed Education Answer Date Recorded Are you interested [...] AM EST Sexual Orientation Not on file documented as of this encounter Plan of Treatment Upcoming Encounters Date Type Department Care Team (Late st Contact Info) Description 03/07/2026 1:30 PM EDT Office Visit [facility] [address] [address] Christianne Leos MD [address] [place] [address] [place] [address] [email or web address] 05/26/2026 10:30 AM EDT Office Visit [facility] [address] [place] [address] Regan Forbes MD [address] [place] [address] [email or web address] documented as of this encounter Visit Diagnoses Not on filedocumented in this encounter Care Teams Medical Assisting Instructor Relationship Specialty Start Date End Date Keron Hansen MD [address] [place] [address] PCP - General Internal Medicine 05/08/23 documented as of this encounter Additional Source Comments The information contained in this document represents components of the legal health record. It is not the complete legal health record.[facility]
--- OUTSIDE RECORDS SUMMARY | 2025-10-19 08:22 | XMS_ITS | Clinical Summary ---
Author Organization [facility] [address] [place] [address] [place] [phone] Phone Care Team Providers Care Electrical Sign Wirer Name Role Phone Gail Carbajal MD Primary Care Provider [phone] Allergies Active Allergy Reactions Criticality Noted Date Comments Azithromycin Medium 08/25/2024 Throat tigtness Doxycycline 03/05/2024 Penicillins 03/05/2024 Pineapple Rash 01/24/2021 Throat swelling Medications albuterol HFA (PROAIR HFA ; PROVENTIL HFA ; VENTOLIN HFA) 90 mcg/actuation inhaler INHALE 2 PUFFS INTO THE LUNGS EVERY 4 HOURS NEEDED FOR COUGH OR WHEEZING. 019 Active apixaban (Eliquis) 5 mg tablet Take 1 tablet (5 mg total) by mouth 2 (two) times a day. 024 Active diphenhydrAMINE (Banophen) 25 mg capsule TAKE 1 TO 2 CAPSULES BY MOUTH EVERY 8 HOURS NEEDED FOR ALLERGIC REACTIONS 024 Active fremanezumab-vfrm (Ajovy Autoinjector) 225 mg/1.5 mL auto-injector every 3 (three) months. 024 Active gabapentin (NEURONTIN) 300 mg capsule Take 1 capsule (300 mg total) by mouth. Active medroxyPROGESTERo ne 150 mg/mL injection Inject 1 mL (150 mg total) into the muscle every 3 (three) months. Active prazosin (MINIPRESS) 2 mg capsule TAKE FOUR (4) CAPSULES BY MOUTH AT BEDTIME Active sertraline (ZOLOFT) 100 mg tablet Take 1 tablet (100 mg total) by mouth daily. Active topiramate (TOPAMAX) 50 mg tablet TAKE 2 TABLETS (2 X 50 MG) ORALLY DAILY FOR 30 DAYS Active diclofenac (VOLTAREN) 1 % topical gel Apply 1 Dose topically. Active butalbital-acetam inophen-caffeine (FIORICET, ESGIC) 50-325-40 mg per tablet Take 1 tablet by mouth daily. Manage by Neurlogist, Dr. Sharp Active propranoloL (INDERAL) 10 mg tablet 1 tablet (10 mg total). Active traZODone (DESYREL) 50 mg tablet TAKE (1-2) TABLETS BY MOUTH AT BEDTIME, NEEDED. Psychaitrist, Dr Davis, manage refills Active rizatriptan (MAXALT) 10 mg tablet Take 1 tablet (10 mg total) by mouth. Active cholecalciferol (VITAMIN D-3) 25 mcg (1,000 unit) tablet Take 1 tablet (1,000 Units total) by mouth. Active calcium carbonate 1,500 mg (600 mg elemental calcium) tablet Take 600 mg by mouth. Active fluticasone propionate (FLONASE) 50 mcg/actuation nasal spray Administer 2 sprays into affected nostril(s). Active EPINEPHrine (EpiPen 2-Mahendra) 0.3 mg/0.3 mL injection Inject 0.3 mL (0.3 mg total) as directed. Active fluticasone HFA (Flovent HFA) 110 mcg/actuation inhaler Inhale 1 puff by mouth 2 (two) times a day. Active acetaminophen (TYLENOL) 325 mg tablet Take 3 tablets (975 mg total) by mouth. Active levocetirizine (XYZAL) 5 mg tablet Take 1 tablet (5 mg total) by mouth at bedtime. Active meloxicam (MOBIC) 15 mg tablet Take 1 tablet (15 mg total) by mouth 1 (one) time each day. for 30 days Active triamcinolone (KENALOG) 0.025 % cream Apply topically 2 (two) times a day. Active atorvastatin (LIPITOR) 10 mg tablet Take 1 tablet (10 mg total) by mouth at bedtime. 90 each 1 Active magnesium oxide (MAG-OX) 400 mg (241.3 elemental magnesium) tablet Take 1 tablet (400 mg total) by mouth 1 (one) time each day. Active ondansetron ODT (ZOFRAN-ODT) 4 mg disintegrating tablet Dissolve 1 tablet (4 mg total) on top of the tongue every 8 (eight) hours if needed. Active riboflavin (VITAMIN B2) 400 mg tablet Take 1 tablet (400 mg total) by mouth 1 (one) time each day. Active tirzepatide, weight loss, (Zepbound) 7.5 mg/0.5 mL injectionIndicati ons:Class 1 obesity due to excess calories with body mass index (BMI) of 31.0 to 31.9 in adult, unspecified whether serious comorbidity present Inject 0.5 mL (7.5 mg total) under the skin every 7 (seven) days. 2 mL 025 2024 Active clotrimazole (LOTRIMIN) 1 % cream Apply small amount to affected area twice daily 45 g Active tirzepatide, weight loss, (Zepbound) 5 mg/0.5 mL injection Inject 0.5 mL (5 mg total) under the skin every 7 (seven) days. 2 mL 025 2024 Discontinued oxyCODONE (ROXICODONE) 5 mg immediate release tablet TAKE 1 TABLET BY MOUTH EVERY 4 HOURS NEEDED FOR 7 DAYS 025 2024 Discontinued(T herapy completed) tirzepatide, weight loss, (Zepbound) 5 mg/0.5 mL injectionIndicati ons:Class 1 obesity due to excess calories with body mass index (BMI) of 31.0 to 31.9 in adult, unspecified whether serious comorbidity present INJECT 0.5 ML (5 MG TOTAL) UNDER THE SKIN EVERY 7 DAYS 2 mL 025 2024 Discontinued(A lternate therapy) Active Problems Problem Noted Date Diagnosed Date Moderately severe major depr ession ([facility] V24, [facility] V28) 09/10/2025 Weight loss 09/23/2024 Constipation 09/23/2024 Acute deep vein thrombosis ( DVT) of femoral vein of left lower extremity ([facility] V24, [facility] V28) 03/05/2024 Multiple subsegmental pulmon huseyin emboli without acute cor pulmonale ([facility] V24, [facility] V28) 03/05/2024 H/O gastric sleeve 03/05/2024 Hypercoagulable state ([facility] V24) 02/12/2024 Primary osteoarthritis of fi rst carpometacarpal joint of right hand 09/30/2023 Palpitations 09/18/2023 Overview (09/23/2024): Last Assessment & Plan: The patient has been experiencing episodes of palpitations. We will order a Holter monitor to evaluate for any underlying arrhythmias as a cause of her symptoms. We will also order an echocardiogram to rule out any significant structural heart disease. Trigger finger of left thumb 10/23/2022 Abnormal mammogram 02/27/2022 Overview (09/23/2024): [facility] breast and wellness 02/22/22 ovoid asymmetry anteromedial R breast. Spot compression CC and full field ML tomosynthesis images recommended. [facility] to call pt, they also sent letter. Perennial allergic rhinitis 01/24/2021 Mild intermittent asthma without complication Insomnia 09/09/2020 De Quervain's tenosynovitis, left 05/16/2020 Trigger finger of right thumb 05/16/2020 Trochanteric bursitis of both hips 03/06/2018 Pernicious anemia 01/06/2018 Easy bruising 01/06/2018 Migraine headache 09/02/2013 Seizure disorder ([facility] V24, [facility] V28) 03/2013 Overview (09/23/2024): Dr. Neri, not taking any medications but being evaluated for this Anxiety and depression 07/30/2013 Overview (09/23/2024): CHD, sees counselor every other week and psychiatrist every other month Osteopenia 07/30/2013 Resolved Problems Problem Noted Date Diagnosed Date Resolved Date Chest pain 09/17/2023 08/04/2025 Overview (09/23/2024): Last Assessment & Plan: The [...] LV function and no significant valvular disease. Conjunctivitis, allergic, bilateral 01/24/2021 08/04/2025 Personal history of COVID-19 01/13/2021 08/04/2025 Encounters Date Type Department Care Team Description 10/12/2025 10:30 AM EST Office Visit [address] [phone] Allie Holguin PA Intertrigo (Primary Dx) 10/07/2025 Telephone Bariatric Surgery - [address] [place] [phone] David Solano MD 09/10/2025 1:00 PM EDT Office Visit Adult [address] [phone] Gail Carbajal MD Interteliuo (Primary Dx); Moderately severe major depression (CMS/HCC V24, CMS/HCC V28); Need for prophylactic vaccination and inoculation against influenza 08/10/2025 Telephone Adult Medicine [address] [phone] Gail Carbajal MD 08/04/2025 10:30 AM EDT Consult Adult Medicine [address] [place] [phone] Gail Carbajal MD Preop examination (Primary Dx); On continuous oral anticoagulation; Urinary frequency 08/03/2025 10:30 AM EDT - 08/03/2025 11:59 PM EDT Hospital Encounter [facility] Xray [address] [place] [phone] Pain Discharge Disposition: Home or Self Care 08/03/2025 9:34 AM EDT Anesthesia Event [facility] Pain Management [address] [place] [phone] Giles Ramirez MD 08/03/2025 7:59 AM EDT - 08/03/2025 11:59 PM EDT Hospital Encounter [facility] Pain Management [address] [place] [address] Reece Mercedes DO Slanda, Summer, CRNA Dasilva, John E, MD Sacroiliitis, not elsewhere classified ([facility] V24) Discharge Disposition: Home or Self Care from Last 3 Months Immunizations Immunization Administration Dates Next Due Influenza Quadravalent, MDCK , 0.5ml, with preservative (Flucelvax) 6mo and older 08/14/2018 Influenza trivalent, 0.5mL, preservative free (Fluarix; FluLaval; Fluzone) ages 6mo and older (Afluria) 3 years and older 08/27/2024 Influenza trivalent, MDCK, 0 .5mL, preservative free (Flucelvax) 6mo and older 09/10/2025 Influenza trivalent, with preservative (Fluzone; Afluria) 6mo [...] COMMENT: left foot: multiple surgery BREAST LUMPECTOMY 2016 Right PROCEDURE: ---- BREAST LUMP BIOPSY ---- UPPER GASTROINTESTINAL ENDOSCOPY 06/03/2019 PROCEDURE: UPPER GI ENDOSCOPY/EXAM; COMMENT: lap band with retained food and gastropathy, biopsy pending LAPAROSCOPIC GASTRIC BANDING PROCEDURE: LAP ADJUSTABLE GASTRIC BAND; COMMENT: Removed September [address] Harris at [facility] Medical History Medical History Date Comments GERD (gastroesophageal reflux disease) DX:GERD (gastroesophageal reflux disease) Constipation DX:Constipation History of Helicobacter pylori infection DX:History of Helicobacter pylori infection History of laparoscopic adju stable gastric banding DX:History of laparoscopic a djustable gastric banding Weight loss DX:Weight loss Family History Medical History Relation Name Comments [...] Status Comments Aunt Brother Daughter Alive Father Alive Mother Alive Other Neice Alive Sister Son Alive Seizure [...] Sign Reading Time Taken Comments Blood Pressure 105/75 10/12/2025 9:35 AM EST mac karsten Pulse 84 10/12/2025 9:35 AM EST Temperature 36.2 C (97.2 F) 10/12/2025 9:35 AM EST Respiratory Rate 12 10/12/2025 9:35 AM EST Oxygen Saturation 98% 09/10/2025 1:15 PM EDT Inhaled Oxygen Concentration - - Weight 74.2 kg (163 lb 8 oz) 10/12/2025 9:35 AM EST Height 160 cm (5' 3 ) 10/12/2025 9:35 AM EST Body Mass Index 28.96 10/12/2025 9:35 AM EST Plan of Treatment Upcoming Encounters Date Type Department Care Team (Late st Contact Info) Description 12/09/2025 1:00 PM EST Office Visit Bariatric Surgery - [place] [address] [facility] [address] [place] [phone] David Solano MD [address] [place] [phone] 12/22/2025 9:30 AM EST Office Visit Pulmonology - [place] [address] [facility] [address] [place] [phone] Jie Gonzalez MD [address] [place] [phone] 01/04/2026 9:30 AM EST Office Visit [facility] Hematology Oncology [address] [place] [phone] Julianne Ramirez MD [address] [place] [phone] 06/15/2026 9:30 AM EDT Office Visit Adult Medicine [facility] [address] [place], [place] [phone] Gail Carbajal MD [address] [place] [phone] Health Maintenance Due Date Last Done Comments Colorectal Cancer Screening: Colonoscopy 1976 Hepatitis B Vaccines (1 of 3 - 19+ 3-dose series) 1995 HIV Screening 11/03/2022 Hepatitis C Screening 11/03/2022 Social Influencers of Health Screening 2025 2024, 12/03/2021 Pneumococcal Vaccine: Pediatrics (0 to 5 Years) and At-Risk Patients (6 to 49 Years) (1 of 2 - PCV) 11/24/2025 Postponed from 1995 (Patient Refused) Breast Cancer Screening 03/25/2026 03/25/2024 DTaP,Tdap,and Td Vaccines (2 - Td or Tdap) 07/18/2026 07/18/2016 Cervical Cancer Screening: Pap Smear 10/22/2026 10/22/2023 Cholesterol Screening (Lipid Panel) 05/11/2030 05/11/2025, 03/12/2024 RSV Immunization Adult Patients (1 - 1-dose 75+ series) 2051 COVID-19 Vaccine Discontinued 05/12/2021, 04/14/2021 Depression Screening Completed 01/11/2025 Influenza Vaccine Completed 09/10/2025, , 10/02/2022, Additional history exists HIB Vaccines Aged Out [...] Procedure Name Priority Date/Time Associated Diagnosis Comments CBC WITH AUTO DIFFERENTIAL Routine 08/04/2025 11:16 AM EDT Preop examination PEREZ URINE CULTURE TUBE Routine 08/04/2025 11:16 AM EDT Urinary frequency URINALYSIS WITH REFLEX MICROSCOPIC AND CULTURE Routine 08/04/2025 11:16 AM EDT Urinary frequency CBC AND DIFFERENTIAL Routine 08/04/2025 11:16 AM EDT Preop examination COMPREHENSIVE METABOLIC PANEL Routine 08/04/2025 11:16 AM EDT Preop examination PROTHROMBIN TIME WITH INR Routine 08/04/2025 11:16 AM EDT On continuous oral anticoagulation ACTIVATED PARTIAL THROMBOPLASTIN TIME Routine 08/04/2025 11:16 AM EDT On continuous oral anticoagulation URINALYSIS WITH REFLEX MICROSCOPIC AND CULTURE Routine 08/04/2025 11:16 AM EDT Urinary frequency CULTURE URINE Routine 08/04/2025 11:16 AM EDT Urinary frequency POC PREGANCY, URINE NO CHARGE SCREENING MANUALLY RESULTED Routine 08/03/2025 8:34 AM EDT LIPID PANEL WITH REFLEX TO DIRECT LDL Routine 05/11/2025 2:01 PM EDT Routine physical examination from Last 3 Months or Most Recently Relevant to Health Maintenance Results * (ABNORMAL) Urinalysis with reflex microscopic and culture (08/04/2025 11:16 AM EDT) Specific Lane Urine 1.026 1.003 - 1.030 LAB URINALYSIS - AUTOMATED METHOD 08/04/2025 12:31 PM [facility] pH, Urine 7.0 5.0 - 8.0 pH LAB URINALYSIS - AUTOMATED METHOD 08/04/2025 12:31 PM [facility] Leukocytes, Urine Small(A) Negative LAB URINALYSIS - AUTOMATED METHOD 08/04/2025 12:31 PM [facility] Nitrite, Urine Negative Negative LAB URINALYSIS - AUTOMATED METHOD 08/04/2025 12:31 PM [facility] Protein, Urine 30(A) <=Trace mg/dL LAB URINALYSIS - AUTOMATED METHOD 08/04/2025 12:31 PM [facility] Glucose, Urine Negative Negative mg/dL LAB URINALYSIS - AUTOMATED METHOD 08/04/2025 12:31 PM [facility] Ketones, Urine 15(A) Negative mg/dL LAB URINALYSIS - AUTOMATED METHOD 08/04/2025 12:31 PM [facility] Urobilinogen, Urine 1.0 0.2 - 1.0 mg/dL LAB URINALYSIS - AUTOMATED METHOD 08/04/2025 12:31 PM [facility] Bilirubin, Urine Negative Negative LAB URINALYSIS - AUTOMATED METHOD 08/04/2025 12:31 PM [facility] Blood, Urine Negative Negative LAB URINALYSIS - AUTOMATED METHOD 08/04/2025 12:31 PM [facility] RBC, Urine 2.9 0 - 4 /HPF LAB URINALYSIS - AUTOMATED METHOD 08/04/2025 12:31 PM [facility] WBC, Urine 30(H) 0 - 4 /HPF LAB URINALYSIS - AUTOMATED METHOD 08/04/2025 12:31 PM [facility] Squamous Epithelial, Urine >100(H) 0 - 60 /LPF LAB URINALYSIS - AUTOMATED METHOD 08/04/2025 12:31 PM [facility] Bacteria, Urine Many(A) Negative /HPF LAB URINALYSIS - AUTOMATED METHOD 08/04/2025 12:31 PM [facility] Hyaline Casts, Urine 16.8(H) 0 - 3 /LPF LAB URINALYSIS - AUTOMATED METHOD 08/04/2025 12:31 PM [facility] Urine Urine specimen obtained by clean catch procedure / Unknown Non-blood Collection / Unknown 08/04/2025 11:16 AM EDT 08/04/2025 11:16 AM EDT us Gail Carbajal MD LAB URINE ORDERABLES Final Resul t [facility] [address] [place] [address], * Perez urine culture tube (08/04/2025 11:16 AM EDT) [facility] Extra Tube Hold for add-ons. 08/04/2025 1:01 PM EDT [facility] Comment:Auto resulted. Urine Urine specimen obtained by clean catch procedure / Unknown Non-blood Collection / Unknown 08/04/2025 11:16 AM EDT 08/04/2025 11:16 AM EDT us Gail Carbajal MD LAB URINE ORDERABLES Final Resul t [facility] [address] [place] [address], * (ABNORMAL) CBC auto differential (08/04/2025 11:16 AM EDT) [facility] WBC 9.8 4.8 - 10.8 K/mcL LAB HEMETOLOGY METHOD 08/04/2025 12:12 PM EDT [facility] RBC 4.90(H) 3.80 - 4.80 M/mcL LAB HEMETOLOGY METHOD 08/04/2025 12:12 PM EDT [facility] Hemoglobin 14.9 11.5 - 16.0 g/dL LAB HEMETOLOGY METHOD 08/04/2025 12:12 PM EDT [facility] Hematocrit 44.4 35.0 - 47.0 % LAB HEMETOLOGY METHOD 08/04/2025 12:12 PM EDT [facility] MCV 91.4 79.0 - 98.0 FL LAB HEMETOLOGY METHOD [facility]/04[facility]2025 12[facility] PM [facility] MCH 30.7 27.0 - 32.0 pcg LAB HEMETOLOGY METHOD 08/04[facility]2025 12:12 [facility] MCHC 33.6 32.0 - 37.0 g/dL LAB HEMETOLOGY METHOD 08/04/2025 12:12 PM EDT [facility] RDW 12.0 11.0 - 15.0 % LAB HEMETOLOGY METHOD 08/04/2025 12:12 PM EDT [facility] Platelets 293 130 - 400 K/mcL LAB HEMETOLOGY METHOD 08/04/2025 12:12 PM [facility] MPV 11.5(H) 7.0 - 11.0 FL LAB HEMETOLOGY METHOD 08/04/2025 12:12 PM [facility] NRBC 0.0 <1.0 % LAB HEMETOLOGY METHOD 08/04/2025 12:12 PM [facility] NRBC Absolute 0.00 <0.10 K/mcL LAB HEMETOLOGY METHOD 08/04/2025 12:12 PM [facility] Neutrophils Relative 77.9 % LAB HEMETOLOGY METHOD 08/04/2025 12:12 PM [facility] Lymphocytes Relative 15.5 % LAB HEMETOLOGY METHOD 08/04/2025 12:12 PM [facility] Monocytes Relative 6.2 % LAB HEMETOLOGY METHOD 08/04/2025 12:12 PM [facility] Eosinophils Relative 0.0 % LAB HEMETOLOGY METHOD 08/04/2025 12:12 PM [facility] Basophils Relative 0.1 % LAB HEMETOLOGY METHOD 08/04/2025 12:12 PM [facility] Immature Granulocytes Relative 0.3 % LAB HEMETOLOGY METHOD 08/04/2025 12:12 PM [facility] Neutrophils Absolute 7.66(H) 1.50 - 7.00 K/mcL LAB HEMETOLOGY METHOD 08/04/2025 12:12 PM [facility] Lymphocytes Absolute 1.52 1.00 - 5.00 K/mcL LAB HEMETOLOGY METHOD 08/04/2025 12:12 PM EDT [facility] Monocytes Absolute 0.61 0.20 - 1.00 K/mcL LAB HEMETOLOGY METHOD 08/04/2025 12:12 PM EDT [facility] Eosinophils Absolute 0.00 0.00 - 0.50 K/mcL LAB HEMETOLOGY METHOD 08/04/2025 12:12 PM EDT [facility] Basophils Absolute 0.01 0.00 - 0.20 K/mcL LAB HEMETOLOGY METHOD 08/04/2025 12:12 PM EDT [facility] Immature Granulocytes Absolute 0.03 0.00 - 0.03 K/mcL LAB HEMETOLOGY METHOD 08/04/2025 12:12 PM EDT [facility] Blood Venous blood specimen / Unknown Venipuncture / Unknown 08/04/2025 11:16 AM EDT 08/04/2025 11:16 AM EDT us Gail Carbajal MD LAB BLOOD ORDERABLES Final Resul t Performing Organization Address City/[facility]/ZIP Co de Phone Number [facility] [address] [place] [address], [place] [phone] * Activated partial thromboplastin time (08/04/2025 11:16 AM EDT) aPTT 31.3 24.1 - 39.3 sec LAB COAGULATION METHOD 08/04/2025 12:17 PM EDT [facility] Blood Venous blood specimen / Unknown Venipuncture / Unknown 08/04/2025 11:16 AM EDT 08/04/2025 11:16 AM EDT us Gail Carbajal MD LAB BLOOD ORDERABLES Final Resul t Performing Organization Address City/[facility]/ZIP Co de Phone Number [facility] [address] [place] [address], [place] [phone] * (ABNORMAL) Prothrombin time with INR (08/04/2025 11:16 AM EDT) [facility] Protime 15.8(H) 10.6 - 13.9 sec LAB COAGULATION METHOD 08/04/2025 12:17 PM EDT [facility] INR 1.3 LAB COAGULATION METHOD 08/04/2025 12:17 PM EDT [facility] Blood Venous blood specimen / Unknown Venipuncture / Unknown 08/04/2025 11:16 AM EDT 08/04/2025 11:16 AM EDT us Gail Carbajal MD LAB BLOOD ORDERABLES Final Resul t [facility] [address] [place] [address], [place] [phone] * Culture urine (08/04/2025 11:16 AM EDT) [facility] Culture, Urine No growth 08/05/2025 7:29 AM EDT [facility] Urine Urine specimen obtained by clean catch procedure / Unknown Non-blood Collection / Unknown 08/04/2025 11:16 AM EDT 08/04/2025 12:31 PM EDT us Gail Carbajal MD LAB MICROBIOLOGY - GENERAL ORDER EMILY Final Result [facility] [address] [place] [address], [place] [phone] * (ABNORMAL) Comprehensive metabolic panel (08/04/2025 11:16 AM EDT) [facility] Sodium 139 133 - 145 mmol/L LAB CHEMISTRY METHOD 08/04/2025 3:55 PM EDT [facility] Potassium 4.2 3.5 - 5.5 mmol/L LAB CHEMISTRY METHOD 08/04/2025 3:55 PM EDT [facility] Chloride 112(H) 96 - 110 mmol/L LAB CHEMISTRY METHOD 08/04/2025 3:55 PM [facility] CO2 20(L) 21 - 32 mmol/L LAB CHEMISTRY METHOD 08/04/2025 3:55 PM [facility] Anion Gap 7 3 - 11 LAB CHEMISTRY METHOD 08/04/2025 3:55 PM [facility] Glucose 98 70 - 100 mg/dL LAB CHEMISTRY METHOD 08/04/2025 3:55 PM [facility] BUN 20 5 - 25 mg/dL LAB CHEMISTRY METHOD 08/04/2025 3:55 PM [facility] Creatinine 1.10 0.50 - 1.10 mg/dL LAB CHEMISTRY METHOD 08/04/2025 3:55 PM [facility] eGFR 62 >=60 mL/min/1. 73m2 LAB CHEMISTRY METHOD 08/04/2025 3:55 PM [facility] Comment:Calculation based on the Chronic Kidney Disease Epidemiology Collaboration (CKD-EPI) equation refit without adjustment for race. BUN/Creatinine Ratio 18.2 LAB CHEMISTRY METHOD 08/04/2025 3:55 PM [facility] Calcium 9.9 8.5 - 10.5 mg/dL LAB CHEMISTRY METHOD 08/04/2025 3:55 PM [facility] AST (SGOT) 14 10 - 42 unit/L LAB CHEMISTRY METHOD 08/04/2025 3:55 PM [facility] ALT (SGPT) 27 10 - 60 unit/L LAB CHEMISTRY METHOD 08/04/2025 3:55 PM [facility] Alkaline Phosphatase 67 42 - 121 unit/L LAB CHEMISTRY METHOD 08/04/2025 3:55 PM [facility] Total Protein 8.2(H) 6.0 - 8.0 g/dL LAB CHEMISTRY METHOD 08/04/2025 3:55 PM [facility] Albumin 4.8 3.2 - 5.0 g/dL LAB CHEMISTRY METHOD 08/04/2025 3:55 PM EDT [facility] Total Bilirubin 0.5 0.0 - 1.4 mg/dL LAB CHEMISTRY METHOD 08/04/2025 3:55 PM EDT [facility] Blood Venous blood specimen / Unknown Venipuncture / Unknown 08/04/2025 11:16 AM EDT 08/04/2025 11:16 AM EDT Gail Carbajal MD LAB BLOOD ORDERABLES Final Resul t [facility] [address] [place] [address], [place] [phone] * POC , urine NO CHARGE screening manually resulted (08/03/2025 8:34 AM EDT) HCG, Ur POC Negative Negative POC hCG Int QC Pass? Yes Yes Urine Urine specimen obtained by clean catch procedure / Unknown 08/03/2025 8:34 AM EDT Reece Mercedes DO POINT OF CARE TEST ENTER/EDIT OR DERABLES Final Result * (ABNORMAL) Lipid panel with reflex to direct LDL (05/11/2025 2:01 PM EDT) Cholesterol 262(H) 0 - 200 mg/dL LAB CHEMISTRY METHOD 05/11/2025 4:36 PM EDT [facility] Triglycerides 133 0 - 150 mg/dL LAB CHEMISTRY METHOD 05/11/2025 4:36 PM EDT [facility] HDL 51 >=40 mg/dL LAB CHEMISTRY METHOD 05/11/2025 4:36 PM EDT [facility] LDL Calculated 184(H) 0 - 100 mg/dL LAB CHEMISTRY METHOD 05/11/2025 4:36 PM EDT [facility] VLDL Cholesterol Aamir 26.6 mg/dL LAB CHEMISTRY METHOD 05/11/2025 4:36 PM EDT [facility] Non HDL Chol. (LDL+VLDL) 211(H) <145 mg/dL LAB CHEMISTRY METHOD 05/11/2025 4:36 PM EDT [facility] Chol/HDL Ratio 5.1(H) 0.0 - 4.4 LAB CHEMISTRY METHOD 05/11/2025 4:36 PM EDT [facility] Blood Venous blood specimen / Unknown Venipuncture / Unknown 05/11/2025 2:01 PM EDT 05/11/2025 2:01 PM EDT Allie ROJAS LAB BLOOD ORDERABLES Final Res ult [facility] [address] [place] [address], from Last 3 Months or Most Recently Relevant to Health Maintenance Insurance [employer] Care Teams Electrical Sign Wirer Relationship Specialty Start Date End Date Gail Carbajal MD [address] [place] [phone] PCP - General 04/30/24
--- OUTSIDE RECORDS SUMMARY | 2025-10-19 08:22 | XMS_ITS | Encounter Summary ---
Author Organization [facility] Address [address] [place] [phone] Phone Care Team Providers Care Custom Feed Corn Operator Name Role Phone Keron Hansen MD Primary Care Provider Encounter Details Date Type Department Care Team (Late st Contact Info) Description 09/29/2024 Procedure Pass [facility] - MRI, [address] [address] Social History Tobacco Use Types Packs/Day Years [...] PM EDT Office Visit [facility] [address] [address] Christianne Leos MD [address] [place] [address] [place] [address] [email or web address] 05/26/2026 10:30 AM EDT Office Visit [facility] [address] [place] [address] Regan Forbes MD [address] [place] [address] [email or web address] documented as of this encounter Visit Diagnoses Not on filedocumented in this encounter Care Teams Custom Feed Corn Operator Relationship Specialty Start Date End Date Keron Hansen MD [address] [place] [address] PCP - General Internal Medicine 05/08/23 documented as of this encounter Additional Source Comments The information contained in this document represents components of the legal health record. It is not the complete legal health record.[facility]
--- OUTSIDE RECORDS SUMMARY | 2025-10-19 08:22 | XMS_ITS | Clinical Summary ---
Author Organization [facility] Address [address] [address] Phone Care Team Providers Care House Mother Name Role Phone Keron Hansen MD Primary [...] Encounters Date Type Department Care Team Description 09/13/2025 1:00 PM EDT Office Visit [facility] [address] [place] [address] Christianne Leos MD Optic neuropathy (Primary Dx) from Last 3 Months Family History Medical [...] Description 03/07/2026 1:30 PM EDT Office Visit [facility] [address], [place] [address] Christianne Leos MD [address] [place] [phone] [email or web address] 05/26/2026 10:30 AM EDT Office Visit [address] [address] Regan Forbes MD [address] [place] [phone] [email or web address] Health Maintenance Due Date Last Done Comments Adult Td,Tdap Booster 1976 DEPRESSION SCREENING 1988 SMOKING Hx and SMOKELESS TOB ACCO SCREENING 1989 HEPATITIS C SCREENING 1994 HIV ONE-TIME SCREENING (18-6 5 YEARS) 1994 PAP SMEAR 1997 SCREENING FOR DIABETES 2011 MAMMOGRAM 2016 COLOGUARD 2021 COLONOSCOPY 2021 COLORECTAL CANCER SCREENING 2021 FIT TEST 2021 FOBT 2021 SIGMOIDOSCOPY 2021 VIRTUAL COLONOSCOPY 2021 INFLUENZA VACCINE (#1) 2025 COVID-19 VACCINE (1 - 2024-2 6 season) 2025 LIPID PANEL 05/11/2030 05/11/2025 HEPATITIS A VACCINES Aged Out No long [...] this topic Medical Devices Not on file Procedures Procedure Name Priority Date/Time Associated Diagnosis Comments OCT, OPTIC NERVE - OU - BOTH EYES Routine 09/13/2025 1:02 PM EDT Optic neuropathy DEMARCO VISUAL FIELD - OU - BOTH EYES Routine 09/13/2025 12:42 PM EDT Optic neuropathy from Last 3 Months Results * OCT, Optic Nerve - OU - Both Eyes - Cirrus; RNFL, GCC; Disc, Macula; HD Radial Disc KYRA (:02 PM EDT) Narrative HARMONY - 09/13/2025 2:07 PM EDT Images from the original result were not included. Right Eye Quality: Good. Retinal nerve fiber layer thickness (um): 97. Change: Stable. Optic Disk: Average. Ganglion cell or retinal thickness: Normal. Left Eye Quality: Good. Retinal nerve fiber layer thickness (um): 50. Change: Stable. Optic Disk: Average. Ganglion cell or retinal thickness: Diffuse thinning. Notes Christianne Marti MD OPHTHALMOLOGY IMAGING Final Result Performing Organization Address City/[facility] Co de Phone Number KHAI * Demarco Visual Field - OU - Both Eyes (09/13/2025 12:42 PM EDT) HVF Mean Deviation (OS) - Left Eye -16.33 dB HARMONY HVF Mean Deviation (OD) - Right Eye -0.36 dB HARMONY Narrative KHAI - 09/13/2025 2:07 PM EDT Images from the original result were not included. Right Eye Pattern: 24-2. Strategy: MARJ - Fast. Reliability: Good. Mean Deviation: -0.36 dB dB. Change: Stable. Foveal threshold: Normal. Findings: Normal. Left Eye Pattern: 24-2. Strategy: MARJ - Fast. Reliability: Good. Mean Deviation: -16.33 dB dB. Change: Stable. Foveal threshold: Reduced. Findings: Inferior arcuate defect. Notes [facility] Micheal Marti MD OPHTHALMOLOGY IMAGING Final Result Performing Organization Address [facility] Co de Phone Number KHAI from Last 3 Months Insurance [employer] [place] [address] [address] [email or web address] [address] [address] [place], [place] [address] [address] [place], [place] [address] [facility] Care Teams House Mother Relationship Specialty Start Date End Date Keron Hansen MD [address] [place] [phone] PCP - General Internal Medicine 05/08/23 Additional Source Comments The information contained in this document represents components of the legal health record. It is not the complete legal health record.[facility]
[2025-10-19 08:29] VITALS: BP 120/76; PULSE 83; O2SAT 98; BMI 26.3
--- NOTE | 2025-10-19 08:29 | A.OFFVIS_ITS ---
Vital Signs 10/19/25 08:29 Height 5 ft 7 in Weight 168 lb 2 oz BMI 26.3 BP 120/76 Blood Pressure Location Rt brachial Position Sitting Pulse 83 Pulse Source Pulse Oximeter Pulse Oximetry (%) 98 Oxygen Delivery Method Room Air Intake Visit Reasons: Botox Intake Note: Botox 200 Property Master Required: No Accompanied by: Self / Same As Patient Allergies pineapple Allergy (Intermediate, Verified 10/19/25 08:29) Swelling Penicillins Allergy (Mild, Verified 10/19/25 08:29) Swelling Medication List - Last Reconciled 10/19/25 by Angelia Lawler MD acetaminophen 500 mg PO PRN acetazolamide 500 mg (2 x 250 mg) PO TID 30 days apixaban (Eliquis) 5 mg PO BID atorvastatin (Lipitor) 10 mg PO BEDTIME azelastine intranasal cetirizine 10 mg PO DAILY cyclobenzaprine 5 - 10 mg (1 - 2 x 5 mg) PO BEDTIME PRN 30 days diphenhydramine HCl (Benadryl) 25 - 50 mg (1 - 2 x 25 mg) PO Q8H PRN 30 days epinephrine IM fluticasone propionate 110 mcg/actuation (Flovent HFA) grams inhalation fremanezumab-vfrm (Ajovy) 675 mg (4.5 mL) subcut [id number] 90 days levocetirizine 5 mg PO DAILY magnesium oxide 400 mg PO BEDTIME 90 days ondansetron HCl 4 mg PO TID PRN 30 days pantoprazole tabs PO prazosin 2 mg PO BEDTIME riboflavin (vitamin B2) 400 mg PO DAILY 90 days rizatriptan 5 - 10 mg (0.5 - 1 x 10 mg) PO Q2H PRN 21 days sertraline 50 mg PO PRN tirzepatide (weight loss) (Zepbound) 5 mg subcut QWEEK topiramate 100mg qam and 150mg at bedtime x's 1 week, then 150mg bid x's 1 week, then 150mg qam and 200mg qhs x's 1 week, then 200mg BID orally .; 30 days trazodone mg PO ubrogepant (Ubrelvy) 50 - 100 mg (0.5 - 1 x 100 mg) PO ONCE PRN 30 days zolmitriptan (Zomig) take 1 tab at onset of headache; if no relief, may repeat 1 tab after at least 2 hrs; max = 2 tabs/24 hrs PO 30 days HPI Comments Details: ? 49y/o female comes for treatment of migraines with botox. ??? Most frequent reported adverse reactions following injection of botox for chronic migraine include neck pain (9%), headache(5%), eyelid ptosis(4%), migraine(4%), muscular weakness(4%), musculuskeletal stiffness(4%), bronchitis(3%), injection site pain (3%), musculoskeletal pain(3%), myalgia(3%), facial paresis(2%), HTN(2%) and muscle spasms(2%) were discussed in detail. ??? Botulinum toxin typeA 200units Lot no [id number] expiration Oct 2027 was diluted with 4 cc of normal saline . ??? Muscles injected- ??? Frontalis 4 sites ??? Procerus 1 site ??? Budget And Policy Analyst- 2 sites ??? Temporalis- 8 sites ??? Occipitalis- 6 sites ??? Cervical paraspinals- 4 sites ??? Trapezius- 6 sites- 10 units each ??? 5 units each in 31 site ??? Total use- 185units ??? Discarded-15units [facility] Medical History Chronic migraine without aura, intractable, without status migrainosus Facial numbness Chronic migraine without aura Cervical dystonia Sinusitis Anxiety and depression Seizure Cervicalgia Surgical History History of toe surgery History of surgery on wrist Family History Mother Heart disease HTN (hypertension) Father HTN (hypertension) Heart disease Diabetes Social History Household Members: Spouse and Children Alcohol intake: current Alcohol intake frequency: does not drink Patient Tobacco Use Status: Never used Tobacco Current occupational status: employed 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 Physical Exam Vital Signs: Last Vital Signs Pulse 83 10/19/25 08:29 BP 120/76 10/19/25 08:29 Pulse Ox 98 10/19/25 08:29 Oxygen Delivery Method Room Air 10/19/25 08:29 BMI result Body Mass Index 26.3 Const General: cooperative and no acute distress Orientation/consciousness: patient oriented x3 HEENT Head: Yes normocephalic Resp Effort & Inspection: normal respiratory effort and able to speak in complete sentences Neuro General: patient oriented x3 and gait normal Cognition (Neuro): normal cognition Motor exam (neuro): 5/5 motor strength present throughout Office Procedures Botulinum toxin Injection 03522 - Migraine Procedure code (CPT) selection complete Office Meds onabotulinumtoxinA 200 unit solution for injection Performing Provider: Angelia Lawler MD Performing Location: [facility] Administered by: Angelia Lawler MD on 10/19/25 09:44 Dose Route Admin Location Dispensed Lot Number Expiration Date [facility] Oral And Maxillofacial Surgery 185 unit subcut 200 units [id number] [employer] /[employer] Total Dispensed Waste 200 units 7.5 % Comments: see hpi Assessment & Plan Assessment & Plan (1) Chronic migraine without aura, intractable, without status migrainosus: Code(s): G43.719 - Chronic migraine without aura, intractable, without status migrainosus Category: Medical (2) Cervical dystonia: Code(s): G24.3 - Spasmodic torticollis Category: Medical Plan Patient tolerated the procedure well she will call with any side effects Orders: Orders AMB Botulinum toxin Injection Today G43.719 - Chronic migraine without aura, intractable, without status migrainosus Coding Level of Care Code Est Pt Level 1 (15778) Diagnoses Chronic migraine without aura, intractable, without status migrainosus G43.719 Cervical dystonia G24.3 CPT Codes Botox Injection - Botox 3: 08900 - Migraine ([id number])
== END 2025-10-19 08:59 | disposition home or self-care (01) ==
LOC: HO.HSMS 08:11
PROVIDERS: Visit Provider Psychiatry & Neurology Neurology
DX: G43.719 Chronic migraine without aura, intractable, without status migrainosus (principal)
CPT/HCPCS: 64615

== ENCOUNTER → 2025-10-19 08:10 | Outpatient (BNVA) | payer OTHER, SELFPAY | PROVIDERS: Visit Provider Psychiatry & Neurology Neurology | DX: G43.719 Chronic migraine without aura, intractable, without status migrainosus (principal) | CPT/HCPCS: 64615; 99211; J0585 ==

== ENCOUNTER 2025-11-09 10:05 | Outpatient (AMB) | payer OTHER, SELFPAY ==
--- OUTSIDE RECORDS SUMMARY | 2024-08-31 10:43 | XMS_ITS | Encounter Summary ---
Author Organization [facility] Address [address] [place] [address] Care Team Providers Care Haz Tech Name Role Phone Gail Carbajal MD Primary Care Provider [phone] Encounter Details Date Type Department Care Team (Latest Contact Info) Description 08/31/2024 11:43 AM EDT Hospital Encounter TH HISTORIC ENCOUNTERS EASTERN CONVERSION ONLY Mirian Rivero MD [address] [place] [address] Shortness of breath Social History Tobacco Use Types Packs/Day Years Used Date Smoking Tobacco: Never Smokeless Tobacco: Never Alcohol Use Standard Drinks/Week Comments Yes 0 (1 standard drink = 0.6 oz pur e alcohol) social Living Situation Answer Date Recorded What is your living situation? Unrecognized valu e 2024 Comments No Sex and Gender Information Value Date Recorded Sex Assigned at Not on file Legal Sex Female 5:41 PM EST Gender Identity Not on file Sexual Orientation Not on file documented as of this encounter Plan of Treatment Upcoming Encounters Date Type Department Care Team (Late st Contact Info) Description 12/09/2025 1:00 PM EST Office Visit B[place]ric Surgery [place] [address] [place] [address] David Solano MD [address] [place] [address] 12/22/2025 9:30 AM EST Office Visit Pulmonology [place] [address] [facility] [address] [place] [phone] Mirian Rivero MD [address] [place] [address] 12/28/2025 9:30 AM EST Office Visit [facility] Hematology Oncology [address] [place] [phone] Julianne Ramirez MD [address] [place] [address] 06/15/2026 9:30 AM EDT Office Visit Adult Medicine [address] [phone] Gail Carbajal MD [address] [place] [phone] documented as of this encounter Procedures Procedure Name Priority Date/Time Associated Diagnosis Comments CHEST ROUTINE 2 VIEWS Routine 08/31/2024 12:08 PM EDT Shortness of breath documented in this encounter Results * CHEST ROUTINE 2 VIEWS (08/31/2024 12:08 PM EDT) Anatomical Region Laterality Modality Radiographic Meg ging 08/31/2024 11:4 8 AM EDT Narrative 08/31/2024 12:08 PM EDT [facility] Diagnostic Imaging Department [address] [place], [place] [id number] Patient: CLAU KATZ/Age/Sex: 1975 Unit#: [id number] Location/Status: SPDIGEN/REG CLI Mnemonic/Ordering Site: CHESTXR/SPDI Ordering Physician: MIRIAN RIVERO MD Chest Routine 2 Views - 08/31/24 - 1155 Report Status:Signed Chest Routine 2 Views INDICATION: Shortness of breath TECHNIQUE: DR Chest Routine 2 Views COMPARISON: 05/21/1970 FINDINGS/IMPRESSION: Lungs are clear. No pleural effusion or pneumothorax. Cardiac silhouette and bones are within normal limits. Dictating Physician: KINSEY ALVARADO MD Electronically Signed by: KINSEY ALVARADO MD Dic Date/Time: 08/31/241207 Sign date/Time: 08/31/241207 Procedure Note Kinsey Alvarado MD - 09/22/2024 [facility] Diagnostic Imaging Department [address] [place] [address] Patient: CLAU KATZ D.O.B./Age/Sex: 1975 Unit#: [id number] Location/Status: SPDIGEN/REG CLI Mnemonic/Ordering Site: CHESTXR/SPDI Ordering Physician: MIRIAN RIVERO MD Chest Routine 2 Views - 08/31/24 - 1155 Report Status:Signed Chest Routine 2 Views INDICATION: Shortness of breath TECHNIQUE: DR Chest Routine 2 Views COMPARISON: 05/21/1970 FINDINGS/IMPRESSION: Lungs are clear. No pleural effusion orpneumothorax. Cardiac silhouette and bones are within normal limits. Dictating Physician: KINSEY ALVARADO MD Electronically Signed by: KINSEY ALVARADO MD Dic Date/Time: 08/31/24 1208 Sign date/Time: 08/31/24 1208 Mirian Rivero MD IMG XR PROCEDURES Final Result documented in this encounter Visit Diagnoses Diagnosis Shortness of breath documented in this encounter Care Teams Haz Tech Relationship Specialty Start Date End Date Gail Carbajal MD [address] [place] [address] PCP - General 04/30/24 documented as of this encounter
--- NOTE | 2025-11-09 10:37 | A.OFFVIS_ITS ---
Vital Signs 11/09/25 10:41 Height 5 ft 7 in Weight 162 lb BMI 25.4 BP 98/70 Blood Pressure Location Rt brachial Position Sitting Pulse 77 Pulse Source Pulse Oximeter Pulse Oximetry (%) 98 Oxygen Delivery Method Room Air Intake Visit Reasons: 6 mnts f/u appt Gang Saw Operator Required: No Accompanied by: Self / Same As Patient Allergies pineapple Allergy (Intermediate, Verified 11/09/25 10:41) Swelling Penicillins Allergy (Mild, Verified 11/09/25 10:41) Swelling Medication List - Last Reconciled 11/09/25 by ZABRINA Dowd acetaminophen 500 mg PO PRN acetazolamide 500 mg (2 x 250 mg) PO TID 30 days apixaban (Eliquis) 5 mg PO BID atorvastatin (Lipitor) 10 mg PO BEDTIME azelastine intranasal cetirizine 10 mg PO DAILY cyclobenzaprine 5 - 10 mg (1 - 2 x 5 mg) PO BEDTIME PRN 30 days diphenhydramine HCl (Benadryl) 25 - 50 mg (1 - 2 x 25 mg) PO Q8H PRN 30 days epinephrine IM fluticasone propionate 110 mcg/actuation (Flovent HFA) grams inhalation fremanezumab-vfrm (Ajovy) 675 mg (4.5 mL) subcut [id number] 90 days levocetirizine 5 mg PO DAILY magnesium oxide 400 mg PO BEDTIME 90 days ondansetron HCl 4 mg PO TID PRN 30 days pantoprazole tabs PO prazosin 2 mg PO BEDTIME riboflavin (vitamin B2) 400 mg PO DAILY 90 days rizatriptan 5 - 10 mg (0.5 - 1 x 10 mg) PO Q2H PRN 21 days sertraline 50 mg PO PRN tirzepatide (weight loss) (Zepbound) 5 mg subcut QWEEK topiramate 100mg qam and 150mg at bedtime x's 1 week, then 150mg bid x's 1 week, then 150mg qam and 200mg qhs x's 1 week, then 200mg BID orally .; 30 days trazodone mg PO ubrogepant (Ubrelvy) 50 - 100 mg (0.5 - 1 x 100 mg) PO ONCE PRN 30 days zolmitriptan (Zomig) take 1 tab at onset of headache; if no relief, may repeat 1 tab after at least 2 hrs; max = 2 tabs/24 hrs PO 30 days HPI Comments Details: History of Present Illness The patient is a 49 year old female presenting for a followup visit for migraine and left temporal vision loss. Migraine and Cluster Headaches: - The patient has a history of migraine and reports the newer-onset, left-sided headaches that are more severe and debilitating, occurring three to four times a week. - These headaches can wake her from sleep and are associated with a watery left eye, facial swelling, numbness, and tingling. - The pain is so intense that she has passed out from it, and it can last for hours until her medication takes effect. - She reports a total headache frequency of approximately 20 times per week b etween her migraines and the new headache type. - She adheres to her prescribed migraine medication. Left Temporal Vision Loss: - She has a known history of left temporal vision loss. - A brain MRI with and without contrast on June 04, 2025, was normal and did not show any inflammation behind the left eye or signs of her past sphenoid sinusitis. - She had follow-up testing at [facility], which was unremarkable. However, they did encourage her to undergo a follow-up sleep study. Sleep-Related Breathing Disorder: - The patient reports waking frequently in the middle of the night, between 3 a.m. and 5 a.m., and waking up tired. - She experiences daytime sleepiness, sometimes falling asleep while talking to her sister or watching TV. - Her has told her that she snores at times. - An in-lab sleep study in 2022 was normal, and she reports a recent request for a repeat study was denied. Weight Management: - The patient is taking Zepbound for weight loss and has lost approximately 50 pounds. - She is now on a maintenance dose of once a month, which she tolerates well without side effects like headache, vomiting, or stomach issues. - Her current weight is 153 pounds, and her goal is 150 pounds. - The weight loss has not changed her headache symptoms. Social History - Substance Use: The patient denies smoking. - Living Situation: The patient lives with her and has a gas stove in her home. Results - Brain MRI with and without contrast (June 04, 2025): Normal; showed no indications of sphenoid sinusitis or inflammation behind the left eye. - In-lab sleep study (2022): Normal. [facility] Medical History Chronic migraine without aura, intractable, without status migrainosus Facial numbness Chronic migraine without aura Cervical dystonia Sinusitis Anxiety and depression Seizure Cervicalgia Surgical History History of toe surgery History of surgery on wrist Family History Mother Heart disease HTN (hypertension) Father HTN (hypertension) Heart disease Diabetes Social History Household Members: Spouse and Children Alcohol intake: current Alcohol intake frequency: does not drink Patient Tobacco Use Status: Never used Tobacco Current occupational status: employed Current occupation: [employer] Review of Systems Narrative Review of Systems - Constitutional: Reports intentional weight loss of ~50 pounds and feeling tired upon waking. - Neurological: Reports history of migraine and new-onset, severe, left-sided headaches. - Neurological: Reports left-sided facial numbness and tingling, dizziness on standing, and one episode of syncope associated with the severe headaches. - Neurological: Reports daytime sleepiness, sometimes falling asleep during conversations or while watching TV. - Eyes: Reports chronic left temporal vision loss and experiences a watery left eye with severe headaches. - HEENT: Reports left-sided facial swelling with severe headaches. - Sleep: Reports difficulty maintaining sleep, waking frequently between 3 a.m. and 5 a.m., and her notes occasional snoring. - Gastrointestinal: Denies stomach pain or vomiting as a side effect of Ze pbound. Physical Exam Exam Exam: Vital Signs: Last Vital Signs Pulse 77 11/09/25 10:41 BP 98/70 11/09/25 10:41 Pulse Ox 98 11/09/25 10:41 Oxygen Delivery Method Room Air 11/09/25 10:41 BMI result Body Mass Index 25.4 Assessment & Plan Assessment & Plan (1) Cluster headache, episodic: Code(s): G44.019 - Episodic cluster headache, not intractable Category: Medical Qualifiers: Intractability: not intractable Qualified Code(s): G44.019 - Episodic cluster headache, not intractable (2) Sleep disorder: Comment: snoring, gasping, fragmented sleep, excessive daytime tiredness, significant weight gain. h/o REM sleep behaviors. HST (2017)- nocturnal hypoxemia. Code(s): G47.9 - Sleep disorder, unspecified Category: Medical (3) Chronic migraine without aura: Code(s): G43.709 - Chronic migraine without aura, not intractable, without status migr ainosus Category: Medical Qualifiers: Status migrainosus presence: without status migrainosus Intractability: not intractable Qualified Code(s): G43.709 - Chronic migraine without aura, not intractable, without status migrainosus (4) Left-sided headache: Code(s): R51.9 - Headache, unspecified Category: Medical (5) IIH (idiopathic intracranial hypertension): Code(s): G93.2 - Benign intracranial hypertension Category: Medical (6) Snoring: Code(s): R06.83 - Snoring Category: Medical (7) Excessive daytime sleepiness: Comment: Junction sleepiness scale 12 Code(s): G47.19 - Other hypersomnia Category: Medical Plan Discussion Notes I discussed with the patient that her new, severe, left-sided headaches have features suggestive of a cluster headache, which is a different condition from her migraines. I proposed a trial of high-flow oxygen therapy as both a diagnostic tool and treatment for these acute attacks. I explained that I would place an order with the respiratory [employer] for oxygen tanks (M and E sizes) and a non-rebreather mask. I instructed her to use the oxygen at 15-25 liters per minute for 15-20 minutes at the start of a headache. I warned her that she must receive tanks and not an oxygen concentrator that plugs into the wall, and that my nurse, Rachel, will follow up to ensure the correct equipment is delivered. We discussed safety precautions, specifically avoiding use of oxygen near open flames, such as her gas stove. I educated her about the patient advocacy group [employer] and their website, [employer]org, as a resource. In the meantime, she will continue on her current migraine treatment plan [facility] Regarding her sleep disturbances and daytime sleepiness, I informed her I would order an in-lab sleep study to investigate for sleep apnea, explaining that her associated symptoms like syncope may help get it approved despite her previous normal study. We confirmed that she does not need refills on her current medications. She will follow up in 6 months or contact us sooner with any questions or to report the effect of the oxygen therapy. Patient was informed and verbally consented to the use of an ambient scribe for clinic note documentation during this visit. Plan For overall management: * Your advised to undergo an in-lab sleep study to assess for sleep apnea and periodic limb movements of sleep * An in-lab sleep study is required as this patient has had recent syncopal and seizure-like activity, with EEG showing left temporal irritability For left-sided headache consistent with left-sided cluster headache with autonomic symptoms and circadian pattern and h/o seizure-like activity triggered by severe headache: * Brain MRI with and without contrast was within normal limits * Baseline EEG (06/17/2025) Mildly abnormal EEG suggestive of left hemispheric paroxysmal dysfunction with temporal irritability. This suggests underlying tendency for seizure disorder. * CBC and CMP (05/12/2025): WNL * Continue riboflavin 400 mg daily in the morning * Continue magnesium 400 mg daily at bedtime * Continue Topiramate 100 mg tab, 2 tabs in the morning and 2 tabs at bedtime * Continue Rizatriptan 10mg tab, 1/2 - 1 tab (5-10mg) at onset of headache, may repeat in 2 hours. Max of 2 tabs (200mg) per 24 hours. * May take rizatriptan with OTC Tylenol 650-1000mg every 4-6 hours as needed.General recommendations: * Start home O2 at 15-25 L/min via non-rebreather facemask x's 15-20 minutes at onset of cluster headache attack. ?Patient will require both M tanks and E tanks. * We are ordering high-flow oxygen for you to treat the new, severe headaches you are having on the left side of your head. * A respiratory company called [facility] will deliver oxygen tanks and a special mask to your home. * When one of these specific headaches starts, put the mask on your face and turn the oxygen dial to a high setting (between 15 and 25) for 15 to 20 minutes. * It is very important that you receive oxygen tanks. Do not accept a machine that plugs into the wall. Our nurse, Rachel, will call you to make sure you receive the correct equipment. * For your safety, do not smoke or use the oxygen near an open flame, such as a gas stove that is on. * You can find more information about this type of headache and oxygen treatment at the website [employer].org * Do not drive or engage in high-risk activities, such as so low tub bathing, so low water activities, operating heavy machinery, etc- times at least 6 months following any breakthrough seizure-like activity. * Please obtain urgent ER evaluation if you fall and strike her head, or have an unwitnessed seizure/syncopal event.Future considerations: For left medial vision deficit and h/o IIH: * Follow-up with Neuro-Ophthalmology at [facility]. * Continue Acetazolamide 500 mg 3 times per day For chronic migraine prevention: * Continue Ajovy 225mg s subcutaneous injection every month * Continue topiramate 200 mg twice a day * Continue Botox 155 units IM every 12 weeks For acute migraine treatment: * Resume Rizatriptan 10mg prn mild to moderate migraine. * Continue Ubrogepant (Ubrelvy) 100mg tab, 1/2 - 1 tab (50-100mg) at onset of headache, may repeat in 2 hours. Max of 2 tabs (200mg) per 24 hours. May adjunct with OTC Tylenol 650-1000 mg every 4-6 hours as needed. * Continue cyproheptadine 4 mg daily at bedtime as needed. * May use Benadryl 25-50mg every 8 hours as needed for more severe migraine attack.Previous tx: Amitriptyline 50mg- no benefit. Previous acute treatment: Sumatriptan- causes nausea. Rizatriptan not fully effective for more severe migraine. Fioricet- lost efficacy. Will follow-up upon review of above and patient to follow-up in clinic in 3-6 months or sooner prn. Orders: Orders Comprehensive Met. Panel Today R56.9 - Unspecified convulsions RT PSG in-lab sleep study Today G44.019 - Episodic cluster headache, not intractable, G47.19 - Other hypersomnia, G47.9 - Sleep disorder, unspecified, R06.83 - Snoring, R56.9 - Unspecified convulsions Complete Blood Count Auto Diff Today R56.9 - Unspecified convulsions Medications: New Oxygen Home Use Start home O2 at 15-25 L/min via non-rebreather facemask x's 15- 20 minutes at onset of cluster headache attack. Patient will require both M tanks and E tanks. 3 ea 12RF G44.009 - Cluster headache syndrome, unspecified, not intractable Changed From topiramate 100mg qam and 150mg at bedtime x's 1 week, then 150mg bid x's 1 week, then 150mg qam and 200mg qhs x's 1 week, then 200mg BID orally .; 30 days 120 tabs 3RF To topiramate 200 mg (2 x 100 mg) PO BID 360 tabs 4RF 90 days From acetazolamide 500 mg (2 x 250 mg) PO TID 30 days 180 tabs 3RF G93.2 - Benign intracranial hypertension To acetazolamide 500 mg (2 x 250 mg) PO TID 540 tabs 3RF 90 days G93.2 - Benign intracranial hypertension Refilled cyclobenzaprine 5 - 10 mg (1 - 2 x 5 mg) PO BEDTIME PRN 60 tabs 3RF muscle spasm 30 days ubrogepant (Ubrelvy) take at onset of migraine, may repeat in 2hrs (may take w/ Tylenol 50 - 100 mg (0.5 - 1 x 100 mg) PO ONCE PRN 16 tabs 12RF migraine headache 30 days rizatriptan max 2 tabs per day or 4 tabs per week 5 - 10 mg (0.5 - 1 x 10 mg) PO Q2H PRN 12 tabs 12RF migraine headache 21 days Coding Level of Care Code Est Pt Level 4 (73747) Diagnoses Episodic cluster headache, not intractable G44.019 Intractability: not intractable Sleep disorder G47.9 Chronic migraine without aura without status migrainosus, not intractable G43.709 Status migrainosus presence: without status migrainosus Intractability: not intractable Left-sided headache R51.9 IIH (idiopathic intracranial hypertension) G93.2 Snoring R06.83 Excessive daytime sleepiness G47.19
[2025-11-09 10:41] VITALS: BP 98/70; PULSE 77; O2SAT 98; BMI 25.4
--- OUTSIDE RECORDS SUMMARY | 2025-11-09 12:26 | XMS_ITS | Encounter Summary ---
Author Organization [facility] Address [address] [place] [address] Care Team Providers Care Scada Technician Name Role Phone Gail Carbajal MD Primary Care Provider [phone] Reason for Visit * Reason Onset Date Comments Ear Problems 10/01/2024 Encounter Details Date Type Department Care Team (Late st Contact Info) Description 10/01/2024 Nurse Triage Adult Medicine [address] [phone] Gail Carbajal MD [address] [place] [address] Social History Tobacco Use Types Packs/Day Years [...] traveled recently to another state outside of [place], [place], [place], [place], [place], [place], [place]? no o If yes, did you quarantine [...] PM EST Office Visit Bariatric Surgery - [address] [place] [phone] David Solano MD [address] [place] [phone] 12/22/2025 9:30 AM EST Office Visit Pulmonology - [place] [address] [facility] [address] [place] [phone] Jie Gonzalez MD [address] [place] [phone] 12/28/2025 9:30 AM EST Office Visit [facility] Hematology Oncology [address] [place] [phone] Julianne Ramirez MD [address] [place] [phone] 06/15/2026 9:30 AM EDT Office Visit Adult Medicine [address] [phone] Gail Carbajal MD [address] [place] [address] documented as of this encounter Visit Diagnoses Not on filedocumented in this encounter Care Teams Scada Technician Relationship Specialty Start Date End Date Gail Carbajal MD [address] [place] [address] PCP - General 04/30/24 documented as of this encounter
--- OUTSIDE RECORDS SUMMARY | 2025-11-09 12:26 | XMS_ITS | Clinical Summary ---
Author Organization [facility] [address] [place] [address] [place] [phone] Phone Care Team Providers Care Hand Shoe Cutter Name Role Phone Gail Carbajal MD Primary Care Provider [phone] Allergies Active Allergy Reactions Criticality Noted Date [...] topically 2 (two) times a day. Active magnesium oxide (MAG-OX) 400 mg (241.3 [...] mouth 1 (one) time each day. Active clotrimazole (LOTRIMIN) 1 % cream Apply small amount to affected area twice daily 45 g 025 Active atorvastatin (LIPITOR) 10 mg tablet TAKE 1 TABLET BY MOUTH EVERYDAY AT BEDTIME 90 tablet 1 Active atorvastatin (LIPITOR) 10 mg tablet Take 1 tablet (10 mg total) by mouth at bedtime. 90 each 1 025 2024 Discontinued oxyCODONE (ROXICODONE) 5 mg immediate release tablet TAKE 1 TABLET BY MOUTH EVERY 4 HOURS NEEDED FOR 7 DAYS 025 2024 Discontinued(T herapy completed) tirzepatide, weight loss, (Zepbound) 7.5 mg/0.5 mL injectionIndicati ons:Class 1 obesity due to excess calories with body mass index (BMI) of 31.0 to 31.9 in adult, unspecified whether serious comorbidity present Inject 0.5 mL (7.5 mg total) under the skin every 7 (seven) days. 2 mL 025 2024 Active Problems Problem Noted Date Diagnosed Date Moderately severe major depression 09/10/2025 Weight loss 09/23/2024 Constipation 09/23/2024 Acute deep vein thrombosis ( DVT) of femoral vein of left lower extremity 03/05/2024 Multiple subsegmental pulmon huseyin emboli without acute cor pulmonale 03/05/2024 H/O gastric sleeve 03/05/2024 Hypercoagulable state 02/12/2024 Primary osteoarthritis of fi rst carpometacarpal [...] thumb 10/23/2022 Abnormal mammogram 02/27/2022 Overview (09/23/2024): [facility] breast and wellness 02/22/22 ovoid asymmetry anteromedial R breast. Spot compression CC and full field ML tomosynthesis images recommended. [facility] to call pt, they also sent letter. Perennial allergic rhinitis 01/24/2021 Mild intermittent asthma without complication Insomnia 09/09/2020 De Quervain's tenosynovitis, left 05/16/2020 Trigger finger of right thumb 05/16/2020 Trochanteric bursitis of both hips 03/06/2018 Pernicious anemia 01/06/2018 Easy bruising 01/06/2018 Migraine headache 09/02/2013 Seizure disorder 07/30/2013 Overview (09/23/2024): Dr. Neri, not taking any [...] Encounters Date Type Department Care Team Description 11/05/2025 Telephone [facility] Hematology Oncology [address] [place] [phone] [place] 10/12/2025 10:30 AM EST Office Visit [address] [phone] Allie Holguin PA Intertrigo (Primary Dx) 10/07/2025 Telephone Bariatric Surgery [facility] [address] [facility] [address] [place] [phone] David Solano MD 09/10/2025 1:00 PM EDT Office Visit [address] [phone] Gail Carbajal MD Intertrigo (Primary Dx); Moderately severe major depression (CMS/HCC V24, CMS/HCC V28); Need for prophylactic vaccination and inoculation against influenza 08/10/[address] [phone] Gail Carbajal MD from Last 3 Months Immunizations Immunization Administration [...] Removed September [address] [place] [facility] [place] History Medical History Date Comments GERD [...] on file Sexual Orientation Not on file Last Filed [...] PM EST Office Visit Bariatric Surgery - [place] [address] [facility] [address] [place] [phone] David Solano MD [address] [place] [phone] 12/22/2025 9:30 AM EST Office Visit Pulmonology - [place] [address] [facility] [address] [place] [phone] Jie Gonzalez MD [address] [place] [phone] 12/28/2025 9:30 AM EST Office Visit [facility] Hematology Oncology [address] [place] [phone] Julianne Ramirez MD [address] [place] [phone] 06/15/2026 9:30 AM EDT Office Visit Adult Medicine [facility] [address] [place] [phone] Gail Carbajal MD [address] [place] [phone] Health Maintenance Due Date Last Done Comments Colorectal Cancer Screening: Colonoscopy 1975 Drug Screen 1976 Non-Opioid Controlled Substance Agreement 1976 Hepatitis B Vaccines (1 of 3 [...] Procedure Name Priority Date/Time Associated Diagnosis Comments LIPID PANEL WITH REFLEX TO DIRECT LDL Routine 05/11/2025 2:01 PM EDT Routine physical examination from Last 3 Months or Most Recently Relevant to Health Maintenance Results * (ABNORMAL) Lipid panel with reflex to direct LDL (05/11/2025 2:01 PM EDT) Cholesterol 262(H) 0 - 200 mg/dL LAB CHEMISTRY METHOD 05/11/2025 4:36 PM EDT [facility] Triglycerides 133 0 - 150 mg/dL LAB CHEMISTRY METHOD 05/11/2025 4:36 PM EDT [facility] HDL 51 >=40 mg/dL LAB CHEMISTRY METHOD 05/11/2025 4:36 PM EDT [facility] LDL Calculated 184(H) 0 - 100 mg/dL LAB CHEMISTRY METHOD 05/11/2025 4:36 PM EDT [facility] VLDL Cholesterol Aamir 26.6 mg/dL LAB CHEMISTRY METHOD 05/11/2025 4:36 PM EDT [facility] Non HDL Chol. (LDL+VLDL) 211(H) <145 mg/dL LAB CHEMISTRY METHOD 05/11/2025 4:36 PM EDT [facility] Chol/HDL Ratio 5.1(H) 0.0 - 4.4 LAB CHEMISTRY METHOD 05/11/2025 4:36 PM EDT [facility] Blood Venous blood specimen / Unknown Venipuncture / Unknown 05/11/2025 2:01 PM EDT 05/11/2025 2:01 PM EDT Allie ROJAS LAB BLOOD ORDERABLES Final Res ult [facility] [address] [place] [address], from Last 3 Months or Most Recently Relevant to Health Maintenance Insurance [facility] [employer] Care Teams Hand Shoe Cutter Relationship Specialty Start Date End Date Gail Carbajal MD [address] [place] [phone] PCP - General 04/30/24
--- OUTSIDE RECORDS SUMMARY | 2025-11-09 12:26 | XMS_ITS | Clinical Summary ---
Author Organization [facility] Prior to 04/24/25 Address [address] [place] [address] Care Team Providers Care Stream Control Officer Name Role Phone Gail Carbajal MD Primary Care Provider Allergies Active Allergy [...] Screening (Colonoscopy) 2021 Influenza Vaccine (#1) 2025 2, 09/07/2021, 09/07/2021, Additional history exists DTap / Tdap / Td (2 - Td or Tdap) 07/18/2026 07/18/2016 Pneumococcal Vaccine Aged Out No long er eligible based on patient's age to complete this topic RSV Ped < 20 months Aged Out No longe r eligible based on patient's age to complete this topic Care Teams Stream Control Officer Relationship Specialty Start Date End Date Gail Carbajal MD [address] [place] [address] PCP - General Internal Medicine 12/31/23
--- OUTSIDE RECORDS SUMMARY | 2025-11-09 12:26 | XMS_ITS | Encounter Summary ---
Author Organization [facility] Address [address] [place] [phone] Phone Care Team Providers Care Make Up Operator Name Role Phone Keron Hansen MD Primary Care Provider Encounter Details Date Type Department Care Team (Late st Contact Info) Description 09/29/2024 Procedure Pass [facility] - MRI, [address] [address] Social History Tobacco Use Types Packs/Day Years [...] PM EDT Office Visit [facility] [address] [address] Christianne Leos MD [address] [place] [address] [place] [address] [email or web address] 05/26/2026 10:30 AM EDT Office Visit [facility] [address] [place] [address] Regan Forbes MD [address] [place] [address] [email or web address] documented as of this encounter Visit Diagnoses Not on filedocumented in this encounter Care Teams Make Up Operator Relationship Specialty Start Date End Date Keron Hansen MD [address] [place] [address] PCP - General Internal Medicine 05/08/23 documented as of this encounter Additional Source Comments The information contained in this document represents components of the legal health record. It is not the complete legal health record.[facility]
--- OUTSIDE RECORDS SUMMARY | 2025-11-09 12:26 | XMS_ITS | Encounter Summary ---
Author Organization [facility] Address [address] [place] [address] Care Team Providers Care Distillery Laborer Name Role Phone Gail Carbajal MD Primary Care Provider [phone] Encounter Details Date Type Department Care Team (Late st Contact Info) Description 11/05/2025 Telephone [facility] Hematology Oncology [address] [place] [phone] Bell Boswell MA Social History Tobacco Use Types Packs/Day Years [...] as of this encounter Progress Notes * Bell Boswell MA - 11/08/2025 3:07 PM EST All set - appt has been rescheduled. * Bell Boswell MA - 11/05/2025 2:04 PM EST Lvm for patient to return call to reschedule 01/04/26 appt with . documented in this encounter Plan of Treatment Upcoming Encounters Date Type Department Care Team (Late st Contact Info) Description 12/09/2025 1:00 PM EST Office Visit Bariatric Surgery - [place] [facility] [address] [place] [phone] David Solano MD [address] [place] [phone] 12/22/2025 9:30 AM EST Office Visit Pulmonology - [place] 175 [facility] [address] [place] [phone] Jie Gonzalez MD [address] [place] [phone] 12/28/2025 9:30 AM EST Office Visit [facility] Hematology Oncology [address] [place] [phone] Julianne Ramirez MD [address] [place] [phone] 06/15/2026 9:30 AM EDT Office Visit Adult Medicine [facility] [address] [place], [place] [phone] Gail Carbajal MD [address] [place] [address] documented as of this encounter Visit Diagnoses Not on filedocumented in this encounter Additional Health Concerns Assessment Noted Time PHQ-9 Depression Total Score: 19 025 1:16 PM EST documented as of this encounter Care Teams Distillery Laborer Relationship Specialty Start Date End Date Gail Carbajal MD [address] [place] [address] PCP - General 04/30/24 documented as of this encounter
--- OUTSIDE RECORDS SUMMARY | 2025-11-09 12:26 | XMS_ITS | Clinical Summary ---
Author Organization [facility] Address [address] [address] Phone Care Team Providers Care Welfare Manager Name Role Phone Keron Hansen MD Primary [...] 1:00 PM EDT Office Visit [facility] [address] [place] [address] Christianne Leos MD Optic neuropathy (Primary Dx) [...] Description 03/07/2026 1:30 PM EDT Office Visit [facility] [address] [address] Christianne Leos MD [address] [place] [phone] [email or web address] 05/26/2026 10:30 AM EDT Office Visit [address] [address] Regan Forbes MD [address] [place] [phone] [email or web address] Health Maintenance Due Date Last Done [...] OPHTHALMOLOGY IMAGING Final Result Performing Organization Address City/[facility] Co de Phone Number KHAI * Demarco [...] threshold: Reduced. Findings: Inferior arcuate defect. Notes [facility] Micheal Marti MD OPHTHALMOLOGY IMAGING Final Result Performing Organization Address [facility] Co de Phone Number KHAI from Last 3 Months Insurance [employer] [place] [address] [address] [place] [address] [email or web address] [address] [place], [place] [address] [address] [place], [place] [address] [facility] Care Teams Welfare Manager Relationship Specialty Start Date End Date Keron Hansen MD [address] [place] [phone] PCP - General Internal Medicine 05/08/23 Additional Source Comments The information contained in this document represents components of the legal health record. It is not the complete legal health record.[facility]
--- OUTSIDE RECORDS SUMMARY | 2025-11-09 12:26 | XMS_ITS | Encounter Summary ---
Author Organization [facility] Address [address] [place] [address] Phone Care Team Providers Care Fine Dining Server Name Role Phone Keron Hansen MD Primary Care Provider Encounter Details Date Type Department Care Team (Late st Contact Info) Description 09/29/2024 Procedure Pass [facility] - MRI, [address] [address] Social History Tobacco Use Types Packs/Day Years [...] PM EDT Office Visit [facility] [address] [address] Christianne Leos MD [address] [place] [address] [place] [address] [email or web address] 05/26/2026 10:30 AM EDT Office Visit [facility] [address] [place] [address] Regan Forbes MD [address] [place] [address] [email or web address] documented as of this encounter Visit Diagnoses Not on filedocumented in this encounter Care Teams Fine Dining Server Relationship Specialty Start Date End Date Keron Hansen MD [address] [place] [address] PCP - General Internal Medicine 05/08/23 documented as of this encounter Additional Source Comments The information contained in this document represents components of the legal health record. It is not the complete legal health record.[facility]
--- OUTSIDE RECORDS SUMMARY | 2025-11-09 12:26 | XMS_ITS | Encounter Summary ---
Author Organization [facility] Address [address] [place] [address] Care Team Providers Care Inspection Supervisor Name Role Phone Gail Carbajal MD Primary Care Provider [phone] Reason for Visit * Reason Onset Date Comments Earache 10/05/2024 Encounter Details Date Type Department Care Team (Late st Contact Info) Description 10/05/2024 Nurse Triage Adult Medicine [address] [phone] Gail Carbajal MD [address] [place] [address] Social History Tobacco Use Types Packs/Day Years [...] last menstrual period? None depo Protocols used: [id number] * Donna Rodriguez - 10/05/2024 10:33 AM [...] recently to another state outside of [place], [place], [place], [place], [place], [place], [place]? no o If yes, did you [...] yes, gather 3rd democrat insurance information Third Green Party Information: not applicable PCP: Gail Carbajal MD Payor: / No coverage found. documented in this encounter Plan of Treatment Upcoming Encounters Date Type Department Care Team (Late st Contact Info) Description 12/09/2025 1:00 PM EST Office Visit Bariatric Surgery - [place] 175 [facility] [address] [place] [phone] David Solano MD [address] [place] [phone] 12/22/2025 9:30 AM EST Office Visit Pulmonology - [place] 175 [facility] [address] [place] [phone] Jie Gonzalez MD [address] [place] [phone] 12/28/2025 9:30 AM EST Office Visit [facility] Hematology Oncology [address] [place] [phone] Julianne Ramirez MD [address] [place] [phone] 06/15/2026 9:30 AM EDT Office Visit Adult Medicine [address] [phone] Gail Carbajal MD [address] [place] [address] documented as of this encounter Visit Diagnoses Not on filedocumented in this encounter Care Teams Inspection Supervisor Relationship Specialty Start Date End Date Gail Carbajal MD [address] [place] [address] PCP - General 04/30/24 documented as of this encounter
== END 2025-11-09 11:27 | disposition home or self-care (01) ==
LOC: HO.HSMS 10:05
PROVIDERS: Visit Provider Nurse Practitioner Family
DX: G44.019 Episodic cluster headache, not intractable (principal); G47.9 Sleep disorder, unspecified; G43.709 Chronic migraine without aura, not intractable, without status migrainosus; R51.9 Headache, unspecified; G93.2 Benign intracranial hypertension; R06.83 Snoring; G47.19 Other hypersomnia
CPT/HCPCS: 99214

== ENCOUNTER → 2025-11-09 10:05 | Outpatient (BNVA) | payer OTHER, SELFPAY | PROVIDERS: Visit Provider Nurse Practitioner Family | DX: G43.709 Chronic migraine without aura, not intractable, without status migrainosus (principal); G44.019 Episodic cluster headache, not intractable; G47.9 Sleep disorder, unspecified; G93.2 Benign intracranial hypertension; R06.83 Snoring; G47.19 Other hypersomnia; Z79.899 Other long term (current) drug therapy | CPT/HCPCS: 99212 ==